=== PATIENT | male | born 1960 | race Caucasian/White ===

== ENCOUNTER 2019-10-18 15:56 | Inpatient (IN) | payer MEDICARE, MEDICAID, SELFPAY ==
[2019-10-18] VITALS (7 sets, daily range): BP systolic 120–127; BP diastolic 65–84; PULSE 84–110; RESP 21–24; TEMP 36.7; O2SAT 94–100; BMI 27.6
--- NOTE | 2019-10-18 16:12 | USCV_ITS ---
Jason Lopez Age: 59 Gender: M : 1960 Exam Date: 10/18/2019 16:21 Ordering Phys: Shawanda Mcleod Technologist: Agustina Dixon [place] [facility] [place]: COLD FOOT WITH HISTORY OF LT FEM TO RT SFA Risk Factors: SMOKER Previous Vascular Surgery: 4 YEARS AGO GRAFT FROM LT IL TO RT SFA DISTALLY RIGHT LEFT BP: 126.0 / 74.00 BP: / 0 Waveform Velocity (cm/s) Velocity (cm/s) Waveform Monophasic 25.4 Iliac Prox Monophasic 45.6 Iliac Mid Monophasic 53.7 Iliac Distal Monophasic 44.6 GENERAL EXPEDITOR Monophasic 29.0 SFA Prox FINDINGS No flow seen in any [place] vessels from mid Rt SFA. The Graft has NO FLOW from Anastomosis at Lt Iliac Art thru out. Unable to do [place]...No flow to Rt IS CONSULTANT or DPA Common femoral and proximal superficial femoral artery on the right side. No Doppler flow signals were obtained in the rest of the superficial femoral, popliteal and infrapopliteal vessels CONCLUSIONS 1. Features of total occlusion of the? Femoro femoral bypass graft #2. Occlusion of the right femoral artery at the level of the proximal SFA with no flow signals in the rest of the superficial femoral, popliteal and infrapopliteal vessels. Dr. Avila was informed about this findings. No similar previous studies are available for comparison Dr Antonio Chang MD [facility] (Electronically Signed) Final Date: 18 October 2019 19:00 S
--- NOTE | 2019-10-18 16:12 | USCV_ITS ---
[place] par[place] Age: 59 Gender: M : 1960 Exam Date: 10/18/2019 16:14 Ordering Phys: Shawanda Mcleod Technologist: Agustina Dixon Exam Location: [facility] [place] Indication: CRAMPING IN RT CALF HISTORY: Cramping in Rt Calf PROCEDURES: Venous duplex imaging was performed in only the right lower extremity. The following venous structures were evaluated: common femoral vein, profunda vein, proximal portion of the greater saphenous vein, superficial femoral vein, and the popliteal vein. In addition, the posterior tibial and peroneal trunk were evaluated. Serial compression, augmentation maneuvers, and spectral Doppler flow evaluation were performed. FINDINGS: No DVT seen in any vessel examinednormal 2-D Doppler and augmentation and compressibility throughout the lower extremity venous structures. Additional imaging through the proximal calf veins also reveals no thrombus. Limited evaluation of the greater saphenous vein is patent with no thrombus. CONCLUSIONS No DVT right lower extremity. Dr. Komal Bass DO (Electronically Signed) Final Date: 19 October 2019 08:08 S
--- NOTE | 2019-10-18 16:14 | ED_ITS ---
Documented by User: DOM Hutchison 10/22/19 07:03 HPI - Extremity Problem General: Chief complaint: Extremity Problem,Nontraumatic Stated complaint: R LEG PAIN Time Seen by Provider: 10/18/19 16:01 Source: patient Mode of arrival: ambulatory Limitations: no limitations History of Present Illness: HPI Narrative: Patient is a 59-year-old male who presents to ED today with complaints of right lower extremity pain over the past 2 days. Patient reports he is having pain in his calf. He was initially seen at [facility] and referred to the emergency department for further evaluation. Upon exam their note states that patient had a 1 cm greater calf circumference on the right compared to the left. Patient tells me he has had a previous femoropopliteal to that extremity as well as some other aortic/iliac resection due to a severe groin staph infection that had to have significant debridement. Associated symptoms: Deny chest pain or fever(s) Review of Systems Const: Denies: fever, chills or body aches Card: Reports: shortness of breath on exertion (chronic with his COPD); Denies: chest pain, palpitations, irregular heart rhythm, edema, lightheadedness, syncope or pre-syncope Resp: Reports: shortness of breath (chronic with his COPD; at baseline per pt) GI: Denies: abdominal pain, nausea or vomiting : Denies: flank pain Musc: Reports: extremity pain; Denies: joint pain, joint swelling, redness, joint warmth, joint stiffness, limited range of motion, muscle cramps or muscle weakness Neuro: Reports: other (reports neuropathy in bilateral LEs) [facility] ED PFSH: Medical History (Updated 10/20/19 @ 08:11 by Manish Smith DO) COPD (chronic obstructive pulmonary disease) Femoral-femoral bypass graft thrombosis, right This is actually a left femoral to right popliteal artery bypass utilizing [place] graft H/O necrotizing fasciitis Involving the right hip and inguinal area, status post extensive debridement; approximately 15 years ago History of CVA (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 Social History Smoking and tobacco status: current every day smoker cigarettes Packs smoked per day: 1.5 Alcohol intake: former Former alcohol use details: sober x 6 yrs Physical Exam Const: COMMON NORMALS: no apparent distress, oriented x3, no limitations, alert and well nourished Chest: COMMONS NORMALS: inspection of chest normal Resp: COMMON NORMALS: normal respiratory effort Cardio: COMMON NORMALS: regular rhythm RATE: tachycardic (mild) RHYTHM: regular rhythm Extremity: OTHER: pt has mild TTP of R calf; R lower leg is cooler/more pale when compared to L; he does not seem to be able to tell me if this is chronic or not from his previous surgeries; DP/PT pulses could not be felt. Neuro: COMMON NORMALS: oriented x3 SENSORIUM/ORIENTATION: Yes alert Course ED course: Spoke to Agustina the cath lab tech who informed me that patient's g raft going from his left iliac artery down to his right distal femoral is completely occluded causing acute limb ischemia. I spoke to Dr. Smith who spoke to Dr. Avila who recommends heparin and admit and him and/or Dr. St will consult. Vital Signs: Vital signs: Vital Signs Temperature 98.6 F 10/22/19 04:00 Pulse Rate 96 10/22/19 04:00 Respiratory Rate 21 H 10/22/19 04:00 Blood Pressure 129/79 10/22/19 04:00 Pulse Oximetry 90 10/22/19 04:00 Discharge Plan Discharge Patient Disposition: Admitted As Inpatient Admit Provider: Holly Harvey Clinical Impression: Femoral-femoral bypass graft thrombosis, right, COPD (chronic obstructive pulmonary disease), Peripheral vascular disease, Hypertension, Hyperlipidemia, Critical limb ischemia with history of revascularization of same extremity Condition: Stable Discharge Date/Time: 10/18/19 18:44 Coding Level of Care Code ED Home Worker for Chg Fwd Exam Problem Focused Documented by User: Manish Smith DO 10/20/19 08:11 HPI - Extremity Problem General: Chief complaint: Extremity Problem,Nontraumatic Stated complaint: R LEG PAIN Time Seen by Provider: 10/18/19 16:01 [facility] ED PFS: Medical History (Updated 10/20/19 @ 08:11 by Manish Smith DO) COPD (chronic obstructive pulmonary disease) Femoral-femoral bypass graft thrombosis, right This is actually a left femoral to right popliteal artery bypass utilizing [place] graft H/O necrotizing fasciitis Involving the right hip and inguinal area, status post extensive debridement; approximately 15 years ago History of CVA (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 Exam unchanged from her documentation. Discussed with the patient he has an occlusion of his graft from left iliac all the way to the proximal popliteal. We will go ahead and start on heparin. Have discussed with hospitalist as well as with Dr. Avila. Consult Dr. Ellington for angiography and then further evaluation of potential limb salvaging procedures. Vital Signs: Vital signs: Vital Signs Temperature 98.6 F 10/22/19 04:00 Pulse Rate 96 10/22/19 04:00 Respiratory Rate 21 H 10/22/19 04:00 Blood Pressure 129/79 10/22/19 04:00 Pulse Oximetry 90 10/22/19 04:00 Discharge Plan Discharge Patient Disposition: Admitted As Inpatient Admit Provider: Holly Harvey Clinical Impression: Femoral-femoral bypass graft thrombosis, right, COPD (chronic obstructive pulmonary disease), Peripheral vascular disease, Hypertension, Hyperlipidemia, Critical limb ischemia with history of revascularization of same extremity Condition: Stable Discharge Date/Time: 10/18/19 18:44 Coding Level of Care Code ED Home Worker for Shira Martins Exam Problem Focused
[2019-10-18] MEDS: morphine 4 mg/mL SDV 1 mL IM (16:29)
--- NOTE | 2019-10-18 16:33 | PC.NURSE ---
PORTABLE ULTRASOUND AT BEDSIDE
--- NOTE | 2019-10-18 17:13 | ECG_ITS ---
Measurements Intervals [place] Rate: 96 P: 66 DC: 148 QRS: 93 QRSD: 90 T: 72 QT: 334 QTc: 424 SINUS RHYTHM BORDERLINE RIGHT AXIS DEVIATION [QRS AXIS > 90] Compared to ECG 02/09/2016 13:56:55 No significant changes Electronically Signed On 10-18-2019 20:43:30 DRILL GRINDER [address] Rafael St M.D. [email or web address]
--- NOTE | 2019-10-18 17:13 | XR_ITS ---
WS: [id number] Portable AP upright chest, 10/18/2019 Clinical Data: cough/congestion Comparison: PA and lateral chest, 02/09/2016. Findings: No nodules, masses or effusions are seen. The heart is normal. The pulmonary vascularity is not increased. No pneumonia or pneumothorax is seen. XR/XR chest 1V portable [id number] Impression: Negative chest.
[2019-10-18 17:42] LABS: Basophils % 0.1 %; Eosinophils # 0.1 10^3/uL (0.0-0.8); Eosinophils % 0.6 %; Hematocrit 44.3 % (42.0-52.0); Hemoglobin 13.6 g/dL (11.7-16.6); Lymphocytes # 1.3 10^3/uL (0.8-4.8); Lymphocytes % 9.8 %; Mean Corpuscular HGB Conc 30.7 g/dL (30.0-36.0); Mean Corpuscular Hemoglobin 27.6 pg (28.0-34.0); Mean Corpuscular Volume 89.9 fL (80-94); Monocytes # 0.8 10^3/uL (0.2-0.9); Monocytes % 5.6 %; Neutrophils # 11.3 10^3/uL (1.8-7.7); Neutrophils % 83.2 %; Nucleated Red Blood Cells % 0 %; Platelet Count 133 10^3/cmm (130-400); Red Blood Count 4.93 10^6/uL (4.1-5.3); Red Cell Distribution Width 14.5 % (12.1-15.1); White Blood Count 13.6 10^3/uL (4.0-10.0)
[2019-10-18 17:48] LABS: INR 0.93 (0.8-1.2)
[2019-10-18 17:49] LABS: Partial Thromboplastin Time 27.9 SECONDS (23.9-36.7)
[2019-10-18 17:59] LABS: Alanine Aminotransferase 15 U/L (0-41); Albumin Level 3.9 g/dL (3.5-5.2); Alkaline Phosphatase 76 IU/L (40-130); Anion Gap 12.4 (5-19); Aspartate Amino Transferase 19 U/L (0-40); Blood Urea Nitrogen 16 mg/dL (6-20); Calcium 9.6 mg/dL (8.5-10.5); Carbon Dioxide 33 mmol/L (22-29); Chloride 100 mmol/L (98-107); Creatinine Clr Calc Pharmacy 93.7199; Glomerular Filtration Rate 86.7 mL/min (90-130); Glucose 95 mg/dL (65-115); Potassium 4.4 mmol/L (3.5-5.1); Sodium 141 mmol/L (136-145); Total Bilirubin 0.3 mg/dL (0.15-1.2); Total Protein 6.9 g/dL (6.6-8.7)
[2019-10-18] MEDS: heparin 5,000 unit/mL INJ 1 mL 5000 UNIT IV (18:07)
[2019-10-18] MEDS: heparin drip 25,000 UNIT/500 ML PREMIX 23.1 UNIT IV (18:08)
--- NOTE | 2019-10-18 18:19 | PM.HP ---
Providers/Chief Complaint Admitting Physician: Holly Harvey MD Primary Care Provider: Jason Olea MD Chief Complaint: PAD;Graft Occlusion History of Present Illness Jason Lopez is a 59 year old male with PMHx of Peripheral vascular disease with prior intervention involving left femoral to right popliteal artery bypass in 2016; Chronic smoker, COPD, Former EtOH abuse (abstinent x 6 yrs), hx of prior brainstem CVA, s/p colectomy secondary to toxic megacolon from severe C. difficile colitis; inguinal and right hip necrotizing fasciitis requiring significant debridement, HTN, Hyperlipidemia; presents from primary care physician's office for evaluation of noted worsening claudication of the right lower extremity and concern for acute limb ischemia. Patient has complained of increasing right lower extremity calf pain particularly with activity with some pain in the gluteal area as well for the past several days in addition to some burning pain in his toes. Because of his history of prior PVD with intervention he got concerned that perhaps his circulation was compromised again so he presented to his PCPs office. There was a noted 1 cm discrepancy between the right and left lower extremity as well as diminished pulses and cool right lower extremity. Patient is a good historian and collateral information is obtained from review of medical record. As mentioned above he had his prior intervention done by Dr. Avila in 2016. Patient readily admits that he has not been taking his medications as prescribed for quite a while which includes aspirin, Plavix and statin. He was taking pain medication, specifically hydrocodone but has not had a prescription for this in quite some time. He is a chronic smoker, smokes anywhere between 1 to 1-1/2 packs/day. He is a former alcoholic though states that he has been relatively abstinent for about 6 years now. He denies any pain on the left, chest pain, lightheadedness/dizziness. He has chronic shortness of breath particularly with exertion secondary to COPD but is not oxygen dependent at baseline. Work-up in the ER today indicates leukocytosis with a white count of 13.6, otherwise normal CBC, normal chemistry including renal function, normal LFTs. Vital signs are stable. Ultrasound has been done and prelim report indicates complete occlusion of patient's previous graft extending from the left iliac artery to the right distal femoral artery. Dr. Smith has spoken with Dr. Avila who will consult on the case and is recommended initiating a heparin drip. He will speak with Dr. St as patient will likely need a peripheral angiogram in anticipation of surgical intervention. Review of Systems Const: Denies: fever, chills, change in appetite or fatigue Eyes: Denies: change in vision ENMT: Denies: painful swallowing Card: Reports: shortness of breath on exertion (chronic), leg pain with exertion (RLE) and bluish discoloration of hands/feet (RLE); Denies: chest pain, swelling of feet/ankles or lightheadedness Resp: Denies: productive cough or non-productive cough GI: Denies: abdominal pain, nausea, vomiting, vomiting blood or blood in stool : Denies: painful urination or urinary frequency Musc: Reports: other (R calf pain, R buttock pain); Denies: back pain Skin/Breast: Denies: rash Neuro: Reports: difficulty walking (due to pain in RLE); Denies: numbness in extremities or weakness in extremities Psych: Denies: anxiety Medications/Allergies Allergies Allergy/AdvReac Type Severity Reaction Status Date / Time clindamycin Allergy ALGY-Rash Verified 10/18/19 16:05 Penicillins Allergy Unknown Verified 10/18/19 16:05 vancomycin Allergy red man Verified 10/18/19 11:54 disease PFSH Acute PFSH: Medical History COPD (chronic obstructive pulmonary disease) Femoral-femoral bypass graft thrombosis, right H/O necrotizing fasciitis Involving the right hip and inguinal area, status post extensive debridement; approximately 15 years ago History of CVA (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 Social History (Updated 10/18/19 @ 18:33 by Holly Harvey MD) Smoking and tobacco status: current every day smoker cigarettes Packs smoked per day: 1.5 Alcohol intake: former Former alcohol use details: sober x 6 yrs Vitals/I&O/Wt Last Vital Signs Temp 98.1 F 10/18/19 15:59 Pulse 101 H 10/18/19 18:11 Resp 21 H 10/18/19 18:11 BP 120/65 10/18/19 18:11 Pulse Ox 94 10/18/19 18:11 Weight last 48 hrs Weight 82.554 kg Physical Exam Const: COMMON NORMALS: no apparent distress and oriented x3 GENERAL APPEARANCE: cooperative, comfortable and disheveled ORIENTATION/CONSCIOUSNESS: Yes awake HENMT: COMMON NORMALS: normocephalic, head/scalp atraumatic, hearing grossly normal bilaterally and moist oral mucous membranes HEAD & SCALP: normocephalic and atraumatic Eye: COMMON NORMALS: PERRL, EOMs intact bilaterally and conjunctivae normal CONJUNCTIVA: Yes conjunctivae normal PUPIL: Yes PERRL Neck/C-Spine: COMMON NORMALS: full ROM GENERAL: Yes normal visual inspection and Yes trachea midline Resp: COMMON NORMALS: normal respiratory effort, no retractions, no use of accessory muscles and clear to auscultation bilaterally EFFORT & INSPECTION: Yes able to speak in complete sentences, Yes symmetric chest movement and No tachypneic AUSCULTATION: wheezes expiratory wheezes and diminished lung sounds bilateral Cardio: COMMON NORMALS: regular rate, regular rhythm, S1 normal heart sound, S2 normal heart sound and no murmurs RATE: regular rate RHYTHM: regular rhythm HEART SOUNDS: S1 normal and S2 normal GI: COMMON NORMALS: normal to inspection, nondistended, normoactive bowel sounds, soft to palpation and non-tender INSPECTION: Yes visible herniation (ventral) and Yes ostomy present PALPATION: Yes soft : OTHER: R inguinal area with healed scar Back/Pelvis: COMMON NORMALS: thoracic and lumbar spine normal to inspection Extremity: COMMON NORMALS: normal to inspection, full ROM and no clubbing, cyanosis or edema; negative for no pedal edema GENERAL: Yes calf tenderness (RLE) OTHER: RLE: cool to touch, diminished peripheral pulses, dusky toes particularly great toe Neuro: COMMON NORMALS: oriented x3, moves all extremities, no focal motor deficits and no sensory deficits noted Psych: COMMON NORMALS: mental status grossly normal, thought process normal, cooperative, affect normal and speech normal SPEECH: Yes normal speech THOUGHT PROCESS: normal thought process Skin: COMMON NORMALS: no rashes or lesions noted, no jaundice, no petechiae and no mottling GENERAL SKIN EXAM: dry skin, mottling (RLE) and scars (abdomen) surgical Data : 10/18/19 17:30 10/18/19 17:30 A&P Assessment and plan (1) Right calf pain: -with known PVD status post left common femoral artery to right popliteal artery bypass in 2016 secondary to right lower extremity exertional claudication and occlusion of right superficial femoral artery; procedure done by Dr. Avila -Follow-up ultrasound and venous studies, prelim report indicates complete occlusion of previous graft so definite concern for acute limb ischemia, symptomatic with pain, pallor, paresthesia, diminished pulses -Patient has multiple risk factors including medication noncompliance, being a chronic smoker and pre-existing peripheral vascular disease -Start on heparin drip -Fall precautions -Pain control as needed -To be seen by Dr. Avila and Dr. St -keep NPO for now, start on IVF hydration -will need antiplatelet therapy and statin -monitor vital signs Status: Acute Code(s): M79.661 - Pain in right lower leg (2) COPD (chronic obstructive pulmonary disease): -has known COPD, not oxygen dependent at baseline, no acute exacerbation currently -supplemental oxygen as needed -monitor respiratory status -Neb treatments as needed Status: Acute Qualifiers: COPD type: unspecified COPD Qualified Code(s): J44.9 - Chronic obstructive pulmonary disease, unspecified Code(s): J44.9 - Chronic obstructive pulmonary disease, unspecified Additional A&P Information -Chronic smoker: 1-1.5 PPD; nicotine patch -HTN; resume oral antihypertensive -Hyperlipidemia; check lipid panel in AM; will need statin (high intensity) -Chronic pain; pain control as needed -s/p colectomy secondary to toxic megacolon from C.difficile colitis; colectomy care -former EtoH abuse -hx of prior brainstem CVA; no residual deficits -NPO after midnight -no need for DVT ppx as on heparin drip -Dispo: home -Code status: FULL code Attestations Medical Necessity Statement*: Jason Lopez's hospital stay will require greater than 2 midnights for management of acute critical limb ischemia requiring further evaluation and intervention. Time Spent in Patient Care: Greater than 35 minutes (>than 50% of time spent in counselling and/or direct pt care on unit). Coding Level of Care Code Acute Teaching Supervisor for Chg Fwd Diagnoses Right calf pain M79.661 COPD (chronic obstructive pulmonary disease) J44.9 COPD type: unspecified COPD
[2019-10-18] MEDS: HYDROcodone-acetaminophen 5-325 mg Tablet 1 TAB PO (19:18)
[2019-10-18 19:52] LABS: Add Urine Microscopic? NO
[2019-10-18 19:53] LABS: Bilirubin Urine Neg (NEGATIVE); Blood Urine Neg (Negative); Glucose Urine UA Norm (Normal); Leukocyte Esterase Urine Negative (Negative); Nitrate Urine Negative (Negative); Protein Urine Neg (Negative); Urine Appearance Clear (CLEAR); Urine Color Yellow (Yellow); Urobilinogen Urine Norm (Negative); pH Urine 5 (5-7)
[2019-10-18 19:54] LABS: Ketones Urine 1+ (Negative)
--- NOTE | 2019-10-18 20:06 | PC.NURSE ---
Patient arrived to room from ED after report was received via phone. Patient complained of pain 7/10 in his right leg. Patient states that IV morphine only help for a minute. Patient was given PRN [place] for pain. Patient is alert and oriented and is able to ambulate, however has pain in right leg when ambulating. Pulses were easily doppled in left foot. Left foot is warmer than right foot. Pulses were harder to find by Doppler in right foot and pulses had a quieter/muffled sound.
[2019-10-18] MEDS: atorvastatin 40 mg Tablet PO (20:12)
[2019-10-18 20:48] LABS: Glucose Point of Care 113 mg/dL (70-110)
--- NOTE | 2019-10-18 21:19 | PM.CONSULT ---
Providers/Reason For Consult Consulting Physican/Specialty*: Interventional cardiology Reason for Consult*: Critical limb ischemia severe peripheral vascular disease Attending Physician: Holly Harvey MD Primary Care Provider: Jason Olea MD History of Present Illness History of Present Illness Jason Lopez is a 59 year old male presented with worsening of right leg pain. Please note that I do not have any previous record available to me therefore history is as per patient. 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 In 2016 Dr. Avila performed femorofemoral and femoral-popliteal right side bypass it worked fine for the last for 5-year. According to him he has been noncompliant continues to smoke and does not take medicine for the past few weeks he has been hurting upon walking with typical claudication-like symptoms until yesterday his pain became more constant and not unbearable therefore he decided to come to the ER. Doppler exam did not reveal any blood supply in the right leg including SFA popliteal and below the knee. His foot and leg still are warm not cold. His motor and sensation are intact. He is in moderate pain. He has been started on heparin drip. Review of Systems Const: Denies: fever, chills, body aches, change in appetite or fatigue Eyes: Denies: change in vision or photophobia ENMT: Denies: painful swallowing Card: Reports: shortness of breath on exertion (chronic), leg pain with exertion (RLE) and bluish discoloration of hands/feet (RLE); Denies: chest pain, palpitations, irregular heart rhythm, edema, swelling of feet/ankles, lightheadedness, syncope or pre-syncope Resp: Reports: shortness of breath (chronic with his COPD; at baseline per pt); Denies: productive cough or non-productive cough GI: Denies: abdominal pain, nausea, vomiting, vomiting blood or blood in stool : Denies: flank pain, painful urination or urinary frequency Musc: Reports: extremity pain and other (R calf pain, R buttock pain); Denies: back pain, joint pain, joint swelling, redness, joint warmth, joint stiffness, limited range of motion, muscle cramps or muscle weakness Skin/Breast: Denies: rash Neuro: Reports: difficulty walking (due to pain in RLE) and other (reports neuropathy in bilateral LEs); Denies: numbness in extremities or weakness in extremities Psych: Denies: anxiety Meds/Allergies Home Medications and Allergies Home Medications Medication Instructions Recorded Confirmed Type fluoxetine 20 mg capsule 20 mg PO DAILY 10/18/19 10/18/19 History fluticasone 250 mcg-salmeterol 50 1 - 2 inh INHALATION BID each 10/18/19 10/18/19 History mcg/dose blistr powdr for inhalation lisinopril 2.5 mg tablet 2.5 mg PO DAILY 10/18/19 10/18/19 History prednisone 10 mg tablet 20 mg PO DAILY 10/18/19 10/18/19 History Allergies Allergy/AdvReac Type Severity Reaction Status Date / Time clindamycin Allergy ALGY-Rash Verified 10/18/19 16:05 Penicillins Allergy Unknown Verified 10/18/19 16:05 vancomycin Allergy red man Verified 10/18/19 11:54 disease Current Medications Current Medications Generic Name Dose Route Start Last Admin Trade Name Freq PRN Reason Stop Dose Admin Hydrocodone Bitart/Acetaminophen 1 tab 10/18/19 18:45 10/18/19 19:18 [place] 5-325 Mg PO 1 tab Q4H PRN Administration MODERATE TO SEVERE PAIN Atorvastatin Calcium 40 mg 10/18/19 21:00 10/18/19 20:12 Lipitor PO 40 mg BEDTIME MANDO Administration Heparin Sodium/Sodium Chloride 25,000 unit in 500 mls @ 0 mls/hr 10/18/19 17:15 10/18/19 18:08 Heparin Drip IV 14 unit/kg/hr .Q0M MANDO 23.1 mls/hr Administration Protocol Per Protocol PFSH Acute PFSH: Medical History (Updated 10/18/19 @ 21:[address] MD) COPD (chronic obstructive pulmonary disease) (Acute) Femoral-femoral bypass graft thrombosis, right (Acute) H/O necrotizing fasciitis (Acute) Involving the right hip and inguinal area, status post extensive debridement; approximately 15 years ago History of CVA (cerebrovascular accident) (Acute) Involving 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 Avila Hx of colectomy (Acute) Secondary to toxic megacolon from severe C. difficile colitis Social History Smoking and tobacco status: current every day smoker cigarettes Packs smoked per day: 1.5 Alcohol intake: former Former alcohol use details: sober x 6 yrs Vitals/I&O/Wt Last Vital Signs Temp 98.1 F 10/18/19 19:21 Pulse 101 H 10/18/19 18:45 Resp 23 H 10/18/19 18:45 BP 126/84 10/18/19 18:45 Pulse Ox 94 10/18/19 18:45 Weight last 48 hrs Weight 182 lb Physical Exam Narrative: EXAM NARRATIVE: GENERAL: Patient is alert, awake and oriented x3. Mild discomfort NECK: No jugular vein distension. HEENT: No cyanosis. No icterus. No pallor. HEART: Regular S1 and S2. No murmur, rub or gallop. LUNGS: Clear to auscultate bilaterally. ABDOMEN: Soft, nontender and nondistended. Extensive lower abdominal scarring, right groin scarring CENTRAL NERVOUS SYSTEM: Grossly nonfocal. EXTREMITIES: Lower extremities without edema bilaterally. Pulses not palpable in both extremities, both feet legs are warm and not cold. Right foot slight dusky A&P Assessment and plan (1) Critical limb ischemia with history of revascularization of same extremity: This is a very complicated patient with prior many intervention and distorted anatomy. His history is compatible with critical limb ischemia. Femorofemoral bypass is occluded. He continues to be noncompliant. Will continue heparin pain control. Will keep the foot warm I will ask for CTA with runoff tonight. I will assess his anatomy and discuss this with Dr. Avila. We will advise accordingly Status: Acute Code(s): I99.8 - Other disorder of circulatory system; Z95.9 - Presence of cardiac and vascular implant and graft, unspecified (2) Hyperlipidemia: On statin will continue meds Status: Acute Code(s): E78.5 - Hyperlipidemia, unspecified (3) Hypertension: Well-controlled continue med Status: Acute Code(s): I10 - Essential (primary) hypertension (4) COPD (chronic obstructive pulmonary disease): History of COPD. Currently stable. Status: Acute Qualifiers: COPD type: unspecified COPD Qualified Code(s): J44.9 - Chronic obstructive pulmonary disease, unspecified Code(s): J44.9 - Chronic obstructive pulmonary disease, unspecified Consult Attestations Medical Necessity Statement: I am expecting his stay to cross more than 2 midnights Coding Level of Care Code New Pt Acute Glue Specialty Supervisor for Chg Fwd Patient Type New History Expanded Problem Focused Exam Expanded Problem Focused Medical Decision Making Moderate Complexity Diagnoses Critical limb ischemia with history of revascularization of same extremity I99.8; Z95.9 Hyperlipidemia E78.5 Hypertension I10 COPD (chronic obstructive pulmonary disease) J44.9 COPD type: unspecified COPD
--- NOTE | 2019-10-18 21:20 | CTR_ITS ---
PROCEDURE INFORMATION: Exam: CTA Angiogram of the Abdominal Aorta and Bilateral Lower Extremities (Run-off) With IV Contrast Exam date and time: 10/18/2019 10:11 PM Age: 59 years old Clinical indication: Other: RT leg pain; Prior surgery; Surgery date: 6+ months; Surgery type: Colostomy, fem-pop bypass graft, fem-fem bypass; Additional info: Critical limb ischemia of right leg TECHNIQUE: Imaging protocol: CT angiogram of the abdominal aorta, pelvis and bilateral lower extremities with IV iodinated contrast. 3D rendering: MIP and/or 3D reconstructed images were created by the technologist. Total DLP: 1499.71 mGy-cm Radiation optimization: All CT scans at this facility use at least one of these dose optimization techniques: automated exposure control; mA and/or kV adjustment per patient size (includes targeted exams where dose is matched to clinical indication); or iterative reconstruction. Contrast material: OMNI 350; Contrast volume: 95 ml; Contrast route: 20G; COMPARISON: CTA Chest-Pulmonary Emb 19522 12/15/2014 9:27 PM FINDINGS: Aorta: There is mild aortic atherosclerotic disease. There is no aortic dissection or aneurysm. Celiac trunk and mesenteric arteries: Mild atherosclerotic disease in the proximal celiac artery without significant stenosis. Superior mesenteric artery is normal. Renal arteries: Mild atherosclerotic disease at the bilateral renal artery origin without significant stenosis. Right iliac arteries: There is occlusion at the origin of the right common iliac artery. There is reconstitution of the small [place] right external iliac artery by collaterals beyond the internal iliac artery. Right femoral/popliteal arteries: The right common femoral artery demonstrates moderate atherosclerotic disease. There is short segment occlusion at the origin of the right femoral artery. The right femoral artery is very small diffusely and is occluded distally, just above of the insertion of the occluded femoral to femoral bypass graft. The right popliteal artery is occluded. There is mild atherosclerotic disease with less than 50% stenosis at the origin of the patent right profundus femoris artery. Right infrapopliteal arteries: There is reconstitution of the anterior and posterior tibial arteries via collaterals. These are patent to the level of the ankle. Left iliac arteries: Mild atherosclerotic disease without occlusion or narrowing in the left common and external iliac arteries. Left femoral/popliteal arteries: No occlusion or significant stenosis in the common femoral or femoral artery. Focal atherosclerotic disease with high-grade stenosis of the distal popliteal artery at the level of the tibioperoneal trunk. Left infrapopliteal arteries: Patent 3 vessel runoff to the left foot. Lungs: Mild reticular opacity with tree-in-bud opacities in the anterior inferior right lower and middle lobes suggesting low-grade infection of uncertain chronicity. Liver: The liver is normal. Gallbladder and bile ducts: The gallbladder is normal. There is no biliary dilation. Pancreas: The pancreas is unremarkable. Spleen: The spleen is unremarkable. Adrenals: The adrenal glands are unremarkable. Kidneys and ureters: The kidneys are unremarkable. No hydronephrosis or stones. No ureteral dilation. Stomach and bowel: The stomach is distended. The wall is thin. The small bowel is nondilated. There is no sign of inflammation. Unremarkable right upper quadrant ileostomy. Subtotal colectomy. Unremarkable sigmoid mucous fistula. Appendix: The appendix is absent. Bladder: The urinary bladder is unremarkable. Reproductive: The prostate and seminal vesicles are unremarkable. Intraperitoneal space: There is no free air or significant intraperitoneal free fluid. Lymph nodes: There is no lymphadenopathy in the retroperitoneum, mesentery, pelvis or inguinal regions. Bones/joints: Bones are unremarkable. There is mild degenerative disease in the lumbar spine. The pelvis and hips are unremarkable. Soft tissues: Musculature in the lower extremities is unremarkable. Marked laxity of the ventral abdominal wall with diastasis recti. No peristomal hernia at the right upper quadrant ileostomy. Portal Venous System: The portal, splenic and superior mesenteric veins are patent. CT/CT angio abd aorta runof 56001 IMPRESSION: 1. Occlusion of the right common and external iliac artery with occlusion of a femoral to femoral bypass graft and minimal collateral filling of right lower extremity arteries. 2. High-grade focal stenosis of the distal left popliteal artery. 3. Low-grade, possibly chronic infection in the inferior right lower and middle lobes. Radiation Dose CTDIVOL = (mGy): DLP = 1499.71 (mGy-cm)
[2019-10-18] MEDS: iohexol 350 mg/mL 100 mL Btl 95 ML IV (22:32)
[2019-10-18] MEDS: morphine 4 mg/mL SDV 1 mL 2 MG IVP (22:46)
[2019-10-18] MEDS: sodium chloride 0.9% 1,000 ML 100 ML IV (22:58)
[2019-10-19] VITALS (94 sets, daily range): BP systolic 109–170; BP diastolic 68–92; PULSE 70–104; RESP 12–31; TEMP 36.8; O2SAT 90–98
[2019-10-19] MEDS: HYDROcodone-acetaminophen 5-325 mg Tablet 1 TAB PO ×2 (01:09→05:18)
[2019-10-19 01:22] LABS: Partial Thromboplastin Time 87.4 SECONDS (23.9-36.7)
--- NOTE | 2019-10-19 03:03 | PC.NURSE ---
Another nurse notified me that patient hit his call light stating that he was having 10/10 pain. This nurse went to check on patient. Patient had eyes closed, laying in bed. Nurse asked are you still hurting? Patient did not awaken to this. Will continue to monitor.
[2019-10-19] MEDS: morphine 4 mg/mL SDV 1 mL 2 MG IVP ×5 (03:15→23:10)
--- NOTE | 2019-10-19 04:42 | PC.NURSE ---
2 L NC placed on patient due to oxygen saturation of 84%. Oxygen saturation is now 92%. Will continue to monitor.
[2019-10-19 04:49] LABS: Basophils % 0.3 %; Eosinophils # 0.3 10^3/uL (0.0-0.8); Eosinophils % 2.4 %; Hematocrit 43.3 % (42.0-52.0); Hemoglobin 13.1 g/dL (11.7-16.6); Lymphocytes % 23.5 %; Mean Corpuscular HGB Conc 30.3 g/dL (30.0-36.0); Mean Corpuscular Hemoglobin 28.7 pg (28.0-34.0); Mean Platelet Volume 11.6 fL (7.4-10.4); Monocytes # 0.9 10^3/uL (0.2-0.9); Monocytes % 6.7 %; Neutrophils # 8.4 10^3/uL (1.8-7.7); Neutrophils % 65.9 %; Nucleated Red Blood Cells % 0 %; Platelet Count 123 10^3/cmm (130-400); Red Blood Count 4.56 10^6/uL (4.1-5.3); Red Cell Distribution Width 14.6 % (12.1-15.1); White Blood Count 12.8 10^3/uL (4.0-10.0)
--- NOTE | 2019-10-19 04:55 | PC.NURSE ---
Dr. St notified of patient complaining of 10/10 pain in right foot. Patient received 2 mg Morphine was given to patient at 0315. 2 mg Morphine for now ordered.
--- NOTE | 2019-10-19 05:00 | PC.NURSE ---
Dr. St also notified that patient stated give me something to knock me out.
[2019-10-19 05:08] LABS: Chol HDL Ratio 2.51 mg/dL (1.0-5.00); Cholesterol 181 mg/dL (0-200); HDL Cholesterol 72 mg/dL (60-100); LDL Cholesterol Calculated 81 mg/dL (50-129); LDL HDL Ratio 1.13 RATIO (0.00-3.22); Triglycerides 141 mg/dL (0-150)
[2019-10-19 05:09] LABS: Alanine Aminotransferase 13 U/L (0-41); Albumin Level 3.5 g/dL (3.5-5.2); Alkaline Phosphatase 70 IU/L (40-130); Anion Gap 14.3 (5-19); Aspartate Amino Transferase 19 U/L (0-40); Blood Urea Nitrogen 19 mg/dL (6-20); Calcium 8.7 mg/dL (8.5-10.5); Carbon Dioxide 27 mmol/L (22-29); Chloride 99 mmol/L (98-107); Globulin 2.7 g/dL (1.3-4.6); Glomerular Filtration Rate 99.3 mL/min (90-130); Glucose 94 mg/dL (65-115); Potassium 4.3 mmol/L (3.5-5.1); Sodium 136 mmol/L (136-145); Total Bilirubin 0.5 mg/dL (0.15-1.2); Total Protein 6.2 g/dL (6.6-8.7)
[2019-10-19 05:11] LABS: Estmated Average Glucose 117; Hemoglobin A1C 5.7 % (4.0-6.0)
[2019-10-19 05:19] LABS: Thyroid Stimulating Hormone 1.22 uIU/mL (0.27-4.20)
--- NOTE | 2019-10-19 05:26 | PC.NURSE ---
Patient is stating that he does not think that I gave him the Morphine because I did not feel anything. Patient was educated that he was given the 2 mg Morphine that was ordered by the doctor as was as the [place] pill. Patient continues to state I did not feel anything.
[2019-10-19] MEDS: sodium chloride 0.9% 1,000 ML 100 ML IV (08:03)
[2019-10-19 08:23] LABS: Partial Thromboplastin Time 66.1 SECONDS (23.9-36.7)
[2019-10-19] MEDS: aspirin 325 mg Tablet PO (08:41)
[2019-10-19] MEDS: nicotine 21 mg Patch 1 PATCH TRANSDERMA (08:41)
[2019-10-19] MEDS: fluoxetine 20 mg Capsule PO (08:42)
[2019-10-19] MEDS: clopidogrel 75 mg Tablet PO (08:42)
--- NOTE | 2019-10-19 09:08 | PM.PN ---
Subjective Subjective: Interval history: AM labs noted, reviewed CTA with runoff results. Received a total of 6 mg of IV morphine and 3 doses of [place] for pain control overnight. Patient seen and examined, quite drowsy during my visit earlier this morning though continues to request pain medication. Pending peripheral angiogram later this afternoon by Dr. St. Case discussed briefly with Dr. Avila earlier this morning, will wait on cath for further recommendations. Medications: Reviewed: Yes Vitals/I&O/Wt Last Vital Signs Temp 98.2 F 10/19/19 07:28 Pulse 94 10/19/19 07:28 Resp 18 10/19/19 08:36 BP 142/79 10/19/19 07:28 Pulse Ox 95 10/19/19 08:36 10/18/19 10/19/19 10/19/19 22:59 06:59 14:59 Intake Total 700 / 700 1148.333 / 1148.333 Output Total 600 / 600 350 / 950 Balance -600 / -600 350 / -250 1148.333 / 1148.333 Weight last 48 hrs Weight 88.178 kg Weight 82.554 kg Physical Exam Const: COMMON NORMALS: no apparent distress and oriented x3 GENERAL APPEARANCE: cooperative, comfortable, disheveled and lethargic ORIENTATION/CONSCIOUSNESS: Yes awake and Yes lethargic HENMT: COMMON NORMALS: normocephalic, head/scalp atraumatic, hearing grossly normal bilaterally and moist oral mucous membranes HEAD & SCALP: normocephalic and atraumatic Eye: COMMON NORMALS: PERRL, EOMs intact bilaterally and conjunctivae normal CONJUNCTIVA: Yes conjunctivae normal PUPIL: Yes PERRL Neck/C-Spine: COMMON NORMALS: full ROM GENERAL: Yes normal visual inspection and Yes trachea midline Resp: COMMON NORMALS: normal respiratory effort, no retractions, no use of accessory muscles and clear to auscultation bilaterally EFFORT & INSPECTION: Yes able to speak in complete sentences, Yes symmetric chest movement and No tachypneic AUSCULTATION: clear to auscultation bilaterally, wheezes expiratory wheezes and diminished lung sounds bilateral Cardio: COMMON NORMALS: regular rate, regular rhythm, S1 normal heart sound, S2 normal heart sound and no murmurs RATE: regular rate RHYTHM: regular rhythm HEART SOUNDS: S1 normal and S2 normal GI: COMMON NORMALS: normal to inspection, nondistended, normoactive bowel sounds, soft to palpation and non-tender INSPECTION: Yes scar (has extensive scarring of lower abdomen), Yes visible herniation (ventral) and Yes ostomy present PALPATION: Yes soft : OTHER: R inguinal area with healed scar Back/Pelvis: COMMON NORMALS: thoracic and lumbar spine normal to inspection Extremity: COMMON NORMALS: normal to inspection, full ROM and no clubbing, cyanosis or edema; negative for no pedal edema GENERAL: Yes calf tenderness (RLE) OTHER: RLE: warmer to touch today, diminished peripheral pulses, dusky toes particularly great toe Neuro: COMMON NORMALS: oriented x3, moves all extremities, no focal motor deficits and no sensory deficits noted SENSORIUM/ORIENTATION: Yes lethargic Psych: COMMON NORMALS: mental status grossly normal, thought process normal, cooperative, affect normal and speech normal SPEECH: Yes normal speech THOUGHT PROCESS: normal thought process Skin: COMMON NORMALS: no jaundice, no petechiae and no mottling GENERAL SKIN EXAM: dry skin, mottling (RLE) and scars (abdomen) surgical Data : 10/19/19 04:10 10/19/19 04:10 A&P Assessment and plan (1) Right calf pain: -with known PVD status post left common femoral artery to right popliteal artery bypass in 2016 secondary to right lower extremity exertional claudication and occlusion of right superficial femoral artery; procedure done by Dr. Avila -Follow-up ultrasound and venous studies, prelim report indicates complete occlusion of previous graft so definite concern for acute limb ischemia, symptomatic with pain, pallor, paresthesia, diminished pulses -Patient has multiple risk factors including medication noncompliance, being a chronic smoker and pre-existing peripheral vascular disease -on heparin drip -Fall precautions -Pain control as needed -consult by Dr. Avila appreciated -consult by Dr. St appreciated; CTA w/runoff done showing occlusion of the previous femorofemoral bypass graft, occlusion of the right common and external iliac artery, high-grade focal stenosis of the distal left popliteal artery. Peripheral angiogram this afternoon -NPO for now, off IVF hydration due to concern for fluid overload -continue ASA, Plavix, statin -VSS; continue to monitor vital signs Status: Acute Code(s): M79.661 - Pain in right lower leg (2) COPD (chronic obstructive pulmonary disease): -has known COPD, not oxygen dependent at baseline, no acute exacerbation currently -supplemental oxygen as needed -continue to monitor respiratory status -Neb treatments as needed Status: Acute Qualifiers: COPD type: unspecified COPD Qualified Code(s): J44.9 - Chronic obstructive pulmonary disease, unspecified Code(s): J44.9 - Chronic obstructive pulmonary disease, unspecified Additional A&P Information -Chronic smoker: 1-1.5 PPD; nicotine patch -HTN; continue oral antihypertensive -Hyperlipidemia; noted lipid panel; on statin (high intensity) -Chronic pain; pain control as needed -s/p colectomy secondary to toxic megacolon from C.difficile colitis; colectomy care -former EtoH abuse -hx of prior brainstem CVA; no residual deficits -NPO after midnight -no need for DVT ppx as on heparin drip -Dispo: home -Code status: FULL code Attestations Medical Necessity Statement*: Patient requires hospitalization for continued management of acute critical limb ischemia on medical management pending decision on intervention following peripheral angiogram Time Spent in Patient Care: Greater than 35 minutes (>than 50% of time spent in counselling and/or direct pt care on unit). Coding Level of Care Code Acute [employer] Burner for Shira Martins Exam Problem Focused Diagnoses Right calf pain M79.661 COPD (chronic obstructive pulmonary disease) J44.9 COPD type: unspecified COPD
--- NOTE | 2019-10-19 10:02 | PM.CONSULT ---
Providers/Reason For Consult Consulting Physican/Specialty*: Dr. Avila, cardiothoracic surgery Reason for Consult*: Acute ischemia right lower extremity Attending Physician: Holly Harvey MD Primary Care Provider: Jason Olea MD History of Present Illness History of Present Illness Jason Lopez is a 59 year old male with a substantial past medical history including peripheral vascular disease status post left femoral to distal right popliteal artery bypass by myself utilizing [place] graft back in 2016. He presented with progressive discomforts of his right lower extremity over the past couple of days including right buttock pain. He has a known right common iliac artery occlusion. He has a complicated past medical history including peripheral vascular disease, status post colectomy secondary to toxic megacolon from C. difficile, right upper quadrant ileostomy, previous brainstem CVA, hypertension, COPD, and status post right hip and inguinal region necrotizing fasciitis 15 years ago. Unfortunately, he continues to smoke between a pack and a pack and half a day. He also states he has discontinued his aspirin, statin, and Plavix quite some time ago. He has undergone a CTA yesterday evening which reveals occlusion of his left femoral to right popliteal artery bypass. There is low flow in the external iliac artery due to collateralization from the internal iliac. He has occlusion of his right common iliac artery and SFA with reconstitution below the popliteal artery, which is occluded, where there is stenosis with two-vessel runoff to the ankle by collateralization. I have conferred with my colleague Dr. St. Mr. Lopez is scheduled for an angiogram this afternoon for further delineation of his anatomy and pathology. Review of Systems Const: Denies: fever, chills, change in appetite, change in weight, fatigue or night sweats Eyes: Denies: change in vision or blurry vision ENMT: Denies: painful swallowing or hoarseness Card: Reports: leg pain with exertion (Right calf and gluteal pain) and bluish discoloration of hands/feet; Denies: chest pain, palpitations, irregular heart rhythm or edema Resp: Denies: shortness of breath or productive cough GI: Denies: abdominal pain, nausea, vomiting, difficulty swallowing, heartburn/indigestion or change in bowel habits : Denies: difficulty urinating, painful urination, urinary frequency, urinary urgency or urinary hesitancy Musc: Denies: extremity pain or extremity swelling Skin/Breast: Denies: rash Neuro: Denies: headache, numbness in extremities, weakness in extremities or changes in sensation Psych: Denies: anxiety, depression or change in appetite Endo: Denies: excessive urination, excessive thirst or cold intolerance Malik/Lymph: Denies: easy bruising, easy bleeding, petechiae or enlarged lymph nodes Meds/Allergies Home Medications and Allergies Home Medications Medication Instructions Recorded Confirmed Type fluoxetine 20 mg capsule 20 mg PO DAILY 10/18/19 10/18/19 History fluticasone 250 mcg-salmeterol 50 1 - 2 inh INHALATION BID each 10/18/19 10/18/19 History mcg/dose blistr powdr for inhalation lisinopril 2.5 mg tablet 2.5 mg PO DAILY 10/18/19 10/18/19 History prednisone 10 mg tablet 20 mg PO DAILY 10/18/19 10/18/19 History Allergies Allergy/AdvReac Type Severity Reaction Status Date / Time clindamycin Allergy ALGY-Rash Verified 10/18/19 16:05 Penicillins Allergy Unknown Verified 10/18/19 16:05 vancomycin Allergy red man Verified 10/18/19 11:54 disease Current Medications Current Medications Generic Name Dose Route Start Last Admin Trade Name Freq PRN Reason Stop Dose Admin Hydrocodone Bitart/Acetaminophen 1 tab 10/18/19 18:45 10/19/19 05:18 [place] 5-325 Mg PO 1 tab Q4H PRN Administration MODERATE TO SEVERE PAIN Aspirin 325 mg 10/19/19 09:00 10/19/19 08:41 Aspirin PO 325 mg DAILY MANDO Administration Atorvastatin Calcium 40 mg 10/18/19 21:00 10/18/19 20:12 Lipitor PO 40 mg BEDTIME MANDO Administration Clopidogrel Bisulfate 75 mg 10/19/19 09:00 10/19/19 08:42 Plavix PO 75 mg DAILY MANDO Administration Fluoxetine HCl 20 mg 10/19/19 09:00 10/19/19 08:42 Prozac PO 20 mg DAILY MANDO Administration Heparin Sodium/Sodium Chloride 25,000 unit in 500 mls @ 0 mls/hr 10/18/19 17:15 10/18/19 18:08 Heparin Drip IV 14 unit/kg/hr .Q0M MANDO 23.1 mls/hr Administration Protocol Per Protocol Sodium Chloride 1,000 mls @ 100 mls/hr 10/18/19 22:00 10/19/19 08:03 Sodium Chloride 0.9% IV 100 mls/hr .Q10H MANDO Administration Morphine Sulfate 2 mg 10/18/19 18:02 10/19/19 08:36 Morphine IVP 2 mg Q4H PRN Administration SEVERE PAIN Nicotine 1 patch 10/19/19 09:00 10/19/19 08:41 Nicoderm 21 Mg Patch TRANSDERMA 1 patch DAILY MANDO Administration PFSH Acute PFSH: Medical History (Updated 10/19/19 @ 10:10 by Sushant Avila MD) COPD (chronic obstructive pulmonary disease) Femoral-femoral bypass graft thrombosis, right This is actually a left femoral to right popliteal artery bypass utilizing [place] graft H/O necrotizing fasciitis Involving the right hip and inguinal area, status post extensive debridement; approximately 15 years ago History of CVA (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 Social History Smoking and tobacco status: current every day smoker cigarettes Packs smoked per day: 1.5 Alcohol intake: former Former alcohol use details: sober x 6 yrs Vitals/I&O/Wt Last Vital Signs Temp 98.2 F 10/19/19 07:28 Pulse 94 10/19/19 07:28 Resp 18 10/19/19 08:36 BP 142/79 10/19/19 07:28 Pulse Ox 95 10/19/19 08:36 10/18/19 10/19/19 10/19/19 22:59 06:59 14:59 Intake Total 700 / 700 1148.333 / 1148.333 Output Total 600 / 600 350 / 950 Balance -600 / -600 350 / -250 1148.333 / 1148.333 Weight last 48 hrs Weight 194 lb 6.4 oz Weight 182 lb Physical Exam Const: COMMON NORMALS: oriented x3 HENMT: COMMON NORMALS: normocephalic HEAD & SCALP: normocephalic Eye: COMMON NORMALS: PERRL, EOMs intact bilaterally and conjunctivae normal CONJUNCTIVA: Yes conjunctivae normal PUPIL: Yes PERRL Neck/C-Spine: COMMON NORMALS: no carotid bruits CAROTIDS: Yes normal carotid upstroke and No carotid tenderness Resp: COMMON NORMALS: negative for clear to auscultation bilaterally EFFORT & INSPECTION: Yes symmetric chest movement, Yes abnormal respiratory pattern, Yes tachypneic, Yes grunting and Yes uses accessory muscles AUSCULTATION: not clear to auscultation bilaterally and wheezes expiratory wheezes and throughout Cardio: COMMON NORMALS: regular rate, regular rhythm and S1 normal heart sound RATE: regular rate RHYTHM: regular rhythm HEART SOUNDS: S1 normal GI: COMMON NORMALS: soft to palpation; negative for normal to inspection, nondistended, normoactive bowel sounds AUSCULTATION: Yes normoactive bowel sounds PALPATION: Yes soft, No tender and No guarding OTHER: Extensive scarring of the abdominal wall with a functioning right upper quadrant colostomy and abdominal wall hernia versus extensive diastases Extremity: OTHER: 2+ palpable left dorsalis pedis pulse and 1+ palpable left posterior tibial pulse Right foot has a very light monophasic Doppler dorsalis pedis signal. The right lower extremity is warm down to the forefoot where there is some mild mottling changes, which apparently have improved since heparinization. His calf is quite tender though without tension. Neuro: COMMON NORMALS: oriented x3, moves all extremities, no focal motor deficits and no sensory deficits noted Psych: COMMON NORMALS: thought process normal, cooperative and affect normal THOUGHT PROCESS: normal thought process A&P Assessment and plan (1) Femoral-femoral bypass graft thrombosis, right: 59-year-old gentleman with an occlusion of his left femoral to right distal popliteal artery bypass which has been performed to 3-1/2 years ago. I have reviewed the CTs scan findings and discussed with my colleague Dr. St. We are planning for angiography this afternoon. I believe our interventional options are quite limited related to his substantial disease as well as prior colectomy and right upper quadrant ileostomy. Essentially, he has a surgically hostile abdomen. I have been very kiran with Mr. Lopez as to the dire situation we are currently in and the limitations for our therapeutic options. We will await review of his angiography this afternoon to see what capabilities we may have. Status: Acute Code(s): T82.868A - Thrombosis due to vascular prosthetic devices, implants and grafts, initial encounter Consult Attestations Medical Necessity Statement: Severe peripheral vascular disease with ischemia of the right lower extremity status post left femoral to right popliteal artery bypass 3-1/2 years ago Time Spent in Patient Care: Greater than 35 minutes Coding Level of Care Code Acute Stock Puller for Shira Martins Diagnoses Femoral-femoral bypass graft thrombosis, right T82.868A
[2019-10-19] MEDS: FUROsemide 10 mg/mL SDV 4mL 40 MG IVP (10:08)
[2019-10-19] MEDS: ipratropium-albuterol 3 mL Neb INHALATION ×3 (12:10→19:58)
--- NOTE | 2019-10-19 13:44 | PC.NURSE ---
DR CROWLEY V/O SAID TO HOLD BENADRYL 50MG UNTIL 1400.
[2019-10-19] MEDS: acetaminophen 325 mg Tablet 650 MG PO (13:47)
[2019-10-19] MEDS: diphenhydrAMINE 50 mg Capsule PO (13:48)
--- NOTE | 2019-10-19 13:53 | PC.NURSE ---
V/O DR. PIRES HOLD MORPHINE AND NORCO UNTIL AFTER PROCEDURE DUE TO PATIENTS LEVEL OF SEDATION; OK TO GIVE TYLENOL 650MG. ( GIVEN ). PATIENT REQUESTING THAT I CONTACT DR. PIRES FOR RECONSIDERATION OF HOLDING MORPHINE. CONTACTED DR PIRES VIA VOLT SHE REPLIED NO, HE IS TOO DROWSY. INFORMED PATIENT OF DECISION.
--- NOTE | 2019-10-19 15:56 | PC.CHAP ---
Pastoral Care Encounter/Spiritual Assessment Type of Contact [] Declined cotton chopper visit [] Patient/Family/Request visit [] Outpatient visit [] Follow-up visit [] Physician referral [] Code/Alert [x] Routine visit [] Staff referral [] Actively dying [] Patient sleeping [] Family support [] [] Out of room [] Palliative care [] [x] Receiving care in room [] Pre-surgical visit [] Trauma [x] Long length of stay [] ICU visit [] Other: Relational/Emotional Strength [x] Patient feels connected with others/family/visitors/staff [] Distress [] Loneliness/isolation [] Abandonment Spirituality of Patient [] Person of Becki [] Attends Yazidism of their Becki [x] Believes in Prayer [] Reads Bible or Muslim materials [] There are Spiritual issues to be addressed Cyber Threat Analyst Interventions [x] Prayer [x] Active listening [x] Non-anxious presence [x] Spiritual/emotional support [] Crisis/trauma care [] Spiritual counseling [] Bereavement support [] Provided bereavement packet [] Provided Bible/devotional materials [] Provided toy/stuffed animal, coloring book to patient or family member [] Provided Communion [] Anointing/[place] [] Salvation [x] Completed spiritual assessment [] Other: Impact on Illness or Injury [] Angry [x] Fearful [x] Anxious [] Often cries [] Exhaustion [x] Unable to work [] Unable to attend druze [x] Unable to walk/stand [] Unable to read [x] Unable to drive [] Unable to eat/drink [] Unable to sleep [] Unable to be with family [] Patient intubated [] Other: Summary Communication good / Knows what is happening / doesn't know what needs to be done? Time spent with patient 10 mins
--- NOTE | 2019-10-19 18:29 | XACV_ITS ---
Ht: 173 cm Wt: 88 kg BSA: 2.08 m2 Any Known Allergies: Penicillins Gender: Male : 1960 Exam Type: Invasive Peripheral Vascular Procedure(s): Procedure Description: Peripheral Cath Diagnostic Procedure Procedure Description: Abdominal aortic angiography Procedure Description: Lower extremities' angiography Exam Priority: Routine Conclusions Patient underwent peripheral angiogram today. There is no abdominal aortic aneurysm. Abdominal aorta luminal irregularity. Right and left renal arteries has luminal irregularities. He has chronically 100% occluded right ostial common, external/internal iliac, common femoral, SFA and no flow below knee as well was noted. There appeared to be right profunda femoral artery filled through collaterals from pelvic vessels . Profunda femoral then gives collateral to short segment of distal SFA beyond which no popliteal or tibioperoneal, anterior posterior tibial or peroneal arterial flow was observed. Left common iliac, external and internal iliac, common femoral, profunda, SFA, popliteal, tibioperoneal trunk, anterior posterior and peroneal artery has luminal irregularities without significant stenosis. Sluggish flow was observed below the left knee arteries but overall reasonably good flow in the left leg and foot. This is a complicated patient with prior extensive history of interventions along with abdominal wall infection fasciitis complicated with MRSA. I do not see any landing zone for possible grafting or any considerable hope for percutaneous intervention. He may well end up losing his leg. I have detailed discussion with the patient last night and again with him and his brother today. I will also conveyed this to Dr. Avila who will be able to advise him after reviewing films. Once complete bedrest we will resume heparin and pain management. Further plan will be advised as per progress of the patient. Access Site Site: Left Femoral artery Sheath Size: 6 Fr Hemost... Success: Unsuccessful Procedure Details Findings Procedure Consent Obtained. Admit Source: In Patient. Pre-Procedure Time Out. Identified patient by full name and date of as verbalized by the patient/guarantor. Does the consent match the physician's order: Yes. Accurate & Complete Informed Consent: Yes. Inpatient/Outpatient History & Physical on Chart: Yes. If H&P is completed, is and addenduem needed: N/A; If yes, is the addendum complete: N/A. Visualize and Verify Site with Patient/Guarantor: N/A. Relevant Radiology Images available: N/A. Pre-op teaching completed and patient verbalized understanding. The risks, benefits, and alternatives of sedation and/or procedure were discussed by physician. The patient agrees to continue. Procedure started. Correct patient, site and procedure confirmed by cath team. PERRLA. Strong, equal hand player development manager bilaterally. Lungs clear x 5 lobes. IV Site on Arrival: 20 gauge in the right forearm. IV Site on Arrival: 20 gauge in the left anticubital. Oxygen started at 4liters/min via nasal canula. bilateral groins was prepped with chloroprep then draped in the usual sterile fashion. right radial was prepped with chloroprep then draped in the usual sterile fashion. Baseline sample Acquired. HR: 73 BPM. Physician notified. Physician arrived. Physician scrubbed in. Immediate Pre-Procedure Time Out. Correct Patient: Yes; Correct Procedure: Yes; Correct Site: Yes; Correct Patient Position: Yes; Correct Supplies: Yes; Dried Flammable Prep: Yes; Blood Products Available: N/A;. Lidocaine 1% infiltrated to the left groin. Arterial access obtained with micropuncture set. Glenda Lozada taking over for Wanda Mcguire. A 5FrFr UF catheter in over wire. Abdominal aortogram performed in AP @ 10 mL/sec for a total of 30 mL. Wanda Mcguire RT was relieved by Jeff Doshi as monitoring person. Run off right leg performed 10mL/sec for total of 30mL. Catheter out. Run off performed on left leg 10mL/sec for total of 30mL. Contrast Material : Visipaque 102 ml. Medication's Wasted: Lidocaine 1% = 5mL. Medication's Wasted: Heparin = 1000 units. Total IV fluids: 50 mL. Sheath(s) sutured into position with 2-0 silk and sterile 4x4's and Op-site applied over the site. No oozing or signs and symptoms of hematoma noted. Arterial sheath flushed and connected to tranducer and pressure bag with heparinized saline. Post Procedure: Pulses reassessed and unchanged. PERRLA. Strong, equal hand player development manager bilaterally. Complications: NA. Estimated blood loss: 5mL-10mL. Procedure completed. Patient transferred by bed to 1st floor. Post-op diagnosis: Severe PVD. Vital chart was stopped. Procedure Medications Start: 6:38 PM Stop: 6:38 PM Medication: Versed Amount: 1 mg Start: 6:38 PM Stop: 6:38 PM Medication: Fentanyl Amount: 50 mcg Route: I.V. I, the attending physician, have reviewed and verified all procedure medications. Yes, all medications given per verbal order History/Risk Factors Hypertension: Yes Dyslipidemia: Yes Peripheral Arterial Disease (PAD): Yes Myocardial Infarction (AL): No Obesity: No Renal Disease: No Tobacco Use: Current/Recent(w/in 1 year) Prior Interventions PCI: No CABG: No Valve Surgery: No Report Signatures Finalized by:Rafael St MD on 10/20/2019 11:56:20 AM
--- NOTE | 2019-10-19 19:11 | P.PN_ITS ---
Subjective Subjective: Interval history: Patient has resting pain with the dusky foot still motor and sensory intact. Patient underwent peripheral angiogram today. He had chronically 100% occluded right ostial common, external/internal iliac, common femoral, SFA and no flow below knee as well was noted. There appeared to be right profundofemoral artery filled through collaterals from pelvic vessels . Profundofemoral then gives collateral to shot segment of distal SFA beyond which no popliteal or tibioperoneal, anterior posterior tibial or peroneal arterial flow was observed. This is a complicated patient with prior extensive history of interventions along with abdominal wall infection fasciitis complicated with MRSA. I do not see any landing zone for possible grafting or any considerable hope for percutaneous intervention. He may well end up losing his leg. I have detailed discussion with the patient last night and again with him and his brother today. I will also conveyed this to Dr. Avila who will be able to advise him after reviewing films. Once complete bedrest we will resume heparin and pain management. Further plan will be advised as per progress of the patient. Medications: Reviewed: Yes Vitals/I&O/Wt Last Vital Signs Temp 98.2 F 10/19/19 07:28 Pulse 86 10/19/19 16:15 Resp 18 10/19/19 16:06 BP 109/89 10/19/19 16:00 Pulse Ox 95 10/19/19 16:06 10/19/19 10/19/19 10/19/19 06:59 14:59 22:59 Intake Total 700 / 700 1148.333 / 1148.333 Output Total 350 / 950 1000 / 1000 1600 / 2600 Balance 350 / -250 148.333 / 148.333 -1600 / -1451.667 Weight last 48 hrs Weight 194 lb 6.4 oz Weight 182 lb Physical Exam Narrative: EXAM NARRATIVE: GENERAL: Patient is alert, awake and oriented x3. Mild discomfort NECK: No jugular vein distension. HEENT: No cyanosis. No icterus. No pallor. HEART: Regular S1 and S2. No murmur, rub or gallop. LUNGS: Clear to auscultate bilaterally. ABDOMEN: Soft, nontender and nondistended. Extensive lower abdominal scarring, right groin scarring CENTRAL NERVOUS SYSTEM: Grossly nonfocal. EXTREMITIES: Lower extremities without edema bilaterally. Pulses not palpable in both extremities, both feet legs are warm and not cold. Right foot slight dusky Data : 10/19/19 04:10 10/19/19 04:10 A&P Assessment and plan (1) Femoral-femoral bypass graft thrombosis, right: 59-year-old gentleman with an occlusion of his left femoral to right distal popliteal artery bypass which has been performed to 3-1/2 years ago. I have reviewed the CTs scan findings and discussed with my colleague Dr. St. Vj clark are planning for angiography this afternoon. I believe our interventional options are quite limited related to his substantial disease as well as prior colectomy and right upper quadrant ileostomy. Essentially, he has a surgically hostile abdomen. I have been very kiran with Mr. Lopez as to the dire situation we are currently in and the limitations for our therapeutic options. We will await review of his angiography this afternoon to see what capabilities we may have. Status: Acute Code(s): T82.868A - Thrombosis due to vascular prosthetic devices, implants and grafts, initial encounter (2) Critical limb ischemia with history of revascularization of same extremity: Patient has resting pain with the dusky foot still motor and sensory intact. Patient underwent peripheral angiogram today. He had chronically 100% occluded right ostial common, external/internal iliac, common femoral, SFA and no flow below knee as well was noted. There appeared to be right profundofemoral artery filled through collaterals from pelvic vessels . Profundofemoral then gives collateral to shot segment of distal SFA beyond which no popliteal or tibioperoneal, anterior posterior tibial or peroneal arterial flow was observed. This is a complicated patient with prior extensive history of interventions along with abdominal wall infection fasciitis complicated with MRSA. I do not see any landing zone for possible grafting or any considerable hope for percutaneous intervention. He may well end up losing his leg. I have detailed discussion with the patient last night and again with him and his brother today. I will also conveyed this to Dr. Avila who will be able to advise him after reviewing films. Once complete bedrest we will resume heparin and pain management. Further plan will be advised as per progress of the patient. I will sign off for now. Status: Acute Code(s): I99.8 - Other disorder of circulatory system; Z95.9 - Presence of cardiac and vascular implant and graft, unspecified (3) Hypertension: Controlled continue med Status: Acute Code(s): I10 - Essential (primary) hypertension (4) COPD (chronic obstructive pulmonary disease): As per medicine Status: Acute Qualifiers: COPD type: unspecified COPD Qualified Code(s): J44.9 - Chronic obstructive pulmonary disease, unspecified Code(s): J44.9 - Chronic obstructive pulmonary disease, unspecified Attestations Medical Necessity Statement*: As per medicine surgery Coding Level of Care Code Established Pt Acute Fertilizer Processing Supervisor for g Fwd Patient Type Established History Expanded Problem Focused Exam Expanded Problem Focused Medical Decision Making Moderate Complexity Diagnoses Femoral-femoral bypass graft thrombosis, right T82.868A Critical limb ischemia with history of revascularization of same extremity I99.8; Z95.9 Hypertension I10 COPD (chronic obstructive pulmonary disease) J44.9 COPD type: unspecified COPD
--- NOTE | 2019-10-19 19:21 | PC.NURSE ---
Patient arrived back from [employer] Of [employer]. Patient has a Sheath to R groin connect to pressure bag. Patient is resting with with eyes closed, respirations are even and unlabored. Patient is connected to the vital signs monitor. Orders to check PTT and restart heparin drip once patients bed rest is complete.
[2019-10-19 20:02] LABS: Partial Thromboplastin Time 29.1 SECONDS (23.9-36.7)
--- NOTE | 2019-10-19 20:07 | PC.NURSE ---
Was notified by RT that patient was in pain. I went down to patient's room to asses his pain and patient was resting with his eyes closed, and respirations were even and unlabored. Patient did not wake up when I went in his room and will continue to monitor.
[2019-10-19] MEDS: fentaNYL 50 mcg/mL INJ 2mL IVP (20:38)
[2019-10-19] MEDS: sodium chloride 0.9% 1,000 ML 50 ML IV (21:40)
[2019-10-19] MEDS: atorvastatin 40 mg Tablet PO (21:42)
--- NOTE | 2019-10-19 21:56 | PC.NURSE ---
FLUIDS ALREADY RUNNING. I WENT AHEAD AND SCANNED THE BAG OF NS THAT WAS RUNNING.
--- NOTE | 2019-10-19 22:07 | PC.NURSE ---
Patient's R sheath pulled at 2044 by JOYCE Gamez. JOYCE Triplett held pressure for 20mins and completed at 2105. Patient instructed to lay flat for 6 hours, and educated about keeping HOB at 30 degrees, bracing site when coughing. Site is clean dry and intact and vitals remained stable throughout procedure. Patient verbalized understanding.
--- NOTE | 2019-10-19 23:15 | PC.NURSE ---
Morphine Given with [place]on ARMENDARIZ as a Witness. Patient complaining of pain in L leg 05/15. Patient's eyes were closed even and unlabored respirations. Morphine given as requested for patient's pain.
[2019-10-20] VITALS (14 sets, daily range): BP systolic 122–149; BP diastolic 72–89; PULSE 88–108; RESP 18–29; TEMP 36.7–36.8; O2SAT 82–96
[2019-10-20] MEDS: HYDROcodone-acetaminophen 5-325 mg Tablet 1 TAB PO ×2 (01:47→07:03)
[2019-10-20] MEDS: heparin 5,000 unit/mL INJ 1 mL INJECTION (03:54)
[2019-10-20] MEDS: heparin drip 25,000 UNIT/500 ML PREMIX 25 UNIT IV (03:55)
[2019-10-20 04:38] LABS: Basophils % 0.2 %; Eosinophils # 0.3 10^3/uL (0.0-0.8); Eosinophils % 2.1 %; Hematocrit 44.4 % (42.0-52.0); Hemoglobin 13.7 g/dL (11.7-16.6); Lymphocytes # 1.3 10^3/uL (0.8-4.8); Lymphocytes % 10.4 %; Mean Corpuscular HGB Conc 30.9 g/dL (30.0-36.0); Mean Corpuscular Hemoglobin 28.1 pg (28.0-34.0); Mean Corpuscular Volume 91.2 fL (80-94); Mean Platelet Volume 11.5 fL (7.4-10.4); Monocytes # 0.8 10^3/uL (0.2-0.9); Monocytes % 6.7 %; Neutrophils # 9.9 10^3/uL (1.8-7.7); Nucleated Red Blood Cells % 0 %; Platelet Count 123 10^3/cmm (130-400); Red Blood Count 4.87 10^6/uL (4.1-5.3); Red Cell Distribution Width 14.2 % (12.1-15.1); White Blood Count 12.3 10^3/uL (4.0-10.0)
[2019-10-20 04:54] LABS: Anion Gap 12.2 (5-19); Blood Urea Nitrogen 17 mg/dL (6-20); Calcium 9.2 mg/dL (8.5-10.5); Carbon Dioxide 34 mmol/L (22-29); Chloride 98 mmol/L (98-107); Creatinine Clr Calc Pharmacy 96.5666; Glomerular Filtration Rate 86.7 mL/min (90-130); Glucose 150 mg/dL (65-115); Osmolality Calculated 289 mOsm/kg (285-295); Potassium 4.2 mmol/L (3.5-5.1); Sodium 140 mmol/L (136-145)
--- NOTE | 2019-10-20 04:57 | PC.NURSE ---
Heparin gtt restarted at 0400 at 25mls per hour per protocol and per Dr. Patricia order. PTT put in for 10:00am.
[2019-10-20] MEDS: morphine 4 mg/mL SDV 1 mL 2 MG IVP (07:21)
--- NOTE | 2019-10-20 07:31 | PC.NURSE ---
Bedside Rounding done Site observed with JOYCE Meraz and Pulses Doppled in both feet.
[2019-10-20] MEDS: ipratropium-albuterol 3 mL Neb INHALATION ×3 (08:26→19:36)
--- NOTE | 2019-10-20 08:27 | P.PN_ITS ---
Subjective Subjective: Interval history: Case discussed with Dr. tS yesterday following peripheral angiogram; AM labs noted, overnight, required 1 dose of IV morphine 2 mg and 1 dose of hydrocodone. Patient seen and examined, brother at bedside, is quite uncomfortable and continues to complain of pain in his right lower extremity. Will switch from morphine to Dilaudid. Did discuss issue of increased somnolence as a potential side effect of narcotics which patient is aware of. Will discontinue heparin drip and start on therapeutic Lovenox. Patient seems to be responding better in terms of more effective pain control with the switch from morphine to Dilaudid. I had also added Toradol and gabapentin pain regimen earlier this morning. Medications: Reviewed: Yes Medication Review Details: Current Medications Generic Name Dose Route Start Last Admin Trade Name Freq PRN Reason Stop Dose Admin Acetaminophen 650 mg 10/18/19 18:45 10/19/19 13:47 Tylenol PO 650 mg Q6H PRN Administration Mild/Mod Pain Or Temp >/= 101 Hydrocodone Bitart /Acetaminophen 1 tab 10/18/19 18:45 10/20/19 07:03 [place] 5-325 Mg PO 1 tab Q4H PRN Administration MODERATE TO SEVER E PAIN Albuterol/Ipratrop ium 3 ml 10/19/19 12:00 10/20/19 08:26 Duoneb INHALATION 3 ml Q4H.RESPIRATORY P RN Administration SHORTNESS OF KRAIG TH Aspirin 325 mg 10/19/19 09:00 10/19/19 08:41 Aspirin PO 325 mg DAILY MANDO Administration Atorvastatin Calci um 40 mg 10/18/19 21:00 10/19/19 21:42 Lipitor PO 40 mg BEDTIME MANDO Administration Clopidogrel Bisulf ate 75 mg 10/19/19 09:00 10/19/19 08:42 Plavix PO 75 mg DAILY MANDO Administration Fentanyl 50 mcg 10/19/19 20:32 10/19/19 20:38 Sublimaze IVP 50 mcg PRN PRN Administration Prior to sheath r emoval Fluoxetine HCl 20 mg 10/19/19 09:00 10/19/19 08:42 Prozac PO 20 mg DAILY MANDO Administration Heparin Sodium (Be ef Lung) 0 unit 10/20/19 03:41 10/20/19 03:54 Heparin INJECTION 4,500 unit PRN PRN Administration Heparin gtt lucia col Protocol Heparin Sodium/Sod ium Chloride 25,000 unit in 50 0 mls @ 0 mls/hr 10/18/19 17:15 10/20/19 03:55 Heparin Drip IV 15.14 unit/kg/hr .Q0M MANDO 25 mls/hr Administration Protocol Per Protocol Sodium Chloride 1,000 mls @ 100 m ls/hr 10/18/19 22:00 10/19/19 21:42 Sodium Chloride 0.9% IV Not Given .Q10H MANDO Morphine Sulfate 2 mg 10/18/19 18:02 10/20/19 07:21 Morphine IVP 2 mg Q4H PRN Administration SEVERE PAIN Nicotine 1 patch 10/19/19 09:00 10/19/19 08:41 Nicoderm 21 Mg P atch TRANSDERMA 1 patch DAILY MANDO Administration Vitals/I&O/Wt Last Vital Signs Temp 98.2 F 10/20/19 07:21 Pulse 98 10/20/19 07:21 Resp 28 H 10/20/19 07:21 BP 149/86 10/20/19 07:21 Pulse Ox 95 10/20/19 07:21 10/19/19 10/20/19 10/20/19 22:59 06:59 14:59 Intake Total 500 / 1648.333 120 / 1768.333 Output Total 1600 / 2600 Balance -1100 / -951.667 120 / -831.667 Weight last 48 hrs Weight 83.779 kg Weight 88.178 kg Weight 82.554 kg Physical Exam Const: COMMON NORMALS: no apparent distress, oriented x3 and alert GENERAL APPEARANCE: cooperative, comfortable and disheveled ORIENTATION/CONSCIOUSNESS: Yes awake HENMT: COMMON NORMALS: normocephalic, head/scalp atraumatic, hearing grossly normal bilaterally and moist oral mucous membranes HEAD & SCALP: normocephalic and atraumatic Eye: COMMON NORMALS: PERRL, EOMs intact bilaterally and conjunctivae normal CONJUNCTIVA: Yes conjunctivae normal PUPIL: Yes PERRL Neck/C-Spine: COMMON NORMALS: full ROM GENERAL: Yes normal visual inspection and Yes trachea midline Resp: COMMON NORMALS: normal respiratory effort, no retractions and no use of accessory muscles EFFORT & INSPECTION: Yes able to speak in complete sentences, Yes symmetric chest movement and No tachypneic AUSCULTATION: diminished lung sounds bilateral Cardio: COMMON NORMALS: regular rate, regular rhythm, S1 normal heart sound, S2 normal heart sound and no murmurs RATE: regular rate RHYTHM: regular rhythm HEART SOUNDS: S1 normal and S2 normal GI: COMMON NORMALS: normal to inspection, nondistended, normoactive bowel sounds, soft to palpation and non-tender INSPECTION: Yes scar (has extensive scarring of lower abdomen), Yes visible herniation (ventral) and Yes ostomy present PALPATION: Yes soft : OTHER: R inguinal area with healed scar Back/Pelvis: COMMON NORMALS: thoracic and lumbar spine normal to inspection Extremity: COMMON NORMALS: normal to inspection, full ROM and no clubbing, cyanosis or edema; negative for no pedal edema GENERAL: Yes calf tenderness (RLE) OTHER: RLE: warmer to touch, diminished peripheral pulses, dusky toes particularly great toe Neuro: COMMON NORMALS: oriented x3, moves all extremities, no focal motor deficits and no sensory deficits noted SENSORIUM/ORIENTATION: Yes alert Psych: COMMON NORMALS: mental status grossly normal, thought process normal, cooperative, affect normal and speech normal SPEECH: Yes normal speech THOUGHT PROCESS: normal thought process Skin: COMMON NORMALS: no jaundice, no petechiae and no mottling GENERAL SKIN EXAM: dry skin, mottling (RLE) and scars (abdomen) surgical Data : 10/20/19 04:05 10/20/19 04:05 A&P Assessment and plan (1) Right calf pain: -with known PVD status post left common femoral artery to right popliteal artery bypass in 2016 secondary to right lower extremity exertional claudication and occlusion of right superficial femoral artery; procedure done by Dr. Avila -Follow-up ultrasound and venous studies, prelim report indicates complete occlusion of previous graft so definite concern for acute limb ischemia, symptomatic with pain, pallor, paresthesia, diminished pulses -Patient has multiple risk factors including medication non-compliance, being a chronic smoker and pre-existing peripheral vascular disease -has been on heparin drip; switch to therapeutic Lovenox -Fall precautions -Pain control as needed; switched from morphine to Dilaudid, added gabapentin and Toradol for more optimal pain control. Need to continue to monitor for somnolence and respiratory depression -consult by Dr. Avila appreciated -consult by Dr. St appreciated; CTA w/runoff done showing occlusion of the previous femorofemoral bypass graft, occlusion of the right common and external iliac artery, high-grade focal stenosis of the distal left popliteal artery. s/p peripheral angiogram on 10/19 showing chronic complete occlusion of right ostial common, external and internal iliac, common femoral, SFA and no flow below the knee -off IVF hydration -continue ASA, Plavix, statin -VSS; continue to monitor vital signs Status: Acute Code(s): M79.661 - Pain in right lower leg (2) COPD (chronic obstructive pulmonary disease): -has known COPD, not oxygen dependent at baseline, no acute exacerbation currently -supplemental oxygen as needed -continue to monitor respiratory status -Neb treatments as needed Status: Acute Code(s): J44.9 - Chronic obstructive pulmonary disease, unspecified Additional A&P Information -Chronic smoker: 1-1.5 PPD; nicotine patch -HTN; continue oral antihypertensive -Hyperlipidemia; noted lipid panel; on statin (high intensity) -Chronic pain; pain control as needed -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 Time Spent in Patient Care: Greater than 35 minutes (>than 50% of time spent in counselling and/or direct pt care on unit) . Coding Level of Care Code Acute Front Counter Clerk for Shira Fwd Exam Detailed Diagnoses Right calf pain M79.661 COPD (chronic obstructive pulmonary disease) J44.9
[2019-10-20] MEDS: ALPRAZolam 0.25 mg Tablet PO ×2 (09:44→17:31)
[2019-10-20] MEDS: nicotine 21 mg Patch 1 PATCH TRANSDERMA (09:44)
[2019-10-20] MEDS: fluoxetine 20 mg Capsule PO (09:44)
[2019-10-20] MEDS: aspirin 325 mg Tablet PO (09:44)
[2019-10-20] MEDS: clopidogrel 75 mg Tablet PO (09:44)
[2019-10-20] MEDS: sodium chloride 0.9% 1,000 ML 100 ML IV (10:06)
[2019-10-20 10:25] LABS: Partial Thromboplastin Time 67.3 SECONDS (23.9-36.7)
[2019-10-20] MEDS: HYDROmorphone 1 mg/mL INJ 1 mL 0.5 MG IVP ×2 (12:43→17:31)
[2019-10-20] MEDS: ketorolac 30 mg/mL INJ IVP ×2 (12:45→19:11)
[2019-10-20] MEDS: enoxaparin 80 mg/0.8 mL Syringe SUBCUT (12:46)
[2019-10-20] MEDS: gabapentin 300 mg Capsule PO ×2 (14:38→20:30)
[2019-10-20] MEDS: atorvastatin 40 mg Tablet PO (20:30)
--- NOTE | 2019-10-20 22:28 | PC.NURSE ---
Rounded on patient and patient sitting up eating a snack. I asked if patient needed anything and patient denied any needs at this time. Will continue to monitor.
[2019-10-21] VITALS (18 sets, daily range): BP systolic 103–144; BP diastolic 67–83; PULSE 92–130; RESP 14–23; TEMP 36.6–37.1; O2SAT 90–95
[2019-10-21] MEDS: HYDROcodone-acetaminophen 5-325 mg Tablet 1 TAB PO ×3 (00:32→21:55)
[2019-10-21] MEDS: enoxaparin 80 mg/0.8 mL Syringe SUBCUT ×3 (00:33→23:19)
--- NOTE | 2019-10-21 00:39 | PC.NURSE ---
Went to explain to the patient that I was giving him a Vanduser as requested. He said he thought they stopped it. I said they didn't. Patient swallowed the pill rated his leg pain a 7/10. Patient then asked why he hadn't gotten diludid all night I stated because you hadn't asked. Diludid is usually used for breakthrough pain and they had started him on gabapentin, toradol, and Vanduser to help prevent the pain from getting severe. Patient proceeded to get loud and say that i was just giving him what I wanted and wasn't controlling his pain and why was I not just going to give him diludid like he asked for. I asked if the toradol I gave you at 1900 helped? Patient stated he never asked for toradol which at 1900 the patient asked for toradol and was told what medication he was given and the side effects. I rounded on the patient at 2230 and patient denied any pain and around 2330 patient was sleeping. [facility].
[2019-10-21] MEDS: HYDROmorphone 1 mg/mL INJ 1 mL 0.5 MG IVP ×6 (00:55→23:17)
--- NOTE | 2019-10-21 01:05 | PC.NURSE ---
Continued from earlier note.. Patient also thinks that we should skip the middle shit and do the stuff that works which is the Dilaudid. Patient did not want to listen to any education about pain management and only proceeded to get louder. I tried to tell the patient the reasons behind the oral medications and benefits but he said i was making up my own rules to suit me. He stated after he had already swallowed the norco-5 that he hadn't been sleeping a whole lot or slurring his words so he needed his Dilaudid or his pain would get unbearable. I tried to tell him the risk of giving to narcotics together but patient demanded to have the Dilaudid and told me that he was getting made. I left the room to go the the Dilaudid and patient woke up when I entered the room saying his right leg pain was a 8/10. Dilaudid given as patient asked over 4 minutes. Will continue to monitor.
--- NOTE | 2019-10-21 02:08 | PC.NURSE ---
Rounded on Patient. He was Resting with eyes closed when I entered the room. Patient denied any pain and asked for a extra pillow. Pillow was provided. Patient nasal cannula was in place at 3L and saturation was 93%. Will continue to monitor.
--- NOTE | 2019-10-21 05:24 | PC.NURSE ---
Patient ambulated with walker to the bathroom. This nurse changed his sheets and gown. Patient requested his pain medication. I asked if he meant the Dilaudid and he said yes. I stated it was time. Patient also was given coffee as requested and he apologized for being cranky earlier. Will continue to monitor.
[2019-10-21 05:54] LABS: Basophils % 0.3 %; Eosinophils # 0.4 10^3/uL (0.0-0.8); Eosinophils % 3.6 %; Hematocrit 43.3 % (42.0-52.0); Hemoglobin 13.2 g/dL (11.7-16.6); Lymphocytes # 1.5 10^3/uL (0.8-4.8); Lymphocytes % 15.2 %; Mean Corpuscular HGB Conc 30.5 g/dL (30.0-36.0); Mean Corpuscular Hemoglobin 28.2 pg (28.0-34.0); Mean Corpuscular Volume 92.5 fL (80-94); Mean Platelet Volume 12.2 fL (7.4-10.4); Monocytes # 0.7 10^3/uL (0.2-0.9); Monocytes % 6.9 %; Neutrophils # 7.4 10^3/uL (1.8-7.7); Neutrophils % 73.3 %; Nucleated Red Blood Cells % 0 %; Platelet Count 120 10^3/cmm (130-400); Red Blood Count 4.68 10^6/uL (4.1-5.3); Red Cell Distribution Width 14.2 % (12.1-15.1)
[2019-10-21] MEDS: ipratropium-albuterol 3 mL Neb INHALATION ×2 (06:04→13:50)
--- NOTE | 2019-10-21 08:30 | PM.PN ---
Subjective Subjective: Interval history: Required 1 mg Dilaudid, 30 mg of Toradol and 1 dose of [place] for pain control overnight. AM labs noted. Patient seen and examined, sitting up for his lunch, no apparent distress, states that pain is tolerable, continues to do well with pain regimen as ordered particularly with Dilaudid and Toradol. Would like to wait to further discuss things with Dr. Olea tomorrow but more than likely will seek a second opinion in [place] before making any final decision on intervention. He has been able to use a walker to get to and from the bathroom. Medications: Reviewed: Yes Medication Review Details: Current Medications Generic Name Dose Route Start Last Admin Trade Name Freq PRN Reason Stop Dose Admin Acetaminophen 650 mg 10/18/19 18:45 10/19/19 13:47 Tylenol PO 650 mg Q6H PRN Administration Mild/Mod Pain Or Temp >/= 101 Hydrocodone Bitart /Acetaminophen 1 tab 10/18/19 18:45 10/21/19 00:32 [place] 5-325 Mg PO 1 tab Q4H PRN Administration MODERATE TO SEVER E PAIN Albuterol/Ipratrop ium 3 ml 10/19/19 12:00 10/21/19 06:04 Duoneb INHALATION 3 ml Q4H.RESPIRATORY P RN Administration SHORTNESS OF KRAIG TH Alprazolam 0.25 mg 10/19/19 19:10 10/20/19 17:31 Xanax PO 0.25 mg TID PRN Administration ANXIETY Aspirin 325 mg 10/19/19 09:00 10/20/19 09:44 Aspirin PO 325 mg DAILY MANDO Administration Atorvastatin Calci um 40 mg 10/18/19 21:00 10/20/19 20:30 Lipitor PO 40 mg BEDTIME MANDO Administration Clopidogrel Bisulf ate 75 mg 10/19/19 09:00 10/20/19 09:44 Plavix PO 75 mg DAILY MANDO Administration Enoxaparin Sodium 80 mg 10/20/19 12:00 10/21/19 00:33 Lovenox SUBCUT 80 mg Q12H MANDO Administration Fentanyl 50 mcg 10/19/19 20:32 10/19/19 20:38 Sublimaze IVP 50 mcg PRN PRN Administration Prior to sheath r emoval Fluoxetine HCl 20 mg 10/19/19 09:00 10/20/19 09:44 Prozac PO 20 mg DAILY MANDO Administration Gabapentin 300 mg 10/20/19 15:00 10/20/19 20:30 Neurontin PO 300 mg TID MANDO Administration Hydromorphone HCl 0.5 mg 10/20/19 11:53 10/21/19 05:41 Dilaudid Inj IVP 0.5 mg Q4H PRN Administration SEVERE PAIN Ketorolac Trometha mine 30 mg 10/20/19 11:53 10/20/19 19:11 Toradol IVP 10/25/19 11:52 30 mg Q6H PRN Administration MODERATE PAIN Nicotine 1 patch 10/19/19 09:00 10/20/19 09:44 Nicoderm 21 Mg P atch TRANSDERMA 1 patch DAILY MANDO Administration Vitals/I&O/Wt Last Vital Signs Temp 98.0 F 10/21/19 08:00 Pulse 105 H 10/21/19 08:00 Resp 20 H 10/21/19 08:00 BP 144/70 10/21/19 08:00 Pulse Ox 94 10/21/19 08:00 10/20/19 10/21/19 10/21/19 22:59 06:59 14:59 Intake Total 550 / 1270 370 / 1640 Output Total 750 / 1950 651 / 2601 Balance -200 / -680 -281 / -961 Weight last 48 hrs Weight 86.137 kg Weight 83.779 kg Physical Exam Const: COMMON NORMALS: no apparent distress, oriented x3 and alert GENERAL APPEARANCE: cooperative and comfortable ORIENTATION/CONSCIOUSNESS: Yes awake HENMT: COMMON NORMALS: normocephalic, head/scalp atraumatic, hearing grossly normal bilaterally and moist oral mucous membranes HEAD & SCALP: normocephalic and atraumatic Eye: COMMON NORMALS: PERRL, EOMs intact bilaterally and conjunctivae normal CONJUNCTIVA: Yes conjunctivae normal PUPIL: Yes PERRL Neck/C-Spine: COMMON NORMALS: full ROM GENERAL: Yes normal visual inspection and Yes trachea midline Resp: COMMON NORMALS: normal respiratory effort, no retractions and no use of accessory muscles EFFORT & INSPECTION: Yes able to speak in complete sentences, Yes symmetric chest movement and No tachypneic AUSCULTATION: diminished lung sounds bilateral Cardio: COMMON NORMALS: regular rate, regular rhythm, S1 normal heart sound, S2 normal heart sound and no murmurs RATE: regular rate RHYTHM: regular rhythm HEART SOUNDS: S1 normal and S2 normal GI: COMMON NORMALS: normal to inspection, nondistended, normoactive bowel sounds, soft to palpation and non-tender INSPECTION: Yes scar (has extensive scarring of lower abdomen), Yes visible herniation (ventral) and Yes ostomy present PALPATION: Yes soft : OTHER: R inguinal area with healed scar Back/Pelvis: COMMON NORMALS: thoracic and lumbar spine normal to inspection Extremity: COMMON NORMALS: normal to inspection, full ROM and no clubbing, cyanosis or edema; negative for no pedal edema GENERAL: Yes calf tenderness (RLE) OTHER: RLE: warmer to touch, diminished peripheral pulses, dusky toes particularly great toe Neuro: COMMON NORMALS: oriented x3, moves all extremities, no focal motor deficits and no sensory deficits noted SENSORIUM/ORIENTATION: Yes alert Psych: COMMON NORMALS: mental status grossly normal, thought process normal, cooperative, affect normal and speech normal SPEECH: Yes normal speech THOUGHT PROCESS: normal thought process Skin: COMMON NORMALS: no jaundice, no petechiae and no mottling GENERAL SKIN EXAM: dry skin, mottling (RLE) and scars (abdomen) surgical Data : 10/21/19 04:42 10/20/19 04:05 A&P Assessment and plan (1) Right calf pain: -with known PVD status post left common femoral artery to right popliteal artery bypass in 2016 secondary to right lower extremity exertional claudication and occlusion of right superficial femoral artery; procedure done by Dr. Avila -Follow-up ultrasound and venous studies, prelim report indicates complete occlusion of previous graft so definite concern for acute limb ischemia, symptomatic with pain, pallor, paresthesia, diminished pulses -Patient has multiple risk factors including medication non-compliance, being a chronic smoker and pre-existing peripheral vascular disease -has been on heparin drip; switched to therapeutic Lovenox -Fall precautions -Pain control as needed; switched from morphine to Dilaudid, added gabapentin and Toradol for more optimal pain control. Need to continue to monitor for somnolence and respiratory depression -consult by Dr. Avila appreciated -consult by Dr. St appreciated; CTA w/runoff done showing occlusion of the previous femorofemoral bypass graft, occlusion of the right common and external iliac artery, high-grade focal stenosis of the distal left popliteal artery. s/p peripheral angiogram on 10/19 showing chronic complete occlusion of right ostial common, external and internal iliac, common femoral, SFA and no flow below the knee -off IVF hydration -continue ASA, Plavix, statin -VSS; continue to monitor vital signs -is considering seeking a second opinion in [place] before making any final decisions on intervention Status: Acute Code(s): M79.661 - Pain in right lower leg (2) COPD (chronic obstructive pulmonary disease): -has known COPD, not oxygen dependent at baseline, no acute exacerbation currently -supplemental oxygen as needed -continue to monitor respiratory status -Neb treatments as needed Status: Acute Code(s): J44.9 - Chronic obstructive pulmonary disease, unspecified Additional A&P Information -Chronic smoker: 1-1.5 PPD; nicotine patch -HTN; continue oral antihypertensive -Hyperlipidemia; noted lipid panel; on statin (high intensity) -Chronic pain; pain control as needed -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 Time Spent in Patient Care: Greater than 35 minutes (>than 50% of time spent in counselling and/or direct pt care on unit). Coding Level of Care Code Acute Maintenance And Utilities Supervisor for Shira Fwd Exam Detailed Diagnoses Right calf pain M79.661 COPD (chronic obstructive pulmonary disease) J44.9
[2019-10-21] MEDS: nicotine 21 mg Patch 1 PATCH TRANSDERMA (08:32)
[2019-10-21] MEDS: gabapentin 300 mg Capsule PO ×3 (08:33→20:51)
[2019-10-21] MEDS: fluoxetine 20 mg Capsule PO (08:33)
[2019-10-21] MEDS: clopidogrel 75 mg Tablet PO (08:33)
[2019-10-21] MEDS: aspirin 325 mg Tablet PO (08:33)
[2019-10-21] MEDS: ALPRAZolam 0.25 mg Tablet PO ×2 (08:39→20:52)
[2019-10-21] MEDS: ketorolac 30 mg/mL INJ IVP ×2 (09:46→21:56)
--- NOTE | 2019-10-21 12:10 | PC.SOCIAL ---
IMM Page 2 of IMM explained to and signed by patient. He verbalizes understanding. Initialed, dated, and timed and placed in chart. Copy provided to patient.
[2019-10-21] MEDS: metoprolol tartrate 25 mg Tablet 12.5 MG PO (17:23)
[2019-10-21] MEDS: metoprolol tartrate 1 mg/1 mL SDV 5 mL 5 MG IV (17:23)
[2019-10-21] MEDS: atorvastatin 40 mg Tablet PO (20:51)
--- NOTE | 2019-10-21 22:00 | PC.NURSE ---
Patient called out to nurses station. I went down to patient's room and patient was rocking his head back and forth requesting his Dilaudid stating his leg was going to split open. I told him I gave him dilaudid as he requested at 1910 and it was not time yet. I could give him toradol and a hydrocodone-5mg currently. Patient told me to bring him whatever i could bring him. When I got to the room with the medication patient has if this would affect his dilaudid administration times and I told him no. Patient swallowed the hydrocodone-5mg and and as I started to pushed the toradol patient closed his eyes, stopped thrashing in bed and respirations were even and unlabored. Will continue to monitor.
[2019-10-22] VITALS (15 sets, daily range): BP systolic 98–146; BP diastolic 71–94; PULSE 94–121; RESP 14–38; TEMP 36.8–37.2; O2SAT 90–97
[2019-10-22 05:37] LABS: Platelet Count 123 10^3/cmm (130-400)
[2019-10-22] MEDS: ipratropium-albuterol 3 mL Neb INHALATION ×2 (07:18→15:51)
--- NOTE | 2019-10-22 09:08 | PM.PN ---
Subjective Subjective: Interval history: Mr. Lopez still has substantial discomfort with his right lower extremity. He is status post arteriogram by Dr. St on October 19. I have personally reviewed the study and compared with Dr. St. Unfortunately, the results of the study are as we both feared, and that he appears to essentially have no runoff below the femoral profunda which fills by collateralization with only a very short segment of the distal SFA filling and then no runoff past that. It appears that there are no reasonable targets to attempt to surgery revascularization that I can perform. As well, Dr. St feels interventional options are not available. Vitals/I&O/Wt Last Vital Signs Temp 98.4 F 10/22/19 07:30 Pulse 114 H 10/22/19 07:30 Resp 14 10/22/19 07:30 BP 139/94 10/22/19 07:30 Pulse Ox 97 10/22/19 07:30 10/21/19 10/22/19 10/22/19 22:59 06:59 14:59 Intake Total / 2011 220 / 2232 Balance 600 / 1612 220 / 1832 Weight last 48 hrs Weight 188 lb 6.4 oz Weight 189 lb 14.4 oz Physical Exam Extremity: GENERAL: Yes cyanosis, Yes pallor and Yes pulses abnormal OTHER: Right lower extremity remains with discoloration, particularly in the lower leg and foot. No kiran ulceration as of yet. Foot is also cool. Data : 10/22/19 04:40 10/20/19 04:05 A&P Assessment and plan (1) Critical limb ischemia with history of revascularization of same extremity: Unfortunately, the results of the arteriogram are as both Dr. St and I feared. I do not feel I have a surgical option for Mr. Lopez. It is my understanding from nursing service that he wishes to seek a second opinion. This is reasonable, and perhaps a tertiary center can provide more therapeutic options. I have been very kiran with Mr. Lopez in my discussion and my concerns. We will consider referral for tertiary review. Status: Acute Code(s): I99.8 - Other disorder of circulatory system; Z95.9 - Presence of cardiac and vascular implant and graft, unspecified Attestations Medical Necessity Statement*: Critical limb ischemia, status post recent arteriogram revealing essentially no runoff. Time Spent in Patient Care: - 35 minutes Coding Level of Care Code Acute Mill Labor Supervisor for g Fwd Diagnoses Critical limb ischemia with history of revascularization of same extremity I99.8; Z95.9
[2019-10-22] MEDS: HYDROmorphone 1 mg/mL INJ 1 mL 0.5 MG IVP ×4 (09:11→22:35)
[2019-10-22] MEDS: nicotine 21 mg Patch 1 PATCH TRANSDERMA (09:13)
[2019-10-22] MEDS: aspirin 325 mg Tablet PO (09:14)
[2019-10-22] MEDS: ALPRAZolam 0.25 mg Tablet PO ×2 (09:15→17:00)
[2019-10-22] MEDS: fluoxetine 20 mg Capsule PO (09:15)
[2019-10-22] MEDS: metoprolol tartrate 25 mg Tablet 12.5 MG PO ×2 (09:15→19:00)
[2019-10-22] MEDS: gabapentin 300 mg Capsule PO ×3 (09:16→20:25)
[2019-10-22] MEDS: clopidogrel 75 mg Tablet PO (09:16)
[2019-10-22] MEDS: enoxaparin 80 mg/0.8 mL Syringe SUBCUT (11:35)
[2019-10-22 16:15] LABS: ABG PCO2 55.7 mmHg (35-45); ABG PH Result 7.38 (7.35-7.45); Base Excess ABG 6.1 mmol/L (-2.0-2.0); Blood Gas Allen Test Pos; Blood Gas Sample Site Radial, right; Blood Gas Sample Type Arterial; Oxygen Device OXY MASK; PO2 ABG 59.5 mmHg (80.0-100.0)
--- NOTE | 2019-10-22 19:50 | P.PN_ITS ---
Subjective Subjective: Interval history: The patient has been having significant pain in the right lower extremity. He states that the pain is especially in the calf and the heel region. He says that the Dilaudid IV seems to be helping with the pain, however it wears off too soon and after approximately 3 hours, he is in excruciating pain again until he can receive his next dose. The patient also would like to do anything possible to spare his limb if possible. The patient is willing to go elsewhere if they feel that they would be able to do a bypass. His biggest concern at this time is that he was told that he may have to have a disarticulation at the hip at some point in the past when he was in [place]. He was concerned that this could affect his genitalia. Vitals/I&O/Wt Last Vital Signs Temp 98.3 F 10/22/19 19:09 Pulse 94 10/22/19 19:09 Resp 22 H 10/22/19 19:09 BP 128/81 10/22/19 19:09 Pulse Ox 95 10/22/19 19:09 10/22/19 10/22/19 10/22/19 06:59 14:59 22:59 Intake Total 220 / 2232 360 / 360 240 / 600 Output Total 300 / 300 Balance 220 / 1832 60 / 60 240 / 300 Weight last 48 hrs Weight 188 lb 6.4 oz Weight 189 lb 14.4 oz Physical Exam Narrative: EXAM NARRATIVE: General: Sleepy on pain medications. Cardiac: Tachycardic with regular rhythm. No murmurs appreciated. Lungs: Decreased air entry bilaterally without wheezes, crackles or rhonchi Abdomen: Significant scarring and ostomy present. No significant pain at this time in the abdomen. Extremities: Right lower extremities without pulses in the pedal and medial malleoli or pulses. The calf shows some erythema present. It is exquisitely tender to the touch. There is severe tenderness over the heel as well. No obvious signs of cellulitis. No necrosis noted currently. Data : 10/22/19 04:40 10/20/19 04:05 A&P Assessment and plan (1) Critical limb ischemia with history of revascularization of same extremity: Status: Acute Code(s): I99.8 - Other disorder of circulatory system; Z95.9 - Presence of cardiac and vascular implant and graft, unspecified (2) Femoral-femoral bypass graft thrombosis, right: Status: Acute Code(s): T82.868A - Thrombosis due to vascular prosthetic devices, implants and grafts, initial encounter (3) Hyperlipidemia: Status: Acute Code(s): E78.5 - Hyperlipidemia, unspecified (4) Hypertension: Status: Acute Code(s): I10 - Essential (primary) hypertension (5) Peripheral vascular disease: Status: Acute Code(s): I73.9 - Peripheral vascular disease, unspecified (6) COPD (chronic obstructive pulmonary disease): Status: Acute Code(s): J44.9 - Chronic obstructive pulmonary disease, unspecified (7) Right calf pain: Status: Acute Code(s): M79.661 - Pain in right lower leg (8) History of ischemic vertebrobasilar artery brainstem stroke: Status: Acute Code(s): Z86.73 - Personal history of transient ischemic attack (TIA), and cerebral infarction without residual deficits Additional A&P Information 1. Right lower extremity ischemia -the patient has been seen by Dr. St and is being seen by Dr. Avila. I appreciate their assistance with this patient. At this time there is nothing that they are able to offer in terms of bypass. I spoke with Dr. Avila who has sent information to [facility] to a vascular surgeon to see if he would be able to offer anything to save the patient's leg. We will wait to hear if there are further interventions possible. The patient would like to save his limb if possible. I understand that this may not be possible and if that is the case he would likely need an amputation. I will increase the dose of Dilaudid to 0.5 mg every 2 hours to assist with his pain as it is ofe aking through prior to 4 hours. We will try to transition over to oral medications when the overarching plan has been made. 2. COPD -stable at this time. 3. Tobacco abuse -the patient currently smokes 1 to 1.5 packs/day. I advised him that if there is any chance of him getting a bypass done, that it would be imperative for him to quit smoking. 4. Hypertension -his blood pressure is currently controlled. He is tachycardic, and I feel that this is likely secondary to his pain. We will follow for signs of complications. 5. Dyslipidemia -continue statin. 6. Peripheral neuropathy -continue with gabapentin. This could also be causing his tachycardia. 7. Prophylaxis -the patient is currently on Lovenox and Plavix for prophylaxis and treatment of his ischemia. Attestations Medical Necessity Statement*: The patient continues need inpatient care for the above treatments. He will be here for greater than 2 midnights. Coding Level of Care Code Acute Die Maker Apprentice for Shira Martins Diagnoses Critical limb ischemia with history of revascularization of same extremity I99.8; Z95.9 Femoral-femoral bypass graft thrombosis, right T82.868A Hyperlipidemia E78.5 Hypertension I10 Peripheral vascular disease I73.9 COPD (chronic obstructive pulmonary disease) J44.9 Right calf pain M79.661 History of ischemic vertebrobasilar artery brainstem stroke Z86.73
[2019-10-22] MEDS: atorvastatin 40 mg Tablet PO (20:25)
[2019-10-23] VITALS (15 sets, daily range): BP systolic 112–146; BP diastolic 69–93; PULSE 93–130; RESP 18–30; TEMP 36.8–36.9; O2SAT 92–96
[2019-10-23] MEDS: enoxaparin 80 mg/0.8 mL Syringe SUBCUT ×3 (00:35→22:50)
[2019-10-23] MEDS: ketorolac 30 mg/mL INJ IVP (01:21)
[2019-10-23] MEDS: HYDROmorphone 1 mg/mL INJ 1 mL 0.5 MG IVP ×8 (03:13→22:49)
--- NOTE | 2019-10-23 03:30 | PC.NURSE ---
Patient was pleasant when i assessed him at 1999, but i could tell he was groggy and slurring speech. he asked for his pain medicine so I administered his dose of Dilaudid at 2030. approximately 10 to 15 minutes later the aid went in to get his vitals and he asked her if it was time for his medicine. she told me and i related that it was not time his next dose would be at 2:30. i checked in on hims he had been sleeping a bit between then and 0100. at 0115 i checked on him and he was sleeping peacefully. I went back to the nurses station and a few minutes later he was on the call light wanting pain meds. We were getting worried about giving him too much with his grogginess and slurred speech, and one of the nurses said he had other things we could give him so i opted to break up the dilaudid a bit and i gave him toradol. wheile i was in there administering it he was grumping about wanting the dilaudid when he could have it as well at 230. I told him to let see how this worked first and if ssill in pain at 230 to let me know. i checked on him at 0245 and he was laid back in the bed snoring loudly. I was hoping the toradol was helping being a new med. by 0300 he was on his call light 2 times before i could get around my desk wanting the dialudid. he complained to the aid who answered the phone that no one came to him to bring his medicine at 230. I explained that i had checked on him at 0245 and he had been sleeping and we werent going to wake him to give him prn pain meds. if he was in pain after the allotted time had passed to let us know.. he said if you had come at 0230 he might not have been asleep but i hadnt. he was grumpy and very argumentative saying he couldnt move his body. I administered his dose of dilaudid and rechecked the times on the prn administration and remembered Dr. Olea had change the times on the med to q2 hours prn. He said that he spoke with Dr. Olea about changing the times to make it closer together. His vital signs are wnl, sometimes his respirations are about 28 sometimes 20 but he remains agitated, grumpy, yelling for dilaudid even though hes just had some. Will continue to monitor the patient.
[2019-10-23 03:50] LABS: Basophils % 0.2 %; Eosinophils # 0.3 10^3/uL (0.0-0.8); Eosinophils % 1.6 %; Hematocrit 42.8 % (42.0-52.0); Hemoglobin 13.1 g/dL (11.7-16.6); Lymphocytes # 1.4 10^3/uL (0.8-4.8); Lymphocytes % 8.3 %; Mean Corpuscular HGB Conc 30.6 g/dL (30.0-36.0); Mean Corpuscular Hemoglobin 29.2 pg (28.0-34.0); Mean Corpuscular Volume 95.3 fL (80-94); Mean Platelet Volume 11.6 fL (7.4-10.4); Monocytes # 1.7 10^3/uL (0.2-0.9); Monocytes % 10.2 %; Neutrophils # 12.8 10^3/uL (1.8-7.7); Neutrophils % 78.8 %; Nucleated Red Blood Cells % 0 %; Platelet Count 132 10^3/cmm (130-400); Red Blood Count 4.49 10^6/uL (4.1-5.3); Red Cell Distribution Width 14.4 % (12.1-15.1); White Blood Count 16.2 10^3/uL (4.0-10.0)
[2019-10-23 04:06] LABS: Alanine Aminotransferase 44 U/L (0-41); Alkaline Phosphatase 81 IU/L (40-130); Anion Gap 14.7 (5-19); Aspartate Amino Transferase 104 U/L (0-40); Blood Urea Nitrogen 20 mg/dL (6-20); Calcium 9.4 mg/dL (8.5-10.5); Carbon Dioxide 31 mmol/L (22-29); Chloride 96 mmol/L (98-107); Globulin 3.8 g/dL (1.3-4.6); Glomerular Filtration Rate 86.7 mL/min (90-130); Glucose 121 mg/dL (65-115); Phosphorus 4.4 mg/dL (2.5-4.5); Potassium 4.7 mmol/L (3.5-5.1); Sodium 137 mmol/L (136-145); Total Bilirubin 0.4 mg/dL (0.15-1.2); Total Protein 6.8 g/dL (6.6-8.7)
[2019-10-23 04:33] LABS: Estmated Average Glucose 114; Hemoglobin A1C 5.6 % (4.0-6.0)
--- NOTE | 2019-10-23 06:27 | PC.NURSE ---
It has been just over 3 hours since the patient has asked for pain medication. He has been sleeping and just checked on him and he groggily sort of woke but went back out to sleep.
--- NOTE | 2019-10-23 09:10 | PC.SOCIAL ---
IMM Updated Page 2 of IMM updated and given to patient. Initialed, dated, and timed and placed in chart. Copy provided to patient.
[2019-10-23] MEDS: fluoxetine 20 mg Capsule PO (10:27)
[2019-10-23] MEDS: nicotine 21 mg Patch 1 PATCH TRANSDERMA (10:27)
[2019-10-23] MEDS: aspirin 325 mg Tablet PO (10:27)
[2019-10-23] MEDS: gabapentin 300 mg Capsule PO ×3 (10:27→20:52)
[2019-10-23] MEDS: metoprolol tartrate 25 mg Tablet 12.5 MG PO ×2 (10:28→18:43)
[2019-10-23] MEDS: clopidogrel 75 mg Tablet PO (10:28)
--- NOTE | 2019-10-23 13:40 | PM.MISC ---
Miscellaneous Note Purpose of Documentation: I have spoken with my vascular tertiary referral colleague Dr. Asim Ogden from [facility] in [place]. He has been gracious enough to agree to evaluation for consideration in an attempt to perform revascularization. Dr. Ogden had opportunity to review my prior operative notes and recent assessment, though apparently the most recent angiographic films are just now arriving to him. I have notified Dr. Harvey and also Dr. Olea. Hopefully Dr. Ogden and his advanced vascular team will be able to provide some options for revascularization. I greatly appreciate the expertise of all our colleagues who have been involved in the care of Mr. Lopez.
--- NOTE | 2019-10-23 14:56 | P.TS_ITS ---
Transfer Summary Providers Date of Admission: 10/18/19 17:16 Date of Discharge: 10/23/19 Attending Provider at Admission: Holly Harvey MD Attending Provider at Transfer: Jason Olea MD Primary Care Provider: Jason Olea MD Anticipated Date of Transfer: Anticipated date of transfer: 10/23/19 Receiving Facility & Provider: Receiving Provider: [Dr. Asim Ogden] Receiving facility: [facility]] Diagnoses at Discharge Discharge Diagnosis (1) Critical limb ischemia with history of revascularization of same extremity: Status: Acute Problem details: -with known PVD status post left common femoral artery to right popliteal elise ry bypass in 2016 secondary to right lower extremity exertional claudication and occlusion of right superficial femoral artery; procedure done by Dr. Avila -Follow-up ultrasound and venous studies, prelim report indicates complete occlusion of previous graft so definite concern for acute limb ischemia, symptomatic with pain, pallor, paresthesia, diminished pulses -Patient has multiple risk factors including medication non-compliance, being a chronic smoker and pre-existing peripheral vascular disease -has been on heparin drip; switched to therapeutic Lovenox -Fall precautions -Pain control as needed; switched from morphine to Dilaudid, added gabapentin and Toradol for more optimal pain control. Need to continue to monitor for somnolence and respiratory depression -consult by Dr. Avila appreciated -consult by Dr. St appreciated; CTA w/runoff done showing occlusion of the previous femorofemoral bypass graft, occlusion of the right common and external iliac artery, high-grade focal stenosis of the distal left popliteal artery. s/p peripheral angiogram on 10/19 showing chronic complete occlusion of right ostial common, external and internal iliac, common femoral, SFA and no flow below the knee -off IVF hydration -continue ASA, Plavix, statin -VSS; continue to monitor vital signs (2) Femoral-femoral bypass graft thrombosis, right: Status: Acute Problem details: This is actually a left femoral to right popliteal artery bypass utilizing [place]- [place] graft Qualifiers: Encounter type: sequela Qualified Code(s): T82.868S - Thrombosis due to vascular prosthetic devices, implants and grafts, sequela (3) Hyperlipidemia: Status: Acute Problem details: -on statin Qualifiers: Hyperlipidemia type: unspecified Qualified Code(s): E78.5 - Hyperlipidemia, unspecified (4) Hypertension: Status: Acute Problem details: -on oral antihypertensives Qualifiers: Hypertension type: essential hypertension Qualified Code(s): I10 - Essential (primary) hypertension (5) Peripheral vascular disease: Status: Acute Problem details: -as noted above (6) COPD (chronic obstructive pulmonary disease): Status: Acute Problem details: -secondary to smoking, 1-1.5 PPD -nicotine patch -not oxygen dependent at baseline Qualifiers: COPD type: emphysema Emphysema type: centrilobular Qualified Code(s): J43.2 - Centrilobular emphysema (7) Right calf pain: Status: Acute Problem details: -secondary to critical limb ischemia -as noted above (8) History of ischemic vertebrobasilar artery brainstem stroke: Status: Acute Problem details: -hx of prior brainstem CVA; no residual deficits Other Information Additional DC diagnoses/information: -Chronic smoker: 1-1.5 PPD; nicotine patch -Chronic pain; pain control as needed -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 He was started on therapeutic anticoagulation with a heparin drip as well as aspirin, Plavix and statin. Patient had really admitted that he had been noncompliant with his medications. Patient was started on analgesics due to persistent pain particularly of the right lower extremity. He was found to have critical limb ischemia with noted complete occlusion of his previous graft and essentially no blood flow below the right knee. Adjustments were made to his analgesic regimen to allow for pain control which he has tolerated well. Patient was eventually switched from heparin drip to therapeutic Lovenox. Case has been discussed with Dr. Avila who given the extent of patient's peripheral vascular disease does not have much in the way of intervention options to offer. Patient started to consider seeking a second opinion potentially in [place]. In the interim Dr. Avila reached out to a colleague Dr. Asim Ogden who is a vascular surgeon at [facility] in [place] was agreed to accept the patient in transfer to consider possible revascularization. Patient has been informed and is agreeable to this plan. Discharge Summary: -Patient to follow-up with his primary care provider following discharge from [facility] in [place] Physical Exam Const: COMMON NORMALS: no apparent distress, oriented x3 and alert GENERAL APPEARANCE: cooperative and comfortable ORIENTATION/CONSCIOUSNESS: Yes awake HENMT: COMMON NORMALS: normocephalic, head/scalp atraumatic, hearing grossly normal bilaterally and moist oral mucous membranes HEAD & SCALP: normocephalic and atraumatic Eye: COMMON NORMALS: PERRL, EOMs intact bilaterally and conjunctivae normal CONJUNCTIVA: Yes conjunctivae normal PUPIL: Yes PERRL Neck/C-Spine: COMMON NORMALS: full ROM GENERAL: Yes normal visual inspection and Yes trachea midline Resp: COMMON NORMALS: normal respiratory effort, no retractions and no use of accessory muscles EFFORT & INSPECTION: Yes able to speak in complete sentences, Yes symmetric chest movement and No tachypneic AUSCULTATION: diminished lung sounds bilateral Cardio: COMMON NORMALS: regular rate, regular rhythm, S1 normal heart sound, S2 normal heart sound and no murmurs RATE: regular rate RHYTHM: regular rhythm HEART SOUNDS: S1 normal and S2 normal GI: COMMON NORMALS: normal to inspection, nondistended, normoactive bowel sounds, soft to palpation and non-tender INSPECTION: Yes scar (has extensive scarring of lower abdomen), Yes visible herniation (ventral) and Yes ostomy present PALPATION: Yes soft : OTHER: R inguinal area with healed scar Back/Pelvis: COMMON NORMALS: thoracic and lumbar spine normal to inspection Extremity: COMMON NORMALS: normal to inspection, full ROM and no clubbing, cyanosis or edema; negative for no pedal edema GENERAL: Yes calf tenderness (RLE) OTHER: RLE: warmer to touch, diminished peripheral pulses, dusky toes particularly great toe Neuro: COMMON NORMALS: oriented x3, moves all extremities, no focal motor deficits and no sensory deficits noted SENSORIUM/ORIENTATION: Yes alert Psych: COMMON NORMALS: mental status grossly normal, thought process normal, cooperative, affect normal and speech normal SPEECH: Yes normal speech THOUGHT PROCESS: normal thought process Skin: COMMON NORMALS: no jaundice, no petechiae and no mottling GENERAL SKIN EXAM: dry skin, mottling (RLE) and scars (abdomen) surgical TS Data Data Completed and Pending: Completed Studies During Hospitalization Category Date Time Status CT angio abd aort a runof [id number] Rout ine Cat Scan 10/18/19 21:20 Completed 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7 H Eos # (Auto) 0.3 Baso # (Auto) 0.0 Nucleated RBC % (a uto) 0 Nucleated RBCs # 0.0 Specimen Type Sample Site ABG pH ABG pCO2 ABG pO2 ABG HCO3 ABG Base Excess Paul Test Hematocrit O2 Delivery Device O2 Liters/Min Seismograph Helper ID Sodium 137 Potassium 4.7 Chloride 96 L Carbon Dioxide 31 H Anion Gap 14.7 BUN 20 Creatinine 0.9 GFR Calculation 86.7 L Glucose 121 H Estimat Average Gl ucose 114 Hemoglobin A1c 5.6 Calcium 9.4 Phosphorus 4.4 Total Bilirubin 0.4 AST 104 H ALT 44 H Alkaline Phosphata se 81 Total Protein 6.8 Albumin 3.0 L Globulin 3.8 10/22/19 16:01 WBC RBC Hgb Hct MCV MCH MCHC RDW Plt Count MPV Neut % (Auto) Lymph % (Auto) Crowley % (Auto) Eos % (Auto) Baso % (Auto) Neut # (Auto) Lymph # (Auto) Crowley # (Auto) Eos # (Auto) Baso # (Auto) Nucleated RBC % (a uto) Nucleated RBCs # Specimen Type Arterial Sample Site Radial, right ABG pH 7.38 ABG pCO2 55.7 H ABG pO2 59.5 L ABG HCO3 33.0 H ABG Base Excess 6.1 H Paul Test Pos Hematocrit 44.0 O2 Delivery Device Oxy mask O2 Liters/Min 4.0 Seismograph Helper ID monro Sodium Potassium Chloride Carbon Dioxide Anion Gap BUN Creatinine GFR Calculation Glucose Estimat Average Gl ucose Hemoglobin A1c Calcium Phosphorus Total Bilirubin AST ALT Alkaline Phosphata se Total Protein Albumin Globulin Vitals: Last Vital Signs Temp 98.4 F 10/23/19 07:34 Pulse 115 H 10/23/19 10:53 Resp 22 H 10/23/19 12:40 BP 146/93 10/23/19 10:53 Pulse Ox 95 10/23/19 12:40 TS Medications Medications Home Medications albuterol sulfate 90 mcg/actuation aerosol inhaler 2 puff INHALATION Q6H PRN #8.5 gm 10/18/19 [Rx Confirmed 10/18/19] fluoxetine 20 mg capsule 20 mg PO DAILY 10/18/19 [History Confirmed 10/18/19] fluticasone 250 mcg-salmeterol 50 mcg/dose blistr powdr for inhalation 1 - 2 inh INHALATION BID each 10/18/19 [History Confirmed 10/18/19] lisinopril 2.5 mg tablet 2.5 mg PO DAILY 10/18/19 [History Confirmed 10/18/19] prednisone 10 mg tablet 20 mg PO DAILY 10/18/19 [History Confirmed 10/18/19] Active Medications Acetaminophen (Tylenol) 650 mg PO Q6H PRN PRN Reason: Mild/Mod Pain Or Temp >/= 101 Last Admin: 10/19/19 13:47 Dose: 650 mg Documented by: Hydrocodone Bitart/Acetaminophen ([place] 5-325 Mg) 1 tab PO Q4H PRN PRN Reason: MODERATE TO SEVERE PAIN Last Admin: 10/21/19 21:55 Dose: 1 tab Documented by: Al Hydrox/Mg Hydrox/Simethicone (Maalox) 30 ml PO Q15M PRN PRN Reason: INDIGESTION Albuterol/Ipratropium (Duoneb) 3 ml INHALATION Q4H.RESPIRATORY PRN PRN Reason: SHORTNESS OF BREATH Last Admin: 10/22/19 15:51 Dose: 3 ml Documented by: Alprazolam (Xanax) 0.25 mg PO TID PRN PRN Reason: ANXIETY Last Admin: 10/22/19 17:00 Dose: 0.25 mg Documented by: Aspirin (Aspirin) 325 mg PO DAILY [facility] Last Admin: 10/23/19 10:27 Dose: 325 mg Documented by: Atorvastatin Calcium (Lipitor) 40 mg PO BEDTIME [facility] Last Admin: 10/22/19 20:25 Dose: 40 mg Documented by: Atropine Sulfate (Atropine) 0.5 mg IVP PRN PRN PRN Reason: Symptomatic bradycardia Clopidogrel Bisulfate (Plavix) 75 mg PO DAILY [facility] Last Admin: 10/23/19 10:28 Dose: 75 mg Documented by: Enoxaparin Sodium (Lovenox) 80 mg SUBCUT Q12H [facility] Last Admin: 10/23/19 12:39 Dose: 80 mg Documented by: Fluoxetine HCl (Prozac) 20 mg PO DAILY [facility] Last Admin: 10/23/19 10:27 Dose: 20 mg Documented by: Gabapentin (Neurontin) 300 mg PO TID [facility] Last Admin: 10/23/19 10:27 Dose: 300 mg Documented by: Hydromorphone HCl (Dilaudid Inj) 0.5 mg IVP Q2H PRN PRN Reason: SEVERE PAIN Last Admin: 10/23/19 12:40 Dose: 0.5 mg Documented by: Ketorolac Tromethamine (Toradol) 30 mg IVP Q6H PRN PRN Reason: MODERATE PAIN Stop: 10/25/19 11:52 Last Admin: 10/23/19 01:21 Dose: 30 mg Documented by: Magnesium Hydroxide (Milk Of Magnesia) 30 ml PO DAILY PRN PRN Reason: CONSTIPATION Metoprolol Tartrate (Lopressor) 12.5 mg PO BID [facility] Last Admin: 10/23/19 10:28 Dose: 12.5 mg Documented by: Metoprolol Tartrate (Metoprolol Tartrate) 5 mg IV Q4H PRN PRN Reason: HEART RATE-HIGH Last Admin: 10/21/19 17:23 Dose: 5 mg Documented by: Naloxone HCl (Narcan) 0.1 mg IVP Q2M PRN PRN Reason: RESPIRATORY RATE < 8/MIN Nicotine (Nicoderm 21 Mg Patch) 1 patch TRANSDERMA DAILY [facility] Last Admin: 10/23/19 10:27 Dose: 1 patch Documented by: Nitroglycerin (Nitrostat) 0.4 mg SUBLINGUAL Q5M PRN PRN Reason: CHEST PAIN Ondansetron HCl (Zofran) 4 mg IVP Q6H PRN PRN Reason: NAUSEA AND VOMITING Temazepam (Restoril) 15 mg PO BEDTIME PRN PRN Reason: INSOMNIA Discharge Plan Discharge Patient Disposition: Xfer Other Condition: Stable Prescriptions: Continued fluticasone propion-salmeterol [Advair Diskus] 250-50 mcg/dose blister with device 1 - 2 inh INHALATION BID RF: 0 fluoxetine 20 mg capsule 20 mg PO DAILY RF: 0 lisinopril 2.5 mg tablet 2.5 mg PO DAILY RF: 0 prednisone 10 mg tablet 20 mg PO DAILY RF: 0 albuterol sulfate 90 mcg/actuation HFA aerosol inhaler 2 puff INHALATION Q6H PRN (Reason: shortness of breath or wheezing) Qty: 8.5 RF: 2 Discharge Orders: Discharge Order (Routine); Ordered 10/23/19 Ordered By: Holly Harvey Discharge Diet: Cardiac Discharge Activity: Use walker/crutches as instructed Transfer Attestations Time Spent in Transfer Care*: greater than 30 min Specific Discharge Activities: Specific discharge activities: educating patient, educating and/or supporting family/caregiver, discussing with caseworker/social workers/dc planners, documenting/other paperwork and evaluating patient/reviewing data Time Spent in Smoking Cessation: Time spent discussing smoking cessation with patient: 3 to 10 minutes Details of Smoking Cessation Education: Patient counseled on need for smoking cessation given severe peripheral arterial disease Status at Transfer: Cognitive status at transfer: cognitively intact , Behavioral status at transfer: cooperative , Functional status at transfer: uses cane/walker Overall status at transfer: patient is back to baseline Quality Metrics Clinical Quality Measures: During this hospital stay, did patient experience: None Coding Level of Care Code 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
--- NOTE | 2019-10-23 19:15 | PC.NURSE ---
Patient in pain. Rating pain 10/10. Dilaudid given SIVP as ordered. Will monitor.
[2019-10-23] MEDS: atorvastatin 40 mg Tablet PO (20:52)
--- NOTE | 2019-10-23 21:29 | PC.NURSE ---
Up to bathroom with use of walker and stand by assist by this nurse. I'll take care of my colostomy while I'm in there. Back to bed. Continues to rate pain 10/10 to RLE and right hip. Dilaudid given SIVP as ordered. Took PO meds without difficulty. Will monitor.
--- NOTE | 2019-10-23 22:55 | PC.NURSE ---
[facility] here to transfer patient to [facility] in [place], [place]. Dilaudid 0.5mg given SIVP for continuing pain to RLE and right hip. Patient rating pain 10/10. To best after visiting restroom. Lovenox also given at this time. Report given to EMS staff.
--- NOTE | 2019-10-23 22:58 | PC.NURSE ---
JOYCE Cruz, custom studio coordinator at [facility] in [place], [place] informed of patient leaving this facility. Voices understanding.
== END 2019-10-23 22:55 | disposition home or self-care (01) | DRG 316 ==
LOC: ER 16:51 → CSU 17:37
PROVIDERS: Family Medicine; Internal Medicine Cardiovascular Disease; Admitting Provider Family Medicine; Emergency Provider Physician Assistant; Family Provider Family Medicine; PCP Family Medicine; Visit Provider Family Medicine
DX: T82.868A Thrombosis due to vascular prosthetic devices, implants and grafts, initial encounter (principal); Y83.2 Surgical operation with anastomosis, bypass or graft as the cause of abnormal reaction of the patient, or of later complication, without mention of misadventure at the time of the procedure; I70.221 Atherosclerosis of native arteries of extremities with rest pain, right leg; F17.210 Nicotine dependence, cigarettes, uncomplicated; I10 Essential (primary) hypertension; E78.5 Hyperlipidemia, unspecified; Z86.73 Personal history of transient ischemic attack (TIA), and cerebral infarction without residual deficits; J43.9 Emphysema, unspecified; Z91.14 Patient's other noncompliance with medication regimen; Z88.0 Allergy status to penicillin
CPT/HCPCS: 12345; 36415; 36416; 36600; 71045; 75625; 75635; 75716; 80048; 80053; 80061; 81003; 82803; 82962; 83036; 84100; 84443; 85025; 85049; 85610; 85730; 93005; 93926; 93971; 94640; 94664; 96372; 96375; 99283; C1769; C1887; C1894; J1170; J1644; J1650; J1885; J1940; J2001; J2250; J2270; J3010; J3490; J7030; Q0163; Q9967

== ENCOUNTER → 2022-05-05 09:27 | Outpatient (BNVA) | payer MEDICARE, MEDICAID, SELFPAY | PROVIDERS: Family Provider Family Medicine; PCP Family Medicine; Visit Provider Surgery | DX: Z93.2 Ileostomy status (principal) | CPT/HCPCS: 99203 ==

== ENCOUNTER 2022-10-13 16:40 | Inpatient (IN) | payer MEDICARE, MEDICAID, SELFPAY ==
[2022-10-13 16:48] VITALS: BP 138/80; PULSE 115; RESP 20; TEMP 36.4; O2SAT 92; BMI 25.5
[2022-10-13 18:15] LABS: Basophils # 0.1 10^3/uL (0.0-0.1); Basophils % 0.5 %; Eosinophils # 0.1 10^3/uL (0.0-0.8); Eosinophils % 1.2 %; Hematocrit 54.6 % (42.0-52.0); Hemoglobin 15.9 g/dL (11.7-16.6); Lymphocytes # 1.4 10^3/uL (0.8-4.8); Mean Corpuscular HGB Conc 29.1 g/dL (30.0-36.0); Mean Corpuscular Hemoglobin 27.7 pg (28.0-34.0); Mean Platelet Volume 11.3 fL (7.4-10.4); Monocytes % 8.9 %; Neutrophils # 8.29 10^3/uL (1.8-7.7); Nucleated Red Blood Cells % 0 %; Platelet Count 187 10^3/cmm (130-400); Red Blood Count 5.75 10^6/uL (4.1-5.3); Red Cell Distribution Width 14.6 % (12.1-15.1); White Blood Count 10.9 10^3/uL (4.0-10.0)
[2022-10-13 18:34] LABS: Alanine Aminotransferase 8 U/L (0-41); Albumin Level 3.6 g/dL (3.5-5.2); Alkaline Phosphatase 91 U/L (40-130); Anion Gap 9.8 (5-19); Aspartate Amino Transferase 13 U/L (0-40); Blood Urea Nitrogen 18 mg/dL (8-23); Calcium 9.2 mg/dL (8.5-10.5); Carbon Dioxide 31 mmol/L (22-29); Chloride 103 mmol/L (98-107); Globulin 3.5 g/dL (1.3-4.6); Glomerular Filtration Rate 47.6 mL/min (90-130); Glucose 117 mg/dL (65-115); Osmolality Calculated 291 mOsm/kg (285-295); Potassium 4.8 mmol/L (3.5-5.1); Sodium 139 mmol/L (136-145); Total Bilirubin 0.3 mg/dL (0.15-1.2); Total Protein 7.1 g/dL (6.6-8.7)
--- NOTE | 2022-10-13 19:44 | CTR_ITS ---
PROCEDURE INFORMATION: Exam: CT Abdomen And Pelvis With Contrast Exam date and time: 10/13/2022 8:17 PM Age: 62 years old Clinical indication: Abdominal pain; Localized; Prior surgery; Surgery type: Colectomy. Ielostomy. Fem-pop bypass. Patient HX: C/O groin pain after over activity. TECHNIQUE: Imaging protocol: Computed tomography of the abdomen and pelvis with contrast. Radiation optimization: All CT scans at this facility use at least one of these dose optimization techniques: automated exposure control; mA and/or kV adjustment per patient size (includes targeted exams where dose is matched to clinical indication); or iterative reconstruction. Contrast material: OMNI 350; Contrast volume: 75 ml; Contrast route: INTRAVENOUS (IV); Other protocol: This patient has received 0 known CTs and 0 known cardiac nuclear medicine studies in the 12 months prior to the current study. COMPARISON: CT angio abd aorta runof [id number] 10/18/2019 10:41 PM RADIATION DOSE METRICS: Total DLP (mGy-cm): 540.63 FINDINGS: Lungs: Tree-in-bud nodular infiltrates are seen in the inferior right middle lobe and right lower lobe anteriorly are unchanged and presumably chronic. Liver: Normal. No mass. Gallbladder and bile ducts: Normal. No calcified stones. No ductal dilation. Pancreas: Normal. No ductal dilation. Spleen: Normal. No splenomegaly. Adrenal glands: Normal. No mass. Kidneys and ureters: There are 2 stones in the mid left ureter which are obstructing. The more inferior stone measures 9 mm. The more superior stone measures 7 mm. The left kidney has severe hydroureteronephrosis proximal to the stones with a delayed nephrogram. Stomach and bowel: Right lower quadrant ostomy unchanged. Subtotal colectomy changes again present. This is in ventral abdominal wall, unchanged. Appendix: No evidence of appendicitis. Intraperitoneal space: A small fluid collection is seen in the left inguinal region with rim enhancement adjacent to the bypass graft on series 4, image 71 measuring 2.3 x 2.8 cm. Vasculature: Right common femoral artery chronic occlusion extending to the external iliac artery is unchanged. There is a fem-fem bypass graft present which appears thrombosed unchanged. Lymph nodes: Unremarkable. No enlarged lymph nodes. Urinary bladder: The bladder is underdistended. Reproductive: Unremarkable as visualized. Bones/joints: Unremarkable. No acute fracture. Soft tissues: See Stomach and bowel finding. CT/CT abdomen pelvis w con* [id number] IMPRESSION: 1. There are 2 adjacent obstructing stones in the mid left ureter with severe hydroureteronephrosis proximally. The largest measures 9 mm. 2. 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 Stable chronic occlusion of the fem-fem bypass. There is a new fluid collection in the left inguinal region adjacent to the bypass measuring 2.8 cm, possibly an abscess. Correlate for clinical findings of infection. 3. Stable tree-in-bud nodular opacities in the inferior right lower lobe and right middle lobe which may be related to chronic infection.
[2022-10-13] MEDS: morphine 4 mg/mL SDV 1 mL IVP (19:53)
[2022-10-13] MEDS: ondansetron 2 mg/ML SDV 2 mL 4 MG IVP (19:53)
--- NOTE | 2022-10-13 19:54 | ED_ITS ---
HPI - Male Genitourinary General: Chief complaint: Urogenital-Male Stated complaint: possible urogenital Time Seen by Provider: 10/13/22 19:30 Source: patient Mode of arrival: ambulatory Limitations: no limitations History of Present Illness: 62-year-old male has had a history of a femoral- femoral bypass graft roughly 6 to 7 years ago he is also had a [id number] amputation the right leg he states that doing a lot of housework and has been having increased lower abdominal pain over his groins in his lower abdomen he states he has an area of erythema and swelling to his tender to touch denies any fever he rates pain a 6 out of 10 denies any worsening improving factors. Associated symptoms: Deny dysuria Review of Systems Const: Denies: fever(s), chills, body aches or change in appetite Eyes: Denies: blurry vision or eye discomfort ENMT: Denies: throat pain or dental pain Card: Denies: chest pain Resp: Denies: dyspnea GI: Reports: abdominal pain : Denies: dysuria Musc: Denies: neck pain or back pain Skin/Breast: Denies: rash Neuro: Denies: headache(s) Psych: Denies: depression Malik/Lymph: Denies: easy bruising All/Imm: Denies: urticaria PFSH ED PFSH: Medical History (Updated 10/13/22 @ 21:41 by Quintin Ennis MD) COPD (chronic obstructive pulmonary disease) -secondary to smoking, 1-1.5 PPD -nicotine patch -not oxygen dependent at baseline Femoral-femoral bypass graft thrombosis, right This is actually a left femoral to right popliteal artery bypass utilizing [place]-Casey graft H/O necrotizing fasciitis Involving the right hip and inguinal area, status post extensive debridement; approximately 15 years ago 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 Social History Smoking and tobacco status: current every day smoker cigarettes Packs smoked per day: 1.5 Alcohol intake: former Former alcohol use details: sober x 6 yrs History of recent travel: No Current gender identity: Male Physical Exam Const: COMMON NORMALS: patient oriented x3 HENMT: COMMON NORMALS: normocephalic and atraumatic HEAD & SCALP: normocephalic and atraumatic Eye: COMMON NORMALS: Equal, round and reactive pupils present and EOMs intact bilaterally PUPIL: Yes Equal, round and reactive pupils present Neck/C-Spine: COMMON NORMALS: full ROM and supple Chest: COMMONS NORMALS: normal inspection of the chest and normal palpation of entire chest wall Resp: COMMON NORMALS: normal respiratory effort, No retractions, No use of accessory muscles and clear to auscultation bilaterally AUSCULTATION: clear to auscultation bilaterally Cardio: COMMON NORMALS: regular rate, regular rhythm and No murmurs present (Cardio) RATE: regular rate RHYTHM: regular rhythm GI: COMMON NORMALS: Normal to inspection, nondistended, normoactive bowel sounds present, Soft to palpation, non-tender and no masses PALPATION: Yes Soft to palpation Extremity: COMMON NORMALS: normal to inspection and full ROM Neuro: COMMON NORMALS: patient oriented x3, moves all extremities and no focal motor deficits Psych: COMMON NORMALS: mental status grossly normal, Normal thought process present and cooperative THOUGHT PROCESS: Normal thought process present Skin: COMMON NORMALS: no rashes or lesions noted and no wounds GENERAL SKIN EXAM: no rashes or lesions noted Course Vital Signs: Vital signs: Vital Signs Temperature 97.6 F 10/13/22 16:48 Pulse Rate 115 H 10/13/22 16:48 Respiratory Rate 14 10/13/22 20:56 Blood Pressure 129/90 10/13/22 20:56 Pulse Oximetry 97 10/13/22 20:56 Oxygen Delivery Me thod 10/13/22 20:56 MDM - Male Medical Decision Making Patient presents here with left groin pain he does have a large kidney stone on left side could be causing his pain he also has a fluid collection in his left groin I did speak to Dr. Avila of CT surgery along with Dr. Martínez and will admit to the hospitalist at this time. Lab Data 10/13/22 18:00 10/13/22 18:00 Radiology Impressions Abdomen/Pelvis CT 10/13/22 19:44 IMPRESSION: 1. There are 2 adjacent obstructing stones in the mid left ureter with severe hydroureteronephrosis proximally. The largest measures 9 mm. 2. 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 Stable chronic occlusion of the fem-fem bypass. There is a new fluid collection in the left inguinal region adjacent to the bypass measuring 2.8 cm, possibly an abscess. Correlate for clinical findings of infection. 3. Stable tree-in-bud nodular opacities in the inferior right lower lobe and right middle lobe which may be related to chronic infection. Laboratory Results WBC 10.9 10^3/uL (4.0-10.0) H 10/13/22 18:00 RBC 5.75 10^6/uL (4.1-5.3) H 10/13/22 18:00 Hgb 15.9 g/dL (11.7-16.6) 10/13/22 18:00 Hct 54.6 % (42.0-52.0) H 10/13/22 18:00 MCV 95.0 fl (80-94) H 10/13/22 18:00 MCH 27.7 pg (28.0-34.0) L 10/13/22 18:00 MCHC 29.1 g/dL (30.0-36.0) L 10/13/22 18:00 RDW 14.6 % (12.1-15.1) 10/13/22 18:00 Plt Count 187 10^3/cmm (130-400) 10/13/22 18:00 MPV 11.3 fL (7.4-10.4) H 10/13/22 18:00 Neut % (Auto) 76.0 % 10/13/22 18:00 Lymph % (Auto) 13.0 % 10/13/22 18:00 [place] % (Auto) 8.9 % 10/13/22 18:00 Eos % (Auto) 1.2 % 10/13/22 18:00 Baso % (Auto) 0.5 % 10/13/22 18:00 Neut # (Auto) 8.29 10^3/uL (1.8-7.7) H 10/13/22 18:00 Lymph # (Auto) 1.4 10^3/uL (0.8-4.8) 10/13/22 18:00 [place] # (Auto) 1.0 10^3/uL (0.2-0.9) H 10/13/22 18:00 Eos # (Auto) 0.1 10^3/uL (0.0-0.8) 10/13/22 18:00 Baso # (Auto) 0.1 10^3/uL (0.0-0.1) 10/13/22 18:00 Nucleated RBC % (auto) 0 % 10/13/22 18:00 Nucleated RBCs # 0.0 /100WBC 10/13/22 18:00 Sodium 139 mmol/L (136-145) 10/13/22 18:00 Potassium 4.8 mmol/L (3.5-5.1) 10/13/22 18:00 Chloride 103 mmol/L (98-107) 10/13/22 18:00 Carbon Dioxide 31 mmol/L (22-29) H 10/13/22 18:00 Anion Gap 9.8 (5-19) 10/13/22 18:00 BUN 18 mg/dL (8-23) 10/13/22 18:00 Creatinine 1.5 mg/dL (0.7-1.2) H 10/13/22 18:00 GFR Calculation 47.6 mL/min (90-130) L 10/13/22 18:00 Glucose 117 mg/dL (65-115) H 10/13/22 18:00 Calculated Osmolality 291 mOsm/kg (285-295) 10/13/22 18:00 Calcium 9.2 mg/dL (8.5-10.5) 10/13/22 18:00 Total Bilirubin 0.3 mg/dL (0.15-1.2) 10/13/22 18:00 AST 13 U/L (0-40) 10/13/22 18:00 ALT 8 U/L (0-41) 10/13/22 18:00 Alkaline Phosphatase 91 U/L (40-130) 10/13/22 18:00 Total Protein 7.1 g/dL (6.6-8.7) 10/13/22 18:00 Albumin 3.6 g/dL (3.5-5.2) 10/13/22 18:00 Globulin 3.5 g/dL (1.3-4.6) 10/13/22 18:00 Urine Color Yellow (Yellow) 10/13/22 21:00 Urine Appearance Clear (CLEAR) 10/13/22 21:00 Urine pH 5 (5-7) 10/13/22 21:00 Ur Specific [place] 1.015 (1.005-1.030) 10/13/22 21:00 Urine Protein 1+ (Negative) H 10/13/22 21:00 Urine Glucose (UA) Norm (Normal) 10/13/22 21:00 Urine Ketones 1+ (Negative) H 10/13/22 21:00 Urine Blood Neg (Negative) 10/13/22 21:00 Urine Nitrate Negative (Negative) 10/13/22 21:00 Urine Bilirubin Neg (Negative) 10/13/22 21:00 Urine Urobilinogen Norm mg/dL (Negative) 10/13/22 21:00 Ur Leukocyte Esterase Negative (Negative) 10/13/22 21:00 Urine RBC 0-4 /hpf (0-2) H 10/13/22 21:00 Urine WBC 0-4 /hpf (0-5) H 10/13/22 21:00 Ur Squamous Epith Cells None /hpf (0-5) 10/13/22 21:00 Amorphous Sediment Not Reportable 10/13/22 21:00 Urine Bacteria None /hpf (NONE) 10/13/22 21:00 Fine Granular Casts 0-4 /lpf H 10/13/22 21:00 Discharge Plan Discharge Patient Disposition: Admitted As Inpatient Clinical Impression: Kidney stone, Abscess Condition: Stable Prescriptions: No Action fluoxetine 20 mg capsule 20 mg PO DAILY Rx Instructions: rx last filled on 09/04/19 for 60d/s lisinopril 2.5 mg tablet 2.5 mg PO DAILY Rx Instructions: pt states he doesnt take all the time doxycycline monohydrate 100 mg capsule 100 mg PO BID 7 Days Qty: 14 0RF albuterol sulfate 2.5 mg /3 mL (0.083 %) solution for nebulization 2.5 mg INHALATION Q6H PRN (Reason: shortness of breath or wheezing) Qty: 75 0RF tramadol 50 mg tablet 50 mg PO Q8H PRN (Reason: pain) Qty: 30 0RF prednisone 20 mg tablet 40 mg PO DAILY 5 Days Qty: 10 0RF albuterol sulfate 90 mcg/actuation HFA aerosol inhaler 2 puff INHALATION Q6H PRN (Reason: shortness of breath or wheezing) Qty: 8.5 2RF fluticasone propion-salmeterol [Advair Diskus] 250-50 mcg/dose blister with device 1 - 2 inh INHALATION BID Qty: 60 0RF Rx Instructions: pt states doesnt use all the time, 340-b please Referrals: Armando Andrews Jr, MD [Primary Care Provider] - Coding Level of Care Code ED Pharmaceutical Sales Representative for Shira Martins
[2022-10-13] MEDS: iohexol 350 mg/mL 500 mL Btl (per mL) IV (20:20)
[2022-10-13] MEDS: levofloxacin-dextrose 5 % 750 MG/150 ML PREMIX 100 MG IV (20:55)
[2022-10-13 20:56] VITALS: BP 129/90; RESP 14; O2SAT 97
[2022-10-13 21:15] LABS: Add Urine Microscopic? YES; Bilirubin Urine Neg (Negative); Blood Urine Neg (Negative); Glucose Urine UA Norm (Normal); Ketones Urine 1+ (Negative); Leukocyte Esterase Urine Negative (Negative); Nitrate Urine Negative (Negative); Protein Urine 1+ (Negative); Specific Gravity, Urine 1.015 (1.005-1.030); Urine Appearance Clear (CLEAR); Urine Color Yellow (Yellow); Urobilinogen Urine Norm (Negative); pH Urine 5 (5-7)
[2022-10-13 21:16] LABS: Add Urine Culture? No; Fine Granular Casts Urine 0-4 /lpf; RBC Urine 0-4 /hpf (0-2); WBC Urine 0-4 /hpf (0-5)
[2022-10-13 22:15] VITALS: BP 132/86; PULSE 101; RESP 16; O2SAT 99
--- NOTE | 2022-10-13 22:24 | PM.CONSULT ---
Providers/Reason For Consult Consulting Physician/Specialty*: Urology/Kim Reason for Consult*: 2 LEFT proximal ureteral stones with obstruction Requesting Physician: Raymon Attending Physician: Telma Salazar MD Primary Care Provider: Armando Andrews Jr, MD History of Present Illness History of Present Illness Jason Lopez is a 62 year old male admitted through the ED tonight for concerns of possible LEFT groin abscess near previous vascular bypass graft. CT scan also demonstrated 2 chronically obstructing large LEFT Proximal to Mid ureteral stones with evidence of Obstructive Uropathy / moderate to severe LEFT renal atrophy. Urine not infected Creatinine elevated mildly at 1.[address] in 2019 and 2o16 and the findings of stones are new since then. Vascular surgery consult is pending. Reviewed with the patient. We will make plans to attempt definitive treatment of the stones either via ESWL or ureteroscopy but given the absence of any clinical significant symptoms or urinary infection I think it would be good to postpone that intervention until the groin issues are further delineated and treated Patient has had no prior history of stones. He expressed good understanding regarding our discussion Review of Systems Const: Denies: fever(s) or chills Eyes: Denies: change in vision ENMT: Reports: hoarseness; Denies: odynophagia Card: Denies: chest pain or palpitations Resp: Denies: dyspnea or productive cough GI: Denies: abdominal pain, nausea or vomiting : Denies: flank pain or difficulty urinating Musc: Denies: joint redness Psych: Denies: anxiety Endo: Denies: flushing Malik/Lymph: Denies: easy bleeding All/Imm: Denies: urticaria Medications/Allergies Home Medications Medication Instructions Recorded Confirmed Last Taken Type albuterol sulfate 2.5 mg/3 mL 2.5 mg (3 mL) inhalation Q6H PRN 01/21/20 10/24/22 Unknown Rx (0.083 %) solution for nebulization shortness of breath or wheezing #75 mL fluticasone 250 mcg-salmeterol 50 1 - 2 ea inhalation BID PRN unknown 10/14/22 10/24/22 Unknown History mcg/dose blistr powdr for inhalation (Wixela Inhub) albuterol sulfate 90 mcg/actuation 1 puff inhalation Q4H PRN 10/23/22 10/24/22 Unknown Rx aerosol inhaler Shortness Of Breath #8.5 grams doxycycline hyclate 100 mg tablet 100 mg PO BID 14 days #28 tabs 10/23/22 10/24/22 Unknown Rx folic acid 1 mg tablet 1 mg PO DAILY 30 days #30 tabs 10/23/22 10/24/22 Unknown Rx metronidazole 500 mg tablet 500 mg PO Q8H 14 days #42 tabs 10/23/22 10/24/22 Unknown Rx thiamine mononitrate (vit B1) 100 100 mg PO DAILY 30 days #30 tabs 10/23/22 10/24/22 Unknown Rx mg tablet (Vitamin B-1 (mononitrate)) Allergies Allergy/AdvReac Type Severity Reaction Status Date / Time clindamycin Allergy ALGY-Rash Verified 10/20/22 16:16 Penicillins Allergy Unknown Verified 10/20/22 16:16 vancomycin Allergy red man Verified 10/20/22 16:16 disease PFSH Acute PFSH: Medical History Colostomy care COPD (chronic obstructive pulmonary disease) -secondary to smoking, 1-1.5 PPD -nicotine patch -not oxygen dependent at baseline Femoral-femoral bypass graft thrombosis, right This is actually a left femoral to right popliteal artery bypass utilizing [place]-Casey graft H/O necrotizing fasciitis Involving the right hip and inguinal area, status post extensive debridement; approximately 15 years ago 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 Social History Smoking and tobacco status: current every day smoker cigarettes Packs smoked per day: 1.5 Alcohol intake: former Former alcohol use details: sober x 6 yrs Current gender identity: Male Vitals/I&O/Wt Last Vital Signs Temp 97.6 F 10/13/22 16:48 Pulse 101 H 10/13/22 22:15 Resp 16 10/13/22 22:15 BP 132/86 10/13/22 22:15 Pulse Ox 99 10/13/22 22:15 O2 Del Method 10/13/22 20:56 10/13/22 10/13/22 10/13/22 06:59 14:59 22:59 Intake Total 135 / 135 Balance 135 / 135 Weight last 48 hrs Weight 168 lb Physical Exam Const: COMMON NORMALS: no acute distress, alert and well nourished GENERAL APPEARANCE: well kempt and well developed ORIENTATION/CONSCIOUSNESS: not confused HENMT: COMMON NORMALS: normocephalic HEAD & SCALP: normal to inspection and normocephalic Eye: COMMON NORMALS: conjunctivae normal and no scleral icterus CONJUNCTIVA: Yes conjunctivae normal Neck/C-Spine: GENERAL: Yes normal visual inspection Lymph: LYMPHATIC: no lymphedema noted Chest: OTHER: Normal chest movement Resp: COMMON NORMALS: normal respiratory effort EFFORT & INSPECTION: Yes able to speak in complete sentences, No labored and No Actively coughing Cardio: OTHER: Regular rate and rhythm GI: OTHER: No left upper quadrant pain does have a right lower quadrant ileostomy. Large abdominal wall hernia. No rebound tenderness. There is a red tender swollen area in the left groin suspicious for infection collection : OTHER: No CVA tenderness. Extremity: NARRATIVE EXTREMITY EXAM: Status post left AKA Neuro: COMMON NORMALS: no focal motor deficits SENSORIUM/ORIENTATION: Yes alert Psych: COMMON NORMALS: mental status grossly normal APPEARANCE: Yes grossly normal and Yes well kempt ATTITUDE: Yes calm and Yes engaged Skin: COMMON NORMALS: no jaundice Data 10/13/22 18:00 10/13/22 18:00 A&P Assessment and plan (1) Left ureteral calculus: 2 large left proximal/mid ureteral stones with obstruction and some chronic obstructive atrophy of the left kidney. Has had no real symptoms related to this. No evidence of infection associated with it. The biggest risk is further atrophy of the kidney if not treated at some point He does need treatment but he can wait until there is further definition regarding the groin infection and those plans. I did review with him that this will be important to have managed in the near future. (2) Hydronephrosis, left: (3) Left renal atrophy: Secondary to chronic obstruction from ureteral stones. Still shows function on the CT scan Plan Reviewed with Dr. Salazar. We will check with Dr. Avila on his intentions. He does need at least a stent at some point for renal preservation and certainly needs attempt at definitive treatment of the stones but in the absence of an acute process I think that can be postponed given the more significant priority related to the groin infection Consult Attestations Medical Necessity Statement: See attending Coding Level of Care Code Acute Code for [facility] Fwd Diagnoses Left ureteral calculus N20.1 Hydronephrosis, left N13.30 Left renal atrophy N26.1
[2022-10-13 23:17] VITALS: BP 133/84; PULSE 98; RESP 28; TEMP 36.7; O2SAT 91
--- NOTE | 2022-10-13 23:27 | PM.HP ---
Providers/Chief Complaint Admitting Physician: Telma Salazar MD Primary Care Provider: Armando Andrews Jr, MD Chief Complaint: possible urogenital History of Present Illness Jason Lopez is a 62 year old male with a past medical history of peripheral vascular disease, status post left common femoral artery to right popliteal artery bypass in 2016 secondary to right lower extremity exertional claudication and occlusion of right superficial femoral artery, history of MRSA endovascular infection, then reocclusion of the graft in 2019 with critical limb ischemia for which patient underwent further surgical procedures with Dr. Ogden in [place]. Patient presents today with chief complaints of left groin pain. He states that approximately 2 weeks ago he noticed a swelling in the left groin area which was red and tender. He did not seek immediate medical attention for the same, continue to engage in house work, now presented to the emergency room after his pain got much worse. CT of the abdomen and pelvis showed a 2.8 cm focal collection in the left groin suspected to be an abscess in the perigraft area. He has had no recent injuries into this area. Does have a history of IV drug use, last used IV meth 1 month ago. Patient states that around 1 month ago he did experience flulike illness with low-grade fever, runny nose for which she received a course of antibiotics and steroids. Currently denies any fevers. He is also noted to have kidney stones on his CT today denies any dysuria, however his creatinine is today at 1.5. Review of Systems General: Reports: 10 or more systems reviewed and unremarkable except in HPI and below Const: Denies: fever(s), chills or body aches Eyes: Denies: change in vision, blurry vision or photophobia ENMT: Reports: hoarseness; Denies: throat pain, enlarged tonsils, odynophagia or nasal congestion Card: Denies: chest pain, palpitations, irregular heart rhythm, edema, swelling of feet/ankles, lightheadedness, pre-syncope, dyspnea on exertion or orthopnea Resp: Denies: dyspnea, productive cough, non-productive cough, wheezing, stridor, pain on inspiration, change in phlegm color, hemoptysis or chest congestion GI: Denies: abdominal pain, nausea, vomiting, hematemesis, coffee ground emesis, dysphagia, heartburn, diarrhea, constipation, GI cramping, change in stool character, hematochezia or melena : Denies: flank pain, dysuria, urinary frequency, urinary urgency, urinary hesitancy or hematuria Musc: Denies: neck pain, back pain, extremity pain, joint swelling, joint warmth or deformity Neuro: Denies: headache(s), numbness in extremities, weakness in extremities, sensory changes, difficulty walking, frequent falls, dizziness, vertigo, behavioral changes, Slurred speech present or seizure-like activity Psych: Denies: anxiety, depression, suicidal ideation or homicidal ideation Endo: Denies: polyuria, polydipsia, tired all the time, cold intolerance or hot flashes [place]ik/Lymph: Denies: easy bruising or easy bleeding Medications/Allergies Home Medications Medication Instructions Recorded Confirmed Last Taken Type fluoxetine 20 mg capsule 20 mg PO DAILY 10/18/19 09/03/22 10/16/19 History lisinopril 2.5 mg tablet 2.5 mg PO DAILY 10/18/19 09/03/22 Unknown History albuterol sulfate 2.5 mg/3 mL 2.5 mg (3 mL) inhalation Q6H PRN 01/21/20 09/03/22 Unknown Rx (0.083 %) solution for nebulization shortness of breath or wheezing #75 mL doxycycline monohydrate 100 mg 100 mg PO BID 7 days #14 caps 01/21/20 09/03/22 Unknown Rx capsule prednisone 20 mg tablet 40 mg PO DAILY 5 days #10 tabs 05/20/20 09/03/22 Unknown Rx tramadol 50 mg tablet 50 mg PO Q8H PRN pain #30 tabs 05/20/20 09/03/22 Unknown Rx albuterol sulfate 90 mcg/actuation 2 puff inhalation Q6H PRN 06/11/20 09/03/22 Unknown Rx aerosol inhaler shortness of breath or wheezing #8.5 grams fluticasone 250 mcg-salmeterol 50 1 - 2 inh inhalation BID #60 ea 06/11/20 09/03/22 Unknown Rx mcg/dose blistr powdr for inhalation (Advair Diskus) Allergies Allergy/AdvReac Type Severity Reaction Status Date / Time clindamycin Allergy ALGY-Rash Verified 05/05/22 09:55 Penicillins Allergy Unknown Verified 05/05/22 09:55 vancomycin Allergy red man Verified 05/05/22 09:55 disease PFSH Acute PFSH: Medical History COPD (chronic obstructive pulmonary disease) -secondary to smoking, 1-1.5 PPD -nicotine patch -not oxygen dependent at baseline Femoral-femoral bypass graft thrombosis, right This is actually a left femoral to right popliteal artery bypass utilizing Irving-Casey graft H/O necrotizing fasciitis Involving the right hip and inguinal area, status post extensive debridement; approximately 15 years ago 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 Social History Smoking and tobacco status: current every day smoker cigarettes Packs smoked per day: 1.5 Alcohol intake: former Former alcohol use details: sober x 6 yrs History of recent travel: No Current gender identity: Male Vitals/I&O/Wt Last Vital Signs Temp 98.1 F 10/13/22 23:17 Pulse 98 10/13/22 23:17 Resp 28 H 10/13/22 23:17 BP 133/84 10/13/22 23:17 Pulse Ox 91 10/13/22 23:17 O2 Del Method 10/13/22 23:17 10/13/22 10/13/22 10/14/22 14:59 22:59 06:59 Intake Total 135 / 135 15 / 150 Balance 135 / 135 15 / 150 Weight last 48 hrs Weight 76.204 kg Physical Exam Narrative: General: No acute distress, AO x3 HEENT: PERRLA, pupils bilaterally equal and reactive, pallors not present Chest: Normal vesicular breath sounds, no added sounds, equal good air entry bilaterally CVS: S1-S2 regular, no murmurs, no tachycardia, no gallops, no rubs Abdomen: Soft, nontender, no organomegaly, bowel sounds present Neuro: No focal deficits, no facial deformity, AO x3, power 5/5 in all limbs Extremities: Approximately 3 x 2 cm swelling in the left inguinal area, tense and tender to palpation. Data 10/13/22 18:00 10/13/22 18:00 Other Labs: Radiology Impressions Abdomen/Pelvis CT 10/13/22 19:44 IMPRESSION: 1. There are 2 adjacent obstructing stones in the mid left ureter with severe hydroureteronephrosis proximally. The largest measures 9 mm. 2. 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 Stable chronic occlusion of the fem-fem bypass. There is a new fluid collection in the left inguinal region adjacent to the bypass measuring 2.8 cm, possibly an abscess. Correlate for clinical findings of infection. 3. Stable tree-in-bud nodular opacities in the inferior right lower lobe and right middle lobe which may be related to chronic infection. Laboratory Results WBC 9.2 10^3/uL (4.0-10.0) 10/14/22 05:12 RBC 5.68 10^6/uL (4.1-5.3) H 10/14/22 05:12 Hgb 15.9 g/dL (11.7-16.6) 10/14/22 05:12 Hct 55.1 % (42.0-52.0) H 10/14/22 05:12 MCV 97.0 fl (80-94) H 10/14/22 05:12 MCH 28.0 pg (28.0-34.0) 10/14/22 05:12 MCHC 28.9 g/dL (30.0-36.0) L 10/14/22 05:12 RDW 14.6 % (12.1-15.1) 10/14/22 05:12 Plt Count 166 10^3/cmm (130-400) 10/14/22 05:12 MPV 12.8 fL (7.4-10.4) H 10/14/22 05:12 Neut % (Auto) 75.9 % 10/14/22 05:12 Lymph % (Auto) 13.6 % 10/14/22 05:12 [place] % (Auto) 7.9 % 10/14/22 05:12 Eos % (Auto) 2.0 % 10/14/22 05:12 Baso % (Auto) 0.3 % 10/14/22 05:12 Neut # (Auto) 6.95 10^3/uL (1.8-7.7) 10/14/22 05:12 Lymph # (Auto) 1.2 10^3/uL (0.8-4.8) 10/14/22 05:12 [place] # (Auto) 0.7 10^3/uL (0.2-0.9) 10/14/22 05:12 Eos # (Auto) 0.2 10^3/uL (0.0-0.8) 10/14/22 05:12 Baso # (Auto) 0.0 10^3/uL (0.0-0.1) 10/14/22 05:12 Nucleated RBC % (auto) 0 % 10/14/22 05:12 Nucleated RBCs # 0.0 /100WBC 10/14/22 05:12 Sodium 139 mmol/L (136-145) 10/13/22 18:00 Potassium 4.8 mmol/L (3.5-5.1) 10/13/22 18:00 Chloride 103 mmol/L (98-107) 10/13/22 18:00 Carbon Dioxide 31 mmol/L (22-29) H 10/13/22 18:00 Anion Gap 9.8 (5-19) 10/13/22 18:00 BUN 18 mg/dL (8-23) 10/13/22 18:00 Creatinine 1.5 mg/dL (0.7-1.2) H 10/13/22 18:00 GFR Calculation 47.6 mL/min (90-130) L 10/13/22 18:00 Glucose 117 mg/dL (65-115) H 10/13/22 18:00 Calculated Osmolality 291 mOsm/kg (285-295) 10/13/22 18:00 Calcium 9.2 mg/dL (8.5-10.5) 10/13/22 18:00 Total Bilirubin 0.3 mg/dL (0.15-1.2) 10/13/22 18:00 AST 13 U/L (0-40) 10/13/22 18:00 ALT 8 U/L (0-41) 10/13/22 18:00 Alkaline Phosphatase 91 U/L (40-130) 10/13/22 18:00 Total Protein 7.1 g/dL (6.6-8.7) 10/13/22 18:00 Albumin 3.6 g/dL (3.5-5.2) 10/13/22 18:00 Globulin 3.5 g/dL (1.3-4.6) 10/13/22 18:00 Urine Color Yellow (Yellow) 10/13/22 21:00 Urine Appearance Clear (CLEAR) 10/13/22 21:00 Urine pH 5 (5-7) 10/13/22 21:00 Ur Specific [place] 1.015 (1.005-1.030) 10/13/22 21:00 Urine Protein 1+ (Negative) H 10/13/22 21:00 Urine Glucose (UA) Norm (Normal) 10/13/22 21:00 Urine Ketones 1+ (Negative) H 10/13/22 21:00 Urine Blood Neg (Negative) 10/13/22 21:00 Urine Nitrate Negative (Negative) 10/13/22 21:00 Urine Bilirubin Neg (Negative) 10/13/22 21:00 Urine Urobilinogen Norm mg/dL (Negative) 10/13/22 21:00 Ur Leukocyte Esterase Negative (Negative) 10/13/22 21:00 Urine RBC 0-4 /hpf (0-2) H 10/13/22 21:00 Urine WBC 0-4 /hpf (0-5) H 10/13/22 21:00 Ur Squamous Epith Cells None /hpf (0-5) 10/13/22 21:00 Amorphous Sediment Not Reportable 10/13/22 21:00 Urine Bacteria None /hpf (NONE) 10/13/22 21:00 Fine Granular Casts 0-4 /lpf H 10/13/22 21:00 A&P Assessment and plan (1) Vascular graft infection: Patient presenting today with complaints of left groin pain and swelling in the area. 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 Patient has a significant past history of MRSA bacteremia and resulting septic embolization per his history. This is prior to the graft placement several years ago. We will check blood cultures stat. Patient has received 1 dose of levofloxacin in the emergency room today. CT-guided aspiration with IR today. Vascular surgery consult. Holding off on antibiotics for now to maximize cx yield from aspiration given that patient is otherwise clinically stable for now. Should he start deteriorating clinically, we will start him on Zosyn and vancomycin without waiting for cultures. No history of cardiac hardware (2) Left ureteral calculus: Incidentally noted obstructing stones in the mid left ureter with severe hydro ureteral Nephrox cyst proximally. Largest stone measures 9 mm. Urology has been consulted. Possible that his groin pain may be contributed by the obstructing kidney stones. Dr. Martínez consulted from the ER. (3) Hydronephrosis, left: Related to ureteric stones (4) [place] (acute kidney injury): Acute kidney injury with creatinine at 1.5. Start normal saline 75 cc an hour Closely monitor urine output (5) Ileostomy in place: no current issues with ileostomy. 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 Patient currently has a terminal ileostomy and a rectal pouch. Attestations Medical Necessity Statement*: Anticipate greater than 2 midnight admission for vascular graft infection, need to start IV antibiotic, IR versus surgical aspiration of abscess. Coding Level of Care Code Acute Code for Chg Fwd High MDM includes risk/complexity, reviewing previous or external records, reviewing test results, ordering lab/other test(s), independently interpretating test(s) (not separately recorded) and discussion of management or test(s) w/ other healthcare professional Diagnoses Vascular graft infection T82.7XXA Left ureteral calculus N20.1 Hydronephrosis, left N13.30 [place] (acute kidney injury) N17.[address] Z93.2
[2022-10-14] VITALS (7 sets, daily range): BP systolic 102–104; BP diastolic 61–70; PULSE 93–117; RESP 18–24; TEMP 36.4; O2SAT 90–95
[2022-10-14] MEDS: TRAMadol 50 mg Tablet PO (00:07)
[2022-10-14] MEDS: enoxaparin 40 mg/0.4 mL Syringe SUBCUT (00:08)
[2022-10-14] MEDS: sodium chloride 0.9% 1,000 ML 75 ML IV (00:08)
[2022-10-14] MEDS: morphine 4 mg/mL SDV 1 mL 2 MG IVP (03:30)
[2022-10-14 05:57] LABS: Basophils % 0.3 %; Eosinophils # 0.2 10^3/uL (0.0-0.8); Hematocrit 55.1 % (42.0-52.0); Hemoglobin 15.9 g/dL (11.7-16.6); Lymphocytes # 1.2 10^3/uL (0.8-4.8); Lymphocytes % 13.6 %; Mean Corpuscular HGB Conc 28.9 g/dL (30.0-36.0); Mean Platelet Volume 12.8 fL (7.4-10.4); Monocytes # 0.7 10^3/uL (0.2-0.9); Monocytes % 7.9 %; Neutrophils # 6.95 10^3/uL (1.8-7.7); Neutrophils % 75.9 %; Nucleated Red Blood Cells % 0 %; Platelet Count 166 10^3/cmm (130-400); Red Blood Count 5.68 10^6/uL (4.1-5.3); Red Cell Distribution Width 14.6 % (12.1-15.1); White Blood Count 9.2 10^3/uL (4.0-10.0)
[2022-10-14 06:16] LABS: Alkaline Phosphatase 85 U/L (40-130); Blood Urea Nitrogen 20 mg/dL (8-23); Carbon Dioxide 27 mmol/L (22-29); Chloride 101 mmol/L (98-107); Globulin 3.4 g/dL (1.3-4.6); Glucose 111 mg/dL (65-115); Magnesium 1.9 mg/dL (1.7-2.3); Osmolality Calculated 287 mOsm/kg (285-295); Sodium 137 mmol/L (136-145); Total Bilirubin 0.2 mg/dL (0.15-1.2); Total Protein 6.8 g/dL (6.6-8.7)
--- NOTE | 2022-10-14 06:26 | P.CONIM_ITS ---
Providers/Reason For Consult Consulting Physician/Specialty*: Dr. Avila/cardiothoracic surgery Reason for Consult*: Fluid collection around femorofemoral graft Requesting Physician: Dr. Salazar Attending Physician: Telma Salazar MD Primary Care Provider: Armando Andrews Jr, MD History of Present Illness History of Present Illness Jason Lopez is a 62 year old male whom I previously performed a left femoral artery to distal right popliteal artery bypass utilizing [place]-Casey graft back in 2016 for severe peripheral vascular disease. He has a known right common iliac artery occlusion.? He has a complicated past medical history including peripheral vascular disease, status post colectomy secondary to toxic megacolon from C. difficile, right upper quadrant ileostomy, previous brainstem CVA, hypertension, COPD, and status post right hip and inguinal region necrotizing fasciitis 18 years ago. I last saw him in October 2019 when he represented with right leg discomfort and occlusion of his graft. He was evaluated by Dr. St and underwent angiography which revealed complete occlusion of the graft along with 100% occlu ded right ostial common, external/internal iliac, common femoral, SFA and no flow below knee as well was noted.? He was subcu referred to Dr. 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 Unfortunately he continues to smoke. He also, during interview with myself and Dr. Castellano, has admitted to recent IV methamphetamine use. He presented to the emergency department with complaints of lower abdominal pain as well as swelling over his left groin region. He denies fever however. CT of the abdomen and pelvis was performed yesterday afternoon. This study revealed: 1. There are 2 adjacent obstructing stones in the mid left ureter with severe hydroureteronephrosis proximally. The largest measures 9 mm. 2. 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 Stable chronic occlusion of the fem-fem bypass. There is a new fluid collection in the left inguinal region adjacent to the bypass measuring ?2.3 x 2.8 cm. possibly an abscess. Correlate for clinical findings of infection. 3. Stable tree-in-bud nodular opacities in the inferior right lower lobe and right middle lobe which may be related to chronic infection. I evaluated Mr. Lopez at bedside with Dr. Salazar. He has been seen by Dr. Martínez from urology. He has received a dose of Levaquin. Etiology for this fluid collection at this location is unclear. He did report crawling under his house a couple weeks ago for repairs though he denies any abdominal wall trauma. ? Review of Systems Const: Denies: fever(s) or chills Eyes: Denies: change in vision Card: Denies: chest pain, palpitations, irregular heart rhythm or syncope Resp: Denies: dyspnea GI: Denies: abdominal pain, nausea or vomiting : Denies: flank pain or difficulty urinating Musc: Denies: neck pain, back pain or extremity swelling Neuro: Denies: headache(s) or weakness in extremities Medications/Allergies Home Medications Medication Instructions Recorded Confirmed Last Taken Type fluoxetine 20 mg capsule 20 mg PO DAILY 10/18/19 09/03/22 10/16/19 History lisinopril 2.5 mg tablet 2.5 mg PO DAILY 10/18/19 09/03/22 Unknown History albuterol sulfate 2.5 mg/3 mL 2.5 mg (3 mL) inhalation Q6H PRN 01/21/20 09/03/22 Unknown Rx (0.083 %) solution for nebulization shortness of breath or wheezing #75 mL doxycycline monohydrate 100 mg 100 mg PO BID 7 days #14 caps 01/21/20 09/03/22 Unknown Rx capsule prednisone 20 mg tablet 40 mg PO DAILY 5 days #10 tabs 05/20/20 09/03/22 Unknown Rx tramadol 50 mg tablet 50 mg PO Q8H PRN pain #30 tabs 05/20/20 09/03/22 Unknown Rx albuterol sulfate 90 mcg/actuation 2 puff inhalation Q6H PRN 06/11/20 09/03/22 Unknown Rx aerosol inhaler shortness of breath or wheezing #8.5 grams fluticasone 250 mcg-salmeterol 50 1 - 2 inh inhalation BID #60 ea 06/11/20 09/03/22 Unknown Rx mcg/dose blistr powdr for inhalation (Advair Diskus) Allergies Allergy/AdvReac Type Severity Reaction Status Date / Time clindamycin Allergy ALGY-Rash Verified 05/05/22 09:55 Penicillins Allergy Unknown Verified 05/05/22 09:55 vancomycin Allergy red man Verified 05/05/22 09:55 disease Current Medications Generic Name Dose Route Start Last Admin Trade Name Freq PRN Reason Stop Dose Admin Enoxaparin Sodium 40 mg 10/13/22 23:30 10/14/22 00:08 Enoxaparin 40 Mg/0.4 Ml Syringe SUBCUT 40 mg Q24H MANDO Administration Sodium Chloride 1,000 mls @ 75 mls/hr 10/13/22 23:30 10/14/22 00:08 Sodium Chloride 0.9% IV 75 mls/hr .[id number] MANDO Administration Morphine Sulfate 2 mg 10/13/22 23:24 10/14/22 03:30 Morphine 4 Mg/Ml Sdv 1 Ml IVP 2 mg Q4H PRN Administration SEVERE PAIN Tramadol HCl 50 mg 10/13/22 23:26 10/14/22 00:07 Tramadol 50 Mg Tablet PO 50 mg Q8H PRN Administration pain PFSH Acute PFSH: Medical History COPD (chronic obstructive pulmonary disease) -secondary to smoking, 1-1.5 PPD -nicotine patch -not oxygen dependent at baseline Femoral-femoral bypass graft thrombosis, right This is actually a left femoral to right popliteal artery bypass utilizing [place]-Casey graft H/O necrotizing fasciitis Involving the right hip and inguinal area, status post extensive debridement; approximately 15 years ago 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 Social History Smoking and tobacco status: current every day smoker cigarettes Packs smoked per day: 1.5 Alcohol intake: former Former alcohol use details: sober x 6 yrs History of recent travel: No Current gender identity: Male Vitals/I&O/Wt Last Vital Signs Temp 97.6 F 10/14/22 04:00 Pulse 117 H 10/14/22 04:00 Resp 21 H 10/14/22 04:00 BP 102/70 10/14/22 04:00 Pulse Ox 90 10/14/22 04:00 O2 Del Method 10/14/22 00:45 10/13/22 10/13/22 10/14/22 14:59 22:59 06:59 Intake Total 135 / 135 15 / 150 Output Total 500 / 500 Balance 135 / 135 -485 / -350 Weight last 48 hrs Weight 168 lb Physical Exam Const: COMMON NORMALS: no acute distress, average body habitus and patient oriented x3 HENMT: COMMON NORMALS: normocephalic, atraumatic and hearing grossly normal bilaterally HEAD & SCALP: normocephalic and atraumatic Eye: COMMON NORMALS: Equal, round and reactive pupils present and EOMs intact bilaterally PUPIL: Yes Equal, round and reactive pupils present Neck/C-Spine: COMMON NORMALS: full ROM Extremity: NARRATIVE EXTREMITY EXAM: Well-healed left AKA incision. All prior surgical vascular incisions are also well-healed. There is a localized area of swelling with minimal heat just medial to the left groin region which would coincide with the noted fluid co llection on CT scan from yesterday. There is no obvious overlying skin trauma. Neuro: COMMON NORMALS: patient oriented x3 Data 10/14/22 05:12 10/14/22 05:12 Micro: Microbiology 10/14/22 00:02 Blood Culture - Preliminary Blood SPECIMEN COLLECTED 10/14/22 00:00 Blood Culture - Preliminary Blood SPECIMEN COLLECTED A&P Assessment and plan (1) Femoral-femoral bypass graft thrombosis, right: Fluid collection around a segment of old left femoral to right popliteal artery [place]-Casey graft. Isolated fluid collection which is not over an anastomosis. Etiology is unclear. After conversation with Dr. Rogesr, we will initially CEAP our interventional radiology department can perform ultrasound-guided aspiration of this fluid so it may be sent for appropriate analysis. If it is separately felt that formal drainage is required, my initial recommendation would be to perform this and possibly resect that segment of involved graft without attempting to extirpate the entire graft. I am concerned that attempting to disconnect this graft from the left femoral artery could simply result in ischemia to the left lower extremity. If this is simply required, we will have to have options to obtain appropriate amount of vein to allow for a vein patch angioplasty as a prosthetic patch material would be contraindicated in the setting. We have discussed this carefully with Mr. Lopez and he he states underst anding. Qualifiers: Encounter type: sequela Qualified Code(s): T82.868S - Thrombosis due to vascular prosthetic devices, implants and grafts, sequela Consult Attestations Medical Necessity Statement: Perigraft fluid collection/nephrolithiasis Coding Level of Care Code Acute Code for Chg Fwd Diagnoses Femoral-femoral bypass graft thrombosis, right T82.868S Encounter type: sequela
[2022-10-14 06:27] LABS: Albumin Level 3.4 g/dL (3.5-5.2); Calcium 8.2 mg/dL (8.5-10.5); Glomerular Filtration Rate 51.5 mL/min (90-130)
[2022-10-14 06:28] LABS: Alanine Aminotransferase 7 U/L (0-41); Aspartate Amino Transferase 17 U/L (0-40)
--- NOTE | 2022-10-14 08:45 | PC.PHAR ---
pt states he takes care of his own medications-pt states he hasnt taken his blood thinner for 6 months to a year and is unsure of the name of what he was taking-pt states he hasnt taken paxil 10mg daily since aug 2022 ext med history shows last filled 07/19/22 30d/s-pt states only using the medications entered
[2022-10-14] MEDS: budesonide 0.5 mg/2 mL Neb INHALATION (09:14)
[2022-10-14] MEDS: nicotine 21 mg Patch 1 PATCH TRANSDERMA (09:58)
[2022-10-14] MEDS: pantoprazole DR 40 mg Tablet PO (09:59)
[2022-10-14] MEDS: fluoxetine 20 mg Capsule PO (09:59)
[2022-10-14 12:08] LABS: Arterial Blood Gas Hematocrit 48.9 % (42-52); Base Excess ABG -5.1 mmol/L (-2.0-2.0); Blood Gas Allen Test Pos; Blood Gas Sample Site Radial, left; Blood Gas Sample Type Arterial; Carboxyhemoglobin 2.4 %THgb (0.4-20.1); HCO3 ABG 26.9 mmol/L (22-26); HGB O2 Sat 94.3 % (95-100); Ionized Calcium Level - ABG 1.2 mmol/L (1.1-1.4); Methemoglobin 0.4 % (0.4-1.5); Oxygen Device NC; Oxygen Saturation ABG 96.9; Potassium Level - ABG 5.2 mmol/L (3.5-5.0)
--- NOTE | 2022-10-14 12:17 | PC.CHAP ---
Pastoral Care Encounter/Spiritual Assessment Type of Contact [] Declined carpet winder visit [] Patient/Family/Request visit [] Outpatient visit [] Follow-up visit [] Physician referral [] Code/Alert [x] Routine visit [] Staff referral [] Actively dying [] Patient sleeping [] Family support [] [] Out of room [] Palliative care [] [x] Receiving care in room [] Pre-surgical visit [] Trauma [] Long length of stay [] ICU visit [] Other: Relational/Emotional Strength [x] Patient feels connected with others/family/visitors/staff [] Distress [] Loneliness/isolation [] Abandonment Spirituality of Patient [x] Person of Becki [] Attends Hindu of their Becki [x] Believes in Prayer [] Reads Bible or Orthodox materials [] There are Spiritual issues to be addressed Flight Operations 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 Interventions [x] Prayer [x] Active listening [x] Non-anxious presence [x] Spiritual/emotional support [] Crisis/trauma care [x] Spiritual counseling [] Bereavement support [] Provided bereavement packet [] Provided Bible/devotional materials [] Provided toy/stuffed animal, coloring book to patient or family member [] Provided Communion [] Anointing/[place] [] Salvation [x] Completed spiritual assessment [] Other: Impact on Illness or Injury [] Angry [] Fearful [] Anxious [] Often cries [] Exhaustion [] Unable to work [] Unable to attend gnosticist [] Unable to walk/stand [] Unable to read [] Unable to drive [] Unable to eat/drink [] Unable to sleep [] Unable to be with family [] Patient intubated [] Other: Summary congestion bearthing is doing better has a good attitude well go home Time spent with patient 10 mins
[2022-10-14 12:22] LABS: INR 1.06 (0.8-1.2)
--- NOTE | 2022-10-14 13:10 | PC.NURSE ---
pt frustrated and wants to leave AMA, this nurse educated pt on risks of leaving AMA, pt understood. Dr. Mccabe notified, came to speak with patient. Patient verbalized understanding after conversation with Dr. Mccabe. pt stated take this out pointing to his IV. this nurse discontinued iv, patient signed AMA form and left facility.
--- NOTE | 2022-10-14 13:29 | P.PN_ITS ---
Subjective Subjective: This morning he is lethargic, states that he could not sleep well earlier. Bothered by pain in his left groin. Requesting additional pain medication. Discussed with risk of further sedation given he is already somnolent with pain medication, discussed we will not give additional opioids due to somnolence and risk of respiratory depression, respiratory arrest. Discussed we can try additional pain control with IV Tylenol or additional measures. Vitals/I&O/Wt Last Vital Signs Temp 97.6 F 10/14/22 08:00 Pulse 100 10/14/22 13:15 Resp 18 10/14/22 08:00 BP 102/67 10/14/22 13:15 Pulse Ox 93 10/14/22 13:15 O2 Del Method 10/14/22 08:00 10/13/22 10/14/22 10/14/22 22:59 06:59 14:59 Intake Total 135 / 135 15 / 150 Output Total 500 / 500 Balance 135 / 135 -485 / -350 Weight last 48 hrs Weight 76.204 kg Physical Exam Narrative: Life partner at bedside. Const: COMMON NORMALS: patient oriented x3 and alert GENERAL APPEARANCE: cooperative ORIENTATION/CONSCIOUSNESS: Yes awake HENMT: COMMON NORMALS: oropharynx normal Neck/C-Spine: COMMON NORMALS: no JVD Resp: COMMON NORMALS: normal respiratory effort AUSCULTATION: wheezes (Few scattered wheezes) Cardio: COMMON NORMALS: no JVD, regular rhythm, S1 normal heart sound present, S2 normal heart sound present and No murmurs present (Cardio) RHYTHM: regular rhythm HEART SOUNDS: S1 normal heart sound present and S2 normal heart sound present GI: COMMON NORMALS: Normal to inspection, nondistended, normoactive bowel sounds present, Soft to palpation and non-tender PALPATION: Yes Soft to palpation Extremity: COMMON NORMALS: no joint enlargement and no pedal edema NARRATIVE EXTREMITY EXAM: Left groin tender bulge OTHER: Right AKA Neuro: COMMON NORMALS: patient oriented x3 and moves all extremities S ENSORIUM/ORIENTATION: Yes alert Data 10/14/22 05:12 10/14/22 05:12 Micro: Microbiology 10/14/22 00:02 Blood Culture - Preliminary Blood SPECIMEN COLLECTED 10/14/22 00:00 Blood Culture - Preliminary Blood SPECIMEN COLLECTED A&P Assessment and plan (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 Discussed with radiology and plans will be for ultrasound-guided aspiration of fluid around graft. Placed order. Requested fluid analysis and Gram stain and culture. He is n.p.o. in case of need of urgent surgery. Discussed with him and his partner. (2) Left ureteral calculus: Discussed with overnight physician. As per discussion with urology plan for conservative management, no surgical intervention at current time, with possible definitive management after groin issues are treated. (3) Hydronephrosis, left: Related to ureteric stones (4) [place] (acute kidney injury): Reviewed repeat creatinine with mild improvement to 1.4. Receiving IV fluids. Continue. Reassess kidney function. (5) Ileostomy in place: no current issues with ileostomy. 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 Patient currently has a terminal ileostomy and a rectal pouch. Plan COPD: With some exacerbation, with wheezing, cough. He is already on antibiotics empirically. Discussed with him addition of breathing treatments, inhaled steroid. Possibly systemic steroid. Attestations Medical Necessity Statement*: Continue admission for assessment management of vascular graft infection, at risk of disabling or life-threatening complication. Coding Level of Care Code 44935 High MDM includes risk/complexity, reviewing previous or external records, reviewing test results, ordering lab/other test(s), speaking with independent historian (other than patient) and discussion of management or test(s) w/ other healthcare professional Diagnoses Vascular graft infection T82.7XXA Left ureteral calculus N20.1 Hydronephrosis, left N13.30 [place] (acute kidney injury) N17.[address] Z93.2
[2022-10-15 14:32] LABS: ABG PH Result 7.12 (7.35-7.45)
== END 2022-10-14 13:16 | disposition left against medical advice (07) | DRG 315 ==
LOC: ER 21:41 → MEDSURG 22:12
PROVIDERS: Admitting Provider Student in an Organized Health Care Education/Training Program; Emergency Provider Emergency Medicine; PCP Family Medicine; Visit Provider Internal Medicine
DX: T82.7XXA Infection and inflammatory reaction due to other cardiac and vascular devices, implants and grafts, initial encounter (principal); I82.521 Chronic embolism and thrombosis of right iliac vein; N13.2 Hydronephrosis with renal and ureteral calculous obstruction; N17.9 Acute kidney failure, unspecified; J44.1 Chronic obstructive pulmonary disease with (acute) exacerbation; Y82.9 Unspecified medical devices associated with adverse incidents; T82.868S Thrombosis due to vascular prosthetic devices, implants and grafts, sequela; Z53.29 Procedure and treatment not carried out because of patient's decision for other reasons; Z90.49 Acquired absence of other specified parts of digestive tract; Z93.2 Ileostomy status; Z89.611 Acquired absence of right leg above knee; Z86.73 Personal history of transient ischemic attack (TIA), and cerebral infarction without residual deficits; E78.5 Hyperlipidemia, unspecified; I10 Essential (primary) hypertension; I73.9 Peripheral vascular disease, unspecified; Z98.890 Other specified postprocedural states; F17.210 Nicotine dependence, cigarettes, uncomplicated; N26.1 Atrophy of kidney (terminal); Z88.0 Allergy status to penicillin; F15.90 Other stimulant use, unspecified, uncomplicated; Z86.14 Personal history of Methicillin resistant Staphylococcus aureus infection
CPT/HCPCS: 36415; 36600; 74177; 80051; 80053; 81001; 82330; 82805; 83735; 85025; 85610; 87040; 94640; 94660; 96372; 96374; 96375; 99285; J1650; J1956; J2270; J2405; J7030; J7626; Q9967

== ENCOUNTER 2022-10-20 15:48 | Inpatient (IN) | payer MEDICARE, MEDICAID, SELFPAY ==
[2022-10-20] VITALS (9 sets, daily range): BP systolic 135–166; BP diastolic 89–102; PULSE 81–109; RESP 16–22; TEMP 36.4–36.8; O2SAT 85–98; BMI 24.3
--- NOTE | 2022-10-20 16:10 | CTR_ITS ---
PROCEDURE INFORMATION: Exam: CT Abdomen And Pelvis With Contrast Exam date and time: 10/20/2022 5:03 PM Age: 62 years old Clinical indication: Other: Suprapubic pain and swelling; Prior surgery; Additional info: Abd pain. Prior colectomy. Ileostomy TECHNIQUE: Imaging protocol: Computed tomography of the abdomen and pelvis with contrast. Radiation optimization: All CT scans at this facility use at least one of these dose optimization techniques: automated exposure control; mA and/or kV adjustment per patient size (includes targeted exams where dose is matched to clinical indication); or iterative reconstruction. Contrast material: OMNIPAQUE 350; Contrast volume: 75 ml; Contrast route: INTRAVENOUS (IV); Other protocol: This patient has received [address] and 0 known cardiac nuclear medicine studies in the 12 months prior to the current study. COMPARISON: CT abdomen pelvis w con* [id number] 10/13/2022 8:17 PM RADIATION DOSE METRICS: Total DLP (mGy-cm): 609.85 FINDINGS: Lungs: Minor bronchiolitis and linear atelectasis right lung base, unchanged. Liver: Normal. No mass. Gallbladder and bile ducts: Gallbladder is contracted limiting assessment. Pancreas: Unremarkable. Main pancreatic duct is not significantly dilated. Spleen: Normal. No splenomegaly. Adrenal glands: Normal. No mass. Kidneys and ureters: Severe left-sided hydronephrosis secondary to 2 adjacent obstructing mid ureteral stones the largest which measures 9 mm unchanged. Some diminished enhancement left kidney secondary to the obstruction unchanged. Right kidney is unremarkable. Stomach and bowel: Large bowel is been resected. There is a right-sided ileostomy on pronounced diastasis of the deep to the umbilicus Appendix: No evidence of appendicitis. Intraperitoneal space: Unremarkable. No free air. No significant fluid collection. Vasculature: Diffuse atherosclerotic changes of the abdominal aorta with chronic occlusion of right iliac arteries, unchanged. Occluded fem-fem bypass graft. Persistent 3 cm complex fluid collection insinuating around the bypass graft possibly representing an abscess, unchanged. Lymph nodes: Unremarkable. No enlarged lymph nodes. Urinary bladder: Unremarkable as visualized. Reproductive: Prostate gland is mildly enlarged. Bones/joints: Moderate degenerative changes L5-S1. No acute bony abnormalities. Soft tissues: Unremarkable. CT/CT abdomen pelvis w con* [id number] IMPRESSION: 1. Severe left hydronephrosis secondary to 2 abutting obstructing left mid ureteral stones, unchanged. 2. 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 Persistent 3 cm fluid collection insinuating around the bypass graft possibly representing an abscess collection. 3. Prior colectomy with stable appearance of right ileostomy and diastasis of the mid abdominal wall. 4. Additional chronic findings as above.
--- NOTE | 2022-10-20 16:34 | ED_ITS ---
Documented by User: Manish Smith DO 10/21/22 06:58 HPI - General Adult General: Chief complaint: General Medical Stated complaint: abd pain, states infection in groin area Time Seen by Provider: 10/20/22 16:09 Source: patient Mode of arrival: other (Crutches) History of Present Illness: 62-year-old male presents emergency room with complaints of swollen inflamed area in the suprapubic region. He previously had a graft done several years ago in an attempt to salvage the right leg unfortunately ultimately was unsuccessful and he required a proximal femur amputation. He was recently hospitalized. He was admitted on October 13 left AMA on October 14 at the time that he did left he was retaining carbon dioxide was acutely ill and there was a concern of an abscess in the pelvis. Dr. Avila had been consulted on the day the patient left AMA and they had planned to do a ultrasound-guided aspiration of the fluid there were seen on the imaging was felt to not be part of the graft. Previous hospitalization notes were reviewed. Patient also had an acute kidney injury at that time. Despite Dr. Mccabe's encouragement she left AMA. Today went to see the nurse practitioner he had had a change of heart he was tachycardic felt that the swelling in the pelvic area had worsened and return for reevaluation. Patient is COPD unfortunately despite his COPD and extensive peripheral vascular disease he continues to smoke. Blood cultures done during previous hospitalization had no growth. Onset (ago): week(s) Location: pelvis Severity: mild Quality: sharp Pain Consistency: constant Relieving factors: none Exacerbating factors: none Associated symptoms: Reports cough, dyspnea, fevers/chills, malaise and short of breath; Deny chest pain, confusion, diaphoresis, decreased appetite, headache(s), nausea, rash, palpitations, seizures, syncope, vomiting or weakness Treatments prior to arrival: none Review of Systems Const: Reports: fever(s), chills and malaise; Denies: diaphoresis ENMT: Denies: throat pain, ear or mastoid pain, nasal discharge or nasal congestion Card: Denies: chest pain, palpitations or syncope Resp: Reports: dyspnea, non-productive cough and wheezing; Denies: productive cough GI: Reports: abdominal pain; Denies: nausea or vomiting : Reports: difficulty urinating; Denies: flank pain, dysuria, urinary frequency or urinary urgency Skin/Breast: Denies: rash Neuro: Denies: headache(s) or confusion PFSH ED PFSH: Medical History COPD (chronic obstructive pulmonary disease) -secondary to smoking, 1-1.5 PPD -nicotine patch -not oxygen dependent at baseline Femoral-femoral bypass graft thrombosis, right This is actually a left femoral to right popliteal artery bypass utilizing [place] graft H/O necrotizing fasciitis Involving the right hip and inguinal area, status post extensive debridement; approximately 15 years ago 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 Social History Smoking and tobacco status: current every day smoker cigarettes Packs smoked per day: 1.5 Alcohol intake: former Former alcohol use details: sober x 6 yrs History of recent travel: No Current gender identity: Male Physical Exam Const: GENERAL APPEARANCE: cooperative and comfortable ORIENTATION/CONSCIOUSNESS: Yes awake, Yes oriented to person, Yes oriented to place and Yes oriented to time HENMT: COMMON NORMALS: normocephalic, atraumatic and hearing grossly normal bilaterally HEAD & SCALP: normocephalic and atraumatic Resp: COMMON NORMALS: normal respiratory effort, No retractions, No use of accessory muscles and clear to auscultation bilaterally AUSCULTATION: clear to auscultation bilaterally Cardio: COMMON NORMALS: regular rate, regular rhythm and No murmurs present (Cardio) RATE: regular rate RHYTHM: regular rhythm GI: COMMON NORMALS: Soft to palpation and No hepatosplenomegaly present AUSCULTATION: Yes normoactive bowel sounds PALPATION: Yes Soft to palpation, No Tenderness to palpation present (GI), No Guarding due to palpation present (GI) and Yes No hepatosplenomegaly present OTHER: Examination suprapubic region there is a swollen firm indurated area it almost looks like it is fluctuant to the to the level of pointing. There is no drainage or fistulous track at this time. : COMMON NORMALS: Yes no CVA tenderness BLADDER/KIDNEY EXAM: Yes no CVA tenderness Back/Pelvis: COMMON NORMALS: no CVA tenderness Neuro: SENSORIUM/ORIENTATION: Yes oriented to person, Yes oriented to place and Yes oriented to time Skin: COMMON NORMALS: no rashes or lesions noted GENERAL SKIN EXAM: no rashes or lesions noted Course Vital Signs: Vital signs: Vital Signs Temperature 98.4 F 10/21/22 04:00 Pulse Rate 102 H 10/21/22 04:00 Respiratory Rate 18 10/21/22 04:00 Blood Pressure 146/84 10/21/22 04:00 Pulse Oximetry 88 L 10/21/22 04:00 Oxygen Delivery Me thod 10/21/22 04:00 Oxygen Flow Rate 2 10/20/22 20:30 MDM - General Adult Medical Decision Making Suprapubic abscess on CT is consistent with the abscess that was previously seen around his graft. It has worsened and is easily palpable now is almost pointing eroding through the skin. Dr. Avila had seen the patient before but he is not on-call at this time. I contacted general surgery because of the involvement in the graft they were uncomfortable with managing this patient. Also discussed with Dr. Salazar infectious disease seen the patient before she recommended linezolid and meropenem and did not recommend holding off until the incision and drainage could be done since it may be sometime. search marketing coordinator to begin looking for appropriate receiving hospitals. Care signed out to Dr. Ennis at change of shift. See final notes for diagnosis and disposition. Patient presents here with an abdominal wall abscess it is around his femorofemoral bypass but it is occluded nonfunctioning I did speak to Dr. Avila who recommended incision and drainage he felt like it could be done at bedside I did incise and drain him at bedside with good results with a moderate amount of purulent drainage I did culture the abscess we will place him on IV antibiotics spoke to the hospitalist will admit at this time. Lab Data 10/20/22 16:37 10/20/22 16:37 Radiology Impressions Abdomen/Pelvis CT 10/20/22 16:10 IMPRESSION: 1. Severe left hydronephrosis secondary to 2 abutting obstructing left mid ureteral stones, unchanged. 2. 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 Persistent 3 cm fluid collection insinuating around the bypass graft possibly representing an abscess collection. 3. Prior colectomy with stable appearance of right ileostomy and diastasis of the mid abdominal wall. 4. Additional chronic findings as above. Laboratory Results WBC 11.8 10^3/uL (4.0-10.0) H 10/20/22 16:37 RBC 5.96 10^6/uL (4.1-5.3) H 10/20/22 16:37 Hgb 16.6 g/dL (11.7-16.6) 10/20/22 16:37 Hct 55.7 % (42.0-52.0) H 10/20/22 16:37 MCV 93.5 fl (80-94) 10/20/22 16:37 MCH 27.9 pg (28.0-34.0) L 10/20/22 16:37 MCHC 29.8 g/dL (30.0-36.0) L 10/20/22 16:37 RDW 14.7 % (12.1-15.1) 10/20/22 16:37 Plt Count 195 10^3/cmm (130-400) 10/20/22 16:37 MPV 12.1 fL (7.4-10.4) H 10/20/22 16:37 Neut % (Auto) 84.2 % 10/20/22 16:37 Lymph % (Auto) 8.4 % 10/20/22 16:37 [place] % (Auto) 5.5 % 10/20/22 16:37 Eos % (Auto) 0.9 % 10/20/22 16:37 Baso % (Auto) 0.5 % 10/20/22 16:37 Neut # (Auto) 9.94 10^3/uL (1.8-7.7) H 10/20/22 16:37 Lymph # (Auto) 1.0 10^3/uL (0.8-4.8) 10/20/22 16:37 [place] # (Auto) 0.7 10^3/uL (0.2-0.9) 10/20/22 16:37 Eos # (Auto) 0.1 10^3/uL (0.0-0.8) 10/20/22 16:37 Baso # (Auto) 0.1 10^3/uL (0.0-0.1) 10/20/22 16:37 Nucleated RBC % (auto) 0 % 10/20/22 16:37 Nucleated RBCs # 0.0 /100WBC 10/20/22 16:37 Specimen Type Arterial 10/20/22 16:35 Sample Site Radial, right 10/20/22 16:35 ABG pH 7.32 (7.35-7.45) L 10/20/22 16:35 ABG pCO2 53.2 mmHg (35-45) H 10/20/22 16:35 ABG pO2 60.0 mmHg (80.0-100.0) L 10/20/22 16:35 ABG HCO3 27.4 mmol/L (22-26) H 10/20/22 16:35 ABG O2 Saturation 91.7 10/20/22 16:35 ABG Base Excess 0.1 mmol/L (-2.0-2.0) 10/20/22 16:35 Paul Test Pos 10/20/22 16:35 A-a O2 Gradient 3.2 mmHg (5-10) L 10/20/22 16:35 Hematocrit 50.6 % (42-52) 10/20/22 16:35 Hgb O2 Saturation 85.8 % (95-100) L 10/20/22 16:35 Carboxyhemoglobin 6.3 %THgb (0.4-20.1) 10/20/22 16:35 Methemoglobin 0.2 % (0.4-1.5) L 10/20/22 16:35 Total Hemoglobin 16.5 g/dL (14-18) 10/20/22 16:35 Sodium 136.0 mmol/L (131-143) 10/20/22 16:35 Potassium 3.9 mmol/L (3.5-5.0) 10/20/22 16:35 Glucose 124.0 mg/dL (70-115) H 10/20/22 16:35 Ionized Calcium 1.2 mmol/L (1.1-1.4) 10/20/22 16:35 O2 Delivery Device None 10/20/22 16:35 FiO2 21.0 % 10/20/22 16:35 Test Baker ID Christine 10/20/22 16:35 Sodium 137 mmol/L (136-145) 10/20/22 16:37 Potassium 4.3 mmol/L (3.5-5.1) 10/20/22 16:37 Chloride 100 mmol/L (98-107) 10/20/22 16:37 Carbon Dioxide 30 mmol/L (22-29) H 10/20/22 16:37 Anion Gap 11.3 (5-19) 10/20/22 16:37 BUN 18 mg/dL (8-23) 10/20/22 16:37 Creatinine 1.4 mg/dL (0.7-1.2) H 10/20/22 16:37 GFR Calculation 51.5 mL/min (90-130) L 10/20/22 16:37 Glucose 116 mg/dL (65-115) H 10/20/22 16:37 Calculated Osmolality 287 mOsm/kg (285-295) 10/20/22 16:37 Lactic Acid 1.2 mmol/L (0.5-2.2) 10/20/22 17:47 Calcium 8.9 mg/dL (8.5-10.5) 10/20/22 16:37 Total Bilirubin 0.2 mg/dL (0.15-1.2) 10/20/22 16:37 AST 18 U/L (0-40) 10/20/22 16:37 ALT 10 U/L (0-41) 10/20/22 16:37 Alkaline Phosphatase 101 U/L (40-130) 10/20/22 16:37 Total Protein 6.8 g/dL (6.6-8.7) 10/20/22 16:37 Albumin 3.6 g/dL (3.5-5.2) 10/20/22 16:37 Globulin 3.2 g/dL (1.3-4.6) 10/20/22 16:37 Urine Color Yellow (Yellow) 10/20/22 14:53 Urine Appearance Clear (CLEAR) 10/20/22 14:53 Urine pH 6 (5-7) 10/20/22 14:53 Ur Specific [place] 1.020 (1.005-1.030) 10/20/22 14:53 Urine Protein 1+ (Negative) H 10/20/22 14:53 Urine Glucose (UA) Norm (Normal) 10/20/22 14:53 Urine Ketones Negative (Negative) 10/20/22 14:53 Urine Blood 2+ (Negative) H 10/20/22 14:53 Urine Nitrate Negative (Negative) 10/20/22 14:53 Urine Bilirubin Neg (Negative) 10/20/22 14:53 Urine Urobilinogen Neg mg/dL (Negative) 10/20/22 14:53 Ur Leukocyte Esterase Negative (Negative) 10/20/22 14:53 Urine RBC 5-10 /hpf (0-2) H 10/20/22 14:53 Urine WBC Rare /hpf (0-5) 10/20/22 14:53 Ur Squamous Epith Cells None /hpf (0-5) 10/20/22 14:53 Amorphous Sediment Not Reportable 10/20/22 14:53 Urine Bacteria None /hpf (NONE) 10/20/22 14:53 Discharge Plan Discharge Patient Disposition: Admitted As Inpatient Admit Provider: Shawn Lopez Clinical Impression: Abscess, Kidney stone Condition: Stable Coding Level of Care Code ED Instructional Technology Instructor for Chg Fwd Documented by User: Quintin Ennis MD 10/20/22 20:44 HPI - General Adult General: Chief complaint: General Medical Stated complaint: abd pain, states infection in groin area Time Seen by Provider: 10/20/22 16:09 [facility] ED PFSH: Medical History COPD (chronic obstructive pulmonary disease) -secondary to smoking, 1-1.5 PPD -nicotine patch -not oxygen dependent at baseline Femoral-femoral bypass graft thrombosis, right This is actually a left femoral to right popliteal artery bypass utilizing [place] graft H/O necrotizing fasciitis Involving the right hip and inguinal area, status post extensive debridement; approximately 15 years ago 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 Social History Smoking and tobacco status: current every day smoker cigarettes Packs smoked per day: 1.5 Alcohol intake: former Former alcohol use details: sober x 6 yrs History of recent travel: No Current gender identity: Male Procedures Abscess I/D Site: abdomen Local Anesthetic: lidocaine 1% Amount of anesthesia used (mL): 6 Technique: incised with #11 blade Packing used?: iodoform Course Vital Signs: Vital signs: Vital Signs Temperature 98.4 F 10/21/22 04:00 Pulse Rate 102 H 10/21/22 04:00 Respiratory Rate 18 10/21/22 04:00 Blood Pressure 146/84 10/21/22 04:00 Pulse Oximetry 88 L 10/21/22 04:00 Oxygen Delivery Me thod 10/21/22 04:00 Oxygen Flow Rate 2 10/20/22 20:30 MDM - General Adult Medical Decision Making Patient presents here with an abdominal wall abscess it is around his femorofemoral bypass but it is occluded nonfunctioning I did speak to Dr. Avila who recommended incision and drainage he felt like it could be done at bedside I did incise and drain him at bedside with good results with a moderate amount of purulent drainage I did culture the abscess we will place him on IV antibiotics spoke to the hospitalist will admit at this time. Lab Data 10/20/22 16:37 10/20/22 16:37 Radiology Impressions Abdomen/Pelvis CT 10/20/22 16:10 IMPRESSION: 1. Severe left hydronephrosis secondary to 2 abutting obstructing left mid ureteral stones, unchanged. 2. 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 Persistent 3 cm fluid collection insinuating around the bypass graft possibly representing an abscess collection. 3. Prior colectomy with stable appearance of right ileostomy and diastasis of the mid abdominal wall. 4. Additional chronic findings as above. Laboratory Results WBC 11.8 10^3/uL (4.0-10.0) H 10/20/22 16:37 RBC 5.96 10^6/uL (4.1-5.3) H 10/20/22 16:37 Hgb 16.6 g/dL (11.7-16.6) 10/20/22 16:37 Hct 55.7 % (42.0-52.0) H 10/20/22 16:37 MCV 93.5 fl (80-94) 10/20/22 16:37 MCH 27.9 pg (28.0-34.0) L 10/20/22 16:37 MCHC 29.8 g/dL (30.0-36.0) L 10/20/22 16:37 RDW 14.7 % (12.1-15.1) 10/20/22 16:37 Plt Count 195 10^3/cmm (130-400) 10/20/22 16:37 MPV 12.1 fL (7.4-10.4) H 10/20/22 16:37 Neut % (Auto) 84.2 % 10/20/22 16:37 Lymph % (Auto) 8.4 % 10/20/22 16:37 [place] % (Auto) 5.5 % 10/20/22 16:37 Eos % (Auto) 0.9 % 10/20/22 16:37 Baso % (Auto) 0.5 % 10/20/22 16:37 Neut # (Auto) 9.94 10^3/uL (1.8-7.7) H 10/20/22 16:37 Lymph # (Auto) 1.0 10^3/uL (0.8-4.8) 10/20/22 16:37 [place] # (Auto) 0.7 10^3/uL (0.2-0.9) 10/20/22 16:37 Eos # (Auto) 0.1 10^3/uL (0.0-0.8) 10/20/22 16:37 Baso # (Auto) 0.1 10^3/uL (0.0-0.1) 10/20/22 16:37 Nucleated RBC % (auto) 0 % 10/20/22 16:37 Nucleated RBCs # 0.0 /100WBC 10/20/22 16:37 Specimen Type Arterial 10/20/22 16:35 Sample Site Radial, right 10/20/22 16:35 ABG pH 7.32 (7.35-7.45) L 10/20/22 16:35 ABG pCO2 53.2 mmHg (35-45) H 10/20/22 16:35 ABG pO2 60.0 mmHg (80.0-100.0) L 10/20/22 16:35 ABG HCO3 27.4 mmol/L (22-26) H 10/20/22 16:35 ABG O2 Saturation 91.7 10/20/22 16:35 ABG Base Excess 0.1 mmol/L (-2.0-2.0) 10/20/22 16:35 Paul Test Pos 10/20/22 16:35 A-a O2 Gradient 3.2 mmHg (5-10) L 10/20/22 16:35 Hematocrit 50.6 % (42-52) 10/20/22 16:35 Hgb O2 Saturation 85.8 % (95-100) L 10/20/22 16:35 Carboxyhemoglobin 6.3 %THgb (0.4-20.1) 10/20/22 16:35 Methemoglobin 0.2 % (0.4-1.5) L 10/20/22 16:35 Total Hemoglobin 16.5 g/dL (14-18) 10/20/22 16:35 Sodium 136.0 mmol/L (131-143) 10/20/22 16:35 Potassium 3.9 mmol/L (3.5-5.0) 10/20/22 16:35 Glucose 124.0 mg/dL (70-115) H 10/20/22 16:35 Ionized Calcium 1.2 mmol/L (1.1-1.4) 10/20/22 16:35 O2 Delivery Device None 10/20/22 16:35 FiO2 21.0 % 10/20/22 16:35 Test Baker ID [place] 10/20/22 16:35 Sodium 137 mmol/L (136-145) 10/20/22 16:37 Potassium 4.3 mmol/L (3.5-5.1) 10/20/22 16:37 Chloride 100 mmol/L (98-107) 10/20/22 16:37 Carbon Dioxide 30 mmol/L (22-29) H 10/20/22 16:37 Anion Gap 11.3 (5-19) 10/20/22 16:37 BUN 18 mg/dL (8-23) 10/20/22 16:37 Creatinine 1.4 mg/dL (0.7-1.2) H 10/20/22 16:37 GFR Calculation 51.5 mL/min (90-130) L 10/20/22 16:37 Glucose 116 mg/dL (65-115) H 10/20/22 16:37 Calculated Osmolality 287 mOsm/kg (285-295) 10/20/22 16:37 Lactic Acid 1.2 mmol/L (0.5-2.2) 10/20/22 17:47 Calcium 8.9 mg/dL (8.5-10.5) 10/20/22 16:37 Total Bilirubin 0.2 mg/dL (0.15-1.2) 10/20/22 16:37 AST 18 U/L (0-40) 10/20/22 16:37 ALT 10 U/L (0-41) 10/20/22 16:37 Alkaline Phosphatase 101 U/L (40-130) 10/20/22 16:37 Total Protein 6.8 g/dL (6.6-8.7) 10/20/22 16:37 Albumin 3.6 g/dL (3.5-5.2) 10/20/22 16:37 Globulin 3.2 g/dL (1.3-4.6) 10/20/22 16:37 Urine Color Yellow (Yellow) 10/20/22 14:53 Urine Appearance Clear (CLEAR) 10/20/22 14:53 Urine pH 6 (5-7) 10/20/22 14:53 Ur Specific [place] 1.020 (1.005-1.030) 10/20/22 14:53 Urine Protein 1+ (Negative) H 10/20/22 14:53 Urine Glucose (UA) Norm (Normal) 10/20/22 14:53 Urine Ketones Negative (Negative) 10/20/22 14:53 Urine Blood 2+ (Negative) H 10/20/22 14:53 Urine Nitrate Negative (Negative) 10/20/22 14:53 Urine Bilirubin Neg (Negative) 10/20/22 14:53 Urine Urobilinogen Neg mg/dL (Negative) 10/20/22 14:53 Ur Leukocyte Esterase Negative (Negative) 10/20/22 14:53 Urine RBC 5-10 /hpf (0-2) H 10/20/22 14:53 Urine WBC Rare /hpf (0-5) 10/20/22 14:53 Ur Squamous Epith Cells None /hpf (0-5) 10/20/22 14:53 Amorphous Sediment Not Reportable 10/20/22 14:53 Urine Bacteria None /hpf (NONE) 10/20/22 14:53 Discharge Plan Discharge Patient Disposition: Admitted As Inpatient Admit Provider: Shawn Lopez Clinical Impression: Abscess, Kidney stone Condition: Stable Coding Level of Care Code ED Instructional Technology Instructor for Shira Martins
[2022-10-20 16:46] LABS: ABG PCO2 53.2 mmHg (35-45); ABG PH Result 7.32 (7.35-7.45); Alveolar-Arterial Oxygen Gradi 3.2 mmHg (5-10); Arterial Blood Gas Hematocrit 50.6 % (42-52); Base Excess ABG 0.1 mmol/L (-2.0-2.0); Blood Gas Allen Test Pos; Blood Gas Operator Identificat WALCI; Blood Gas Sample Site Radial, right; Blood Gas Sample Type Arterial; Carboxyhemoglobin 6.3 %THgb (0.4-20.1); HCO3 ABG 27.4 mmol/L (22-26); HGB O2 Sat 85.8 % (95-100); Ionized Calcium Level - ABG 1.2 mmol/L (1.1-1.4); Methemoglobin 0.2 % (0.4-1.5); Oxygen Saturation ABG 91.7; Potassium Level - ABG 3.9 mmol/L (3.5-5.0); Total Hemoglobin 16.5 g/dL (14-18)
--- NOTE | 2022-10-20 16:54 | PC.NURSE ---
PT PLACED ON CONTINUOUS SPO2, NIBP, AND CM.
[2022-10-20 16:57] LABS: Basophils # 0.1 10^3/uL (0.0-0.1); Basophils % 0.5 %; Eosinophils # 0.1 10^3/uL (0.0-0.8); Eosinophils % 0.9 %; Hematocrit 55.7 % (42.0-52.0); Hemoglobin 16.6 g/dL (11.7-16.6); Lymphocytes % 8.4 %; Mean Corpuscular HGB Conc 29.8 g/dL (30.0-36.0); Mean Corpuscular Hemoglobin 27.9 pg (28.0-34.0); Mean Corpuscular Volume 93.5 fl (80-94); Mean Platelet Volume 12.1 fL (7.4-10.4); Monocytes # 0.7 10^3/uL (0.2-0.9); Monocytes % 5.5 %; Neutrophils # 9.94 10^3/uL (1.8-7.7); Neutrophils % 84.2 %; Nucleated Red Blood Cells % 0 %; Platelet Count 195 10^3/cmm (130-400); Red Blood Count 5.96 10^6/uL (4.1-5.3); Red Cell Distribution Width 14.7 % (12.1-15.1); White Blood Count 11.8 10^3/uL (4.0-10.0)
[2022-10-20 17:16] LABS: Add Urine Microscopic? YES; Bilirubin Urine Neg (Negative); Blood Urine 2+ (Negative); Glucose Urine UA Norm (Normal); Ketones Urine Negative (Negative); Leukocyte Esterase Urine Negative (Negative); Nitrate Urine Negative (Negative); Protein Urine 1+ (Negative); Urine Appearance Clear (CLEAR); Urine Color Yellow (Yellow); Urobilinogen Urine Neg (Negative); pH Urine 6 (5-7)
[2022-10-20 17:17] LABS: Add Urine Culture? No; WBC Urine RARE /hpf (0-5)
[2022-10-20] MEDS: iohexol 350 mg/mL 500 mL Btl (per mL) IV (17:17)
[2022-10-20 17:21] LABS: Alanine Aminotransferase 10 U/L (0-41); Albumin Level 3.6 g/dL (3.5-5.2); Alkaline Phosphatase 101 U/L (40-130); Aspartate Amino Transferase 18 U/L (0-40); Blood Urea Nitrogen 18 mg/dL (8-23); Calcium 8.9 mg/dL (8.5-10.5); Carbon Dioxide 30 mmol/L (22-29); Chloride 100 mmol/L (98-107); Globulin 3.2 g/dL (1.3-4.6); Glomerular Filtration Rate 51.5 mL/min (90-130); Glucose 116 mg/dL (65-115); Osmolality Calculated 287 mOsm/kg (285-295); Sodium 137 mmol/L (136-145); Total Bilirubin 0.2 mg/dL (0.15-1.2); Total Protein 6.8 g/dL (6.6-8.7)
[2022-10-20 17:25] LABS: Anion Gap 11.3 (5-19); Potassium 4.3 mmol/L (3.5-5.1)
--- NOTE | 2022-10-20 17:35 | ECG_ITS ---
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 Measurements Intervals [place] Rate: 101 P: 76 AL: 186 QRS: 101 QRSD: 100 T: 68 QT: 344 QTc: 446 Interpretive Statements SINUS TACHYCARDIA POSSIBLE RIGHT VENTRICULAR HYPERTROPHY [SOME/ALL OF: PROMINENT R IN V1, LATE TRANSITION, RAD, VERNELL, SSS] Compared to ECG 10/18/2019 17:23:07 Sinus rhythm no longer present Electronically Signed On 10-20-2022 20:56:34 COMMERCIAL LOAN ADMINISTRATOR by Kaley Ordonez M.D. [id number]
[2022-10-20] MEDS: linezolid premix 600 MG/300 ML PREMIX 300 MG IV (17:40)
[2022-10-20 18:18] LABS: Lactic Sepsis W/Reflex 1.2 mmol/L (0.5-2.2)
[2022-10-20] MEDS: meropenem 1,000 MG in sodium chloride 0.9% (plus) 50 ML 100 MG IV (18:23)
[2022-10-20] MEDS: HYDROmorphone 1 mg/mL INJ 1 mL IVP (18:39)
--- NOTE | 2022-10-20 19:00 | PC.NURSE ---
REPORT GIVEN TO [facility]
--- NOTE | 2022-10-20 19:27 | PC.NURSE ---
Pt sating 84-85% on RA. Pt stated that he wears 2-3 L NC PRN @ Home. 2LNC applied, pt O2 @ 91%.
[2022-10-20] MEDS: morphine 4 mg/mL SDV 1 mL IVP (20:21)
[2022-10-20] MEDS: LORazepam 2 mg/mL INJ 1 mL 1 MG IVP (20:28)
--- NOTE | 2022-10-20 21:15 | P.HP_ITS ---
Providers/Chief Complaint Admitting Physician: Shawn Lopez MD Primary Care Provider: Armando Andrews Jr, MD Chief Complaint: abd pain, states infection in groin area History of Present Illness 62-year-old male presents emergency room with complaints of swollen inflamed area in the suprapubic region.?He previously had a graft done several years ago in an attempt to salvage the right leg unfortunately ultimately was unsuccessful and he required a proximal femur amputation. CT abdomen and pelvis with contrast done today showed: Chronic occluded right iliac arteries an occluded fem-fem bypass graft.Persistent 3 cm fluid collection insinuating around the bypass graft possibly representing an abscess collection Severe left hydronephrosis secondary to 2 abutting obstructing left mid ureteral stones, unchanged. S/p bedside I&D in the ER: With moderate amount of purulent drainage: Abscess culture has been sent. His other vitals and labs have been reviewed. Review of Systems General: Reports: 10 or more systems reviewed and unremarkable except in HPI and below Const: Denies: fever(s), chills, body aches, change in appetite or diaphoresis Card: Denies: palpitations, edema, swelling of feet/ankles, dyspnea on exertion, orthopnea or leg pain with exertion Resp: Denies: dyspnea, productive cough, wheezing or pain on inspiration GI: Denies: abdominal pain, nausea, vomiting, diarrhea or constipation : Denies: flank pain or difficulty urinating Musc: Denies: back pain, extremity pain or extremity swelling Neuro: Denies: headache(s) or confusion Medications/Allergies Home Medications Medication Instructions Recorded Confirmed Last Taken Type albuterol sulfate 2.5 mg/3 mL 2.5 mg (3 mL) inhalation Q6H PRN 01/21/20 10/20/22 Unknown Rx (0.083 %) solution for nebulization shortness of breath or wheezing #75 mL albuterol sulfate 90 mcg/actuation 2 puff inhalation Q4H PRN 10/14/22 10/20/22 Unknown History aerosol inhaler Shortness Of Breath fluticasone 250 mcg-salmeterol 50 1 - 2 ea inhalation BID PRN unknown 10/14/22 10/20/22 Unknown History mcg/dose blistr powdr for inhalation (Wixela Inhub) Allergies Allergy/AdvReac Type Severity Reaction Status Date / Time clindamycin Allergy ALGY-Rash Verified 10/20/22 16:16 Penicillins Allergy Unknown Verified 10/20/22 16:16 vancomycin Allergy red man Verified 10/20/22 16:16 disease PFSH Acute PFSH: Medical History COPD (chronic obstructive pulmonary disease) -secondary to smoking, 1-1.5 PPD -nicotine patch -not oxygen dependent at baseline Femoral-femoral bypass graft thrombosis, right This is actually a left femoral to right popliteal artery bypass utilizing [place]-Casey graft H/O necrotizing fasciitis Involving the right hip and inguinal area, status post extensive debridement; approximately 15 years ago 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 Social History Smoking and tobacco status: current every day smoker cigarettes Packs smoked per day: 1.5 Alcohol intake: former Former alcohol use details: sober x 6 yrs History of recent travel: No Current gender identity: Male Vitals/I&O/Wt Last Vital Signs Temp 97.8 F 10/20/22 16:17 Pulse 100 10/20/22 20:30 Resp 16 10/20/22 20:30 BP 158/96 10/20/22 20:30 Pulse Ox 93 10/20/22 20:30 O2 Del Method 10/20/22 20:30 O2 Flow Rate 2 10/20/22 20:30 10/20/22 10/20/22 10/20/22 06:59 14:59 22:59 Intake Total 350 / 350 Balance 350 / 350 Weight last 48 hrs Weight 72.575 kg Physical Exam Const: COMMON NORMALS: patient oriented x3 HENMT: COMMON NORMALS: normocephalic and atraumatic HEAD & SCALP: normocephalic and atraumatic Resp: COMMON NORMALS: clear to auscultation bilaterally AUSCULTATION: clear to auscultation bilaterally Cardio: COMMON NORMALS: regular rate, regular rhythm, S1 normal heart sound present, S2 normal heart sound present, No gallops present (Cardio), No murmurs present (Cardio), No rub (Cardio) and Peripheral pulses 2+ throughout RATE: regular rate RHYTHM: regular rhythm HEART SOUNDS: S1 normal heart sound present and S2 normal heart sound present PERIPHERAL PULSES: Peripheral pulses 2+ throughout GI: COMMON NORMALS: Normal to inspection, nondistended, normoactive bowel sounds present, Soft to palpation, non-tender, No hepatosplenomegaly present and no masses AUSCULTATION: Yes normoactive bowel sounds PALPATION: Yes Soft to palpation and Yes No hepatosplenomegaly present RECTAL EXAM: Yes deferred Extremity: COMMON NORMALS: no clubbing, cyanosis or edema and no pedal edema Neuro: COMMON NORMALS: patient oriented x3 Data 10/20/22 16:37 10/20/22 16:37 Micro: Microbiology 10/20/22 16:42 Blood Culture - Preliminary Blood SPECIMEN COLLECTED 10/20/22 16:37 Blood Culture - Preliminary Blood SPECIMEN COLLECTED A&P Assessment and plan (1) Abscess: (2) Femoral-femoral bypass graft thrombosis, right: Qualifiers: Encounter type: sequela Qualified Code(s): T82.868S - Thrombosis due to vascular prosthetic devices, implants and grafts, sequela (3) Critical limb ischemia with history of revascularization of same extremity: (4) Hydronephrosis, left: (5) Left ureteral calculus: Plan 62-year-old male presents emergency room with complaints of swollen inflamed area in the suprapubic region. Assessment: Graft site abscess: Status post I&D Empirically started on meropenem and Zyvox Follow abscess culture Dr. Avila has been consulted by ER Left ureteral calculus with left-sided hydronephrosis: Urology has been consulted and will see the patient in the morning. CODE STATUS: Full code DVT prophylaxis: On Lovenox Attestations Medical Necessity Statement*: Patient needs to be in hospital for IV antibiotics. Coding Level of Care Code 53488 Diagnoses Abscess L02.91 Femoral-femoral bypass graft thrombosis, right T82.868S Encounter type: sequela Critical limb ischemia with history of revascularization of same extremity I99.8; Z95.9 Hydronephrosis, left N13.30 Left ureteral calculus N20.1
[2022-10-20] MEDS: enoxaparin 40 mg/0.4 mL Syringe SUBCUT (21:26)
[2022-10-20] MEDS: morphine 4 mg/mL SDV 1 mL 2 MG IVP (21:42)
[2022-10-21] VITALS (15 sets, daily range): BP systolic 120–146; BP diastolic 75–86; PULSE 88–109; RESP 16–20; TEMP 36.4–36.9; O2SAT 88–97
[2022-10-21] MEDS: meropenem 500 MG in sodium chloride 0.9% (plus) 50 ML 100 MG IV ×3 (01:33→18:24)
[2022-10-21] MEDS: morphine 4 mg/mL SDV 1 mL 2 MG IVP ×2 (02:05→18:07)
[2022-10-21 05:17] LABS: Basophils % 0.4 %; Eosinophils # 0.2 10^3/uL (0.0-0.8); Eosinophils % 1.6 %; Hematocrit 51.2 % (42.0-52.0); Hemoglobin 15.3 g/dL (11.7-16.6); Lymphocytes # 1.5 10^3/uL (0.8-4.8); Mean Corpuscular HGB Conc 29.9 g/dL (30.0-36.0); Mean Corpuscular Hemoglobin 28.1 pg (28.0-34.0); Mean Corpuscular Volume 93.9 fl (80-94); Mean Platelet Volume 12.4 fL (7.4-10.4); Monocytes # 0.8 10^3/uL (0.2-0.9); Monocytes % 8.4 %; Neutrophils # 6.94 10^3/uL (1.8-7.7); Neutrophils % 73.2 %; Nucleated Red Blood Cells % 0 %; Platelet Count 178 10^3/cmm (130-400); Red Blood Count 5.45 10^6/uL (4.1-5.3); Red Cell Distribution Width 14.7 % (12.1-15.1); White Blood Count 9.5 10^3/uL (4.0-10.0)
[2022-10-21 05:42] LABS: Alanine Aminotransferase 8 U/L (0-41); Albumin Level 3.3 g/dL (3.5-5.2); Alkaline Phosphatase 86 U/L (40-130); Anion Gap 12.4 (5-19); Aspartate Amino Transferase 15 U/L (0-40); Blood Urea Nitrogen 18 mg/dL (8-23); Calcium 8.5 mg/dL (8.5-10.5); Carbon Dioxide 30 mmol/L (22-29); Chloride 100 mmol/L (98-107); Globulin 3.1 g/dL (1.3-4.6); Glomerular Filtration Rate 56.1 mL/min (90-130); Glucose 116 mg/dL (65-115); Osmolality Calculated 289 mOsm/kg (285-295); Potassium 4.4 mmol/L (3.5-5.1); Sodium 138 mmol/L (136-145); Total Bilirubin 0.2 mg/dL (0.15-1.2); Total Protein 6.4 g/dL (6.6-8.7)
[2022-10-21] MEDS: linezolid premix 600 MG/300 ML PREMIX 300 MG IV ×2 (06:01→19:18)
[2022-10-21] MEDS: budesonide 0.5 mg/2 mL Neb INHALATION ×2 (09:07→20:51)
[2022-10-21] MEDS: albuterol 2.5 mg/3 mL Neb INHALATION ×4 (09:07→20:51)
--- NOTE | 2022-10-21 10:56 | PM.CONSULT ---
Providers/Reason For Consult Consulting Physician/Specialty*: Dr. Avila/cardiothoracic surgery. Reason for Consult*: Suprapubic infection with prior left femoral to right popliteal artery bypass Requesting Physician: Dr. Springer Attending Physician: Rafael Springer MD Primary Care Provider: Armando Andrews Jr, MD History of Present Illness History of Present Illness Jason Lopez is a 62 year old male whom I previously performed a left femoral to right popliteal artery bypass in 2016 for severe peripheral vascular disease and occluded right common iliac artery. He has had prior toxic megacolon from C. difficile infection requiring a right upper quadrant ileostomy after previous laparotomy and bowel resection. He is also had a previous brainstem CVA, hypertension, COPD, as well as right hip and inguinal region necrotizing fasciitis 18 years ago. His left femoral right popliteal artery bypass graft Mery remains functional for approximately 4 years though now has known occlusion. I saw him a week ago when he presented with complaints of discomfort in the region and was found to have a localized perigraft collection of about 3 cm. At that time he was also being evaluated by Dr. Salazar and recommendation were to consider aspiration in the region to determine whether this fluid may represent localized infection. Mr. Lopez left AMA. He represented yesterday with continued complaints. He has a long history of IV methamphetamine usage and admits to recent usage as well. His significant other also states that he has shaved over the suprapubic region several times though he denies actually attempting IV drug administration in this region, though he does admit to injections in all extremities including the femoral regions. He also does admit to recent drug use. I have reviewed both the CT scan of October 13 as well as one performed yesterday. There are 2 localized areas of fluid collection 1 in the midline and one just to the left of midline which is the largest at about 3 cm. These appear to be essentially unchanged except for the midline area appears to be more superficial to the skin and underwent I&D yesterday evening by Dr. Ennis from the emergency department. I was informed that cultures were taken at that time. CT scan this admission also again demonstrates severe left-sided hydronephrosis secondary to adjacent obstructing mid ureteral stones, the largest measuring 9 mm and unchanged. Overall, Mr. Lopez appears to be essentially unchanged though he appears to be very acutely concerned about if procedures are required and required general anesthesia, could he be successfully extubated in short order. White count this morning is 9.5, and was 11.8 yesterday. I do note from his ABG obtained during this admission that his pCO2 remains elevated at 53. Review of Systems Const: Reports: body aches; Denies: fever(s) or chills Card: Denies: chest pain or palpitations Resp: Reports: dyspnea and wheezing; Denies: productive cough, pain on inspiration or hemoptysis GI: Denies: abdominal pain, nausea or vomiting : Reports: flank pain; Denies: difficulty urinating Neuro: Reports: headache(s); Denies: numbness in extremities Medications/Allergies Home Medications Medication Instructions Recorded Confirmed Last Taken Type albuterol sulfate 2.5 mg/3 mL 2.5 mg (3 mL) inhalation Q6H PRN 01/21/20 10/20/22 Unknown Rx (0.083 %) solution for nebulization shortness of breath or wheezing #75 mL albuterol sulfate 90 mcg/actuation 2 puff inhalation Q4H PRN 10/14/22 10/20/22 Unknown History aerosol inhaler Shortness Of Breath fluticasone 250 mcg-salmeterol 50 1 - 2 ea inhalation BID PRN unknown 10/14/22 10/20/22 Unknown History mcg/dose blistr powdr for inhalation (Abdoulayexela Inhub) Allergies Allergy/AdvReac Type Severity Reaction Status Date / Time clindamycin Allergy ALGY-Rash Verified 10/20/22 16:16 Penicillins Allergy Unknown Verified 10/20/22 16:16 vancomycin Allergy red man Verified 10/20/22 16:16 disease Current Medications Generic Name Dose Route Start Last Admin Trade Name Freq PRN Reason Stop Dose Admin Albuterol Sulfate 2.5 mg 10/21/22 08:00 10/21/22 09:07 Albuterol 2.5 Mg/3 Ml Neb INHALATION 2.5 mg QID.RESPIRATORY MANDO Administration Budesonide 0.5 mg 10/21/22 08:00 10/21/22 09:07 Budesonide 0.5 Mg/2 Ml Neb INHALATION 0.5 mg BID.RESPIRATORY MANDO Administration Enoxaparin Sodium 40 mg 10/20/22 21:15 10/20/22 21:26 Enoxaparin 40 Mg/0.4 Ml Syringe SUBCUT 40 mg Q24H MANDO Administration Linezolid 600 mg in 300 mls @ 300 mls/hr 10/21/22 07:00 10/21/22 07:40 Zyvox Premix IV Infused Q12H MANDO Infusion Protocol Meropenem 500 mg/ Sodium 50 mls @ 100 mls/hr 10/21/22 02:00 10/21/22 02:07 Chloride IV Infused Q8H MANDO Infusion Protocol Morphine Sulfate 2 mg 10/20/22 21:09 10/21/22 02:05 Morphine 4 Mg/Ml Sdv 1 Ml IVP 2 mg Q4H PRN Administration SEVERE PAIN PFSH Acute PFSH: Medical History Colostomy care COPD (chronic obstructive pulmonary disease) -secondary to smoking, 1-1.5 PPD -nicotine patch -not oxygen dependent at baseline Femoral-femoral bypass graft thrombosis, right This is actually a left femoral to right popliteal artery bypass utilizing [place]-Casey graft H/O necrotizing fasciitis Involving the right hip and inguinal area, status post extensive debridement; approximately 15 years ago 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 Social History Smoking and tobacco status: current every day smoker cigarettes Packs smoked per day: 1.5 Alcohol intake: former Former alcohol use details: sober x 6 yrs History of recent travel: No Current gender identity: Male Vitals/I&O/Wt Last Vital Signs Temp 98.0 F 10/21/22 08:00 Pulse 94 10/21/22 09:17 Resp 20 H 10/21/22 09:07 BP 139/76 10/21/22 08:00 Pulse Ox 92 10/21/22 09:07 O2 Del Method 10/21/22 09:07 O2 Flow Rate 2 10/21/22 09:07 10/20/22 10/21/22 10/21/22 22:59 06:59 14:59 Intake Total 830 / 830 1050 / 1880 660 / 660 Output Total 375 / 375 Balance 830 / 830 675 / 1505 660 / 660 Weight last 48 hrs Weight 160 lb Physical Exam Chest: COMMONS NORMALS: normal inspection of the chest and normal palpation of entire chest wall Resp: AUSCULTATION: wheezes and lung sounds not diminished Cardio: COMMON NORMALS: regular rate, regular rhythm and S1 normal heart sound present RATE: regular rate RHYTHM: regular rhythm HEART SOUNDS: S1 normal heart sound present GI: OTHER: Right mid quadrant ileostomy with associated bag is in position. Wide midline scar is again noted. : OTHER: Area of swelling in the midline suprapubic region with a previous I&D performed yesterday in the emergency department. Packing was removed and minimal purulent material could be further expressed. By CT scan review, it appears that the fluid collections are associated with the previous graft. Extremity: OTHER: Right above-knee amputation Data 10/21/22 04:41 10/21/22 04:41 Micro: Microbiology 10/20/22 16:42 Blood Culture - Preliminary Blood SPECIMEN COLLECTED 10/20/22 16:37 Blood Culture - Preliminary Blood SPECIMEN COLLECTED A&P Assessment and plan (1) Abscess: Status post I&D suprapubic abscess with appears to have graft involvement by CT scan as noted on most recent study as well as a study from week ago prior to him leaving [place]. I discussed very frankly with Mr. Lopez that most probably at least a partial excision of this graft would be required as an attempt to prevent abscess recurrence. As the graft is occluded, I feel there is no potential ischemic rest to the right lower extremity which is already had an AKA. This excision can be done more electively and particularly status post John is quite concerned about general anesthesia and the potential for postop ventilatory requirement. It appears he has not yet decided whether he would be willing to consider such an undertaking. I think it would be prudent for a pulmonary evaluation with formal PFTs as well as once this is completed, subsequent conversations with our anesthesia department delayed may provide a informed conversation with Mr. Lopez concerning general anesthesia. This potential graft extirpation could be scheduled electively after appropriate preoperative investigation of his pulmonary status. Initially, recommendation would be to try to extirpate distal portion of the graft in the mid one third which appears to be about the fluid collection as an attempt to avoid cutting down onto the graft at the proximal anastomosis to the left common femoral artery. This would alleviate the potential for subsequent stenosis or obstruction through the left femoral artery which could then result in acute ischemia to the left lower extremity. Therefore, I recommend attempting to avoid this region with an initial graft removal. However, if unsuccessful, he may require attempting to disconnect the graft from the femoral artery and perform a vein patch angioplasty to the region. This would of course, place his lower extremity in jeopardy. As he has had acute drainage from the midline fluid collection I would recommend twice daily wet-to-dry dressing changes. I would recommend proceeding with formal PFTs so that we may provide further objective information to our anesthesia colleagues for risk assessment as to the capacity to perform general anesthesia. This could be completed on outpatient basis, though admittedly, Mr. Lopez may not be compliant with appropriate follow-up and also there is a potential he could continue illicit drug administration during this time frame. Consult Attestations Medical Necessity Statement: Suprapubic abscess with probable occluded vascular graft involvement. Coding Level of Care Code Acute Code for [facility] Diagnoses Abscess L02.91
--- NOTE | 2022-10-21 11:04 | PM.PN ---
Subjective Subjective: Patient drinks on daily basis, active smoker 1 pack/day Left AMA on last visit Patient is stating that there was a boil below his umbilicus that he pinched and then it got worse He has not noticed any fever, chills, nausea, vomiting Patient has history of left femoral to right popliteal artery bypass in 2016 for severe peripheral vascular disease and occluded right common iliac artery.? He has had prior toxic megacolon from C. difficile infection requiring a right upper quadrant ileostomy after previous laparotomy and bowel resection.? He is also had a previous brainstem CVA, hypertension, COPD, uses oxygen intermittently at home Patient has a long history of IV methamphetamine abuse not sure whether this time he tried to inject any IV drugs suprapubic region On last visit Dr. Avila recommended IR drainage of suprapubic abscess when there was about 3 cm localized Collection of fluid Please see Dr. Soria's discharge/progress note from last visit on 10/14 when he left AMA Vitals/I&O/Wt Last Vital Signs Temp 98.0 F 10/21/22 08:00 Pulse 94 10/21/22 09:17 Resp 20 H 10/21/22 09:07 BP 139/76 10/21/22 08:00 Pulse Ox 92 10/21/22 09:07 O2 Del Method 10/21/22 09:07 O2 Flow Rate 2 10/21/22 09:07 10/20/22 10/21/22 10/21/22 22:59 06:59 14:59 Intake Total 830 / 830 1050 / 1880 660 / 660 Output Total 375 / 375 Balance 830 / 830 675 / 1505 660 / 660 Weight last 48 hrs Weight 72.575 kg Physical Exam Narrative: Hyperemia of upper extremities No active signs of prominent veins on chest to indicate SVC thrombosis Abdomen soft ileostomy bag in place Suprapubic area with purulence, drainage, dressing soaked with blood Patient is awake and alert Currently on 2 L Afebrile Hemodynamic stable No audible stridor or wheezing Left leg without any swelling is at the bedside Data 10/21/22 04:41 10/21/22 04:41 Micro: Microbiology 10/20/22 16:42 Blood Culture - Preliminary Blood SPECIMEN COLLECTED 10/20/22 16:37 Blood Culture - Preliminary Blood SPECIMEN COLLECTED A&P Assessment and plan (1) Abscess: (2) Femoral-femoral bypass graft thrombosis, right: Qualifiers: Encounter type: sequela Qualified Code(s): T82.868S - Thrombosis due to vascular prosthetic devices, implants and grafts, sequela (3) Ileostomy in place: (4) Abscess: (5) Hydronephrosis, left: (6) [place] (acute kidney injury): (7) Kidney stone: Plan Perigraft abscess S/p I&D suprapubic region We will follow-up with Dr. Avila's recommendations Currently patient is requiring 2 L of oxygen We will need pulmonary clearance before his major surgery Patient will need general anesthesia for his elective procedure For now we are continuing IV antibiotics, twice a day daily dressing change Wet-to-dry dressing change [place] related to hydronephrosis We will avoid alcohol with recommendation [place] related to hydronephrosis He is afebrile this morning Hemodynamically stable Creatinine trending down, 1.3 today Urine output 375 and multiple 4 We will follow-up with Dr. Martínez's recommendation Continue antibiotics, renally dose COPD currently requiring 2 L of oxygen Uses oxygen intermittently History of IV drug abuse, Active smoker Drinks daily, add thiamine and folic acid Full code Regular diet DVT prophylaxis Lovenox Pain management with opioids Will need bowel regimen as well Attestations Medical Necessity Statement*: Continue medical management Coding Level of Care Code 76937 Diagnoses Abscess L02.91 Femoral-femoral bypass graft thrombosis, right T82.868S Encounter type: sequela Ileostomy in place Z93.2 Abscess L02.91 Hydronephrosis, left N13.30 [place] (acute kidney injury) N17.9 Kidney stone N20.0
--- NOTE | 2022-10-21 12:26 | PC.CHAP ---
Pastoral Care Encounter/Spiritual Assessment Type of Contact [] Declined workers compensation adjuster visit [] Patient/Family/Request visit [] Outpatient visit [] Follow-up visit [] Physician referral [] Code/Alert [x] Routine visit [] Staff referral [] Actively dying [] Patient sleeping [] Family support [] [] Out of room [] Palliative care [] [x] Receiving care in room [] Pre-surgical visit [] Trauma [] Long length of stay [] ICU visit [] Other: Relational/Emotional Strength [x] Patient feels connected with others/family/visitors/staff [] Distress [] Loneliness/isolation [] Abandonment Spirituality of Patient [x] Person of Becki [] Attends Druze of their Becki [x] Believes in Prayer [] Reads Bible or Adventist materials [] There are Spiritual issues to be addressed Repairer Screen [employer]her Interventions [x] Prayer [x] Active listening [x] Non-anxious presence [x] Spiritual/emotional support [] Crisis/trauma care [x] Spiritual counseling [] Bereavement support [] Provided bereavement packet [] Provided Bible/devotional materials [] Provided toy/stuffed animal, coloring book to patient or family member [] Provided Communion [] Anointing/[facility] [] Salvation [x] Completed spiritual assessment [] Other: Impact on Illness or Injury [] Angry [] Fearful [] Anxious [] Often cries [] Exhaustion [] Unable to work [] Unable to attend yarsani [] Unable to walk/stand [] Unable to read [] Unable to drive [] Unable to eat/drink [] Unable to sleep [] Unable to be with family [] Patient intubated [] Other: Summary feeling betternhas a good attitude is going home Time spent with patient
[2022-10-21] MEDS: enoxaparin 40 mg/0.4 mL Syringe SUBCUT (20:15)
[2022-10-22] VITALS (14 sets, daily range): BP systolic 121–160; BP diastolic 74–94; PULSE 90–104; RESP 15–20; TEMP 36.7–36.9; O2SAT 91–95
[2022-10-22] MEDS: morphine 4 mg/mL SDV 1 mL 2 MG IVP ×2 (00:02→08:48)
[2022-10-22] MEDS: meropenem 500 MG in sodium chloride 0.9% (plus) 50 ML 100 MG IV ×3 (01:31→18:31)
[2022-10-22 05:24] LABS: Basophils % 0.5 %; Eosinophils # 0.4 10^3/uL (0.0-0.8); Eosinophils % 4.5 %; Hematocrit 50.7 % (42.0-52.0); Hemoglobin 14.9 g/dL (11.7-16.6); Lymphocytes # 1.3 10^3/uL (0.8-4.8); Lymphocytes % 16.3 %; Mean Corpuscular HGB Conc 29.4 g/dL (30.0-36.0); Mean Corpuscular Hemoglobin 27.8 pg (28.0-34.0); Mean Corpuscular Volume 94.6 fl (80-94); Mean Platelet Volume 12.4 fL (7.4-10.4); Monocytes # 0.6 10^3/uL (0.2-0.9); Monocytes % 7.5 %; Neutrophils % 70.8 %; Nucleated Red Blood Cells % 0 %; Platelet Count 164 10^3/cmm (130-400); Red Blood Count 5.36 10^6/uL (4.1-5.3); Red Cell Distribution Width 14.5 % (12.1-15.1); White Blood Count 7.8 10^3/uL (4.0-10.0)
[2022-10-22 05:43] LABS: Alanine Aminotransferase 8 U/L (0-41); Albumin Level 3.2 g/dL (3.5-5.2); Alkaline Phosphatase 86 U/L (40-130); Anion Gap 10.7 (5-19); Aspartate Amino Transferase 13 U/L (0-40); Blood Urea Nitrogen 19 mg/dL (8-23); Calcium 8.3 mg/dL (8.5-10.5); Carbon Dioxide 31 mmol/L (22-29); Chloride 103 mmol/L (98-107); Globulin 2.9 g/dL (1.3-4.6); Glomerular Filtration Rate 51.5 mL/min (90-130); Glucose 92 mg/dL (65-115); Osmolality Calculated 292 mOsm/kg (285-295); Potassium 4.7 mmol/L (3.5-5.1); Sodium 140 mmol/L (136-145); Total Bilirubin 0.2 mg/dL (0.15-1.2); Total Protein 6.1 g/dL (6.6-8.7)
[2022-10-22] MEDS: linezolid premix 600 MG/300 ML PREMIX 300 MG IV ×2 (06:24→20:41)
[2022-10-22] MEDS: albuterol 2.5 mg/3 mL Neb INHALATION ×2 (07:40→11:20)
[2022-10-22] MEDS: budesonide 0.5 mg/2 mL Neb INHALATION ×2 (07:40→20:12)
[2022-10-22] MEDS: folic acid 1 mg Tablet PO (09:57)
[2022-10-22] MEDS: thiamine 100 mg Tablet PO (09:57)
--- NOTE | 2022-10-22 11:37 | XR_ITS ---
WS: [id number] Portable AP upright chest, 10/22/2022 Clinical Data: sob Comparison: Portable chest, 10/18/2019 Findings: No nodules or effusions are seen. The right hilum shows an increase in size and opacity com pared to the prior chest x-ray. The heart is normal. The pulmonary vascularity is not increased. No p neumonia or pneumothorax is seen. XR/XR chest 1V portable [id number] Impression: Increase in right hilar size and opacity and recommend lateral chest and consid er CT scan of the chest.
[2022-10-22 12:06] LABS: Alcohol Level < 10 mg/dL (0-10)
--- NOTE | 2022-10-22 13:58 | P.PN_ITS ---
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, his fianc?e at bedside helps to manage at home, Vitals/I&O/Wt Last Vital Signs Temp 98.2 F 10/22/22 10:51 Pulse 103 H 10/22/22 11:26 Resp 18 10/22/22 11:26 BP 121/74 10/22/22 10:51 Pulse Ox 95 10/22/22 11:26 O2 Del Method 10/22/22 11:26 O2 Flow Rate 2 10/22/22 11:26 10/21/22 10/22/22 10/22/22 22:59 06:59 14:59 Intake Total 1070 / 2260 170 / 2430 1070 / 1070 Output Total 800 / 800 500 / 1300 300 / 300 Balance 270 / 1460 -330 / 1130 770 / 770 Weight last 48 hrs Weight 72.575 kg Physical Exam Const: COMMON NORMALS: no acute distress and patient oriented x3 Resp: COMMON NORMALS: normal respiratory effort, No retractions and No use of accessory muscles AUSCULTATION: wheezes Cardio: COMMON NORMALS: regular rate, regular rhythm, S1 normal heart sound present and S2 normal heart sound present RATE: regular rate RHYTHM: regular rhythm HEART SOUNDS: S1 normal heart sound present and S2 normal heart sound present GI: COMMON NORMALS: Normal to inspection, nondistended, normoactive bowel sounds present and non-tender OTHER: Ileostomy present Extremity: COMMON NORMALS: no pedal edema NARRATIVE EXTREMITY EXAM: Right lower extremity above-knee amputation Neuro: COMMON NORMALS: patient oriented x3 Psych: COMMON NORMALS: mental status grossly normal Data 10/22/22 04:50 10/22/22 04:50 Micro: Microbiology 10/20/22 16:42 Blood Culture - Preliminary Blood NEGATIVE TO DATE 10/20/22 16:37 Blood Culture - Preliminary Blood NEGATIVE TO DATE 10/20/22 20:24 Wound Culture - Preliminary Abdomen A&P Assessment and plan (1) Abscess: (2) Femoral-femoral bypass graft thrombosis, right: Qualifiers: Encounter type: sequela Qualified Code(s): T82.868S - Thrombosis due to vascular prosthetic devices, implants and grafts, sequela (3) Ileostomy in place: (4) Abscess: (5) Hydronephrosis, left: (6) DAYTON (acute kidney injury): (7) Kidney stone: (8) History of ischemic vertebrobasilar artery brainstem stroke: (9) Vascular graft infection: (10) Methamphetamine abuse: Plan vascular graft infection with perigraft abscess S/p I&D suprapubic region We will follow-up with Dr. Avila's recommendations Currently patient is requiring 2 L of oxygen -Has a history of IV drug abuse, currently methamphetamine positive -Has a history of MRSA bacteremia, resulting in peptic and ligation this is before his graft placement several years ago We will need pulmonary clearance before his major surgery Patient will need general anesthesia for his elective procedure For now we are continuing IV antibiotics, twice a day daily dressing change Wet-to-dry dressing change Plan is to medically optimize him, with wound care, antibiotic therapy, chronic medical management as below, so potentially he could have outpatient surgery for graft removal DAYTON related to hydronephrosis He is afebrile this morning Hemodynamically stable Creatinine trending down, 1.3 today Urine output 375 and multiple 4 We will follow-up with Dr. Martínez's recommendation Continue antibiotics, renally dose COPD currently requiring 2 L of oxygen Uses oxygen intermittently Continues to complain of wheezing today, continue DuoNeb, budesonide hold off on steroids due to concerns for Abscess, and vascular graft infection -CT of the chest -BMP, troponin series, follow blood cultures, sputum cultures, Pro-Ned, CRP History of IV drug abuse, methamphetamine positive Active smoker Drinks daily, add thiamine and folic acid Right above-knee amputation Ileostomy present, for subtotal colectomy for C. difficile colitis resulting toxic megacolon, has a terminal ileostomy and a rectal pouch Left hydronephrosis, with nephrolithiasis -Urology consulted Full code Regular diet DVT prophylaxis Lovenox Pain management with opioids Will need bowel regimen as well Attestations Medical Necessity Statement*: Patient requires hospitalization for concerns for vascular graft infection, perigraft abscess,, DAYTON, COPD, history of IV drug abuse, methamphetamine positive Diagnoses Abscess L02.91 Femoral-femoral bypass graft thrombosis, right T82.868S Encounter type: sequela Ileostomy in place Z93.2 Abscess L02.91 Hydronephrosis, left N13.30 DAYTON (acute kidney injury) N17.9 Kidney stone N20.0 History of ischemic vertebrobasilar artery brainstem stroke Z86.73 Vascular graft infection T82.7XXA Methamphetamine abuse F15.10
--- NOTE | 2022-10-22 14:18 | P.CONIM_ITS ---
Providers/Reason For Consult Consulting Physician/Specialty*: Urology/Martínez Reason for Consult*: Obstructing left ureteral calculi Requesting Physician: Dr. Ennis Attending Physician: Jimmy Yeboah MD Primary Care Provider: Armando Andrews Jr, MD History of Present Illness History of Present Illness Jason Lopez is a 62 year old male well-known to me for recent evaluation while hospitalized for an infected vascular graft. He was found on CT scan for evaluation of the abscess to have 2 chronically obstructing large left proximal/mid ureteral stones with evidence of partial left renal atrophy secondary to obstructive uropathy. No symptoms related to the stones or the chronic infection. Unfortunately he left that hospitalization AMA but he was readmitted for worsening of his vascular graft infection. He has since undergone drainage and is undergoing wound care for that. I was consulted to comment on his stone issues. Still without any significant pain on the left side. Denies hematuria. Does occasionally have some lower urinary tract symptoms of difficulty voiding and decreased force of stream. The final plan has not been set yet for dealing with his vascular graft infection. I reviewed options with him which would include ESWL versus endoscopy versus combination of both in order to deal with a large stone burden. I recommended consideration for if nothing else at least temporary stent placement at that time he does undergo anesthesia for the graft excision with delayed definitive treatment. We also discussed the possibility of severe ureteral edema making it impossible to bypass the stones with a stent. If that was the case it would necessitate antegrade approach. They were comfortable with those options and will make plans accordingly with Dr. Avila has his therapeutic roadmap becomes clear. Review of Systems Const: Denies: fever(s) or chills Eyes: Denies: eye discharge ENMT: Denies: hoarseness Card: Denies: chest pain Resp: Denies: stridor GI: Denies: nausea or vomiting : Reports: urinary frequency and urinary hesitancy; Denies: flank pain Musc: Denies: joint redness Skin/Breast: Reports: erythema and skin swelling Neuro: Denies: confusion Psych: Denies: anxiety or memory loss Endo: Denies: flushing Malik/Lymph: Denies: easy bruising or easy bleeding All/Imm: Denies: acute wheezing Medications/Allergies Home Medications Medication Instructions Recorded Confirmed Last Taken Type albuterol sulfate 2.5 mg/3 mL 2.5 mg (3 mL) inhalation Q6H PRN 01/21/20 10/20/22 Unknown Rx (0.083 %) solution for nebulization shortness of breath or wheezing #75 mL albuterol sulfate 90 mcg/actuation 2 puff inhalation Q4H PRN 10/14/22 10/20/22 Unknown History aerosol inhaler Shortness Of Breath fluticasone 250 mcg-salmeterol 50 1 - 2 ea inhalation BID PRN unknown 10/14/22 10/20/22 Unknown History mcg/dose blistr powdr for inhalation (Wixela Inhub) Allergies Allergy/AdvReac Type Severity Reaction Status Date / Time clindamycin Allergy ALGY-Rash Verified 10/20/22 16:16 Penicillins Allergy Unknown Verified 10/20/22 16:16 vancomycin Allergy red man Verified 10/20/22 16:16 disease Current Medications Generic Name Dose Route Start Last Admin Trade Name Freq PRN Reason Stop Dose Admin Budesonide 0.5 mg 10/21/22 08:00 10/22/22 07:40 Budesonide 0.5 Mg/2 Ml Neb INHALATION 0.5 mg BID.RESPIRATORY MANDO Administration Enoxaparin Sodium 40 mg 10/20/22 21:15 10/21/22 20:15 Enoxaparin 40 Mg/0.4 Ml Syringe SUBCUT 40 mg Q24H MANDO Administration Folic Acid 1 mg 10/22/22 09:00 10/22/22 09:57 Folic Acid 1 Mg Tablet PO 1 mg DAILY MANDO Administration Linezolid 600 mg in 300 mls @ 300 mls/hr 10/21/22 07:00 10/22/22 07:41 Zyvox Premix IV Infused Q12H MANDO Infusion Protocol Meropenem 500 mg/ Sodium 50 mls @ 100 mls/hr 10/21/22 02:00 10/22/22 10:47 Chloride IV Infused Q8H MANDO Infusion Protocol Morphine Sulfate 2 mg 10/20/22 21:09 10/22/22 08:48 Morphine 4 Mg/Ml Sdv 1 Ml IVP 2 mg Q4H PRN Administration SEVERE PAIN Thiamine Mononitrate 100 mg 10/22/22 09:00 10/22/22 09:57 Thiamine 100 Mg Tablet PO 100 mg DAILY MANDO Administration PFSH Acute PFSH: Medical History Colostomy care COPD (chronic obstructive pulmonary disease) -secondary to smoking, 1-1.5 PPD -nicotine patch -not oxygen dependent at baseline Femoral-femoral bypass graft thrombosis, right This is actually a left femoral to right popliteal artery bypass utilizing Coleraine-Casey graft H/O necrotizing fasciitis Involving the right hip and inguinal area, status post extensive debridement; approximately 15 years ago 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 Social History Smoking and tobacco status: current every day smoker cigarettes Packs smoked per day: 1.5 Alcohol intake: former Former alcohol use details: sober x 6 yrs History of recent travel: No Current gender identity: Male Vitals/I&O/Wt Last Vital Signs Temp 98.2 F 10/22/22 10:51 Pulse 103 H 10/22/22 11:26 Resp 18 10/22/22 11:26 BP 121/74 10/22/22 10:51 Pulse Ox 95 10/22/22 11:26 O2 Del Method 10/22/22 11:26 O2 Flow Rate 2 10/22/22 11:26 10/21/22 10/22/22 10/22/22 22:59 06:59 14:59 Intake Total 1070 / 2260 170 / 2430 1070 / 1070 Output Total 800 / 800 500 / 1300 300 / 300 Balance 270 / 1460 -330 / 1130 770 / 770 Weight last 48 hrs Weight 160 lb Physical Exam Const: COMMON NORMALS: no acute distress, alert and well nourished GENERAL APPEARANCE: well kempt and well developed ORIENTATION/CONSCIOUSNESS: not confused HENMT: COMMON NORMALS: normocephalic HEAD & SCALP: normal to inspection and normocephalic Eye: COMMON NORMALS: conjunctivae normal and no scleral icterus CONJUNCTIVA: Yes conjunctivae normal Neck/C-Spine: GENERAL: Yes normal visual inspection Lymph: LYMPHATIC: no lymphedema noted Chest: OTHER: Normal chest movement Resp: COMMON NORMALS: normal respiratory effort EFFORT & INSPECTION: Yes able to speak in complete sentences, No labored and No Actively coughing : OTHER: No CVA tenderness. Extremity: NARRATIVE EXTREMITY EXAM: Status post right AKA Neuro: COMMON NORMALS: no focal motor deficits SENSORIUM/ORIENTATION: Yes alert Psych: COMMON NORMALS: mental status grossly normal APPEARANCE: Yes grossly normal and Yes well kempt ATTITUDE: Yes calm and Yes engaged Skin: COMMON NORMALS: no jaundice Data 10/22/22 04:50 10/22/22 04:50 Micro: Microbiology 10/20/22 16:42 Blood Culture - Preliminary Blood NEGATIVE TO DATE 10/20/22 16:37 Blood Culture - Preliminary Blood NEGATIVE TO DATE 10/20/22 20:24 Wound Culture - Preliminary Abdomen A&P Assessment and plan (1) Left ureteral calculus: (2) Left renal atrophy: (3) Hydronephrosis, left: (4) Vascular graft infection: Plan See HPI Consult Attestations Medical Necessity Statement: See attending Coding Level of Care Code Acute Code for Chg Fwd Diagnoses Left ureteral calculus N20.1 Left renal atrophy N26.1 Hydronephrosis, left N13.30 Vascular graft infection T82.7XXA
[2022-10-22 14:22] LABS: Amphetamines Screen Urine Positive (Negative); Barbiturates Screen Urine Negative (Negative); Benzodiazepines Screen Urine Positive (Negative); Cocaine Screen Urine Negative (Negative); Opiate Screen Urine Positive (Negative); PCP Screen Urine Negative (Negative); THC Screen Urine Negative (Negative)
--- NOTE | 2022-10-22 14:38 | CTR_ITS ---
PROCEDURE INFORMATION: Exam: CT Chest Without Contrast; Diagnostic Exam date and time: 10/22/2022 6:08 PM Age: 62 years old Clinical indication: Shortness of breath and wheezing; Additional info: Wheezing, SOB TECHNIQUE: Imaging protocol: Diagnostic computed tomography of the chest without contrast. Sagittal and coronal reformatted images were created and reviewed. Radiation optimization: All CT scans at this facility use at least one of these dose optimization techniques: automated exposure control; mA and/or kV adjustment per patient size (includes targeted exams where dose is matched to clinical indication); or iterative reconstruction. Other protocol: This patient has received 2 known CTs and 0 known cardiac nuclear medicine studies in the 12 months prior to the current study. COMPARISON: CR XR chest 1V portable [id number] 10/22/2022 11:40 AM RADIATION DOSE METRICS: Total DLP (mGy-cm): 427.01 FINDINGS: Limitations: Evaluation of the mediastinum and vasculature is limited without intravenous contrast. Trachea: Tracheobronchial structures are patent. Lungs: Bronchial wall thickening and mucous plugging in the right and left lower lobes, suspicious for bronchitis. No focal consolidation. No pulmonary edema. There is linear scarring in the right lower lobe. No focal consolidation. No pulmonary edema. Calcified granulomas in the right upper lobe and left lower lobe. Pleural spaces: No pneumothorax. No pleural effusion. Heart: Stable mild enlargement of the heart. Coronary arteries: Mild atherosclerotic calcification in the coronary arteries. Esophagus: The esophagus is unremarkable. Mediastinal space: No mediastinal hematoma. No pneumomediastinum. Lymph nodes: No lymphadenopathy. Vasculature: Mild atherosclerotic changes in the visualized arteries. No evidence for aortic aneurysm. Pulmonary arteries are unremarkable. Pulmonary veins are unremarkable. Liver: The visualized liver is unremarkable. Gallbladder and bile ducts: No dilatation of the visualized bile ducts. Spleen: The visualized spleen is unremarkable. Adrenal glands: The visualized right and left adrenal glands are unremarkable. Bones/joints: Mild degenerative changes in the visualized spine. Soft tissues: No acute abnormality in the extrathoracic soft tissues. CT/CT chest wo con [id number] IMPRESSION: 1. Bronchial wall thickening and mucous plugging in the right and left lower lobes, suspicious for bronchitis. 2. Incidental/nonacute findings are listed in the report.
--- NOTE | 2022-10-22 14:48 | ECG_ITS ---
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 Measurements Intervals [place] Rate: 95 P: 53 WV: 196 QRS: 95 QRSD: 102 T: 55 QT: 351 QTc: 441 Interpretive Statements SINUS RHYTHM BORDERLINE RIGHT AXIS DEVIATION [QRS AXIS > 90] Compared to ECG 10/20/2022 17:35:00 Sinus tachycardia no longer present Atrial abnormality no longer present Electronically Signed On 10-22-2022 16:42:55 BRISKET PULLER by Kaley Ordonez M.D. [id number]
[2022-10-22] MEDS: ipratropium-albuterol 3 mL Neb INHALATION ×2 (15:15→20:12)
[2022-10-22 15:30] LABS: Troponin(5th) Baseline 23 ng/L (0-15)
[2022-10-22 15:38] LABS: NT Pro B Type Natriuretic Pept 569 pg/mL (0-125); Procalcitonin 0.12 ng/mL (0-0.5)
--- NOTE | 2022-10-22 16:48 | ECG_ITS ---
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 Measurements Intervals [place] Rate: 94 P: 53 PA: 207 QRS: 99 QRSD: 102 T: 63 QT: 370 QTc: 464 Interpretive Statements SINUS RHYTHM BORDERLINE RIGHT AXIS DEVIATION [QRS AXIS > 90] Compared to ECG 10/22/2022 15:13:17 No significant changes Electronically Signed On 10-22-2022 16:50:20 SCHOOL OFFICE ASSISTANT by Kaley Ordonez M.D. [id number]
[2022-10-22 19:07] LABS: Troponin 5 2HR 21.69 ng/L (0-15)
[2022-10-22 19:20] LABS: Troponin 5 2HR Delta -1.31 ABS# (0-10)
--- NOTE | 2022-10-22 20:00 | ECG_ITS ---
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 Measurements Intervals [place] Rate: 91 P: 6 [place]: 208 QRS: -34 QRSD: 101 T: -4 QT: 371 QTc: 458 Interpretive Statements SINUS RHYTHM WITH SINUS ARRHYTHMIA LEFT AXIS DEVIATION [QRS AXIS < -30] MINIMAL VOLTAGE CRITERIA FOR LVH, CONSIDER NORMAL VARIANT [MEETS CRITERIA IN ONE OF: R(aVL), S(V1), R(V5), R(V5/V6)+S(V1)] Compared to ECG 10/22/2022 16:42:02 Left-axis deviation now present Electronically Signed On 10-22-2022 23:19:07 PROCESS CONTROLS TECHNICIAN by Kaley Ordonez M.D. [id number]
[2022-10-22] MEDS: enoxaparin 40 mg/0.4 mL Syringe SUBCUT (20:41)
[2022-10-23] VITALS (10 sets, daily range): BP systolic 128–155; BP diastolic 70–79; PULSE 90–108; RESP 14–20; TEMP 36.6–36.8; O2SAT 90–96
[2022-10-23] MEDS: ipratropium-albuterol 3 mL Neb INHALATION ×3 (00:01→11:09)
[2022-10-23] MEDS: meropenem 500 MG in sodium chloride 0.9% (plus) 50 ML 100 MG IV ×2 (02:06→10:11)
[2022-10-23] MEDS: morphine 4 mg/mL SDV 1 mL 2 MG IVP (02:08)
[2022-10-23 04:40] LABS: Basophils # 0.1 10^3/uL (0.0-0.1); Basophils % 0.6 %; Eosinophils # 0.5 10^3/uL (0.0-0.8); Eosinophils % 5.7 %; Hematocrit 49.7 % (42.0-52.0); Hemoglobin 14.2 g/dL (11.7-16.6); Lymphocytes # 1.2 10^3/uL (0.8-4.8); Mean Corpuscular HGB Conc 28.6 g/dL (30.0-36.0); Mean Corpuscular Hemoglobin 27.4 pg (28.0-34.0); Mean Corpuscular Volume 95.9 fl (80-94); Mean Platelet Volume 11.9 fL (7.4-10.4); Monocytes # 0.7 10^3/uL (0.2-0.9); Monocytes % 8.3 %; Neutrophils # 6.16 10^3/uL (1.8-7.7); Neutrophils % 70.9 %; Nucleated Red Blood Cells % 0 %; Platelet Count 146 10^3/cmm (130-400); Red Blood Count 5.18 10^6/uL (4.1-5.3); Red Cell Distribution Width 14.4 % (12.1-15.1); White Blood Count 8.7 10^3/uL (4.0-10.0)
[2022-10-23 04:59] LABS: Alanine Aminotransferase 6 U/L (0-41); Albumin Level 3.2 g/dL (3.5-5.2); Alkaline Phosphatase 81 U/L (40-130); Anion Gap 8.3 (5-19); Aspartate Amino Transferase 13 U/L (0-40); Blood Urea Nitrogen 18 mg/dL (8-23); Calcium 8.4 mg/dL (8.5-10.5); Carbon Dioxide 33 mmol/L (22-29); Chloride 99 mmol/L (98-107); Globulin 2.8 g/dL (1.3-4.6); Glomerular Filtration Rate 56.1 mL/min (90-130); Glucose 115 mg/dL (65-115); Osmolality Calculated 285 mOsm/kg (285-295); Potassium 4.3 mmol/L (3.5-5.1); Sodium 136 mmol/L (136-145); Total Bilirubin 0.2 mg/dL (0.15-1.2)
[2022-10-23] MEDS: budesonide 0.5 mg/2 mL Neb INHALATION (07:10)
[2022-10-23] MEDS: linezolid premix 600 MG/300 ML PREMIX 300 MG IV (07:16)
--- NOTE | 2022-10-23 07:24 | PC.NURSE ---
Patient screaming this morning that he needed a breathing treatment and he was going to . This nurse pulled a Duoneb from [facility] and administered the breathing treatment to the patient.
[2022-10-23] MEDS: thiamine 100 mg Tablet PO (08:23)
[2022-10-23] MEDS: folic acid 1 mg Tablet PO (08:23)
--- NOTE | 2022-10-23 09:40 | PC.SOCIAL ---
IMM Update pg 2 of IMM updated and reviewed w/ patient. Copy provided and Copy dated, initialed and placed in chart.
--- NOTE | 2022-10-23 12:35 | P.DS_ITS ---
Discharge Providers Date of Admission: 10/20/22 20:33 Date of Discharge: October 23, 2022 Attending Provider at Admission: Shawn Lopez MD Attending Provider at Discharge: Jimmy Yeboah MD Primary Care Provider: Armando Andrews Jr, MD Diagnoses at Discharge Discharge Diagnosis (1) Abscess: Status: Acute (2) Femoral-femoral bypass graft thrombosis, right: Status: Acute Qualifiers: Encounter type: sequela Qualified Code(s): T82.868S - Thrombosis due to vascular prosthetic devices, implants and grafts, sequela Permanent problem details: This is actually a left femoral to right popliteal artery bypass utilizing Arnold- Casey graft (3) Ileostomy in place: Status: Acute (4) Abscess: Status: Acute (5) Hydronephrosis, left: Status: Acute (6) [place] (acute kidney injury): Status: Acute (7) Kidney stone: Status: Acute (8) History of ischemic vertebrobasilar artery brainstem stroke: Status: Acute Permanent problem details: -hx of prior brainstem CVA; no residual deficits (9) Vascular graft infection: Status: Acute (10) Methamphetamine abuse: Status: Acute Reason for Visit Reason for Visit: abd pain, states infection in groin area Hospital Course Hospital Course ?62-year-old male presents emergency room with complaints of swollen inflamed area in the suprapubic region.?He previously had a graft done several years ago in an attempt to salvage the right leg unfortunately ultimately was unsuccessful and he required a proximal femur amputation. CT abdomen and pelvis with contrast done today showed:?Chronic occluded right iliac arteries an occluded fem-fem bypass graft.Persistent 3 cm fluid collection insinuating around the bypass graft possibly representing an abscess collection Severe left hydronephrosis secondary to 2 abutting obstructing left mid ureteral stones, unchanged. S/p bedside I&D in the ER: With moderate amount of purulent drainage: Abscess culture has been sent. His other vitals and labs have been reviewed. Patient was admitted to [facility] for vascular graft infection with concern for perigraft infection status post incision and drainage of suprapubic region, received daily wound care broad-spectrum antibiotic therapy, so far blood cultures, and wound cultures remain unremarkable patient remained afeb rile, clinically improving. Discharged with oral antibiotic for for 14 remaining days, follow-up with Dr. Avila as outpatient, continue monitoring the wound, daily wound care. For concerns for vascular graft infection he will need to follow-up with pulmonary as outpatient for pulmonary evaluation and PFTs He had DAYTON on top of hydronephrosis, of left kidney, urology was consulted, urology recommended outpatient evaluation hopefully with intervention when he undergoes intervention for his vascular graft infection Patient had complaints of wheezing, chest x-ray showed mucous plugging, conserv atively managed, overall clinically improved History of methamphetamine abuse, advised against methamphetamine use as outpatient Physical Exam Const: COMMON NORMALS: no acute distress and patient oriented x3 Resp: COMMON NORMALS: normal respiratory effort, No retractions, No use of accessory muscles and clear to auscultation bilaterally AUSCULTATION: clear to auscultation bilaterally Cardio: COMMON NORMALS: regular rate, regular rhythm, S1 normal heart sound present and S2 normal heart sound present RATE: regular rate RHYTHM: regular rhythm HEART SOUNDS: S1 normal heart sound present and S2 normal heart sound present GI: COMMON NORMALS: Normal to inspection, nondistended, normoactive bowel sounds present, Soft to palpation and non-tender PALPATION: Yes Soft to palpation Extremity: COMMON NORMALS: no pedal edema Neuro: COMMON NORMALS: patient oriented x3 Psych: COMMON NORMALS: mental status grossly normal Skin: NARRATIVE SKIN EXAM: Incision site, groin, looks clean and dry, open incision site, surrounding cellulitis measuring 1 x 1 cm Discharge Data Studies Completed and Pending Completed Studies During Hospitalization Category Date Time Status CT abdomen pelvis w con* [id number] Stat Cat Scan 10/20/22 16:[address] chest wo con [id number] Routine Cat Scan 10/22/22 14:38 Completed XR chest 1V portable [id number] Routine Exams 10/22/22 11:37 Completed Pending at discharge Category Date Time Status Blood Culture Stat Lab 10/20/22 16:42 Results Sputum Culture and Gram Stain Stat Lab 10/22/22 14:48 Uncollected Wound Culture Stat Lab 10/20/22 20:24 Results Radiology Impressions Abdomen/Pelvis CT 10/20/22 16:10 IMPRESSION: 1. Severe left hydronephrosis secondary to 2 abutting obstructing left mid ureteral stones, unchanged. 2. 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 Persistent 3 cm fluid collection insinuating around the bypass graft possibly representing an abscess collection. 3. Prior colectomy with stable appearance of right ileostomy and diastasis of the mid abdominal wall. 4. Additional chronic findings as above. Chest X-Ray 10/22/22 11:37 Impression: Increase in right hilar size and opacity and recommend lateral chest and consider CT scan of the chest. Chest CT 10/22/22 14:38 IMPRESSION: 1. Bronchial wall thickening and mucous plugging in the right and left lower lobes, suspicious for bronchitis. 2. Incidental/nonacute findings are listed in the report. Laboratory Results WBC 8.7 10^3/uL (4.0-10.0) 10/23/22 03:50 RBC 5.18 10^6/uL (4.1-5.3) 10/23/22 03:50 Hgb 14.2 g/dL (11.7-16.6) 10/23/22 03:50 Hct 49.7 % (42.0-52.0) 10/23/22 03:50 MCV 95.9 fl (80-94) H 10/23/22 03:50 MCH 27.4 pg (28.0-34.0) L 10/23/22 03:50 MCHC 28.6 g/dL (30.0-36.0) L 10/23/22 03:50 RDW 14.4 % (12.1-15.1) 10/23/22 03:50 Plt Count 146 10^3/cmm (130-400) 10/23/22 03:50 MPV 11.9 fL (7.4-10.4) H 10/23/22 03:50 Neut % (Auto) 70.9 % 10/23/22 03:50 Lymph % (Auto) 14.0 % 10/23/22 03:50 [place] % (Auto) 8.3 % 10/23/22 03:50 Eos % (Auto) 5.7 % 10/23/22 03:50 Baso % (Auto) 0.6 % 10/23/22 03:50 Neut # (Auto) 6.16 10^3/uL (1.8-7.7) 10/23/22 03:50 Lymph # (Auto) 1.2 10^3/uL (0.8-4.8) 10/23/22 03:50 [place] # (Auto) 0.7 10^3/uL (0.2-0.9) 10/23/22 03:50 Eos # (Auto) 0.5 10^3/uL (0.0-0.8) 10/23/22 03:50 Baso # (Auto) 0.1 10^3/uL (0.0-0.1) 10/23/22 03:50 Nucleated RBC % (auto) 0 % 10/23/22 03:50 Nucleated RBCs # 0.0 /100WBC 10/23/22 03:50 Specimen Type Arterial 10/20/22 16:35 Sample Site Radial, right 10/20/22 16:35 ABG pH 7.32 (7.35-7.45) L 10/20/22 16:35 ABG pCO2 53.2 mmHg (35-45) H 10/20/22 16:35 ABG pO2 60.0 mmHg (80.0-100.0) L 10/20/22 16:35 ABG HCO3 27.4 mmol/L (22-26) H 10/20/22 16:35 ABG O2 Saturation 91.7 10/20/22 16:35 ABG Base Excess 0.1 mmol/L (-2.0-2.0) 10/20/22 16:35 Paul Test Pos 10/20/22 16:35 A-a O2 Gradient 3.2 mmHg (5-10) L 10/20/22 16:35 Hematocrit 50.6 % (42-52) 10/20/22 16:35 Hgb O2 Saturation 85.8 % (95-100) L 10/20/22 16:35 Carboxyhemoglobin 6.3 %THgb (0.4-20.1) 10/20/22 16:35 Methemoglobin 0.2 % (0.4-1.5) L 10/20/22 16:35 Total Hemoglobin 16.5 g/dL (14-18) 10/20/22 16:35 Sodium 136.0 mmol/L (131-143) 10/20/22 16:35 Potassium 3.9 mmol/L (3.5-5.0) 10/20/22 16:35 Glucose 124.0 mg/dL (70-115) H 10/20/22 16:35 Ionized Calcium 1.2 mmol/L (1.1-1.4) 10/20/22 16:35 O2 Delivery Device None 10/20/22 16:35 FiO2 21.0 % 10/20/22 16:35 Record Center Specialist ID Christine 10/20/22 16:35 Sodium 136 mmol/L (136-145) 10/23/22 03:50 Potassium 4.3 mmol/L (3.5-5.1) 10/23/22 03:50 Chloride 99 mmol/L (98-107) 10/23/22 03:50 Carbon Dioxide 33 mmol/L (22-29) H 10/23/22 03:50 Anion Gap 8.3 (5-19) 10/23/22 03:50 BUN 18 mg/dL (8-23) 10/23/22 03:50 Creatinine 1.3 mg/dL (0.7-1.2) H 10/23/22 03:50 GFR Calculation 56.1 mL/min (90-130) L 10/23/22 03:50 Glucose 115 mg/dL (65-115) 10/23/22 03:50 Calculated Osmolality 285 mOsm/kg (285-295) 10/23/22 03:50 Lactic Acid 1.2 mmol/L (0.5-2.2) 10/20/22 17:47 Calcium 8.4 mg/dL (8.5-10.5) L 10/23/22 03:50 Total Bilirubin 0.2 mg/dL (0.15-1.2) 10/23/22 03:50 AST 13 U/L (0-40) 10/23/22 03:50 ALT 6 U/L (0-41) 10/23/22 03:50 Alkaline Phosphatase 81 U/L (40-130) 10/23/22 03:50 Troponin T Baseline 23 ng/L (0-15) H 10/22/22 15:00 Troponin T 120 Minute 21.69 ng/L (0-15) H 10/22/22 18:23 Delta Troponin T -1.31 ABS# (0-10) L 10/22/22 18:23 Troponin T Hi Sens 6Hr 21.30 ng/L (0-15) H 10/22/22 21:00 Troponin T Hi Sens 6Hr Delta -1.70 ng/L (0-12) L 10/22/22 21:00 C-Reactive Protein 6.0 mg/L (0.0-4.9) H 10/22/22 15:00 NT-Pro-B Natriuret Pep 569 pg/mL (0-125) H 10/22/22 15:00 Total Protein 6.0 g/dL (6.6-8.7) L 10/23/22 03:50 Albumin 3.2 g/dL (3.5-5.2) L 10/23/22 03:50 Globulin 2.8 g/dL (1.3-4.6) 10/23/22 03:50 Procalcitonin 0.12 ng/mL (0-0.5) 10/22/22 15:00 Urine Color Yellow (Yellow) 10/20/22 14:53 Urine Appearance Clear (CLEAR) 10/20/22 14:53 Urine pH 6 (5-7) 10/20/22 14:53 Ur Specific [place] 1.020 (1.005-1.030) 10/20/22 14:53 Urine Protein 1+ (Negative) H 10/20/22 14:53 Urine Glucose (UA) Norm (Normal) 10/20/22 14:53 Urine Ketones Negative (Negative) 10/20/22 14:53 Urine Blood 2+ (Negative) H 10/20/22 14:53 Urine Nitrate Negative (Negative) 10/20/22 14:53 Urine Bilirubin Neg (Negative) 10/20/22 14:53 Urine Urobilinogen Neg mg/dL (Negative) 10/20/22 14:53 Ur Leukocyte Esterase Negative (Negative) 10/20/22 14:53 Urine RBC 5-10 /hpf (0-2) H 10/20/22 14:53 Urine WBC Rare /hpf (0-5) 10/20/22 14:53 Ur Squamous Epith Cells None /hpf (0-5) 10/20/22 14:53 Amorphous Sediment Not Reportable 10/20/22 14:53 Urine Bacteria None /hpf (NONE) 10/20/22 14:53 Urine Opiates Screen Positive ng/mL (Negative) H 10/22/22 13:54 Ur Barbiturates Screen Negative ng/mL (Negative) 10/22/22 13:54 Ur Phencyclidine Scrn Negative ng/mL (Negative) 10/22/22 13:54 Ur Amphetamines Screen Positive ng/mL (Negative) H 10/22/22 13:54 U Benzodiazepines Scrn Positive ng/mL (Negative) H 10/22/22 13:54 Urine Cocaine Screen Negative ng/mL (Negative) 10/22/22 13:54 U Marijuana (THC) Screen Negative ng/mL (Negative) 10/22/22 13:54 Ethyl Alcohol < 10 mg/dL (0-10) 10/22/22 04:50 Vitals Last Vital Signs Temp 98.2 F 10/23/22 07:11 Pulse 105 H 10/23/22 11:17 Resp 20 H 10/23/22 11:10 BP 134/79 10/23/22 07:11 Pulse Ox 92 10/23/22 11:10 O2 Del Method 10/23/22 11:10 O2 Flow Rate 3 10/23/22 11:10 Discharge Plan Discharge Patient Disposition: Home Condition: Stable Prescriptions: New hydrocodone-acetaminophen 5-325 mg tablet 0.5 tab PO BID PRN (Reason: pain) 3 Days Qty: 3 0RF folic acid 1 mg Tablet 1 mg PO DAILY 30 Days Qty: 30 0RF thiamine mononitrate (vit B1) [Vitamin B-1 (mononitrate)] 100 mg Tablet 100 mg PO DAILY 30 Days Qty: 30 0RF doxycycline hyclate 100 mg tablet 100 mg PO BID 14 Days Qty: 28 0RF metronidazole 500 mg tablet 500 mg PO Q8H 14 Days Qty: 42 0RF Continued albuterol sulfate 2.5 mg /3 mL (0.083 %) solution for nebulization 2.5 mg INHALATION Q6H PRN (Reason: shortness of breath or wheezing) Qty: 75 0RF fluticasone propion-salmeterol [Wixela Inhub] 250-50 mcg/dose blister with device 1 - 2 ea INHALATION BID PRN (Reason: unknown) Changed albuterol sulfate 90 mcg/actuation HFA aerosol inhaler 1 puff INHALATION Q4H PRN (Reason: Shortness Of Breath) Qty: 8.5 0RF Discharge Orders: Discharge Order (Routine); Ordered 10/23/22 Ordered By: Jimmy Yeboah Other Ambulatory Orders: DME: Cane/ Crutches (Order) Location: None Selected Ordered By: Jimmy Yeboah Referrals: Medical Records [Other] (You can call this number and ask for Medical Records to request document from last visit saying you left AMA to provide to Court. ) [facility] [Other] (You can call this number and see if they can help you with getting your prosthetic fitted. ) Sushant Avila MD [Physician] - 7-10 days Armando Andrews Jr, MD [Primary Care Provider] - 1 week Discharge Diet: Cardiac Discharge Activity: Resume usual activity Patient Instructions: Opioid Safety Activity Restrictions/Additional Instructions: - Please take hydrocodone sparingly for pain -Please do not drive or operate heavy machinery or drink while taking hydrocodone -Continue daily dressing changes for wound -Please follow-up with Dr. Avila in 1 week -Please abstain from drug use, please abstain from alcohol consumption -If you have any fevers go to emergency room Discharge Attestations Time Spent in Discharge Care*: greater than 30 min Status at Discharge: Cognitive status at discharge: cognitively intact , Behavioral status at discharge: cooperative , Quality Metrics Clinical Quality Measures [ No reported AMI, CVA or VTE this stay] Coding Level of Care Code 12640 Total time (in minutes) for Discharge: 40 Diagnoses Abscess L02.91 Femoral-femoral bypass graft thrombosis, right T82.868S Encounter type: sequela Ileostomy in place Z93.2 Abscess L02.91 Hydronephrosis, left N13.30 [place] (acute kidney injury) N17.9 Kidney stone N20.0 History of ischemic vertebrobasilar artery brainstem stroke Z86.73 Vascular graft infection T82.7XXA Methamphetamine abuse F15.10
--- NOTE | 2022-10-23 14:06 | PC.NURSE ---
Packing removed by Physician. This nurse cleansed with normal saline and packed one 4x4 soaked with Saline into wound and covered with dry 4x4 and taped. Patient did not tolerate well.
--- NOTE | 2022-10-23 15:57 | PC.NURSE ---
Discharge Note Patient discharged to home via private vehicle accompanied by . Discharge instructions reviewed with patient and/or sales representative [employer]. Mobile pharmacy medications and/or prescriptions provided. Belongings/home medications returned.
== END 2022-10-23 15:30 | disposition home or self-care (01) | DRG 315 ==
LOC: ER 20:31 → MEDSURG 20:47
PROVIDERS: Family Medicine; Admitting Provider Internal Medicine; Emergency Provider Emergency Medicine; PCP Family Medicine; Visit Provider Family Medicine
DX: T82.7XXA Infection and inflammatory reaction due to other cardiac and vascular devices, implants and grafts, initial encounter (principal); L02.211 Cutaneous abscess of abdominal wall; N13.2 Hydronephrosis with renal and ureteral calculous obstruction; N17.9 Acute kidney failure, unspecified; T82.868S Thrombosis due to vascular prosthetic devices, implants and grafts, sequela; Y71.1 Therapeutic (nonsurgical) and rehabilitative cardiovascular devices associated with adverse incidents; J44.9 Chronic obstructive pulmonary disease, unspecified; I70.221 Atherosclerosis of native arteries of extremities with rest pain, right leg; F17.210 Nicotine dependence, cigarettes, uncomplicated; F15.10 Other stimulant abuse, uncomplicated; Z89.611 Acquired absence of right leg above knee; Z86.73 Personal history of transient ischemic attack (TIA), and cerebral infarction without residual deficits; Z95.820 Peripheral vascular angioplasty status with implants and grafts; Z90.49 Acquired absence of other specified parts of digestive tract
CPT/HCPCS: 36415; 36600; 71045; 71250; 74177; 80051; 80053; 80306; 80307; 81001; 82330; 82805; 83605; 83880; 84145; 84484; 85025; 86140; 87040; 87070; 93005; 94060; 94640; 96365; 96372; 96375; 96376; 97116; 97161; 97165; 99285; J1170; J1650; J2020; J2060; J2185; J2270; J7613; J7626; Q9967

== ENCOUNTER → 2022-10-27 09:19 | Outpatient (BNVA) | payer MEDICARE, MEDICAID, SELFPAY | PROVIDERS: PCP Family Medicine; Visit Provider Thoracic Surgery (Cardiothoracic Vascular Surgery) | DX: L03.311 Cellulitis of abdominal wall (principal); I96 Gangrene, not elsewhere classified | CPT/HCPCS: 10060; 87070; 87176; 87205; 99213 ==

== ENCOUNTER 2022-11-02 08:06 | Day surgery (SDC) | payer MEDICARE, MEDICAID, SELFPAY ==
[2022-11-01 10:29] VITALS: BMI 24.3
[2022-11-02] VITALS (11 sets, daily range): BP systolic 118–156; BP diastolic 75–99; PULSE 95–109; RESP 10–20; TEMP 36.1–36.4; O2SAT 90–99
[2022-11-02 08:44] LABS: Glucose Urine UA Norm (Normal); Ketones Urine Negative (Negative); Protein Urine Neg (Negative); Urine Appearance Hazy (CLEAR); Urine Color Yellow (Yellow); pH Urine 5 (5-7)
[2022-11-02 08:45] LABS: Add Urine Culture? Yes; Add Urine Microscopic? YES; Bacteria Urine 1+ /hpf; Bilirubin Urine Neg (Negative); Blood Urine 3+ (Negative); Coarse Granular Casts Urine 0-4 /lpf; Fine Granular Casts Urine 15-25 /lpf; Leukocyte Esterase Urine Negative (Negative); Mucus Urine 1+ /hpf; Nitrate Urine Negative (Negative); RBC Urine 50-80 /hpf (0-2); Squamous Epithelial Cell Urine 0-4 /hpf (0-5); Urobilinogen Urine Norm (Negative); WBC Urine 0-4 /hpf (0-5)
[2022-11-02] MEDS: sodium chloride 0.9% 1,000 ML 30 ML IV (08:57)
--- NOTE | 2022-11-02 08:59 | W.PM.OPSUD ---
Surgery/Procedure H&P Update DATE OF PROCEDURE: November 02, 2022 DATE H&P PERFORMED: 10/27/22 H&P UPDATE INFORMATION: I have reviewed H&P completed within last 30 days, I have examined patient prior to procedure and No changes to prior documentation PREOP DIAGNOSIS: infected vascular graft PLANNED PROCEDURE: Operation Date: 11/02/22 09:10 Proposed Procedures p excision of infected left femoral to right poplite T82.8685,[id number](Right) - Sushant Avila MD
[2022-11-02] MEDS: HYDROmorphone 1 mg/mL INJ 1 mL 0.5 MG IVP (09:01)
[2022-11-02 09:06] LABS: Basophils # 0.1 10^3/uL (0.0-0.1); Basophils % 0.6 %; Eosinophils # 0.2 10^3/uL (0.0-0.8); Eosinophils % 2.1 %; Hematocrit 52.3 % (42.0-52.0); Hemoglobin 15.5 g/dL (11.7-16.6); Lymphocytes # 1.6 10^3/uL (0.8-4.8); Mean Corpuscular HGB Conc 29.6 g/dL (30.0-36.0); Mean Corpuscular Volume 94.4 fl (80-94); Mean Platelet Volume 12.4 fL (7.4-10.4); Monocytes # 0.7 10^3/uL (0.2-0.9); Monocytes % 7.2 %; Neutrophils # 7.51 10^3/uL (1.8-7.7); Neutrophils % 73.7 %; Nucleated Red Blood Cells % 0 %; Platelet Count 171 10^3/cmm (130-400); Red Blood Count 5.54 10^6/uL (4.1-5.3); Red Cell Distribution Width 14.9 % (12.1-15.1); White Blood Count 10.2 10^3/uL (4.0-10.0)
[2022-11-02] MEDS: ceFAZolin 1,000 mg SDV 1000 MG (09:14)
[2022-11-02] MEDS: ceFAZolin 2,000 MG in sodium chloride 0.9% (plus) 50 ML 100 MG IV (09:15)
--- NOTE | 2022-11-02 09:16 | ANES.PREANE2 ---
Pre-Anesthetic Assessment Height/Weight: Height 1.73 m Weight 72.575 kg Temp Pulse Resp BP Pulse Ox O2 Del Method 97.3 F L 101 H 20 H 156/84 98 11/02/22 08:41 11/02/22 08:41 11/02/22 08:41 11/02/22 08:41 11/02/22 09:01 11/02/22 08:44 Preop Diagnosis: infected vascular graft Operation Date: 11/02/22 09:10 Proposed Procedures p excision of infected left femoral to right poplite T82.8685,[id number](Right) - Sushant Avila MD Familial anesthetic complications: none Was Beta Edis taken within 24 hours: N/A Was Clonidine taken within 24 hours: N/A Last intake: Intake Last Liquid Date 11/01/22 Last Liquid Time 23:50 Last Solid Date 11/01/22 Last Solid Time 23:50 Social Tobacco and No alcohol (h/o abuse) Drug use Exam alert, oriented x 3 and regular rate & rhythm rhonchi Airway Submandibular: within normal limits Cervical ROM: within normal limits Mallampati: Class II Dentition: false (uppers) Pulmonary Chronic Obstructive Pulmonary Disease CV/HEM Hypertension and Peripheral Vascular Disease Chronic Renal Insufficiency GI C.diff, ileostomy Neuropsych Cerebrovascular Accident Anesthetic Plan ASA status: 3 Anesthesia: General Medications/Allergies Home Medications Medication Instructions Recorded Confirmed Last Taken Type albuterol sulfate 2.5 mg/3 mL 2.5 mg (3 mL) inhalation Q6H PRN 01/21/20 11/02/22 09/21/22 Rx (0.083 %) solution for nebulization shortness of breath or wheezing #75 mL albuterol sulfate 90 mcg/actuation 1 puff inhalation Q4H PRN 10/23/22 11/02/22 11/02/22 07:45 Rx aerosol inhaler Shortness Of Breath #8.5 grams doxycycline hyclate 100 mg tablet 100 mg PO BID 14 days #28 tabs 10/23/22 11/01/22 11/02/22 07:15 Rx folic acid 1 mg tablet 1 mg PO DAILY 30 days #30 tabs 10/23/22 11/01/22 11/02/22 07:15 Rx metronidazole 500 mg tablet 500 mg PO Q8H 14 days #42 tabs 10/23/22 11/01/22 11/02/22 07:15 Rx thiamine mononitrate (vit B1) 100 100 mg PO DAILY 30 days #30 tabs 10/23/22 11/01/22 11/02/22 07:15 Rx mg tablet (Vitamin B-1 (mononitrate)) hydrocodone 5 mg-acetaminophen 325 1 tab PO BID PRN pain 5 days #10 10/27/22 11/01/22 11/02/22 07:15 Rx mg tablet tabs Allergies Allergy/AdvReac Type Severity Reaction Status Date / Time clindamycin Allergy ALGY-Rash Verified 11/02/22 08:30 Penicillins Allergy Unknown Verified 11/02/22 08:30 vancomycin Allergy red man Verified 11/02/22 08:30 disease Current Medications Generic Name Dose Route Start Last Admin Trade Name Freq PRN Reason Stop Dose Admin Sodium Chloride 1,000 mls @ 30 mls/hr 11/02/22 08:15 11/02/22 08:57 Sodium Chloride 0.9% IV 11/03/22 08:14 30 mls/hr .Q24H MANDO Administration PFS Anesthesia Medical History Colostomy care COPD (chronic obstructive pulmonary disease) -secondary to smoking, 1-1.5 PPD -nicotine patch -not oxygen dependent at baseline Femoral-femoral bypass graft thrombosis, right This is actually a left femoral to right popliteal artery bypass utilizing Douds-Casey graft H/O necrotizing fasciitis Involving the right hip and inguinal area, status post extensive debridement; approximately 15 years ago 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 Social History Smoking and tobacco status: current every day smoker cigarettes Packs smoked per day: 1.5 Alcohol intake: former Former alcohol use details: sober x 6 yrs Current gender identity: Male Data Anesthesia 11/02/22 08:50 11/02/22 08:50 Short CBC 11/02/22 Range/Units 08:50 WBC 10.2 H (4.0-10.0) 10^3/uL Hgb 15.5 (11.7-16.6) g/dL Hct 52.3 H (42.0-52.0) % MCV 94.4 H (80-94) fl Plt Count 171 (130-400) 10^3/cmm Neut % (Auto) 73.7 % Neut # (Auto) 7.51 (1.8-7.7) 10^3/uL Urine 11/02/22 Range/Units 08:23 Urine Color Yellow (Yellow) Urine Appearance Hazy A (CLEAR) Urine pH 5 (5-7) Ur Specific [place] 1.020 (1.005-1.030) Urine Protein Neg (Negative) Urine Glucose (UA) Norm (Normal) Urine Ketones Negative (Negative) Urine Nitrate Negative (Negative) Urine Bilirubin Neg (Negative) Ur Leukocyte Esterase Negative (Negative) Urine RBC 50-80 H (0-2) /hpf Urine WBC 0-4 H (0-5) /hpf Cardiac Studies: No Data to Display
[2022-11-02] MEDS: albuterol 2.5 mg/3 mL Neb INHALATION (09:22)
[2022-11-02 09:30] LABS: Alanine Aminotransferase 12 U/L (0-41); Albumin Level 3.5 g/dL (3.5-5.2); Alkaline Phosphatase 86 U/L (40-130); Anion Gap 12.1 (5-19); Aspartate Amino Transferase 15 U/L (0-40); Blood Urea Nitrogen 19 mg/dL (8-23); Calcium 8.6 mg/dL (8.5-10.5); Carbon Dioxide 28 mmol/L (22-29); Chloride 103 mmol/L (98-107); Globulin 3.4 g/dL (1.3-4.6); Glomerular Filtration Rate 56.1 mL/min (90-130); Glucose 101 mg/dL (65-115); Osmolality Calculated 288 mOsm/kg (285-295); Potassium 5.1 mmol/L (3.5-5.1); Sodium 138 mmol/L (136-145); Total Bilirubin 0.2 mg/dL (0.15-1.2); Total Protein 6.9 g/dL (6.6-8.7)
[2022-11-02] MEDS: ceFAZolin 1,000 mg SDV 1000 MG IRRIGATION (10:08)
--- NOTE | 2022-11-02 10:48 | PM.OP ---
Operative Report Date of procedure: November 02, 2022 Pre-op diagnosis: Preop Diagnosis infected vascular graft Post-op diagnosis: same Procedure done: Incision and drainage of suprapubic abscess with removal of involved vascular graft; 10 cm Pathology: none sent Surgeon: Sushant Avila Anesthesia: General and Local Complications: None Condition: stable Disposition: PACU Brief History: Mr. Lopez is a 62-year-old gentleman who is status post left femoral to right popliteal artery bypass approximately 7 years ago. The graft remained functioning up until about a year ago when he developed ischemic discomfort in his right lower extremity. He was referred to a tertiary center where attempts at revascularization were undertaken without success resulting in subsequent right above-knee amputation. He recent presented with swelling in the suprapubic region and was felt to have abscess involving the midportion of the graft. He does have a history of illicit injectable drug use, though denied attempts at injection. Origination of the abscess was felt to be result of shaving in the region. He is subsequently presented for planned I&D of this region and removal of involved graft. Details of risk of the surgery were carefully discussed. Appropriate consents have been reviewed and signed. Procedure: Mr. Lopez was taken to the operative room theater carefully position on the OR table where he underwent general trach anesthesia. He was then sterilely prepped and draped. Appropriate timeout was performed, completed, and confirmed by all members present. 1% lidocaine was infiltrated over the mid suprapubic region at the area of localized swelling. #10 scalpel blade was utilized to incise the skin down to the subcutaneous tissue with further dissection with use of cautery and Metzenbaum scissors. Small area of turbid fluid Collection with identified and cultures were taken. Graft was also exposed and the dissected right and left of the midline. The graft was cut off sharply to the right of the midline deep to the wound as possible without evidence of further fluid collection. With approximately and to the left femoral region the graft was dissected substantially into the tunnel, transected, and then oversewn with 5-0 Prolene suture. There was no active bleeding. Limb was then irrigated with large amounts of antibiotic solution. Curette debridement was then performed to the wound bed to remove further devitalized tissue. Wet-to-dry dressing was then applied. Mr. Lopez tolerated procedure well was awakened from anesthesia and extubated and taken to the postoperative care unit in stable condition. He will present tomorrow to [facility] wound care clinic with his wound VAC materials which are scheduled to arrive today. We will then plan for initiation of negative pressure therapy at that time.
--- NOTE | 2022-11-02 14:23 | ANE.PACU2 ---
Inpatient post-anesthesia follow up: Airway intact: Yes Vital signs: Temperature 97.0 F Pulse Rate 100 Respiratory Rate 18 Blood Pressure 129/84 Pulse Oximetry 92 Oxygen Delivery Me thod Room Air Oxygen Flow Rate 2 Fraction of Inspir ed Oxygen Hydration adequate: Yes Nausea and vomiting: No Pain level: 2 Mental status: Baseline
== END 2022-11-02 11:57 | disposition home or self-care (01) ==
PROVIDERS: PCP Family Medicine; Visit Provider Thoracic Surgery (Cardiothoracic Vascular Surgery)
PROC: (CPT 35903; principal; 2022-11-02 09:00)
DX: T82.7XXA Infection and inflammatory reaction due to other cardiac and vascular devices, implants and grafts, initial encounter (principal); Y83.2 Surgical operation with anastomosis, bypass or graft as the cause of abnormal reaction of the patient, or of later complication, without mention of misadventure at the time of the procedure
CPT/HCPCS: 35903; 36415; 80053; 81001; 85025; 86850; 86900; 86920; 87070; 87075; 87086; 87205; 94640; J0690; J1170; J1885; J2405; J2704; J2710; J3010; J3490; J7030; J7613

== ENCOUNTER → 2022-11-03 14:01 | Outpatient (BNVA) | payer MEDICARE, MEDICAID, SELFPAY | PROVIDERS: PCP Family Medicine; Visit Provider Thoracic Surgery (Cardiothoracic Vascular Surgery) | DX: I96 Gangrene, not elsewhere classified (principal); I87.2 Venous insufficiency (chronic) (peripheral); L97.822 Non-pressure chronic ulcer of other part of left lower leg with fat layer exposed | CPT/HCPCS: 97605; A6237; A6250 ==

== ENCOUNTER → 2022-11-05 12:19 | Outpatient (BNVA) | payer MEDICARE, MEDICAID, SELFPAY | PROVIDERS: PCP Family Medicine; Visit Provider Thoracic Surgery (Cardiothoracic Vascular Surgery) | DX: L03.311 Cellulitis of abdominal wall (principal); L98.9 Disorder of the skin and subcutaneous tissue, unspecified | CPT/HCPCS: 97605; A6237; A6250 ==

== ENCOUNTER → 2022-11-08 16:18 | Outpatient (BNVA) | payer MEDICARE, MEDICAID, SELFPAY | PROVIDERS: PCP Family Medicine; Visit Provider Thoracic Surgery (Cardiothoracic Vascular Surgery) | DX: L03.311 Cellulitis of abdominal wall (principal) | CPT/HCPCS: 11042; 97605; A6237; A6250 ==

== ENCOUNTER → 2022-11-12 16:57 | Outpatient (BNVA) | payer MEDICARE, MEDICAID, SELFPAY | PROVIDERS: PCP Family Medicine; Visit Provider Thoracic Surgery (Cardiothoracic Vascular Surgery) | DX: L03.311 Cellulitis of abdominal wall (principal) | CPT/HCPCS: 97605; A6237; A6250 ==

== ENCOUNTER → 2022-11-15 16:36 | Outpatient (BNVA) | payer MEDICARE, MEDICAID, SELFPAY | PROVIDERS: PCP Family Medicine; Visit Provider Thoracic Surgery (Cardiothoracic Vascular Surgery) | DX: I96 Gangrene, not elsewhere classified (principal); L03.311 Cellulitis of abdominal wall; L98.492 Non-pressure chronic ulcer of skin of other sites with fat layer exposed | CPT/HCPCS: 11042; 97605; A6237; A6250 ==

== ENCOUNTER → 2022-11-19 16:57 | Outpatient (BNVA) | payer MEDICARE, MEDICAID, SELFPAY | PROVIDERS: PCP Family Medicine; Visit Provider Thoracic Surgery (Cardiothoracic Vascular Surgery) | DX: L03.311 Cellulitis of abdominal wall (principal); I96 Gangrene, not elsewhere classified | CPT/HCPCS: 97605 ==

== ENCOUNTER → 2022-11-22 13:56 | Outpatient (BNVA) | payer MEDICARE, MEDICAID, SELFPAY | PROVIDERS: PCP Family Medicine; Visit Provider Nurse Practitioner Family | DX: I96 Gangrene, not elsewhere classified (principal); L98.492 Non-pressure chronic ulcer of skin of other sites with fat layer exposed; L03.311 Cellulitis of abdominal wall | CPT/HCPCS: 97597; 97605; A6237; A6250 ==

== ENCOUNTER → 2022-11-26 09:42 | Outpatient (BNVA) | payer MEDICARE, MEDICAID, SELFPAY | PROVIDERS: PCP Family Medicine; Visit Provider Thoracic Surgery (Cardiothoracic Vascular Surgery) | DX: L98.492 Non-pressure chronic ulcer of skin of other sites with fat layer exposed (principal); L03.311 Cellulitis of abdominal wall; I96 Gangrene, not elsewhere classified | CPT/HCPCS: 99212 ==

== ENCOUNTER → 2022-11-29 13:11 | Outpatient (BNVA) | payer MEDICARE, MEDICAID, SELFPAY | PROVIDERS: PCP Family Medicine; Visit Provider Thoracic Surgery (Cardiothoracic Vascular Surgery) | DX: L98.492 Non-pressure chronic ulcer of skin of other sites with fat layer exposed (principal); L03.311 Cellulitis of abdominal wall; I96 Gangrene, not elsewhere classified | CPT/HCPCS: 11042 ==

== ENCOUNTER 2022-12-06 12:00 | Outpatient (CLI) | payer MEDICARE, MEDICAID, SELFPAY ==
--- NOTE | 2022-12-06 12:14 | US_ITS ---
WS: [id number] ULTRASOUND SOFT TISSUES RIGHT groin. HISTORY: rule out abscess; RIGHT GROIN; redness, swelling COMPARISON: None available. TECHNIQUE: 2-D and color Doppler imaging is submitted. Patient is status post RIGHT femoral graft. In the region of the RIGHT groin the graft is identified. On the color Doppler imaging there is no flow within this graft. Circumferential around this graft i s a complex fluid collection with no enhancing wall. This is an irregularly-shaped collection measuri ng at least 1.0 x 1.4 x 2.1 cm. There is no increased vascularity. US/US soft tissue/extremity [id number] IMPRESSION: 1. RIGHT femoral arterial graft is identified. On the imaging submitted there is no flow within this graft. 2. Minimally complex but not well organized fluid collection surrounding the g raft. Consider developing abscess/phlegmon or leaking around the graft.
== END 2022-12-06 12:01 | disposition home or self-care (01) ==
LOC: RAD 12:04
PROVIDERS: PCP Family Medicine; Visit Provider Thoracic Surgery (Cardiothoracic Vascular Surgery)
DX: T82.7XXA Infection and inflammatory reaction due to other cardiac and vascular devices, implants and grafts, initial encounter (principal); Y83.8 Other surgical procedures as the cause of abnormal reaction of the patient, or of later complication, without mention of misadventure at the time of the procedure; L03.311 Cellulitis of abdominal wall; I96 Gangrene, not elsewhere classified
CPT/HCPCS: 76882; 97597

== ENCOUNTER → 2022-12-15 08:20 | Outpatient (BNVA) | payer MEDICARE, MEDICAID, SELFPAY | PROVIDERS: PCP Family Medicine; Visit Provider Thoracic Surgery (Cardiothoracic Vascular Surgery) | DX: Z09 Encounter for follow-up examination after completed treatment for conditions other than malignant neoplasm (principal) | CPT/HCPCS: 99212 ==

== ENCOUNTER 2023-04-27 23:03 | Inpatient (IN) | payer MEDICARE, MEDICAID, SELFPAY ==
--- NOTE | 2023-04-27 23:05 | XRR_ITS ---
PROCEDURE INFORMATION: Exam: XR Chest Exam date and time: 04/27/2023 11:27 PM Age: 63 years old Clinical indication: Pain; Chest pressure; Additional info: Cp TECHNIQUE: Imaging protocol: Radiologic exam of the chest. Views: 1 view. COMPARISON: CT chest [facility] [id number] 10/22/2022 6:08 PM FINDINGS: Lungs: Mild atelectasis in the lung bases. No consolidation. Pleural spaces: Small right pleural effusion. No pneumothorax. Heart/Mediastinum: Mild cardiomegaly. Bones/joints: Unremarkable. XR/XR chest 1V portable [id number] IMPRESSION: 1. Right pleural effusion.
[2023-04-27 23:08] VITALS: BP 114/87; PULSE 142; RESP 35; TEMP 37.6; O2SAT 97; BMI 30.4
--- NOTE | 2023-04-27 23:11 | ECG_ITS ---
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 Measurements Intervals [place] Rate: 129 P: 0 OR: 0 QRS: 109 QRSD: 92 T: 44 QT: 269 QTc: 394 Interpretive Statements ATRIAL FIBRILLATION WITH RAPID VENTRICULAR RESPONSE POSSIBLE RIGHT VENTRICULAR HYPERTROPHY [SOME/ALL OF: PROMINENT R IN V1, LATE TRANSITION, RAD, VERNELL, SSS] SEPTAL MYOCARDIAL INFARCTION , OF INDETERMINATE AGE [40+ ms Q WAVE IN V1/V2] Compared to ECG 10/22/2022 20:00:00 Atrial abnormality now present Myocardial infarct finding now present Sinus rhythm no longer present Sinus arrhythmia no longer present Left-axis deviation no longer present Electronically Signed On 04-28-2023 7:50:50 CDT by Jarvis Oneill M.D. [id number]
[2023-04-27] MEDS: methylPREDNISolone sod succ 125 MG in water for injection-sterile 2 ML 24 MG IVP (23:26)
[2023-04-27] MEDS: sodium chloride 0.9% 1,000 ML 999 ML IV (23:26)
--- NOTE | 2023-04-27 23:26 | W.ED.SOB ---
HPI - SOB/Dyspnea General: Chief Complaint: Shortness of Breath/Dyspnea Stated Complaint: sob, left shoulder pain Time Seen by Provider: 04/27/23 23:09 Source: patient Mode of arrival: ambulatory Limitations: no limitations History of Present Illness: HPI Narrative: 63-year-old male has a history of COPD states over the last 4 to 5 days has been having increasing shortness of breath he had a slight cough as well he has been having some left-sided chest pain. He has a low-grade fever here he is in distress here is 84% here on his oxygen had to place him on a nonrebreather and going to put him on BiPAP he has diffuse coarse rales and wheezing. He is able only speak in 2-4 word sentences denies any worsening proving factors. Associated symptoms: Reports chest pain; Deny abdominal pain, fever(s), nausea or vomiting Review of Systems Const: Denies: fever(s), chills, body aches or change in appetite ENMT: Denies: throat pain or dental pain Card: Reports: chest pain Resp: Reports: dyspnea GI: Denies: abdominal pain, nausea, vomiting or diarrhea : Denies: dysuria Musc: Denies: neck pain or back pain Skin/Breast: Denies: rash Neuro: Denies: headache(s) PFSH ED PFSH: Medical History Colostomy care COPD (chronic obstructive pulmonary disease) -secondary to smoking, 1-1.5 PPD -nicotine patch -not oxygen dependent at baseline Femoral-femoral bypass graft thrombosis, right This is actually a left femoral to right popliteal artery bypass utilizing [place]-Casey graft H/O necrotizing fasciitis Involving the right hip and inguinal area, status post extensive debridement; approximately 15 years ago 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 Social History Smoking and tobacco status: current every day smoker cigarettes Packs smoked per day: 1.5 Alcohol intake: former Former alcohol use details: sober x 6 yrs Current gender identity: Male Physical Exam Const: COMMON NORMALS: patient oriented x3 GENERAL APPEARANCE: in distress and ill appearing HENMT: COMMON NORMALS: normocephalic and atraumatic HEAD & SCALP: normocephalic and atraumatic Neck/C-Spine: COMMON NORMALS: full ROM and supple Chest: COMMONS NORMALS: normal inspection of the chest and normal palpation of entire chest wall Resp: EFFORT & INSPECTION: Yes tachypneic and Yes respiratory distress AUSCULTATION: wheezes Cardio: COMMON NORMALS: No murmurs present (Cardio) RATE: tachycardic RHYTHM: abnormal rhythm irregularly irregular GI: COMMON NORMALS: Normal to inspection, nondistended, normoactive bowel sounds present, Soft to palpation, non-tender and no masses PALPATION: Yes Soft to palpation Extremity: COMMON NORMALS: normal to inspection and full ROM Neuro: COMMON NORMALS: patient oriented x3, moves all extremities and no focal motor deficits Psych: COMMON NORMALS: mental status grossly normal, Normal thought process present and cooperative THOUGHT PROCESS: Normal thought process present Skin: COMMON NORMALS: no rashes or lesions noted and no wounds GENERAL SKIN EXAM: no rashes or lesions noted Course Vital Signs: Vital signs: Vital Signs Temperature 99.7 F H 04/27/23 23:08 Pulse Rate 135 H 04/28/23 01:17 Respiratory Rate 22 H 04/28/23 01:17 Blood Pressure 105/71 04/28/23 01:17 Pulse Oximetry 88 L 04/28/23 01:17 Oxygen Delivery Me thod BiPAP 04/28/23 01:17 Oxygen Flow Rate 15 04/27/23 23:08 Fraction of Inspir ed Oxygen 35 04/28/23 00:51 MDM - SOB/Dyspnea Medical Decision Making Patient presents here with COPD exacerbation with hypercapnia patient was placed on BiPAP has some slight improvement of hypercapnia. Patient started on amiodarone drip due to his A-fib his blood pressure is currently 107/52. He also has hyperkalemia he is given insulin and D50 of spoke to the hospitalist will admit to the ICU. Medical Records I reviewed the patient's medical records. Lab Data I reviewed the patient's lab results. 04/27/23 23:13 04/28/23 01:12 Labs/Radiology: Radiology Impressions Chest X-Ray 04/27/23 23:05 IMPRESSION: 1. Right pleural effusion. Laboratory Results WBC 10.50 10^3/uL (3.29-11.43) 04/27/23 23:13 RBC 4.98 10^6/uL (3.85-5.65) 04/27/23 23:13 Hgb 13.90 g/dL (11.27-16.99) 04/27/23 23:13 Hct 50.8 % (37-53) 04/27/23 23:13 MCV 102.0 fl (82-101) H 04/27/23 23:13 MCH 27.9 pg (27-33) 04/27/23 23:13 MCHC 27.4 g/dL (30-55) L 04/27/23 23:13 RDW 14.6 % (12.1-15.1) 04/27/23 23:13 Plt Count 147 10^3/cmm (157-399) L 04/27/23 23:13 MPV 11.6 fL (7.4-10.4) H 04/27/23 23:13 Neut % (Auto) 72.5 % 04/27/23 23:13 Lymph % (Auto) 14.7 % 04/27/23 23:13 [place] % (Auto) 10.0 % 04/27/23 23:13 Eos % (Auto) 1.6 % 04/27/23 23:13 Baso % (Auto) 0.5 % 04/27/23 23:13 Neut # (Auto) 7.62 10^3/uL (1.8-7.7) 04/27/23 23:13 Lymph # (Auto) 1.5 10^3/uL (0.8-4.8) 04/27/23 23:13 [place] # (Auto) 1.1 10^3/uL (0.2-0.9) H 04/27/23 23:13 Eos # (Auto) 0.2 10^3/uL (0.0-0.8) 04/27/23 23:13 Baso # (Auto) 0.1 10^3/uL (0.0-0.1) 04/27/23 23:13 Nucleated RBC % (auto) 0 % 04/27/23 23:13 Nucleated RBCs # 0.0 /100WBC 04/27/23 23:13 Specimen Type Arterial 04/28/23 00:31 Sample Site Radial, left 04/28/23 00:31 ABG pH 7.15 (7.35-7.45) L* 04/28/23 00:31 ABG pCO2 74.9 mmHg (35-45) H* 04/28/23 00:31 ABG pO2 68.1 mmHg (80.0-100.0) L 04/28/23 00:31 ABG HCO3 25.9 mmol/L (22-26) 04/28/23 00:31 ABG Base Excess -4.7 mmol/L (-2.0-2.0) L 04/28/23 00:31 Paul Test Pos 04/28/23 00:31 Hematocrit 42.2 % (42-52) 04/28/23 00:31 O2 Delivery Device Bipap 04/28/23 00:31 O2 Liters/Min 15.0 % 04/27/23 23:19 FiO2 35.0 % 04/28/23 00:31 Nurse Paralegal ID [place] 04/28/23 00:31 Sodium 134 mmol/L (136-145) L 04/27/23 23:13 Potassium 7.0 mmol/L (3.5-5.1) H* 04/28/23 01:12 Chloride 100 mmol/L (98-107) 04/27/23 23:13 Carbon Dioxide 28 mmol/L (22-29) 04/27/23 23:13 Anion Gap 12.6 (5-19) 04/27/23 23:13 BUN 33 mg/dL (8-23) H 04/27/23 23:13 Creatinine 2.0 mg/dL (0.7-1.2) H 04/27/23 23:13 GFR Calculation 34.0 mL/min (90-130) L 04/27/23 23:13 Glucose 105 mg/dL (65-115) 04/27/23 23:13 Calculated Osmolality 286 mOsm/kg (285-295) 04/27/23 23:13 Lactic Acid 1.2 mmol/L (0.5-2.2) 04/27/23 23:50 Calcium 8.2 mg/dL (8.5-10.5) L 04/27/23 23:13 Total Bilirubin 0.5 mg/dL (0.15-1.2) 04/27/23 23:13 AST 13 U/L (0-40) 04/27/23 23:13 ALT 8 U/L (0-41) 04/27/23 23:13 Alkaline Phosphatase 101 U/L (40-130) 04/27/23 23:13 Troponin T Baseline 84 ng/L (0-15) H 04/27/23 23:13 Troponin T 120 Minute 78.71 ng/L (0-15) H 04/28/23 01:12 Delta Troponin T -5.29 ABS# (0-10) L 04/28/23 01:12 NT-Pro-B Natriuret Pep 8942 pg/mL (0-125) H 04/27/23 23:13 Total Protein 6.9 g/dL (6.6-8.7) 04/27/23 23:13 Albumin 4.1 g/dL (3.5-5.2) 04/27/23 23:13 Globulin 2.8 g/dL (1.3-4.6) 04/27/23 23:13 SARS-CoV-2 Ag (Rapid) negative (Negative) 04/27/23 23:50 Critical Care Time Critical Care Time: Critical Care Time: Yes Total Critical Care Time: 55 Attestation: The high probability of a clinically significant, sudden or life threatening deterioration of the patient's rep system(s) required my full and direct attention, intervention and personal management. The critical care time is as shown. This time is in addition to time spent performing any reported procedures but includes the following: [x] Data and vital sign review and interpretation [x] Patient assessment, examination and intervention [x] Documentation [x] Medication orders and management Discharge Plan Discharge Admit Provider: Armando Mccabe Clinical Impression: Acute hyperkalemia, Acute exacerbation of chronic obstructive airways disease, Acute on chronic respiratory failure with hypercapnia, Atrial fibrillation with RVR Condition: Stable Coding Level of Care Code ED Restrooms Or Lounges Maid for Shira Martins
[2023-04-27 23:31] LABS: ABG PCO2 86.7 mmHg (35-45); ABG PH Result 7.09 (7.35-7.45); Base Excess ABG -5.5 mmol/L (-2.0-2.0); Blood Gas Allen Test Pos; Blood Gas Operator Identificat WALCI; Blood Gas Sample Site Radial, right; Blood Gas Sample Type Arterial; HCO3 ABG 26.5 mmol/L (22-26); Oxygen Device NRB
[2023-04-27 23:35] LABS: Basophils # 0.1 10^3/uL (0.0-0.1); Basophils % 0.5 %; Eosinophils # 0.2 10^3/uL (0.0-0.8); Eosinophils % 1.6 %; Hematocrit 50.8 % (37-53); Lymphocytes # 1.5 10^3/uL (0.8-4.8); Lymphocytes % 14.7 %; Mean Corpuscular HGB Conc 27.4 g/dL (30-55); Mean Corpuscular Hemoglobin 27.9 pg (27-33); Mean Platelet Volume 11.6 fL (7.4-10.4); Monocytes # 1.1 10^3/uL (0.2-0.9); Neutrophils # 7.62 10^3/uL (1.8-7.7); Neutrophils % 72.5 %; Nucleated Red Blood Cells % 0 %; Platelet Count 147 10^3/cmm (157-399); Red Blood Count 4.98 10^6/uL (3.85-5.65); Red Cell Distribution Width 14.6 % (12.1-15.1)
[2023-04-27 23:42] VITALS: PULSE 135; RESP 27; O2SAT 96
[2023-04-27 23:44] VITALS: PULSE 141; RESP 29; O2SAT 96
[2023-04-27] MEDS: ipratropium-albuterol 3 mL Neb INHALATION (23:45)
[2023-04-27] MEDS: azithromycin 500 MG in sodium chloride 0.9% 250 ML 250 MG IV (23:46)
[2023-04-27] MEDS: cefTRIAXone 1,000 MG in sodium chloride 0.9% (plus) 50 ML 100 MG IV (23:46)
[2023-04-27] MEDS: acetaminophen 500 mg Tablet 1000 MG PO (23:46)
[2023-04-27 23:47] VITALS: PULSE 141
[2023-04-27 23:49] LABS: Alanine Aminotransferase 8 U/L (0-41); Albumin Level 4.1 g/dL (3.5-5.2); Alkaline Phosphatase 101 U/L (40-130); Anion Gap 12.6 (5-19); Aspartate Amino Transferase 13 U/L (0-40); Blood Urea Nitrogen 33 mg/dL (8-23); Calcium 8.2 mg/dL (8.5-10.5); Carbon Dioxide 28 mmol/L (22-29); Chloride 100 mmol/L (98-107); Globulin 2.8 g/dL (1.3-4.6); Glucose 105 mg/dL (65-115); NT Pro B Type Natriuretic Pept 8942 pg/mL (0-125); Osmolality Calculated 286 mOsm/kg (285-295); Sodium 134 mmol/L (136-145); Total Bilirubin 0.5 mg/dL (0.15-1.2); Total Protein 6.9 g/dL (6.6-8.7)
[2023-04-27 23:51] LABS: Troponin(5th) Baseline 84 ng/L (0-15)
[2023-04-27 23:54] LABS: Potassium 6.6 mmol/L (3.5-5.1)
[2023-04-28] VITALS (60 sets, daily range): BP systolic 104–151; BP diastolic 51–117; PULSE 81–135; RESP 14–47; TEMP 36.3–37.1; O2SAT 86–98; BMI 18.1
[2023-04-28 00:21] LABS: SARS Covid-2 Antigen negative (Negative)
[2023-04-28 00:22] LABS: Lactic Sepsis W/Reflex 1.2 mmol/L (0.5-2.2)
[2023-04-28 00:42] LABS: Arterial Blood Gas Hematocrit 42.2 % (42-52); Base Excess ABG -4.7 mmol/L (-2.0-2.0); Blood Gas Allen Test Pos; Blood Gas Operator Identificat WALCI; Blood Gas Sample Site Radial, left; Blood Gas Sample Type Arterial; HCO3 ABG 25.9 mmol/L (22-26); Oxygen Device BIPAP; PO2 ABG 68.1 mmHg (80.0-100.0)
[2023-04-28 00:43] LABS: ABG PCO2 74.9 mmHg (35-45); ABG PH Result 7.15 (7.35-7.45)
[2023-04-28 01:34] LABS: Troponin 5 2HR 78.71 ng/L (0-15)
[2023-04-28 01:39] LABS: Troponin 5 2HR Delta -5.29 ABS# (0-10)
[2023-04-28] MEDS: dextrose 50% syringe 50 mL IVP ×3 (02:02→15:47)
[2023-04-28] MEDS: calcium gluconate 0.1 gm/mL 10% SDV 10mL 1 GM IVP (02:02)
[2023-04-28] MEDS: insulin regular-human 100 units/1 mL 10 UNIT IVP (02:03)
[2023-04-28 02:31] LABS: Creatine Phosphokinase 69 U/L (39-308)
--- NOTE | 2023-04-28 02:44 | PC.NURSE ---
Report called to JOYCE Shirley in ICU. All questions and concerns addressed at time of report.
--- NOTE | 2023-04-28 03:43 | P.HP_ITS ---
Providers/Chief Complaint Admitting Physician: Armando Mccabe Chief Complaint: sob, left shoulder pain History of Present Illness 63-year-old gentleman with history of COPD, PVD, multiple bypass surgeries, right AKA, graft infection around right femoral graft requiring explantation back in October, kidney stone, chronic left-sided hydronephrosis, has not followed up with urology and has had gotten caught up with other health issues, chronic smoker but has smoked maybe about 4 cigarettes in the last month, other comorbidities came in due to about 4-5 days of progressive dyspnea, cough, delayed coming to the hospital, having some left-sided chest pain, low-grade fever in ER, in ER in respiratory distress, oxygen saturation down to 84%, tachypnea, coarse Rales, wheezing, initially on nonrebreather started on BiPAP support. Noted to be in severe hypercapnic/respiratory acidosis, initial pH 7.09. CO2 86.7. Responded to BiPAP treatment. Chest x-ray with small pleural effusion. Additionally noted DAYTON, creatinine up to 2 with severe hyperkalemia of 7. Received insulin, dextrose, calcium gluconate, albuterol nebulization. In ER additionally with new onset A-fib with RVR, heart rates up into 140s, soft blood pressure, was started on amiodarone. Review of Systems Const: Denies: fever(s), chills, body aches or malaise ENMT: Denies: throat pain Card: Reports: edema (Reports edema of various areas, bilateral flanks, thighs, penis); Denies: chest pain, pre-syncope or dyspnea on exertion Resp: Reports: dyspnea and productive cough GI: Denies: abdominal pain, nausea, vomiting, diarrhea, constipation, hematochezia or melena : Denies: flank pain, difficulty urinating, urinary frequency or hematuria Musc: Denies: back pain, joint swelling or joint redness Skin/Breast: Denies: rash or new lesions Neuro: Denies: confusion Medications/Allergies Home Medications Medication Instructions Recorded Confirmed Last Taken Type albuterol sulfate 2.5 mg/3 mL 2.5 mg (3 mL) inhalation Q6H PRN 01/21/20 11/02/22 09/21/22 Rx (0.083 %) solution for nebulization shortness of breath or wheezing #75 mL albuterol sulfate 90 mcg/actuation 1 puff inhalation Q4H PRN 10/23/22 11/02/22 11/02/22 07:45 Rx aerosol inhaler Shortness Of Breath #8.5 grams hydrocodone 5 mg-acetaminophen 325 1 tab PO BID PRN pain 5 days #10 10/27/22 11/01/22 11/02/22 07:15 Rx mg tablet tabs albuterol sulfate 90 mcg/actuation 1 inh inhalation QID PRN shortness 11/15/22 11/15/22 Unknown Rx aerosol inhaler of breath or wheezing 2 weeks #6.7 grams hydrocodone 5 mg-acetaminophen 325 1 tab PO BID PRN pain 1 week #14 11/15/22 11/15/22 Unknown Rx mg tablet tabs hydrocodone 5 mg-acetaminophen 325 1 tab PO Q8H PRN pain 5 days #15 12/06/22 12/06/22 Unknown Rx mg tablet tabs sulfamethoxazole 800 1 tab PO BID #20 tabs 12/06/22 12/06/22 Unknown Rx mg-trimethoprim 160 mg tablet (Bactrim DS) sulfamethoxazole 800 1 tab PO BID #14 tabs 12/15/22 12/15/22 Unknown Rx mg-trimethoprim 160 mg tablet (Bactrim DS) Allergies Allergy/AdvReac Type Severity Reaction Status Date / Time clindamycin Allergy ALGY-Rash Verified 11/02/22 08:30 Penicillins Allergy Unknown Verified 11/02/22 08:30 vancomycin Allergy red man Verified 11/02/22 08:30 disease PFSH Acute PFSH: Medical History Colostomy care COPD (chronic obstructive pulmonary disease) -secondary to smoking, 1-1.5 PPD -nicotine patch -not oxygen dependent at baseline Femoral-femoral bypass graft thrombosis, right This is actually a left femoral to right popliteal artery bypass utilizing [place]-Casey graft H/O necrotizing fasciitis Involving the right hip and inguinal area, status post extensive debridement; approximately 15 years ago 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 Social History Smoking and tobacco status: current every day smoker cigarettes Packs smoked per day: 1.5 Alcohol intake: former Former alcohol use details: sober x 6 yrs Current gender identity: Male Vitals/I&O/Wt Last Vital Signs Temp 99.7 F H 04/27/23 23:08 Pulse 97 04/28/23 02:34 Resp 24 H 04/28/23 02:34 BP 104/75 04/28/23 02:39 Pulse Ox 94 04/28/23 02:34 O2 Del Method BiPAP 04/28/23 02:34 O2 Flow Rate 15 04/27/23 23:08 FiO2 35 04/28/23 00:51 04/27/23 04/27/23 04/28/23 14:59 22:59 06:59 Intake Total 1302 / 1302 Balance 1302 / 1302 Weight last 48 hrs Weight 87.997 kg Physical Exam Narrative: Accompanied by family Const: COMMON NORMALS: patient oriented x3 and alert GENERAL APPEARANCE: cooperative ORIENTATION/CONSCIOUSNESS: Yes awake OTHER: Fidgety. Slightly slowed movements, speech. HENMT: COMMON NORMALS: oropharynx normal Neck/C-Spine: COMMON NORMALS: no JVD Resp: AUSCULTATION: diminished lung sounds OTHER: Gets dyspneic with shifting around in bed. Cardio: COMMON NORMALS: no JVD, regular rhythm, S1 normal heart sound present, S2 normal heart sound present and No murmurs present (Cardio) RATE: tachycardic RHYTHM: abnormal rhythm irregularly irregular HEART SOUNDS: S1 normal heart sound present and S2 normal heart sound present GI: COMMON NORMALS: Normal to inspection, nondistended, normoactive bowel sounds present, Soft to palpation and non-tender PALPATION: Yes Soft to palpation Extremity: COMMON NORMALS: no joint enlargement and no pedal edema NARRATIVE EXTREMITY EXAM: Right AKA OTHER: Some minimal edema of both flanks. During interview he takes off his trousers to show some minimal penile edema. Neuro: COMMON NORMALS: patient oriented x3 and moves all extremities SENSORIUM/ORIENTATION: Yes alert Skin: COMMON NORMALS: no rashes or lesions noted GENERAL SKIN EXAM: no rashes or lesions noted OTHER: Scar over right groin Data 04/27/23 23:13 04/28/23 01:12 Micro: Microbiology 04/27/23 11:50 Blood Culture - Preliminary Blood SPECIMEN COLLECTED 04/27/23 11:40 Blood Culture - Preliminary Blood SPECIMEN COLLECTED A&P Assessment and plan (1) Acute hyperkalemia: Discussed with him and family severe life-threatening hyperkalemia, risk of life-threatening arrhythmia, other complications. Not entirely clear cause, but appears possibly related to DAYTON on possibly CKD. Does not appear to take potassium supplements. Had prior prescriptions for Bactrim, but this does not appear to be sent. CK requested, appears normal, no rhabdo. Monitor on telemetry. Received insulin, dextrose, calcium gluconate, albuterol nebulization. Solu-Medrol. Considered bicarbonate, however, with hypercapnic respiratory failure concern for worsening respiratory status and decompensation. Avoided due to this reason. On discussion with nephrology additionally considered Kayexalate, however, with multiple prior GI surgeries, prior megacolon, colectomy colostomy, other, at risk of bowel perforation as discussed with him and family as well. Giving Lasix IV, discussed with nephrology, give 80 mg x 1. Monitor for urine output. Recheck potassium. In case of no urine output or not improving potassi um will need access for hemodialysis. (2) Acute exacerbation of chronic obstructive airways disease: Severe exacerbation of COPD. Acute on chronic respiratory failure, with hypercapnic respiratory acidosis, pH 7.09 on presentation, CO2 86, after an hour on BiPAP with improvement pH 7.15, CO2 74.9. He is somewhat fidgety, requested to take off BiPAP at least during interview, discussed with him to maintain BiPAP otherwise he is at risk of reaccumulation of CO2, worsening respiratory failure. Risk of intubation and need for mechanical ventilation which he states would rather avoid unless absolutely needed. Received Solu-Medrol, continue. Continue ceftriaxone, breathing treatments. Collect sputum culture. MRSA PCR. BiPAP support. Rapid COVID-negative. PPI. Lovenox VT prophylaxis for now. We will need to visit with him regarding anticoagulation with atrial fibrillation. He is somewhat anxious/restless, but limited options with regards to treatment anxiety currently with hypercapnic respiratory acidosis and DAYTON. (3) Acute on chronic respiratory failure with hypercapnia: As above (4) Atrial fibrillation with RVR: New A-fib with RVR, heart rates up to 140s, blood pressure. Started on amiodarone. With treatment of respiratory failure improvement in heart rates. Continue amiodarone for now. As he may be needing dialysis catheter for now not started on anticoagulation, prophylactic dose Lovenox only for now. Please visit with him consideration of anticoagulation once able to start. Assess TTE. Continue to treat respiratory failure. Treat hyperkalemia. Monitor on telemetry. Aspirin. Complete troponin EKG series. Moderate troponin elevation but in the setting of DAYTON. No chest pain currently although some left-sided chest pain reported on presentation. Suspect demand ischemia secondary to severe tachycardia. Does have history of vasculopathy, risk factors of coronary disease, I do not see prior cardiac ischemic work-up. Would benefit from assessment by stress test. (5) DAYTON (acute kidney injury): CK is requested, noted normal. Some concern for possible decompensated CHF, TTE is being obtained. Follow-up. Going through his history it appears he has chronic ureterolithiasis with chronic left-sided hydronephrosis, since at least back in October, has not followed up with urology. Currently unknown situation with the right kidney. We will assess with kidney protocol CT. (6) Smoking: Encourage cessation. He has cut down to about 4 cigarettes in a month. Encourage cessation. Please reinforce to avoid smoking anywhere near oxygen due to fire hazard. Plan Edema of various locations: Flanks, right thigh, penile edema: Assess TTE. Monitor areas. Concern for possible acute CHF. May be secondary to tachycardia. 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 difficile Attestations Medical Necessity Statement*: Admission of over 2 midnights anticipated for assessment management of respiratory failure, severe respiratory acidosis, severe hyperkalemia, DAY[place], A- fib with RVR. Coding Level of Care Code Critical Care >/= 30 minutes Critical care time (in minutes): 50 The high probability of a clinically significant, sudden or life threatening deterioration, as referenced in this documentation, required my full and direct attention, intervention and personal management. The critical care time shown is in addition to time spent performing any reported separately billable procedures and includes the following: [x] Data and vital sign review and interpretation [x ] Patient assessment, examination and intervention [x] Medication orders and management [x] Patient/Family updates as able [x] Care Coordination and Documentation. Diagnoses Acute hyperkalemia E87.5 Acute exacerbation of chronic obstructive airways disease J44.1 Acute on chronic respiratory failure with hypercapnia J96.22 Atrial fibrillation with RVR I48.91 DAYTON (acute kidney injury) N17.9 Smoking F17.200
--- NOTE | 2023-04-28 03:45 | USCV_ITS ---
Jason Lopez Age: 63 Gender: M : 1960 Exam Date: 04/28/2023 07:54 Ordering Phys: Armando Mccabe MD Technologist: Manuel Garcia [place] [facility] [place]: new afib BP: 121 / 94 HR: 78 Rhythm: Sinus Technical Quality: Adequate MEASUREMENTS (Male / Female) Normal Values 2D ECHO LV Diastolic Diameter PLAX 5.4 cm 4.2 - 5.9 / 3.9 - 5.3 cm LV Systolic Diameter PLAX 3.4 cm IVS Diastolic Thickness 1.1 cm 0.6 - 1.0 / 0.6 - 0.9 cm IVS Systolic Thickness 1.6 cm LVPW Diastolic Thickness 1.3 cm 0.6 - 1.0 / 0.6 - 0.9 cm LVPW Systolic Thickness 1.4 cm LVOT Diameter 2.0 cm LV Ejection Fraction 2D Teich 44.6 % LA Diameter 3.9 cm IVC Diameter 2.9 cm M-MODE Aortic Annulus Diameter 3.1 cm LA Ao Ratio MM 1.3 MV E Point Septal Separation 1.2 cm DOPPLER AV Peak Velocity 116.0 cm/s LVOT Peak Velocity 97.0 cm/s AV Area Cont Eq vti 3.8 cm squared AV Area Cont Eq pk 2.7 cm squared MV Area PHT 4.1 cm squared Mitral E to A Ratio 1.4 MV E' Velocity 57.0 cm/s Mitral E to MV E' Ratio 13.9 Mitral E to LV E' Lateral Ratio 13.4 Mitral E to LV E' Septal Ratio 14.5 TR Peak Velocity 130.0 cm/s TR Peak Gradient 6.8 mmHg TV Peak E Velocity 106.0 cm/s Right Atrial Pressure 3.0 mmHg Pulmonary Artery Systolic Pressu 9.8 mmHg RV Acceleration Time 0.1 s FINDINGS Left Ventricle Diffuse hypokinesia of the left ventricular ejection fraction of 45%. Mildly dilated LV cavity. Right Ventricle The right ventricle is normal in size and function. Right Atrium Mildly increased right atrial size. Left Atrium Mildly increased left atrial size. Mitral Valve No gross abnormalities noted . Aortic Valve Minimally thickened Tricuspid Valve Not visualized well. No gross abnormalities noted Pulmonic Valve Pulmonic valve not well visualized. Pericardium No pericardial effusion. Aorta Normal ascending aorta dimension. IVC Inferior vena cava not visualized. CONCLUSIONS Technically difficult study because of the poor ultrasonic window. Diffuse hypokinesia of the left ventricular ejection fraction of 45%. Mildly dilated LV cavity. Mild biatrial enlargement. Minimally thickened aortic valve There is no pericardial effusion. There are no intracardiac masses. Compared to the study from 07-20, the LV ejection fraction has dropped from 65% to 45%. Comparison is difficult because of the technical difficulties Dr Antonio Chang MD [facility] (Electronically Signed) Final Date: 28 April 2023 09:29 S
[2023-04-28] MEDS: FUROsemide 10 mg/mL SDV 10mL 80 MG IVP ×3 (03:49→15:47)
--- NOTE | 2023-04-28 03:53 | CTR_ITS ---
PROCEDURE INFORMATION: Exam: CT Abdomen And Pelvis Without Contrast Exam date and time: 04/28/2023 5:08 AM Age: 63 years old Clinical indication: Prior surgery; Surgery date: 6+ months; Surgery type: Colectomy. Colostomy. Fem-fem bypass. Patient HX: Cameron. Creat of 7.0. ; Additional info: Cameron, chronic L hydronephrosis TECHNIQUE: Imaging protocol: Computed tomography of the abdomen and pelvis without contrast. Radiation optimization: All CT scans at this facility use at least one of these dose optimization techniques: automated exposure control; mA and/or kV adjustment per patient size (includes targeted exams where dose is matched to clinical indication); or iterative reconstruction. REPORTING DATA: Count of CT and Cardiac NM exams in prior 12 months: This patient has received 3 known CTs and 0 known cardiac nuclear medicine studies in the 12 months prior to the current study. COMPARISON: CT abdomen pelvis w con* [id number] 10/20/2022 5:03 PM RADIATION DOSE METRICS: Total DLP (mGy-cm): 798.35 FINDINGS: Lungs: Diffuse anasarca Infiltrates both lung bases Pleural spaces: Bilateral pleural effusions Heart: Cardiomegaly head Liver: In the liver has a shrunken appearance which can be seen in cirrhosis Meadows catheter in the urinary bladder. Gallbladder and bile ducts: Distended gallbladder Pancreas: Normal. No ductal dilation. Spleen: Normal. No splenomegaly. Adrenal glands: Normal. No mass. Kidneys and ureters: There are 2 large 10 mm calcification in the distal left ureter Stomach and bowel: There is a ostomy right upper quadrant. Appendix: No evidence of appendicitis. Intraperitoneal space: Small amount of abdominal and pelvic ascites Vasculature: There is atherosclerotic change of the abdominal vasculature. Femoral artery stents are noted. Lymph nodes: Unremarkable. No enlarged lymph nodes. Urinary bladder: Unremarkable as visualized. Reproductive: Unremarkable as visualized. Bones/joints: Unremarkable. No acute fracture. Soft tissues: There is laxity of the midline abdominal wall with diastasis recti. CT/CT kidney stone [id number] IMPRESSION: 1. Small bilateral pleural effusions with infiltrates in both lung bases. 2. Small amount of abdominal and pelvic ascites 3. 2 large 10 mm calcification in the distal left ureters no proximal hydronephrosis. There is left perinephric and periureteral fat stranding. 4. Distended gallbladder. No identifiable stones by CT examination. Acute cholecystitis however not excluded 5. Postsurgical change consistent with previous bowel resection. Ostomy in the right upper quadrant.
[2023-04-28] MEDS: pantoprazole 40 mg SDV IVP (03:56)
[2023-04-28] MEDS: heparin 5,000 unit/mL INJ 1 mL 5000 UNIT SUBCUT ×2 (04:18→15:47)
[2023-04-28] MEDS: LORazepam 0.5 mg Tablet 0.25 MG PO (04:45)
[2023-04-28] MEDS: aspirin 325 mg Tablet PO (04:45)
[2023-04-28] MEDS: methylPREDNISolone sod succ 60 MG in water for injection-sterile 0.96 ML 11.52 MG IVP ×4 (04:49→22:04)
--- NOTE | 2023-04-28 05:48 | PC.NURSE ---
Arrival to ICU: Pt arrived to ICU 2 @0309 from ER via stretcher. Pt is anxious, evidence by excessive fidgeting/restlessness and swinging his head in a figure 8 motion. Despite the anxiety, pt SpO2 is 92% on 3.5L NC. Pt reports that he wears 2-4L NC @home. Pt will not keep BIPAP on consistently due to anxiety, pt states he is claustrophobic. Dr. Mccabe notified of anxiety @0356 and @1539, see MAR for medication administration. Stage 1 Pressure Injury noted to sacrum, will initiate Q2HR turning.
[2023-04-28 05:56] LABS: Troponin 5 6HR 76.52 ng/L (0-15)
[2023-04-28] MEDS: dexmedetomidine 400 MCG in sodium chloride 0.9% (100 ml) 100 ML IV (05:57)
[2023-04-28 06:03] LABS: Troponin 5 6HR Delta -7.48 ng/L (0-12)
[2023-04-28 06:16] LABS: Amphetamines Screen Urine Negative (Negative); Barbiturates Screen Urine Negative (Negative); Benzodiazepines Screen Urine Negative (Negative); Cocaine Screen Urine Negative (Negative); Opiate Screen Urine Positive (Negative); PCP Screen Urine Negative (Negative); THC Screen Urine Negative (Negative)
[2023-04-28 06:16] LABS: Anion Gap 14.5 (5-19); Blood Urea Nitrogen 34 mg/dL (8-23); Calcium 8.4 mg/dL (8.5-10.5); Carbon Dioxide 25 mmol/L (22-29); Chloride 100 mmol/L (98-107); Glomerular Filtration Rate 32.2 mL/min (90-130); Glucose 92 mg/dL (65-115); Osmolality Calculated 283 mOsm/kg (285-295); Sodium 133 mmol/L (136-145)
[2023-04-28 06:21] LABS: Potassium 6.5 mmol/L (3.5-5.1)
--- NOTE | 2023-04-28 06:46 | PC.NURSE ---
Dr. Madison called unit @0630. New orders: 80mg IVP Lasix NOW, 10 units IVP insulin, 1amp IVP D50, 2grams Calcium Gluconate, 1 amp Sodium Bicarb, 30gram PO Kayexalate NOW. BMP @0830, RN to call Dr. Madison W/ results.
[2023-04-28] MEDS: calcium gluconate 0.9% NaCL 1 GM/50 ML PREMIX IV ×2 (06:58→08:21)
[2023-04-28] MEDS: sodium bicarbonate 1 mEq/mL SDV 50mL 50 MEQ IVP (07:00)
[2023-04-28] MEDS: ipratropium-albuterol 3 mL Neb INHALATION ×5 (08:06→23:40)
[2023-04-28] MEDS: sodium polystyrene sulfonate 15 gm/60 mL Btl 30 GM PR (08:21)
[2023-04-28] MEDS: insulin regular-human 10 UNIT in SYRINGE 1 EACH IVP ×2 (08:22→15:44)
[2023-04-28 09:31] LABS: Blood Urea Nitrogen 37 mg/dL (8-23); Calcium 8.7 mg/dL (8.5-10.5); Carbon Dioxide 24 mmol/L (22-29); Chloride 98 mmol/L (98-107); Glucose 189 mg/dL (65-115); Osmolality Calculated 284 mOsm/kg (285-295); Sodium 130 mmol/L (136-145)
[2023-04-28 09:34] LABS: Anion Gap 13.9 (5-19); Potassium 5.9 mmol/L (3.5-5.1)
--- NOTE | 2023-04-28 10:18 | P.CONIM_ITS ---
Providers/Reason For Consult Consulting Physician/Specialty*: Nephrology/[place] Reason for Consult*: Acute on CKD Attending Physician: Jaxon Diamond MD History of Present Illness History of Present Illness Jason Lopez is a 63 year old male COPD, PVD, CAD /CABG , right AKA, graft infection , chronic left-sided hydronephrosis,CKD with baseline Cr in mid 1 range , presented with chest pain , cough and SOB. Lab data showed DAYTON with Cr 2.1 and potassium of 7.0 . CXR showed pleural effusion. ABG showed PH 7.0 and PCo2 in 80's . Pt received med management with calcium , Insulin + Dextrose , Bicarb , Lasix Review of Systems Narrative: on BIPAP cannot obtain full ROS Medications/Allergies Home Medications Medication Instructions Recorded Confirmed Last Taken Type fluticasone 250 mcg-salmeterol 50 1 - 2 inh inhalation BID 04/28/23 04/28/23 Unknown History mcg/dose blistr powdr for inhalation Allergies Allergy/AdvReac Type Severity Reaction Status Date / Time clindamycin Allergy ALGY-Rash Verified 04/28/23 08:01 Penicillins Allergy Unknown Verified 04/28/23 08:01 vancomycin Allergy red man Verified 04/28/23 08:01 disease Current Medications Generic Name Dose Route Start Last Admin Trade Name Freq PRN Reason Stop Dose Admin Albuterol/Ipratropium 3 ml 04/28/23 03:24 04/28/23 08:06 Ipratropium-Albuterol 3 Ml Neb INHALATION 3 ml Q4H PRN Administration SHORTNESS OF BREATH Aspirin 325 mg 04/28/23 04:20 04/28/23 04:45 Aspirin 325 Mg Tablet PO 325 mg DAILY MANDO Administration Furosemide 80 mg 04/28/23 06:45 04/28/23 07:04 Furosemide 10 Mg/Ml Sdv 10ml IVP 80 mg Q24H MANDO Administration Heparin Sodium (Porcine) 5,000 unit 04/28/23 03:30 04/28/23 04:18 Heparin 5,000 Unit/Ml Inj 1 Ml SUBCUT 5,000 unit Q12H MANDO Administration Amiodarone HCl 900 mg/ 518 mls @ 17.267 mls/hr 04/28/23 01:30 04/28/23 05:00 Dextrose/ IV Miscellaneous IV 0.5 mg/min Supplies CONT MANDO 17.27 mls/hr Infusion 0.5 MG/MIN Methylprednisolone Sodium 0.96 mls @ 11.52 mls/hr 04/28/23 05:00 04/28/23 04:54 Succinate 60 mg/ Sterile Water IVP Infused Q6H MANDO Infusion Dexmedetomidine HCl 400 mcg/ 104 mls @ 0 mls/hr 04/28/23 05:45 04/28/23 06:27 Sodium Chloride IV 0.2 mcg/kg/hr .Q0M MANDO 2.82 mls/hr Titration Protocol Per Protocol Pantoprazole Sodium 40 mg 04/28/23 03:30 04/28/23 03:56 Pantoprazole 40 Mg Sdv IVP 40 mg Q24H MANDO Administration PFSH Acute PFSH: Medical History Colostomy care COPD (chronic obstructive pulmonary disease) -secondary to smoking, 1-1.5 PPD -nicotine patch -not oxygen dependent at baseline Femoral-femoral bypass graft thrombosis, right This is actually a left femoral to right popliteal artery bypass utilizing [place]-Case[place] graft H/O necrotizing fasciitis Involving the right hip and inguinal area, status post extensive debridement; approximately 15 years ago 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 Social History Smoking and tobacco status: current every day smoker cigarettes Packs smoked per day: 1.5 Alcohol intake: former Former alcohol use details: sober x 6 yrs Current gender identity: Male Vitals/I&O/Wt Last Vital Signs Temp 97.3 F L 04/28/23 04:00 Pulse 92 04/28/23 10:00 Resp 22 H 04/28/23 08:00 BP 134/103 04/28/23 10:00 Pulse Ox 94 04/28/23 10:00 O2 Del Method BiPAP 04/28/23 07:30 O2 Flow Rate 3.5 04/28/23 06:00 FiO2 40 04/28/23 09:46 04/27/23 04/28/23 04/28/23 22:59 06:59 14:59 Intake Total 1449.840 / 1449.840 50.1 / 50.1 Output Total 150 / 150 Balance 1299.840 / 1299.840 50.1 / 50.1 Weight last 48 hrs Weight 54.295 kg Weight 87.997 kg Physical Exam Narrative: on BIPAP peerla s1 s rrr PER REPORT Lungs clear per report no edema Urinary Catheter Management: Meadows: Cath Placed During This Visit: yes Reason for Continuing Indwelling Catheter: Accurate Measurement of Urinary Output in Critically Ill Patients Urinary Catheter Date of Insertion: 04/28/23 Urinary Catheter Time of Insertion: 04:10 Data 04/27/23 23:13 04/28/23 08:55 Micro: Microbiology 04/27/23 11:50 Blood Culture - Preliminary Blood SPECIMEN COLLECTED 04/27/23 11:40 Blood Culture - Preliminary Blood SPECIMEN COLLECTED A&P Assessment and plan (1) Acute on chronic renal failure: Plan 1. Acute on CKD 3 : Cr baseline of 1.3- 1.5 . Now presented with DAYTON creatinine at 2.1. Has hyperkalemia and volume overload, We will place on Lasix 80 mg IV twice daily, avoid IV contrast studies 2. Hyperkalemia: Placed on low K diet, status post med management and most recent potassium is 5.9, will continue to monitor 3. Acute on chronic respiratory failure: Hypercapnic and hypoxic, on BiPAP 4. A-fib with rapid ventricular response: New onset, echo ordered, on IV amiodarone 5. History of peripheral vascular disease Patient evaluated using audiovisual cart. Time spent 40 minutes. Consult Attestations Medical Necessity Statement: per medicine Coding Level of Care Code Acute Code for Chg Fwd Diagnoses Acute on chronic renal failure N17.9; N18.9
--- NOTE | 2023-04-28 10:27 | PM.PN ---
Subjective Subjective: Jason was on BiPAP when I visited him this morning. He reported he wanted something to eat. He could not really focus on anything else. No chest pain. Denies shortness of breath. A little bit later he ripped his BiPAP off, yelled at the nurse, and reported he wanted something to eat. Medications: Reviewed: Yes Vitals/I&O/Wt Last Vital Signs Temp 97.3 F L 04/28/23 04:00 Pulse 92 04/28/23 10:00 Resp 22 H 04/28/23 08:00 BP 134/103 04/28/23 10:00 Pulse Ox 94 04/28/23 10:00 O2 Del Method BiPAP 04/28/23 07:30 O2 Flow Rate 3.5 04/28/23 06:00 FiO2 40 04/28/23 09:46 04/27/23 04/28/23 04/28/23 22:59 06:59 14:59 Intake Total 1449.840 / 1449.840 50.1 / 50.1 Output Total 150 / 150 Balance 1299.840 / 1299.840 50.1 / 50.1 Weight last 48 hrs Weight 54.295 kg Weight 87.997 kg Physical Exam Narrative: General exam no distress Neck is supple Cardiovascular irregular, irregular without murmur Lungs bilateral expiratory wheezes Abdomen is soft, positive bowel sounds. Ostomy noted Extremities no cyanosis clubbing or edema, amputation noted Urinary Catheter Management: Meadows: Cath Placed During This Visit: yes Reason for Continuing Indwelling Catheter: Accurate Measurement of Urinary Output in Critically Ill Patients Urinary Catheter Date of Insertion: 04/28/23 Urinary Catheter Time of Insertion: 04:10 Data 04/27/23 23:13 04/28/23 08:55 Micro: Microbiology 04/27/23 11:50 Blood Culture - Preliminary Blood SPECIMEN COLLECTED 04/27/23 11:40 Blood Culture - Preliminary Blood SPECIMEN COLLECTED A&P Assessment and plan (1) Acute hyperkalemia: Etiology not clear other than acidosis, acute renal failure. No apparent medicines at home. This is improving with treatment provided by Dr. Jones as well as nephrology. Potassium level now 5.9. Repeat BMP this afternoon. (2) Acute exacerbation of chronic obstructive airways disease: Patient removed BiPAP despite being on Precedex Precedex discontinued Continue IV steroids Continue budesonide twice daily DuoNeb every 4 hours Was placed on ceftriaxone empirically Add Zithromax orally Associated with acute hypoxic and hypercarbic respiratory failure. I think he has some element of chronic respiratory failure. May need trilogy at discharge, but will assess compliance. COVID-negative Await MRSA PCR (3) Acute on chronic respiratory failure with hypercapnia: As above (4) Atrial fibrillation with RVR: New A-fib with RVR Controlled on IV amiodarone currently Awaiting echocardiogram Convert to oral amiodarone after 24 hours Consider anticoagulation, after it is clear he will not need any acute procedures. For now continue subcutaneous heparin. Consider outpatient cardiac work-up. Troponin elevated but not consistent with acute AL (5) DAYTON (acute kidney injury): Check urinalysis No evidence of obstruction on CT renal protocol. Chronic stones are noted on the left. CK is normal Nephrology consult appreciated (6) Smoking: Encourage cessation Plan Acute systolic heart failure. Continue to diurese per nephrology. Follow creatinine closely. Await transthoracic echocardiogram. History of CVA. Continue aspirin. HTN. 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 difficile Multiple other medical problems as outlined in past medical history Full code Heparin for DVT prophylaxis Attestations Medical Necessity Statement*: Requires continued hospitalization for treatment of acute respiratory failure requiring BiPAP, acute COPD exacerbation, acute congestive heart failure Diagnoses Acute hyperkalemia E87.5 Acute exacerbation of chronic obstructive airways disease J44.1 Acute on chronic respiratory failure with hypercapnia J96.22 Atrial fibrillation with RVR I48.91 DAYTON (acute kidney injury) N17.9 Smoking F17.200 Time Spent (min) 42
[2023-04-28 14:38] LABS: Anion Gap 14.1 (5-19); Blood Urea Nitrogen 40 mg/dL (8-23); Calcium 8.3 mg/dL (8.5-10.5); Carbon Dioxide 26 mmol/L (22-29); Chloride 97 mmol/L (98-107); Glomerular Filtration Rate 32.2 mL/min (90-130); Glucose 270 mg/dL (65-115); Osmolality Calculated 291 mOsm/kg (285-295); Potassium 6.1 mmol/L (3.5-5.1); Sodium 131 mmol/L (136-145)
[2023-04-28 14:38] LABS: Add Urine Culture? No; Bilirubin Urine Neg (Negative); Blood Urine 3+ (Negative); Glucose Urine UA Norm (Normal); Ketones Urine Negative (Negative); Leukocyte Esterase Urine Negative (Negative); Nitrate Urine Negative (Negative); Protein Urine Neg (Negative); RBC Urine 0-4 /hpf (0-2); Specific Gravity, Urine 1.005 (1.005-1.030); Squamous Epithelial Cell Urine 0-4 /hpf (0-5); Urine Appearance Clear (CLEAR); Urine Color Yellow (Yellow); Urobilinogen Urine Norm (Negative); WBC Urine 0-4 /hpf (0-5); pH Urine 5 (5-7)
--- NOTE | 2023-04-28 15:19 | ECG_ITS ---
[facility] Test Date: 2023-04-28 Pat Name: Jason Lopez Department: Room: ICU02 Gender: Male Vba Developer: : 1960 Requested By: Quintin Ennis Order Number: [id number] Devante MD: Jarvis Oneill M.D. Measurements Intervals [place] Rate: 82 P: 0 MI: 0 QRS: 107 QRSD: 99 T: 62 QT: 363 QTc: 426 Interpretive Statements ATRIAL FIBRILLATION RIGHT AXIS DEVIATION [QRS AXIS > 100] ST DEVIATION AND MODERATE T-WAVE ABNORMALITY, CONSIDER ANTERIOR ISCHEMIA [-0.1+ mV T-WAVE IN V3/V4] Compared to ECG 04/27/2023 23:11:02 Right-axis deviation now present T-wave abnormality now present Possible ischemia now present Atrial abnormality no longer present Myocardial infarct finding no longer present Electronically Signed On 04-28-2023 17:05:33 CDT by Jarvis Oneill M.D. [id number]
[2023-04-28] MEDS: sodium polystyrene sulfonate 15 gm/60 mL Btl 30 GM PO (15:47)
[2023-04-28] MEDS: azithromycin 250 mg Tablet 500 MG PO (17:29)
[2023-04-28 20:45] LABS: Blood Urea Nitrogen 39 mg/dL (8-23); Calcium 8.1 mg/dL (8.5-10.5); Carbon Dioxide 27 mmol/L (22-29); Chloride 100 mmol/L (98-107); Glomerular Filtration Rate 30.5 mL/min (90-130); Glucose 150 mg/dL (65-115); Osmolality Calculated 292 mOsm/kg (285-295); Sodium 135 mmol/L (136-145)
[2023-04-28] MEDS: budesonide 0.5 mg/2 mL Neb INHALATION (20:45)
[2023-04-28 20:47] LABS: Anion Gap 13.1 (5-19); Potassium 5.1 mmol/L (3.5-5.1)
[2023-04-28] MEDS: cefTRIAXone 1,000 MG in sodium chloride 0.9% (plus) 50 ML 100 MG IV (23:50)
[2023-04-29] VITALS (41 sets, daily range): BP systolic 87–155; BP diastolic 61–126; PULSE 69–111; RESP 17–27; TEMP 36.6–36.7; O2SAT 85–95
[2023-04-29] MEDS: pantoprazole 40 mg SDV IVP (03:07)
[2023-04-29] MEDS: heparin 5,000 unit/mL INJ 1 mL 5000 UNIT SUBCUT ×2 (03:07→15:34)
[2023-04-29] MEDS: ipratropium-albuterol 3 mL Neb INHALATION ×5 (04:28→20:17)
[2023-04-29 05:07] LABS: Basophils % 0.1 %; Lymphocytes # 0.4 10^3/uL (0.8-4.8); Lymphocytes % 3.3 %; Mean Corpuscular HGB Conc 29.3 g/dL (30-55); Mean Corpuscular Hemoglobin 28.2 pg (27-33); Mean Corpuscular Volume 96.2 fl (82-101); Mean Platelet Volume 12.6 fL (7.4-10.4); Monocytes # 0.2 10^3/uL (0.2-0.9); Neutrophils # 10.19 10^3/uL (1.8-7.7); Neutrophils % 94.2 %; Nucleated Red Blood Cells % 0 %; Platelet Count 126 10^3/cmm (157-399); Red Blood Count 4.68 10^6/uL (3.85-5.65); Red Cell Distribution Width 14.3 % (12.1-15.1); White Blood Count 10.82 10^3/uL (3.29-11.43)
[2023-04-29] MEDS: methylPREDNISolone sod succ 60 MG in water for injection-sterile 0.96 ML 11.52 MG IVP ×2 (05:15→17:12)
[2023-04-29 05:25] LABS: Anion Gap 14.1 (5-19); Blood Urea Nitrogen 46 mg/dL (8-23); Calcium 8.3 mg/dL (8.5-10.5); Carbon Dioxide 29 mmol/L (22-29); Chloride 99 mmol/L (98-107); Creatinine Clr Calc Pharmacy 24.5082; Glomerular Filtration Rate 27.6 mL/min (90-130); Glucose 160 mg/dL (65-115); Osmolality Calculated 299 mOsm/kg (285-295); Potassium 5.1 mmol/L (3.5-5.1); Sodium 137 mmol/L (136-145)
[2023-04-29] MEDS: budesonide 0.5 mg/2 mL Neb INHALATION ×2 (07:56→20:17)
[2023-04-29] MEDS: amiodarone 200 mg Tablet 400 MG PO ×2 (08:13→17:12)
[2023-04-29] MEDS: FUROsemide 10 mg/mL SDV 10mL 80 MG IVP (08:13)
[2023-04-29] MEDS: aspirin 325 mg Tablet PO (08:13)
[2023-04-29] MEDS: tamsulosin 0.4 mg Capsule PO (08:13)
--- NOTE | 2023-04-29 09:11 | PM.PN ---
Subjective Subjective: Jason reports he is feeling better. Denies any shortness of breath. No chest pain. States he needs something for low back pain. Medications: Reviewed: Yes Vitals/I&O/Wt Last Vital Signs Temp 98 F 04/29/23 03:19 Pulse 83 04/29/23 07:56 Resp 18 04/29/23 07:56 BP 108/84 04/29/23 03:00 Pulse Ox 92 04/29/23 07:56 O2 Del Method Nasal Cannula 04/29/23 07:56 O2 Flow Rate 4 04/29/23 07:56 FiO2 40 04/29/23 03:00 04/28/23 04/29/23 04/29/23 22:59 06:59 14:59 Intake Total 611.92 / 902.98 408.061 / 1311.041 Output Total 2250 / 3600 1200 / 4800 Balance -1638.08 / -2697.02 -791.939 / -3488.959 Weight last 48 hrs Weight 54.295 kg Weight 87.997 kg Physical Exam Narrative: General exam no distress Neck is supple Cardiovascular irregular, irregular without murmur Lungs still with a few expiratory wheezes Abdomen is soft, positive bowel sounds. Ostomy noted Extremities no cyanosis clubbing or edema, amputation noted Urinary Catheter Management: Meadows: Cath Placed During This Visit: yes Reason for Continuing Indwelling Catheter: Accurate Measurement of Urinary Output in Critically Ill Patients Urinary Catheter Date of Insertion: 04/28/23 Urinary Catheter Time of Insertion: 04:10 Data 04/29/23 04:09 04/29/23 04:09 Micro: Microbiology 04/27/23 11:50 Blood Culture - Preliminary Blood NEGATIVE TO DATE 04/27/23 11:40 Blood Culture - Preliminary Blood NEGATIVE TO DATE 04/28/23 04:58 MRSA Culture - Final Nose A&P Assessment and plan (1) Acute hyperkalemia: Etiology not clear other than acidosis, acute renal failure. No apparent medicines at home. This is improving with treatment Repeat BMP in the morning (2) Acute exacerbation of chronic obstructive airways disease: Discontinue Precedex Continue BiPAP only as needed Reduce IV steroids to every 12 hours Continue budesonide twice daily DuoNeb every 4 hours Was placed on ceftriaxone and Zithromax empirically Associated with acute hypoxic and hypercarbic respiratory failure. I think he has some element of chronic respiratory failure. May need trilogy at discharge, but will assess compliance. COVID-negative MRSA PCR negative (3) Acute on chronic respiratory failure with hypercapnia: As above (4) Atrial fibrillation with RVR: New A-fib with RVR Discontinue IV amiodarone. Initiate amiodarone 400 mg twice daily Echocardiogram demonstrates diffuse hypokinesia, EF around 45%. This could be secondary to arrhythmia. Consider cardiology follow-up, outpatient nuclear stress testing Anticoagulation considered. He refuses. Risks and benefits discussed including and/or permanent disability (5) DAYTON (acute kidney injury): Urinalysis unremarkable No evidence of obstruction on CT renal protocol. Chronic stones are noted on the left. CK is normal Nephrology consult appreciated Outpatient urology Renal function slightly worse. Change Lasix to once daily. Nephrology to review as well. CBC, BMP tomorrow (6) Smoking: Encourage cessation Plan Acute systolic heart failure. Clinically improved. EF around 45%. See notations above. History of CVA. Continue aspirin. HTN. 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 difficile Multiple other medical problems as outlined in past medical history Full code Heparin for DVT prophylaxis Transfer to [facility] Attestations Medical Necessity Statement*: Needs continued hospitalization for treatment of COPD exacerbation, close follow-up of renal failure. Coding Level of Care Code Acute Code for Chg Fwd Diagnoses Acute hyperkalemia E87.5 Acute exacerbation of chronic obstructive airways disease J44.1 Acute on chronic respiratory failure with hypercapnia J96.22 Atrial fibrillation with RVR I48.91 DAY[place] (acute kidney injury) N17.9 Smoking F17.200
--- NOTE | 2023-04-29 11:48 | P.PN_ITS ---
Subjective Subjective: on 3L NC Medications: Reviewed: Yes Vitals/I&O/Wt Last Vital Signs Temp 98 F 04/29/23 03:19 Pulse 98 04/29/23 11:13 Resp 18 04/29/23 11:13 BP 127/87 04/29/23 09:00 Pulse Ox 93 04/29/23 11:13 O2 Del Method Nasal Cannula 04/29/23 11:13 O2 Flow Rate 4 04/29/23 11:13 FiO2 40 04/29/23 03:00 04/28/23 04/29/23 04/29/23 22:59 06:59 14:59 Intake Total 611.92 / 902.98 408.061 / 1311.041 240 / 240 Output Total 2250 / 3600 1200 / 4800 650 / 650 Balance -1638.08 / -2697.02 -791.939 / -3488.959 -410 / -410 Weight last 48 hrs Weight 54.295 kg Weight 87.997 kg Physical Exam Narrative: Awake , alert peerla s1 s rrr PER REPORT Lungs clear per report no edema Urinary Catheter Management: Meadows: Cath Placed During This Visit: yes Reason for Continuing Indwelling Catheter: Accurate Measurement of Urinary Output in Critically Ill Patients Urinary Catheter Date of Insertion: 04/28/23 Urinary Catheter Time of Insertion: 04:10 Data 04/29/23 04:09 04/29/23 04:09 Micro: Microbiology 04/28/23 16:32 Gram Stain - Final Sputum - Expectorated Sputum 04/27/23 11:50 Blood Culture - Preliminary Blood NEGATIVE TO DATE 04/27/23 11:40 Blood Culture - Preliminary Blood NEGATIVE TO DATE 04/28/23 04:58 MRSA Culture - Final Nose A&P Assessment and plan (1) Acute on chronic renal failure: Plan 1. Acute on CKD 3 : Cr baseline of 1.3- 1.5 . presented with DAYTON creatinine at 2.1, worse to 2.4 today Has hyperkalemia and volume overload, - was ON Lasix 80 mg IV bid , SWITCHED TO LASIX 40 MG DAILY 2. Hyperkalemia: Placed on low K diet, status post med management and k 5.1 T alvino 3. Acute on chronic respiratory failure: Hypercapnic and hypoxic, was on BiPAP 4. A-fib with rapid ventricular response: New onset, echo ordered, on IV amiodarone 5. History of peripheral vascular disease Patient evaluated using audiovisual cart. Time spent 20 minutes. Attestations Medical Necessity Statement*: per medicine Coding Level of Care Code Acute Code for Chg Fwd Diagnoses Acute on chronic renal failure N17.9; N18.9
[2023-04-29] MEDS: azithromycin 250 mg Tablet 500 MG PO (17:11)
--- NOTE | 2023-04-29 17:49 | PC.NURSE ---
Patients ayush has been educated regarding visiting hours and policy. Ayush has been told that after 8pm she is not allowed to leave the patients room. She reports that she understands and will comply.
[2023-04-29] MEDS: TRAMadol 50 mg Tablet PO (19:35)
[2023-04-29] MEDS: cefTRIAXone 1,000 MG in sodium chloride 0.9% (plus) 50 ML 100 MG IV (23:15)
[2023-04-30] VITALS (17 sets, daily range): BP systolic 112–162; BP diastolic 49–87; PULSE 11–108; RESP 16–26; TEMP 36.5–37.1; O2SAT 91–95
[2023-04-30] MEDS: ipratropium-albuterol 3 mL Neb INHALATION ×5 (00:10→15:41)
[2023-04-30] MEDS: pantoprazole 40 mg SDV IVP (03:41)
[2023-04-30] MEDS: heparin 5,000 unit/mL INJ 1 mL 5000 UNIT SUBCUT ×2 (03:42→15:30)
[2023-04-30 04:03] LABS: Basophils % 0.1 %; Hematocrit 44.6 % (37-53); Lymphocytes # 0.2 10^3/uL (0.8-4.8); Lymphocytes % 1.9 %; Mean Corpuscular HGB Conc 29.4 g/dL (30-55); Mean Corpuscular Hemoglobin 28.1 pg (27-33); Mean Corpuscular Volume 95.7 fl (82-101); Monocytes # 0.2 10^3/uL (0.2-0.9); Monocytes % 1.6 %; Neutrophils # 10.35 10^3/uL (1.8-7.7); Neutrophils % 95.8 %; Nucleated Red Blood Cells % 0 %; Platelet Count 136 10^3/cmm (157-399); Red Blood Count 4.66 10^6/uL (3.85-5.65); Red Cell Distribution Width 14.3 % (12.1-15.1)
[2023-04-30 04:27] LABS: Anion Gap 11.8 (5-19); Blood Urea Nitrogen 54 mg/dL (8-23); Calcium 8.2 mg/dL (8.5-10.5); Carbon Dioxide 33 mmol/L (22-29); Chloride 98 mmol/L (98-107); Glomerular Filtration Rate 30.5 mL/min (90-130); Glucose 163 mg/dL (65-115); Magnesium 1.7 mg/dL (1.7-2.3); Osmolality Calculated 304 mOsm/kg (285-295); Potassium 4.8 mmol/L (3.5-5.1); Sodium 138 mmol/L (136-145)
[2023-04-30] MEDS: methylPREDNISolone sod succ 60 MG in water for injection-sterile 0.96 ML 12 MG IVP (05:29)
[2023-04-30] MEDS: budesonide 0.5 mg/2 mL Neb INHALATION (07:29)
[2023-04-30] MEDS: FUROsemide 40 mg Tablet PO ×2 (08:36→17:28)
[2023-04-30] MEDS: aspirin 325 mg Tablet PO (08:36)
[2023-04-30] MEDS: tamsulosin 0.4 mg Capsule PO ×2 (08:36→17:28)
[2023-04-30] MEDS: amiodarone 200 mg Tablet 400 MG PO ×2 (08:36→17:28)
[2023-04-30] MEDS: TRAMadol 50 mg Tablet PO (10:37)
--- NOTE | 2023-04-30 11:00 | P.PN_ITS ---
Subjective Subjective: No new complaints Medications: Reviewed: Yes Vitals/I&O/Wt Last Vital Signs Temp 97.7 F 04/30/23 07:42 Pulse 97 04/30/23 07:42 Resp 26 H 04/30/23 07:42 BP 162/87 04/30/23 07:42 Pulse Ox 91 04/30/23 07:42 O2 Del Method Nasal Cannula 04/30/23 07:42 O2 Flow Rate 3 04/30/23 07:42 FiO2 4 04/29/23 20:17 04/29/23 04/30/23 04/30/23 22:59 06:59 14:59 Intake Total 521.979 / 2235.474 1286.96 / 2252.939 240 / 240 Output Total 1600 / 4900 650 / 5550 250 / 250 Balance -1078.021 / -3778.021 480.96 / -3297.061 -10 / -10 Weight last 48 hrs Weight 90.628 kg Physical Exam Narrative: Awake , alert peerla s1 s rrr PER REPORT Lungs clear per report no edema Urinary Catheter Management: Meadows: Cath Placed During This Visit: yes Reason for Continuing Indwelling Catheter: Accurate Measurement of Urinary Output in Critically Ill Patients Urinary Catheter Date of Insertion: 04/28/23 Urinary Catheter Time of Insertion: 04:10 Data 04/30/23 03:54 04/30/23 03:54 Micro: Microbiology 04/28/23 16:32 Gram Stain - Final Sputum - Expectorated Sputum Sputum Culture - Preliminary A&P Assessment and plan (1) Acute on chronic renal failure: Plan 1. Acute on CKD 3 : Cr baseline of 1.3- 1.5 . presented with DAYTON creatinine at 2.1 Cr stable in 2 range - likely his baseline Has hyperkalemia and volume overload,- improved now - was ON Lasix 80 mg IV bid , switched to lasix 40 mg BID 2. Hyperkalemia: Placed on low K diet, status post med management and k 4.8 Today 3. Acute on chronic respiratory failure: Hypercapnic and hypoxic, was on BiPAP 4. A-fib with rapid ventricular response: New onset, echo ordered, on IV amioda rodney 5. History of peripheral vascular disease Patient evaluated using audiovisual cart. Time spent 20 minutes. Attestations Medical Necessity Statement*: per medicine Coding Level of Care Code Acute Code for Chg Fwd Diagnoses Acute on chronic renal failure N17.9; N18.9
[2023-04-30] MEDS: metoprolol succinate ER (24 HR) 25 mg Tablet PO (11:08)
[2023-04-30 11:12] LABS: Estmated Average Glucose 123; Hemoglobin A1C 5.9 % (4.0-6.0); Iron 14 ug/dL (59-158); Total Iron Binding Capacity 343 mcg/dl; Unsaturated Iron Binding 329 ug/dL (112-347)
[2023-04-30 11:21] LABS: Thyroid Stimulating Hormone 0.41 uIU/mL (0.27-4.20)
[2023-04-30 11:27] LABS: Vitamin B12 335 pg/mL (232-1245)
--- NOTE | 2023-04-30 11:41 | USR_ITS ---
PROCEDURE INFORMATION: Exam: US Abdomen Complete Exam date and time: 04/30/2023 4:50 PM Age: 63 years old Clinical indication: Abdominal pain; Generalized; Prior surgery; Surgery date: 6+ months; Surgery type: HX of clectomy; Additional info: Cholecystitis, patient eating lunch when i went to do exam. Patient to be kept npo and i TECHNIQUE: Imaging protocol: Real-time ultrasound of the abdomen with image documentation. Complete exam. COMPARISON: CT kidney stone [id number] 04/28/2023 5:08 AM FINDINGS: Liver: Normal. No mass. Gallbladder: The gallbladder is contracted with a wall thickness measuring up to 8 mm. 3 mm echogenic probable sludge ball in the gallbladder lumen. Biliary ducts: Normal. No stones. No dilation. Pancreas: Visualized pancreas is unremarkable. Right kidney: 1.7 cm anechoic cyst in the right kidney. Left kidney: Normal. No mass. No hydronephrosis. Spleen: Normal. No splenomegaly. Aorta: Normal. No aneurysm. Inferior vena cava: Normal. US/US abdomen complete* [id number] IMPRESSION: 1. Contracted gallbladder with a 3 mm probable sludge ball. Gallbladder wall thickening is most likely related to postprandial contraction. 2. Benign right renal cyst.
--- NOTE | 2023-04-30 11:45 | CTR_ITS ---
PROCEDURE INFORMATION: Exam: CT Chest Without Contrast; Diagnostic Exam date and time: 04/30/2023 3:15 PM Age: 63 years old Clinical indication: Other: Pna vs chf TECHNIQUE: Imaging protocol: Diagnostic computed tomography of the chest without contrast. Radiation optimization: All CT scans at this facility use at least one of these dose optimization techniques: automated exposure control; mA and/or kV adjustment per patient size (includes targeted exams where dose is matched to clinical indication); or iterative reconstruction. REPORTING DATA: Count of CT and Cardiac NM exams in prior 12 months: This patient has received 4 known CTs and 0 known cardiac nuclear medicine studies in the 12 months prior to the current study. COMPARISON: 1. CT chest wo con [id number] 10/22/2022 6:08 PM 2. CR (CHEST, ) 04/27/2023 11:[address] kidney stone [id number] 04/28/2023 5:08 AM RADIATION DOSE METRICS: Total DLP (mGy-cm): 576.51 FINDINGS: Lungs: Upper lung predominant emphysematous changes. Mild bilateral compressive atelectasis at the lung bases. Mild increased right lower lobe septal thickening and minimal on the left. No consolidation to suggest pneumonia. Calcified right upper lobe granuloma. Pleural spaces: Small iciud-ehckcwk-lruj-left pleural effusions. No pneumothorax. Heart: Cardiomegaly. No pericardial effusion. Coronary arteries: Mild coronary artery calcification. Lymph nodes: No enlarged lymph nodes. Vasculature: Mild systemic atherosclerotic calcification without aortic aneurysm. Gallbladder and bile ducts: Decompressed gallbladder with pericholecystic fluid. Stomach and bowel: Partially visualized anterior abdominal wall laxity and right-sided ostomy. Bones/joints: Unremarkable. No acute fracture. Soft tissues: Unremarkable. CT/CT chest wo con [id number] IMPRESSION: 1. Small dbmje-npqidzu-lgnv-left pleural effusions with ldpzz-zxmzejw-rdcq-left interlobular septal thickening indicating pulmonary edema, which may be cardiogenic in etiology. No consolidative lobar pneumonia. 2. Interval decompression of gallbladder with redemonstration of mild adjacent fluid. COMMENTS: In the absence of a history or active diagnosis of lung cancer, it is recommended that this patient with emphysema be evaluated for enrollment in a low dose CT lung cancer screening program.
[2023-04-30] MEDS: morphine 4 mg/mL SDV 1 mL 1 MG IVP ×2 (11:48→18:03)
[2023-04-30 13:04] LABS: NT Pro B Type Natriuretic Pept 5529 pg/mL (0-125)
--- NOTE | 2023-04-30 15:17 | P.PN_ITS ---
Subjective Subjective: Hospital course, labs appreciated. Examination patient sitting comfortably in bed. Complaining of bilateral flank and penile pain. States he has pain because of Meadows catheter. Denies any nausea, vomiting, headache. States he is feeling better. Currently on 3 L of oxygen supplementation saturating around 92%. Heart rate running in low 100s. Blood pressure at around 160 systolics. Caregiver at bedside. Blood work shows stable CBC with no leukocytosis, stable hemoglobin of 13, CMP showing creatinine improving to 2.2, BUN of 54 from 46 yesterday, mild contraction alkalosis with bicarb of 33. Document urine output of around 5000 cc yesterday. Overall patient does 5.3 L negative. Medications: Reviewed: Yes Vitals/I&O/Wt Last Vital Signs Temp 97.7 F 04/30/23 07:42 Pulse 98 04/30/23 14:00 Resp 16 04/30/23 12:00 BP 117/72 04/30/23 12:00 Pulse Ox 92 04/30/23 12:00 O2 Del Method Nasal Cannula 04/30/23 12:00 O2 Flow Rate 3 04/30/23 11:01 FiO2 4 04/29/23 20:17 04/30/23 04/30/23 04/30/23 06:59 14:59 22:59 Intake Total 1130.96 / 2252.939 360 / 360 Output Total 650 / 5550 250 / 250 Balance 480.96 / -3297.061 110 / 110 Weight last 48 hrs Weight 90.628 kg Physical Exam Narrative: General exam no distress, AOx3 but slow to respond Neck is supple Cardiovascular irregular, irregular without murmur Lungs still with a few expiratory wheezes Abdomen is soft, positive bowel sounds. Ostomy noted, slight bruise present in left lower quadrant which patient attributes to heparin shots Extremities no cyanosis clubbing or edema, amputation noted Urinary Catheter Management: Meadows: Cath Placed During This Visit: yes Reason for Continuing Indwelling Catheter: Accurate Measurement of Urinary Output in Critically Ill Patients Urinary Catheter Date of Insertion: 04/28/23 Urinary Catheter Time of Insertion: 04:10 Data 04/30/23 03:54 04/30/23 03:54 Micro: Microbiology 04/28/23 16:32 Gram Stain - Final Sputum - Expectorated Sputum Sputum Culture - Preliminary A&P Assessment and plan (1) Atrial fibrillation with RVR: New onset. Continue with amiodarone 400 mg twice daily. Plan to continue for 7 days followed by 200 mg daily. Start on metoprolol 25 mg daily. Patient not currently on anticoagulation. Will discuss in detail regarding anticoagulation going forward for stroke prevention. Patient did discuss with previous physician and had declined after discussing all the medicine demerits. Jaylon vas score: 5 given history of CHF, hypertension, stroke and CAD Echocardiogram demonstrates diffuse hypokinesia, EF around 45%. This could be secondary to arrhythmia. Consider cardiology follow-up, outpatient nuclear stress testing Anticoagulation considered. He refuses. Risks and benefits discussed including and/or permanent disability (2) Acute hyperkalemia: Resolved. Etiology not clear but most likely in setting of acidosis, acute renal failure. Medical reconciliation done. Resolving. Monitor BMP daily for now. (3) DAYTON (acute kidney injury): Appreciate nephrology recommendations. Improving. Baseline creatinine of around 1.5-1.6. Urinalysis unremarkable No evidence of obstruction on CT renal protocol. Chronic stones are noted on the left. Patient does complain of bilateral flank pain so we will repeat bilateral renal ultrasounds. CK is normal Medical reconciliation done for nephrotoxic drugs. Monitor BMP daily. Strict input output charting, daily weights. Renal nondialysis diet. (4) Systolic congestive heart failure: Echocardiogram done shows an EF of 45% with diffuse hypokinesia of LV, mildly dilated LV cavity, biatrial enlargement. Drop in EF from before. Could be nonischemic but cannot rule out ACS given history of stroke and PAD in the past. Patient would benefit from Lexiscan stress test once stable. Aspirin 81 mg daily, statin. Check A1c, lipid panel. Started on beta-grazyna as above. Repeat proBNP. Monitor urine output. Fluid restriction up to 1500 cc. Daily weights. Lasix 40 mg twice daily. Qualifiers: Heart failure chronicity: acute Qualified Code(s): I50.21 - Acute s ystolic (congestive) heart failure (5) Acute on chronic respiratory failure with hypercapnia: Had acute on chronic hypoxic and hypercapnic respiratory failure on admission. Resolved now. Most likely in setting of COPD exacerbation along with congestive heart failure. Concerns for component of community-acquired pneumonia. Continue with ceftriaxone and azithromycin to finish a 5-day course. Concerns for obstructive sleep apnea. Patient diagnosed in the past but does not have BiPAP machine. BiPAP nightly. Will need sleep study as an outpatient. Patient and spouse agreeable. COVID-19 negative, MRSA PCR negative. (6) Acute exacerbation of chronic obstructive airways disease: Supplementation keeping saturation over 90%. Pulmicort twice daily, DuoNebs every 6 hours. (7) Smoking: Encourage cessation (8) Left ventricular systolic dysfunction (LVSD): Plan Acute systolic heart failure. Clinically improved. EF around 45%. See notations above. History of CVA. Continue aspirin. HTN. 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 PT evaluation. Case management alerted. Multiple other medical problems as outlined in past medical history Full code Heparin for DVT prophylaxis Renal nondialysis diet Discharge planning: Plan to discharge home with possible home health possibly early next week once ACS is ruled out and guideline guided medications for heart failure are adjusted Attestations Medical Necessity Statement*: Requires further hospitalization for management of DAYTON on CKD, congestive heart failure with new low EF, acute on chronic hypoxic respiratory failure Diagnoses Atrial fibrillation with RVR I48.91 Acute hyperkalemia E87.5 DAYTON (acute kidney injury) N17.9 Systolic congestive heart failure I50.21 Heart failure chronicity: acute Acute on chronic respiratory failure with hypercapnia J96.22 Acute exacerbation of chronic obstructive airways disease J44.1 Smoking F17.200 Left ventricular systolic dysfunction (LVSD) I51.9
[2023-04-30] MEDS: azithromycin 250 mg Tablet 500 MG PO (17:28)
[2023-04-30] MEDS: atorvastatin 40 mg Tablet 20 MG PO (20:21)
[2023-04-30] MEDS: cefTRIAXone 1,000 MG in sodium chloride 0.9% (plus) 50 ML 100 MG IV (23:44)
[2023-05-01] VITALS (22 sets, daily range): BP systolic 111–141; BP diastolic 73–93; PULSE 81–106; RESP 16–33; TEMP 36.1–36.9; O2SAT 89–95
[2023-05-01] MEDS: morphine 4 mg/mL SDV 1 mL 1 MG IVP ×3 (00:32→20:36)
[2023-05-01] MEDS: ipratropium-albuterol 3 mL Neb INHALATION ×6 (00:39→20:34)
[2023-05-01] MEDS: heparin 5,000 unit/mL INJ 1 mL 5000 UNIT SUBCUT ×2 (02:57→15:55)
[2023-05-01] MEDS: pantoprazole 40 mg SDV IVP (02:57)
[2023-05-01 04:10] LABS: Hematocrit 44.5 % (37-53); Lymphocytes # 0.3 10^3/uL (0.8-4.8); Mean Corpuscular HGB Conc 29.7 g/dL (30-55); Mean Corpuscular Hemoglobin 28.9 pg (27-33); Mean Corpuscular Volume 97.4 fl (82-101); Monocytes # 0.7 10^3/uL (0.2-0.9); Monocytes % 6.7 %; Neutrophils # 9.77 10^3/uL (1.8-7.7); Neutrophils % 89.8 %; Nucleated Red Blood Cells % 0 %; Platelet Count 138 10^3/cmm (157-399); Red Blood Count 4.57 10^6/uL (3.85-5.65); Red Cell Distribution Width 14.5 % (12.1-15.1); White Blood Count 10.88 10^3/uL (3.29-11.43)
[2023-05-01 04:26] LABS: Alanine Aminotransferase 29 U/L (0-41); Albumin Level 3.6 g/dL (3.5-5.2); Alkaline Phosphatase 67 U/L (40-130); Anion Gap 10.3 (5-19); Aspartate Amino Transferase 36 U/L (0-40); Blood Urea Nitrogen 48 mg/dL (8-23); Calcium 8.2 mg/dL (8.5-10.5); Carbon Dioxide 36 mmol/L (22-29); Chloride 104 mmol/L (98-107); Chol HDL Ratio 1.67 mg/dL (1.0-5.00); Cholesterol 147 mg/dL (0-200); Globulin 2.6 g/dL (1.3-4.6); Glucose 100 mg/dL (65-115); HDL Cholesterol 88 mg/dL (60-100); LDL Cholesterol Calculated 39 mg/dL (50-129); Magnesium 1.7 mg/dL (1.7-2.3); Osmolality Calculated 313 mOsm/kg (285-295); Potassium 5.3 mmol/L (3.5-5.1); Sodium 145 mmol/L (136-145); Total Bilirubin 0.2 mg/dL (0.15-1.2); Total Protein 6.2 g/dL (6.6-8.7); Triglycerides 102 mg/dL (0-150); VLDL Cholestrol Calculation 20 mg/dL (0-30)
[2023-05-01] MEDS: metoprolol succinate ER (24 HR) 25 mg Tablet PO (08:20)
[2023-05-01] MEDS: methylPREDNISolone sod succ 60 MG in water for injection-sterile 0.96 ML 11.52 MG IVP (08:20)
[2023-05-01] MEDS: amiodarone 200 mg Tablet 400 MG PO ×2 (08:20→18:23)
[2023-05-01] MEDS: tamsulosin 0.4 mg Capsule PO ×2 (08:21→18:23)
[2023-05-01] MEDS: aspirin 81 mg EC Tablet PO (08:21)
[2023-05-01] MEDS: FUROsemide 40 mg Tablet PO ×2 (08:21→18:24)
[2023-05-01] MEDS: budesonide 0.5 mg/2 mL Neb INHALATION ×2 (08:28→20:34)
--- NOTE | 2023-05-01 10:53 | PC.SOCIAL ---
IMM Update pg 2 of IMM updated and reviewed w/ patient. Copy provided and copy dated, initialed and placed in chart.
[2023-05-01] MEDS: insulin regular-human 10 UNIT in SYRINGE 1 EACH IVP (12:25)
[2023-05-01] MEDS: dextrose 50% syringe 50 mL IVP (12:25)
--- NOTE | 2023-05-01 13:29 | PM.PN ---
Subjective Subjective: No acute events overnight. Today morning seen laying comfortably in bed with head of the bed elevated at 10 degrees with caregiver at bedside. Saturating well overnight 2% on 3 days of oxygen supplementation. Blood pressure is better controlled. Heart rate better controlled. Documented urine output of around 3.9 L in last 24 hours. Blood work appreciated for stable CBC, sodium 145, potassium of 5.3, BUN and creatinine improving from yesterday. Medications: Reviewed: Yes Vitals/I&O/Wt Last Vital Signs Temp 98.0 F 05/01/23 11:02 Pulse 95 05/01/23 11:24 Resp 16 05/01/23 11:24 BP 136/93 05/01/23 11:02 Pulse Ox 94 05/01/23 11:24 O2 Del Method Nasal Cannula 05/01/23 11:24 O2 Flow Rate 3 05/01/23 11:24 FiO2 4 04/29/23 20:17 04/30/23 05/01/23 05/01/23 22:59 06:59 14:59 Intake Total 1320 / 1680 530 / 2210 Output Total 1825 / 2075 1500 / 3575 600 / 600 Balance -505 / -395 -970 / -1365 -600 / -600 Weight last 48 hrs Weight 90.9 kg Weight 90.628 kg Physical Exam Narrative: General exam no distress, AOx3 but slow to respond Neck is supple Cardiovascular irregular, irregular without murmur Lungs still with a few expiratory wheezes Abdomen is soft, positive bowel sounds. Ostomy noted, slight bruise present in left lower quadrant which patient attributes to heparin shots Extremities no cyanosis clubbing or edema, amputation noted Urinary Catheter Management: Meadows: Cath Placed During This Visit: yes Reason for Continuing Indwelling Catheter: Accurate Measurement of Urinary Output in Critically Ill Patients Urinary Catheter Date of Insertion: 04/28/23 Urinary Catheter Time of Insertion: 04:10 Data 05/01/23 03:49 05/01/23 03:49 Micro: Microbiology 04/28/23 16:32 Gram Stain - Final Sputum - Expectorated Sputum Sputum Culture - Final A&P Assessment and plan (1) Atrial fibrillation with RVR: New onset. Continue with amiodarone 400 mg twice daily. Plan to continue for 7 days followed by 200 mg daily. Continue with metoprolol succinate 25 mg daily. Patient not currently on anticoagulation. Will discuss in detail regarding anticoagulation going forward for stroke prevention. Patient did discuss with previous physician and had declined after discussing all the medicine demerits. Jaylon vas score: 5 given history of CHF, hypertension, stroke and CAD Echocardiogram demonstrates diffuse hypokinesia, EF around 45%. This could be secondary to arrhythmia. Consider cardiology follow-up, outpatient nuclear stress testing Anticoagulation considered. He refuses. Risks and benefits discussed including and/or permanent disability (2) Acute hyperkalemia: Back up to 5.3 today. Etiology not clear but most likely in setting of acidosis, acute renal failure. D50 with 10 units of insulin. Repeat potassium level check at 4 PM. Medical reconciliation done. Monitor BMP daily for now. (3) DAYTON (acute kidney injury): Appreciate nephrology recommendations. Improving. Baseline creatinine of around 1.5-1.6. Urinalysis unremarkable No evidence of obstruction on CT renal protocol. Chronic stones are noted on the left. Patient does complain of bilateral flank pain so we will repeat bilateral renal ultrasounds. CK is normal Medical reconciliation done for nephrotoxic drugs. Monitor BMP daily. Strict input output charting, daily weights. Renal nondialysis diet. (4) Systolic congestive heart failure: Echocardiogram done shows an EF of 45% with diffuse hypokinesia of LV, mildly dilated LV cavity, biatrial enlargement. Drop in EF from before. Could be nonischemic but cannot rule out ACS given history of stroke and PAD in the past. N.p.o. after midnight for Lexiscan stress test in a.m. Patient is agreeable. Aspirin 81 mg daily, statin. Appreciate A1c, lipid panel. Started on beta-grazyna as above. Monitor urine output. Fluid restriction up to 1500 cc. Daily weights. Oral Lasix 40 mg twice daily. Qualifiers: Heart failure chronicity: acute Qualified Code(s): I50.21 - Acute systolic (congestive) heart failure (5) Acute on chronic respiratory failure with hypercapnia: Had acute on chronic hypoxic and hypercapnic respiratory failure on admission. Resolved now. Most likely in setting of COPD exacerbation along with congestive heart failure. Concerns for component of community-acquired pneumonia. Continue with ceftriaxone and azithromycin to finish a 5-day course. Concerns for obstructive sleep apnea. Patient diagnosed in the past but does not have BiPAP machine. BiPAP nightly. Will need sleep study as an outpatient. Patient and spouse agreeable. COVID-19 negative, MRSA PCR negative. (6) Acute exacerbation of chronic obstructive airways disease: Supplementation keeping saturation over 90%. Pulmicort twice daily, DuoNebs every 6 hours. (7) Smoking: Encourage cessation (8) Left ventricular systolic dysfunction (LVSD): Plan Acute systolic heart failure. Clinically improved. EF around 45%. See notations above. History of CVA. Continue aspirin. HTN. 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 PT evaluation. Case management alerted. Multiple other medical problems as outlined in past medical history Full code Heparin for DVT prophylaxis Renal nondialysis diet Discharge planning: Plan to discharge home with possible home health possibly early next week once ACS is ruled out and guideline guided medications for heart failure are adjusted Attestations Medical Necessity Statement*: Requires further hospitalization for management of atrial fibrillation with rapid ventricular response, hypoxic respiratory failure in setting of congestive heart failure while Lexiscan stress test is awaited to rule out ACS given new low EF Diagnoses Atrial fibrillation with RVR I48.91 Acute hyperkalemia E87.5 [place] (acute kidney injury) N17.9 Systolic congestive heart failure I50.21 Heart failure chronicity: acute Acute on chronic respiratory failure with hypercapnia J96.22 Acute exacerbation of chronic obstructive airways disease J44.1 Smoking F17.200 Left ventricular systolic dysfunction (LVSD) I51.9
--- NOTE | 2023-05-01 15:54 | PM.PN ---
Subjective Subjective: no new complaints Medications: Reviewed: Yes Vitals/I&O/Wt Last Vital Signs Temp 98.0 F 05/01/23 11:02 Pulse 81 05/01/23 15:18 Resp 16 05/01/23 15:18 BP 136/93 05/01/23 11:02 Pulse Ox 95 05/01/23 15:18 O2 Del Method Nasal Cannula 05/01/23 15:18 O2 Flow Rate 3 05/01/23 15:18 FiO2 4 05/01/23 12:00 05/01/23 05/01/23 05/01/23 06:59 14:59 22:59 Intake Total 530 / 2210 Output Total 1500 / 3575 600 / 600 Balance -970 / -1365 -600 / -600 Weight last 48 hrs Weight 90.9 kg Weight 90.628 kg Physical Exam Narrative: Awake , alert peerla s1 s rrr PER REPORT Lungs clear per report no edema Urinary Catheter Management: [facility]: Cath Placed During This Visit: yes Reason for Continuing Indwelling Catheter: Accurate Measurement of Urinary Output in Critically Ill Patients Urinary Catheter Date of Insertion: 04/28/23 Urinary Catheter Time of Insertion: 04:10 Data 05/01/23 03:49 05/01/23 14:39 Micro: Microbiology 04/28/23 16:32 Gram Stain - Final Sputum - Expectorated Sputum Sputum Culture - Final A&P Assessment and plan (1) Acute on chronic renal failure: Plan 1. Acute on CKD 3 : Cr baseline of 1.3- 1.5 . presented with DAYTON creatinine at 2.1 Cr stable in 2 range - likely his baseline Has hyperkalemia and volume overload,- improved now - was ON Lasix 80 mg IV bid , switched to lasix 40 mg BID 2. Hyperkalemia: Placed on low K diet, status post med management and k 4.8 Today 3. Acute on chronic respiratory failure: Hypercapnic and hypoxic, was on BiPAP 4. A-fib with rapid ventricular response: New onset, echo ordered, on IV amiodarone 5. History of peripheral vascular disease Patient evaluated using audiovisual cart. Time spent 20 minutes. Attestations Medical Necessity Statement*: per medicine Coding Level of Care Code Acute Code for Chg Fwd Diagnoses Acute on chronic renal failure N17.9; N18.9
[2023-05-01] MEDS: atorvastatin 40 mg Tablet 20 MG PO (20:31)
[2023-05-01] MEDS: cefTRIAXone 1,000 MG in sodium chloride 0.9% (plus) 50 ML 100 MG IV (23:14)
[2023-05-02] VITALS (16 sets, daily range): BP systolic 101–125; BP diastolic 62–81; PULSE 70–109; RESP 16–24; TEMP 36.6–37; O2SAT 87–96
--- NOTE | 2023-05-02 | ECG_ITS ---
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 Interpretive Statements NAME OF STUDY: LEXISCAN SESTAMIBI STRESS TEST INDICATION: [new low ef] Procedure: At the baseline, the blood pressure was 148/87 mmHg with a heart rate of 86 bpm. The electrocardiogram showed atrial fibrillation with no significant ST T wave changes. The Lexiscan was infused over a period of 20 seconds. A total of 0.4 mg of Lexiscan was infused. The stress phase was continued for a total of 5 minutes. Heart rate was at the end of stress phase was 92 bpm and a blood pressure of 116/68 mmHg. The EKG at the peak infusion revealed atrial fibrillation with no significant ST-T wave changes. Sestamibi was injected 20 seconds after the Lexiscan infusion. Blood pressure at the end of recovery phase was 112/69 mmHg with a heart rate of 92 bpm. Conclusion: 1. Normal EKG response to Lexiscan infusion 2. No Lexiscan induced chest pain or cardiac arrhythmia. 3. Normal blood pressure and heart rate response. 4. Sestamibi/sestamibi perfusion scan pending; see separate report. Electronically Signed On 05-16-2023 12:24:04 CDT by Jarvis Oneill M.D. [email or web address]
[2023-05-02] MEDS: ipratropium-albuterol 3 mL Neb INHALATION ×3 (02:21→20:02)
[2023-05-02] MEDS: heparin 5,000 unit/mL INJ 1 mL 5000 UNIT SUBCUT ×2 (02:50→16:37)
[2023-05-02 03:31] LABS: Basophils % 0.1 %; Hematocrit 46.9 % (37-53); Lymphocytes # 0.3 10^3/uL (0.8-4.8); Lymphocytes % 3.9 %; Mean Corpuscular HGB Conc 28.8 g/dL (30-55); Mean Corpuscular Hemoglobin 28.1 pg (27-33); Mean Corpuscular Volume 97.5 fl (82-101); Mean Platelet Volume 11.9 fL (7.4-10.4); Monocytes # 0.7 10^3/uL (0.2-0.9); Monocytes % 7.6 %; Neutrophils # 7.66 10^3/uL (1.8-7.7); Neutrophils % 87.9 %; Nucleated Red Blood Cells % 0 %; Platelet Count 129 10^3/cmm (157-399); Red Blood Count 4.81 10^6/uL (3.85-5.65); Red Cell Distribution Width 14.4 % (12.1-15.1); White Blood Count 8.71 10^3/uL (3.29-11.43)
[2023-05-02 03:50] LABS: Magnesium 1.5 mg/dL (1.7-2.3)
[2023-05-02 03:51] LABS: Alanine Aminotransferase 51 U/L (0-41); Albumin Level 3.2 g/dL (3.5-5.2); Alkaline Phosphatase 71 U/L (40-130); Anion Gap 9.4 (5-19); Aspartate Amino Transferase 34 U/L (0-40); Blood Urea Nitrogen 43 mg/dL (8-23); Calcium 7.9 mg/dL (8.5-10.5); Carbon Dioxide 36 mmol/L (22-29); Chloride 100 mmol/L (98-107); Globulin 2.7 g/dL (1.3-4.6); Glomerular Filtration Rate 38.4 mL/min (90-130); Glucose 131 mg/dL (65-115); Osmolality Calculated 305 mOsm/kg (285-295); Potassium 4.4 mmol/L (3.5-5.1); Sodium 141 mmol/L (136-145); Total Bilirubin 0.2 mg/dL (0.15-1.2); Total Protein 5.9 g/dL (6.6-8.7)
--- NOTE | 2023-05-02 06:30 | NMCV_ITS ---
NM allie perf SPECT r/s* [id number] Jason Lopez Age: 63 Gender: M : 1960 Exam Date: 05/02/2023 06:50 Ordering Phys: Rajiv Murrieta MD Technologist: YADY Alba Exam Location: [facility] Indications: CHEST PAIN STRESS TEST Please [facility] for [facility] IMAGE PROTOCOL Rest/Stress 1 Lexiscan Day Radiopharmaceutical Dose (mCi) Administration Site Administered by Rest: Tc-99m 10.8 IV YADY Torres Sestamibi Stress:Tc-99m 32.8 IV YADY Torres Sestamibi Rest: 02-May-2023 60 Discovery 630 Stress: 02-May-2023 30 Discovery 630 0.4mg Lexiscan. Supine position only as patient was unable to lay prone. SPECT RESULTS Technical Quality: Excellent Raw Data Analysis: Normal Image Corrections: No attenuation or motion correction applied Summed Stress Score: 5 Summed Rest Score: 13 Summed Difference Score: 0 PERFUSION FINDINGS There is a medium sized mostly fixed perfusion defect noted in the inferolateral and inferior sprague. This is consistent with medium sized areas of prior defect with minimal mirna-infarct ischemia in the RCA and left circumflex artery distribution FUNCTIONAL RESULTS (calculated via Gated SPECT) Stress Image LV EF (%): 41 Stress EDV (mL):197 TID: 0.92 Stress ESV (mL):116 FUNCTIONAL FINDINGS: LV systolic function is mild to moderately reduced with EF of 41% IMPRESSIONS 1. Abnormal myocardial perfusion imaging with medium sized areas of prior infacts with minimal mirna-infarct ischemia in RCA and left circumflex artery territories. 2. LV systolic function is mild to moderately reduced with EF of 41% Jarvis Oneill MD (Electronically Signed) Final Date: 02 May 2023 12:37 S
[2023-05-02] MEDS: regadenoson 0.4 Mg/5 ml Syringe IVP (07:41)
--- NOTE | 2023-05-02 08:57 | PM.PN ---
Subjective Subjective: feels ok s/p stress test Medications: Reviewed: Yes Vitals/I&O/Wt Last Vital Signs Temp 97.8 F 05/02/23 04:00 Pulse 98 05/02/23 05:35 Resp 20 H 05/02/23 04:00 BP 101/65 05/02/23 04:00 Pulse Ox 91 05/02/23 04:00 O2 Del Method Nasal Cannula 05/02/23 04:00 O2 Flow Rate 3 05/02/23 02:23 FiO2 4 05/01/23 16:00 05/01/23 05/02/23 05/02/23 22:59 06:59 14:59 Intake Total 470.96 / 471.06 50 / 521.06 Output Total 1850 / 2450 1400 / 3850 Balance -1379.04 / -1977.94 -1350 / -3328.94 Weight last 48 hrs Weight 90.9 kg Physical Exam Narrative: Awake , alert peerla s1 s rrr PER REPORT Lungs clear per report no edema Urinary Catheter Management: Meadows: Cath Placed During This Visit: yes Reason for Continuing Indwelling Catheter: Accurate Measurement of Urinary Output in Critically Ill Patients Urinary Catheter Date of Insertion: 04/28/23 Urinary Catheter Time of Insertion: 04:10 Data 05/02/23 03:15 05/02/23 03:15 A&P Assessment and plan (1) Acute on chronic renal failure: Plan 1. Acute on CKD 3 : Cr baseline of 1.3- 1.5 . presented with DAY[place] creatinine at 2.1 Cr stable in 2 range - likely his baseline Has hyperkalemia and volume overload,- improved now - was ON Lasix 80 mg IV bid , switched to lasix 40 mg BID -Arrange nEPHROLOGY FOLLOW UP @ dc 2. Hyperkalemia: Placed on low K diet, status post med management and k 4.8 Today 3. Acute on chronic respiratory failure: Hypercapnic and hypoxic, was on BiPAP 4. A-fib with rapid ventricular response: New onset, management per cards 5. chf 5. History of peripheral vascular disease Patient evaluated using audiovisual cart. Time spent 20 minutes. Attestations Medical Necessity Statement*: per medicine Coding Level of Care Code Acute Code for Chg Fwd Diagnoses Acute on chronic renal failure N17.9; N18.9
[2023-05-02] MEDS: aspirin 81 mg EC Tablet PO (09:27)
[2023-05-02] MEDS: metoprolol succinate ER (24 HR) 25 mg Tablet PO (09:27)
[2023-05-02] MEDS: FUROsemide 40 mg Tablet PO ×2 (09:27→17:33)
[2023-05-02] MEDS: amiodarone 200 mg Tablet 400 MG PO ×2 (09:27→17:33)
[2023-05-02] MEDS: tamsulosin 0.4 mg Capsule PO ×2 (09:27→17:33)
[2023-05-02] MEDS: pantoprazole DR 40 mg Tablet PO (09:27)
[2023-05-02] MEDS: predniSONE 20 mg Tablet 40 MG PO (09:27)
--- NOTE | 2023-05-02 15:10 | PM.PN ---
Subjective Subjective: Patient is seen after his cardiac stress test. He denies fevers, chills, nausea or emesis. He does report his belly seems more swollen but denies kiran abdominal pains. Medications: Reviewed: Yes Vitals/I&O/Wt Last Vital Signs Temp 97.8 F 05/02/23 12:00 Pulse 107 H 05/02/23 13:54 Resp 16 05/02/23 13:51 BP 121/71 05/02/23 12:00 Pulse Ox 95 05/02/23 13:51 O2 Del Method Nasal Cannula 05/02/23 13:51 O2 Flow Rate 3 05/02/23 13:51 FiO2 4 05/01/23 16:00 05/02/23 05/02/23 05/02/23 06:59 14:59 22:59 Intake Total 50 / 521.06 120 / 120 Output Total 1400 / 3850 Balance -1350 / -3328.94 120 / 120 Weight last 48 hrs Weight 90.9 kg Physical Exam Narrative: General: Patient is awake and alert. In bed. Head: Normocephalic. Neck: No JVD. Cardiovascular: Slightly tachycardic. No gallops. No murmurs. Lungs: Breath sounds diminished at bilateral bases, no use of accessory muscles, no crackles or wheezes. On nasal cannula support. Skin: No jaundice. No rashes. Abdomen: Dysmorphic. Ostomy with stool output present. Appears distended. Bowel sounds are present. No guarding. Extremities: Status post amputation. Musculoskeletal: No erythematous joints. Neurological: No myoclonus. Urinary Catheter Management: [place]: Cath Placed During This Visit: yes Reason for Continuing Indwelling Catheter: Accurate Measurement of Urinary Output in Critically Ill Patients Urinary Catheter Date of Insertion: 04/28/23 Urinary Catheter Time of Insertion: 04:10 Data 05/02/23 03:15 05/02/23 03:15 A&P Assessment and plan (1) Atrial fibrillation with RVR: [id number] of 5, however patient declined anticoagulation Continue amiodarone loading dose Continue metoprolol succinate Telemetry monitoring (2) Systolic congestive heart failure: LVEF down into the 40s, previously normal Myocardial stress testing reviewed Strict I's and O's Daily weights Fluid restriction Continue oral Lasix Qualifiers: Heart failure chronicity: acute Qualified Code(s): I50.21 - Acute systolic (congestive) heart failure (3) Acute on chronic respiratory failure with hypercapnia: Continue supplemental oxygen support for SPO2 goal of 88 to 92% Continue diuresis (4) Left ventricular systolic dysfunction (LVSD): Treatment as above (5) Smoking: Would benefit from cessation (6) Acute exacerbation of chronic obstructive airways disease: Continue prednisone burst Continue ceftriaxone Breathing treatments (7) Acute on chronic renal failure: Nephrology consulted, appreciate recommendations (8) Acute hyperkalemia: Resolved Plan DVT ppx: Heparin Code: Full Code Attestations Medical Necessity Statement*: Patient requires ongoing hospitalization for telemetry monitoring diuresis, serial labs, IV antibiotics and supportive care. Coding Level of Care Code Acute Code for [facility] Fwd Diagnoses Atrial fibrillation with RVR I48.91 Systolic congestive heart failure I50.21 Heart failure chronicity: acute Acute on chronic respiratory failure with hypercapnia J96.22 Left ventricular systolic dysfunction (LVSD) I51.9 Smoking F17.200 Acute exacerbation of chronic obstructive airways disease J44.1 Acute on chronic renal failure N17.9; N18.9 Acute hyperkalemia E87.5
[2023-05-02] MEDS: budesonide 0.5 mg/2 mL Neb INHALATION (20:02)
[2023-05-02] MEDS: atorvastatin 40 mg Tablet 20 MG PO (20:22)
[2023-05-02] MEDS: cefTRIAXone 1,000 MG in sodium chloride 0.9% (plus) 50 ML 100 MG IV (23:33)
[2023-05-03] VITALS (16 sets, daily range): BP systolic 107–142; BP diastolic 68–93; PULSE 84–114; RESP 14–28; TEMP 36.6–36.8; O2SAT 91–98
[2023-05-03] MEDS: ipratropium-albuterol 3 mL Neb INHALATION ×4 (01:19→20:54)
[2023-05-03] MEDS: heparin 5,000 unit/mL INJ 1 mL 5000 UNIT SUBCUT ×2 (03:04→16:59)
[2023-05-03 05:27] LABS: Magnesium 1.5 mg/dL (1.7-2.3)
[2023-05-03 05:28] LABS: Albumin Level 3.3 g/dL (3.5-5.2); Blood Urea Nitrogen 41 mg/dL (8-23); Calcium 7.7 mg/dL (8.5-10.5); Carbon Dioxide 39 mmol/L (22-29); Chloride 100 mmol/L (98-107); Glucose 100 mg/dL (65-115); Phosphorus 2.5 mg/dL (2.5-4.5); Sodium 142 mmol/L (136-145)
[2023-05-03] MEDS: budesonide 0.5 mg/2 mL Neb INHALATION ×2 (07:30→20:54)
[2023-05-03] MEDS: aspirin 81 mg EC Tablet PO (09:17)
[2023-05-03] MEDS: predniSONE 20 mg Tablet 40 MG PO (09:17)
[2023-05-03] MEDS: FUROsemide 40 mg Tablet PO ×2 (09:17→17:10)
[2023-05-03] MEDS: amiodarone 200 mg Tablet 400 MG PO ×2 (09:18→17:10)
[2023-05-03] MEDS: tamsulosin 0.4 mg Capsule PO ×2 (09:18→17:10)
[2023-05-03] MEDS: pantoprazole DR 40 mg Tablet PO (09:18)
[2023-05-03] MEDS: metoprolol succinate ER (24 HR) 25 mg Tablet PO (09:18)
--- NOTE | 2023-05-03 09:28 | XR_ITS ---
WS: [id number] Exam: XR abdomen 1V* [id number] Date/Time of Exam: 05/03/2023 9:32 AM Reason For Exam: Abdomen pain/bloating sensation No bowel obstruction or free air. No sign of organ enlargement. Opacities superimpose the region of t he stomach. Right-sided ostomy noted. Bony structures are intact. IMPRESSION: 1. No acute abdominal finding.
--- NOTE | 2023-05-03 10:36 | PC.SOCIAL ---
Imm update Imm updated with patient at bedside. Copy of page 2 provided. Patient verbalized understanding. copy in chart initialed, dated and timed.
--- NOTE | 2023-05-03 12:32 | PC.OT ---
PER DISCUSSION WITH P.T. AFTER P.T EVALUATION; PATIENT IS INDEPENDENT WITH ADLS AND NO FURTHER SKILLED OT REQUIRED
--- NOTE | 2023-05-03 13:49 | P.PN_ITS ---
Subjective Subjective: Patient is initially sleeping but awakens to stimulation. Reports he slept ok. He endorses some abdominal bloating. Reports similar to yesterday. Denies fevers, chills, nausea or emesis. Reports continue ostomy output. Medications: Reviewed: Yes Vitals/I&O/Wt Last Vital Signs Temp 98.0 F 05/03/23 04:00 Pulse 84 05/03/23 13:22 Resp 17 05/03/23 13:15 BP 139/76 05/03/23 12:49 Pulse Ox 98 05/03/23 13:15 O2 Del Method Nasal Cannula 05/03/23 13:15 O2 Flow Rate 3 05/03/23 13:15 FiO2 4 05/03/23 08:00 05/02/23 05/03/23 05/03/23 22:59 06:59 14:59 Intake Total 456 / 576 486 / 1062 1080 / 1080 Output Total 1725 / 1725 2500 / 4225 1250 / 1250 Balance -1269 / -1149 -2014 / -3163 -170 / -170 Physical Exam Narrative: General: Patient is awake, but appear tired. Conversational. Head: Normocephalic. Neck: No JVD. Cardiovascular: Normal rate. No gallops. No murmurs. Lungs: Breath sounds diminished at bilateral bases, no use of accessory muscles, no crackles or wheezes. Skin: No jaundice. No rashes. Abdomen: Dysmorphic with multiple scars. Softer than prior exam. Bowel sounds are present. Ostomy w/ liquid stool in bag. Extremities: Status post amputation. Musculoskeletal: No erythematous joints. Neurological: No myoclonus. Urinary Catheter Management: Mead[place]: Cath Placed During This Visit: yes, but has since been removed by the nurse Reason for Continuing Indwelling Catheter: Decision to DC Catheter Urinary Catheter Date of Insertion: 04/28/23 Urinary Catheter Time of Insertion: 04:10 Date Urinary Catheter Removed: 05/03/23 Time Urinary Catheter Discontinued: 01:28 Data 05/02/23 03:15 05/03/23 04:25 Micro: Microbiology 04/27/23 11:50 Blood Culture - Final Blood NO GROWTH AFTER 5 DAYS 04/27/23 11:40 Blood Culture - Final Blood NO GROWTH AFTER 5 DAYS A&P Assessment and plan (1) Debility: Physical deconditioning and debility Therapy evaluation Remains weak, not responding to treatment as intended (2) Abdominal pain: Etiology unclear Not on surgical abdomen on exam, actually improved exam today KUB ordered Prior imaging reviewed again, no acute findings (3) Atrial fibrillation with RVR: [id number] of 5, however patient declined anticoagulation Continue amiodarone loading dose Continue metoprolol succinate Telemetry monitoring (4) Systolic congestive heart failure: Strict I's and O's Daily weights Fluid restriction Continue oral Lasix Qualifiers: Heart failure chronicity: acute Qualified Code(s): I50.21 - Acute syst olic (congestive) heart failure (5) Acute on chronic respiratory failure with hypercapnia: Continue supplemental oxygen support for SPO2 goal of 88 to 92% Continue diuresis (6) Left ventricular systolic dysfunction (LVSD): Treatment as above (7) Smoking: Would benefit from cessation (8) Acute exacerbation of chronic obstructive airways disease: Continue prednisone burst Continue ceftriaxone Breathing treatments (9) Acute on chronic renal failure: Nephrology consulted, appreciate recommendations Plan DVT ppx: Heparin Code: Full Code Attestations Medical Necessity Statement*: Patient requires ongoing hospitalization for serial abdominal exam, imaging, analgesics, and supportive care. Coding Level of Care Code Acute Code for [facility] Fwd Diagnoses Debility R53.81 Abdominal pain R10.9 Atrial fibrillation with RVR I48.91 Systolic congestive heart failure I50.21 Heart failure chronicity: acute Acute on chronic respiratory failure with hypercapnia J96.22 Left ventricular systolic dysfunction (LVSD) I51.9 Smoking F17.200 Acute exacerbation of chronic obstructive airways disease J44.1 Acute on chronic renal failure N17.9; N18.9
--- NOTE | 2023-05-03 14:08 | PM.PN ---
Subjective Subjective: no new complaints Medications: Reviewed: Yes Vitals/I&O/Wt Last Vital Signs Temp 98.0 F 05/03/23 04:00 Pulse 84 05/03/23 13:22 Resp 17 05/03/23 13:15 BP 139/76 05/03/23 12:49 Pulse Ox 98 05/03/23 13:15 O2 Del Method Nasal Cannula 05/03/23 13:15 O2 Flow Rate 3 05/03/23 13:15 FiO2 4 05/03/23 08:00 05/02/23 05/03/23 05/03/23 22:59 06:59 14:59 Intake Total 456 / 576 486 / 1062 1080 / 1080 Output Total 1725 / 1725 2500 / 4225 1250 / 1250 Balance -1269 / -1149 -2014 / -3163 -170 / -170 Physical Exam Urinary Catheter Management: Meadows: Cath Placed During This Visit: yes, but has since been removed by the nurse Reason for Continuing Indwelling Catheter: Decision to DC Catheter Urinary Catheter Date of Insertion: 04/28/23 Urinary Catheter Time of Insertion: 04:10 Date Urinary Catheter Removed: 05/03/23 Time Urinary Catheter Discontinued: 01:28 Data 05/02/23 03:15 05/03/23 04:25 Micro: Microbiology 04/27/23 11:50 Blood Culture - Final Blood NO GROWTH AFTER 5 DAYS 04/27/23 11:40 Blood Culture - Final Blood NO GROWTH AFTER 5 DAYS A&P Assessment and plan (1) Acute on chronic renal failure: Plan 1. Acute on CKD 3 : Cr baseline of 1.3- 1.5 . presented with [place] creatinine at 2.1 Cr stable in 2 range - likely his baseline Has hyperkalemia and volume overload,- improved now - was ON Lasix 80 mg IV bid , switched to lasix 40 mg BID -Arrange nEPHROLOGY FOLLOW UP @ [place] 2. Hyperkalemia: Placed on low K diet, status post med management and k 4.0 Today 3. Acute on chronic respiratory failure: Hypercapnic and hypoxic, was on BiPAP 4. A-fib with rapid ventricular response: New onset, management per cards 5. chf 5. History of peripheral vascular disease Patient evaluated using audiovisual cart. Time spent 20 minutes. Attestations Medical Necessity Statement*: per medicine Coding Level of Care Code Acute Code for [facility] Fwd Diagnoses Acute on chronic renal failure N17.9; N18.9
[2023-05-03] MEDS: atorvastatin 40 mg Tablet 20 MG PO (20:51)
[2023-05-04] VITALS (12 sets, daily range): BP systolic 107–134; BP diastolic 71–76; PULSE 81–110; RESP 16–20; TEMP 36.5–37.1; O2SAT 89–94
[2023-05-04] MEDS: heparin 5,000 unit/mL INJ 1 mL 5000 UNIT SUBCUT ×2 (04:11→17:18)
[2023-05-04 05:21] LABS: Albumin Level 3.4 g/dL (3.5-5.2); Anion Gap 7.2 (5-19); Blood Urea Nitrogen 42 mg/dL (8-23); Calcium 7.7 mg/dL (8.5-10.5); Chloride 99 mmol/L (98-107); Glomerular Filtration Rate 47.4 mL/min (90-130); Glucose 85 mg/dL (65-115); Phosphorus 2.9 mg/dL (2.5-4.5); Potassium 4.2 mmol/L (3.5-5.1); Sodium 143 mmol/L (136-145)
[2023-05-04 05:23] LABS: Carbon Dioxide 41 mmol/L (22-29)
--- NOTE | 2023-05-04 08:13 | PM.PN ---
Subjective Subjective: c/o sbdominal discomfort Medications: Reviewed: Yes Vitals/I&O/Wt Last Vital Signs Temp 98.7 F 05/04/23 04:00 Pulse 94 05/04/23 06:00 Resp 19 H 05/04/23 04:00 BP 116/75 05/04/23 04:00 Pulse Ox 94 05/04/23 04:00 O2 Del Method Nasal Cannula 05/04/23 04:00 O2 Flow Rate 3 05/03/23 20:56 FiO2 4 05/03/23 20:00 05/03/23 05/04/23 05/04/23 22:59 06:59 14:59 Intake Total 720 / 1800 0 / 1800 Output Total 2800 / 4050 0 / 4050 Balance -2080 / -2250 0 / -2250 Physical Exam Narrative: Awake , alert peerla s1 s rrr PER REPORT Lungs clear per report no edema Urinary Catheter Management: Meadows: Cath Placed During This Visit: yes, but has since been removed by the nurse Reason for Continuing Indwelling Catheter: Decision to DC Catheter Urinary Catheter Date of Insertion: 04/28/23 Urinary Catheter Time of Insertion: 04:10 Date Urinary Catheter Removed: 05/03/23 Time Urinary Catheter Discontinued: 01:28 Data 05/02/23 03:15 05/04/23 03:56 A&P Assessment and plan (1) Acute on chronic renal failure: Plan 1. Acute on CKD 3 : Cr baseline of 1.3- 1.5 . presented with [place] creatinine at 2.1 Cr stable in 2 range - likely his baseline Has hyperkalemia and volume overload,- improved now - was ON Lasix 80 mg IV bid , switched to lasix 40 mg QD -Arrange nEPHROLOGY FOLLOW UP @ [place] 2. Hyperkalemia: Placed on low K diet, status post med management and k 4.0 Today 3. Acute on chronic respiratory failure: Hypercapnic and hypoxic, was on BiPAP 4. A-fib with rapid ventricular response: New onset, management per cards 5. chf 5. History of peripheral vascular disease 6. metabolic alkalosis : decreased lasix to 40 mg daily Patient evaluated using audiovisual cart. Time spent 20 minutes. Attestations Medical Necessity Statement*: per medicine Coding Level of Care Code Acute Code for [facility] Fwd Diagnoses Acute on chronic renal failure N17.9; N18.9
[2023-05-04] MEDS: budesonide 0.5 mg/2 mL Neb INHALATION ×2 (08:33→19:57)
[2023-05-04] MEDS: ipratropium-albuterol 3 mL Neb INHALATION ×3 (08:33→19:57)
[2023-05-04] MEDS: aspirin 81 mg EC Tablet PO (09:22)
[2023-05-04] MEDS: metoprolol succinate ER (24 HR) 25 mg Tablet PO (09:22)
[2023-05-04] MEDS: amiodarone 200 mg Tablet 400 MG PO ×2 (09:22→17:18)
[2023-05-04] MEDS: pantoprazole DR 40 mg Tablet PO (09:22)
[2023-05-04] MEDS: FUROsemide 40 mg Tablet PO (09:22)
[2023-05-04] MEDS: tamsulosin 0.4 mg Capsule PO ×2 (09:22→17:18)
[2023-05-04] MEDS: predniSONE 20 mg Tablet 40 MG PO (09:23)
--- NOTE | 2023-05-04 17:00 | PM.PN ---
Subjective Subjective: Patient reports continued abdominal discomfort in bilateral lower quadrants. Denies fevers, chills, nausea or emesis. No changes in bowel movements. He is unsure about discharge planning this morning. Denies other new complaints. Medications: Reviewed: Yes Vitals/I&O/Wt Last Vital Signs Temp 98.7 F 05/04/23 04:00 Pulse 92 05/04/23 14:24 Resp 18 05/04/23 14:00 BP 121/71 05/04/23 10:56 Pulse Ox 94 05/04/23 14:00 O2 Del Method Nasal Cannula 05/04/23 14:00 O2 Flow Rate 1.5 05/04/23 14:00 FiO2 4 05/04/23 08:00 05/04/23 05/04/23 05/04/23 06:59 14:59 22:59 Intake Total 0 / 1800 360 / 360 Output Total 0 / 4050 1050 / 1050 Balance 0 / -2250 -690 / -690 Physical Exam Narrative: General: Patient is awake. Alert. Lying in bed. Head: Normocephalic. Atraumatic. Neck: No JVD. Cardiovascular: Normal rate. No gallops. No murmurs. Lungs: Breath sounds diminished at bilateral bases, no use of accessory muscles, no crackles or wheezes. Skin: No jaundice. No rashes. Abdomen: Dysmorphic with multiple scars. Soft. Bowel sounds are present. Ostomy w/ liquid stool in bag. Extremities: Status post amputation with healed stump. Musculoskeletal: No erythematous joints. Neurological: No myoclonus. Urinary Catheter Management: Meadows: Cath Placed During This Visit: yes, but has since been removed by the nurse Reason for Continuing Indwelling Catheter: Decision to DC Catheter Urinary Catheter Date of Insertion: 04/28/23 Urinary Catheter Time of Insertion: 04:10 Date Urinary Catheter Removed: 05/03/23 Time Urinary Catheter Discontinued: 01:28 Data 05/02/23 03:15 05/04/23 03:56 A&P Assessment and plan (1) Debility: Physical deconditioning and debility Working with patient and medical team on dispo options for when medically ready (2) Abdominal pain: Unclear etiology Continue to monitor No acute findings on imaging No acute findings on exam (3) Atrial fibrillation with RVR: [id number] of 5, however patient declines anticoagulation Continue amiodarone Continue metoprolol succinate Telemetry monitoring (4) Systolic congestive heart failure: Strict I's and O's Daily weights Fluid restriction Continue oral Lasix Qualifiers: Heart failure chronicity: acute Qualified Code(s): I50.21 - Acute systolic (congestive) heart failure (5) Acute on chronic respiratory failure with hypercapnia: Continue supplemental oxygen support for SPO2 goal of 88 to 92% Continue diuresis (6) Left ventricular systolic dysfunction (LVSD): Treatment as above (7) Smoking: Would benefit from cessation (8) Acute exacerbation of chronic obstructive airways disease: Continue prednisone burst Sp ceftriaxone Breathing treatments (9) Acute on chronic renal failure: Nephrology consulted, appreciate recommendations Plan DVT ppx: Heparin Code: Full Code Attestations Medical Necessity Statement*: Patient requires ongoing hospitalization for serial abdominal exams, analgesics, and supportive care. Coding Level of Care Code Acute Code for [facility] Fwd Diagnoses Debility R53.81 Abdominal pain R10.9 Atrial fibrillation with RVR I48.91 Systolic congestive heart failure I50.21 Heart failure chronicity: acute Acute on chronic respiratory failure with hypercapnia J96.22 Left ventricular systolic dysfunction (LVSD) I51.9 Smoking F17.200 Acute exacerbation of chronic obstructive airways disease J44.1 Acute on chronic renal failure N17.9; N18.9
[2023-05-04] MEDS: atorvastatin 40 mg Tablet 20 MG PO (21:04)
[2023-05-05] VITALS (8 sets, daily range): BP systolic 132–151; BP diastolic 74–99; PULSE 86–105; RESP 13–17; TEMP 36.8–37.4; O2SAT 93–96
[2023-05-05] MEDS: TRAMadol 50 mg Tablet PO (02:38)
--- NOTE | 2023-05-05 02:41 | PC.NURSE ---
Patient complaining of pain, requesting Morphine. Morphine order has been discontinued, educated patient. Educated on available pain medications. Patient was given Tramadol. Patient became agitated, raised voice at staff, threw medication cup. Upon leaving room heard banging noises and raised voices coming from room. Went back in room to check on patient. Patient began cussing and yelling for staff to leave room. Doctor notified of patients pain and behavior.
[2023-05-05] MEDS: budesonide 0.5 mg/2 mL Neb INHALATION (08:28)
[2023-05-05] MEDS: ipratropium-albuterol 3 mL Neb INHALATION (08:28)
--- NOTE | 2023-05-05 08:51 | PC.SOCIAL ---
IMM Update pg 2 of IMM updated and reviewed w/ patient. Copy provided and copy in chart dated, and initialed.
[2023-05-05] MEDS: amiodarone 200 mg Tablet 400 MG PO (09:02)
[2023-05-05] MEDS: tamsulosin 0.4 mg Capsule PO (09:02)
[2023-05-05] MEDS: pantoprazole DR 40 mg Tablet PO (09:02)
[2023-05-05] MEDS: predniSONE 20 mg Tablet 40 MG PO (09:02)
[2023-05-05] MEDS: FUROsemide 40 mg Tablet PO (09:03)
[2023-05-05] MEDS: aspirin 81 mg EC Tablet PO (09:03)
[2023-05-05] MEDS: metoprolol succinate ER (24 HR) 25 mg Tablet PO (09:03)
--- NOTE | 2023-05-05 09:31 | PM.PN ---
Subjective Subjective: no new complaints Medications: Reviewed: Yes Vitals/I&O/Wt Last Vital Signs Temp 99.4 F 05/05/23 05:53 Pulse 105 H 05/05/23 08:28 Resp 16 05/05/23 08:28 BP 149/99 05/05/23 05:53 Pulse Ox 93 05/05/23 08:28 O2 Del Method Nasal Cannula 05/05/23 08:28 O2 Flow Rate 1.5 05/05/23 08:28 FiO2 4 05/04/23 20:00 05/04/23 05/05/23 05/05/23 22:59 06:59 14:59 Intake Total 240 / 600 480 / 1080 Output Total 400 / 1450 700 / 2150 Balance -160 / -850 -220 / -1070 Physical Exam Narrative: Awake , alert peerla s1 s rrr PER REPORT Lungs clear per report no edema Urinary Catheter Management: Meadows: Cath Placed During This Visit: yes, but has since been removed by the nurse Reason for Continuing Indwelling Catheter: Decision to DC Catheter Urinary Catheter Date of Insertion: 04/28/23 Urinary Catheter Time of Insertion: 04:10 Date Urinary Catheter Removed: 05/03/23 Time Urinary Catheter Discontinued: 01:28 Data 05/02/23 03:15 05/04/23 03:56 A&P Assessment and plan (1) Acute on chronic renal failure: Plan 1. Acute on CKD 3 : Cr baseline of 1.3- 1.5 . presented with [place] creatinine at 2.1 Cr stable in 2 range - likely his baseline Has hyperkalemia and volume overload,- improved now - was ON Lasix 80 mg IV bid , switched to lasix 40 mg QD -Arr[place] FO[place] @ [place] 2. Hyperkalemia: Placed on low K diet, status post med management and k 4.0 Today 3. Acute on chronic respiratory failure: Hypercapnic and hypoxic, was on BiPAP 4. A-fib with rapid ventricular response: New onset, management per cards 5. chf 5. History of peripheral vascular disease 6. metabolic alkalosis : decreased lasix to 40 mg daily Patient evaluated using audiovisual cart. Time spent 20 minutes. Attestations Medical Necessity Statement*: per medicine Coding Level of Care Code Acute Code for [facility] Fwd Diagnoses Acute on chronic renal failure N17.9; N18.9
--- NOTE | 2023-05-05 09:39 | PM.DCS ---
Discharge Providers Date of Admission: 04/28/23 01:57 Date of Discharge: May 05, 2023 Attending Provider at Admission: Armando Mccabe Attending Provider at Discharge: Jason Nieves MD Consults: Nephrology Diagnoses at Discharge Discharge Diagnosis (1) Acute on chronic renal failure: Status: Acute (2) Atrial fibrillation with RVR: Status: Acute (3) Acute on chronic respiratory failure with hypercapnia: Status: Acute (4) Acute exacerbation of chronic obstructive airways disease: Status: Acute (5) Acute hyperkalemia: Status: Acute (6) Smoking: Status: Acute (7) Left ventricular systolic dysfunction (LVSD): Status: Acute (8) Systolic congestive heart failure: Status: Acute Qualifiers: Heart failure chronicity: acute Qualified Code(s): I50.21 - Acute systolic (congestive) heart failure (9) Debility: Status: Acute (10) Abdominal pain: Status: Acute Reason for Visit Reason for Visit: sob, left shoulder pain Hospital Course Hospital Course Jason Lopez is a 63-year-old male with a past medical history significant for COPD, PVD, right AKA, nephrolithiasis, chronic left hydronephrosis, and tobacco use who presented with shortness of breath, found to have acute hyperkalemia, acute COPD exacerbation, acute on chronic respiratory failure with hypercapnea, atrial fibrillation with rapid ventricular rate, and acute kidney injury. Nephrology consulted and followed. Hyperkalemia resolved. COPD and respiratory failure treated with steroids, antibiotics, breathing treatments, non-invasive mechanical ventilation, and supportive care. Patient also found to have atrial fibrillation with rapid ventricular rate. He refused therapeutic anticoagulation. He was treated with amiodarone and beta grazyna with resolution of RVR. He was found to have acute systolic heart failure with reduced ejection fraqction. Myocardial stress testing performed and was negative for significant reversible ischemia after discussing with reading yacht master. He was treated with diuresis and sodium/fluid restriction which patient is to continue at home. Hospital course complicated by abdominal pains. Multiple imaging modalities did not reveal any acute pathology. Pain resolved. Patient discharged to home with family in stable condition. He is to follow up with primary care provider to establish home health services. Physical Exam Narrative: General: Patient is awake and alert. In bed. Head:? Normocephalic.? Atraumatic. Neck: No JVD. Cardiovascular: Normal rate. No gallops. No murmurs. Lungs: Adequate air movement, no use of accessory muscles, no crackles or wheezes. Skin: No jaundice. No rashes. Abdomen: Dysmorphic with multiple scars.? Soft.? Bowel sounds are present.? Ostomy w/ liquid stool in bag. Extremities: Status post right aka amputation with healed stump. Musculoskeletal: No erythematous joints. Neurological: No myoclonus. Urinary Catheter Management: [place]: Cath Placed During This Visit: yes, but has since been removed by the nurse Reason for Continuing Indwelling Catheter: Decision to DC Catheter Urinary Catheter Date of Insertion: 04/28/23 Urinary Catheter Time of Insertion: 04:10 Date Urinary Catheter Removed: 05/03/23 Time Urinary Catheter Discontinued: 01:28 Discharge Data Studies Completed and Pending Completed Studies During Hospitalization Category Date Time Status CT chest wo con [id number] Routine Cat Scan 04/30/23 11:[address] kidney stone [id number] Routine Cat Scan 04/28/23 03:53 Completed Sestamibi Stress Test Request Routine Exams 05/02/23 06:55 Draft XR abdomen 1V* [id number] Routine Exams 05/03/23 09:28 Completed XR chest 1V portable [id number] Stat Exams 04/27/23 23:05 Completed NM allie perf SPECT r/s* [id number] Routine Nuc Med 05/02/23 06:30 Completed CV. echo complete* [id number] Routine Ultrasound 04/28/23 03:45 Completed US abdomen complete* [id number] Routine Ultrasound 04/30/23 11:41 Completed Pending at discharge Category Date Time Status Sestamibi Stress Test Request Routine Exams 05/01/23 10:13 Stop Req Radiology Impressions Chest X-Ray 04/27/23 23:05 IMPRESSION: 1. Right pleural effusion. Abdomen/Pelvis CT 04/28/23 03:53 IMPRESSION: 1. Small bilateral pleural effusions with infiltrates in both lung bases. 2. Small amount of abdominal and pelvic ascites 3. 2 large 10 mm calcification in the distal left ureters no proximal hydronephrosis. There is left perinephric and periureteral fat stranding. 4. Distended gallbladder. No identifiable stones by CT examination. Acute cholecystitis however not excluded 5. Postsurgical change consistent with previous bowel resection. Ostomy in the right upper quadrant. Abdomen Ultrasound 04/30/23 11:41 IMPRESSION: 1. Contracted gallbladder with a 3 mm probable sludge ball. Gallbladder wall thickening is most likely related to postprandial contraction. 2. Benign right renal cyst. Chest CT 04/30/23 11:45 IMPRESSION: 1. Small onsrd-wsumxuj-qmtt-left pleural effusions with xqaws-syuitkx-feix-left interlobular septal thickening indicating pulmonary edema, which may be cardiogenic in etiology. No consolidative lobar pneumonia. 2. Interval decompression of gallbladder with redemonstration of mild adjacent fluid. COMMENTS: In the absence of a history or active diagnosis of lung cancer, it is recommended that this patient with emphysema be evaluated for enrollment in a low dose CT lung cancer screening program. Laboratory Results WBC 8.71 10^3/uL (3.29-11.43) 05/02/23 03:15 RBC 4.81 10^6/uL (3.85-5.65) 05/02/23 03:15 Hgb 13.50 g/dL (11.27-16.99) 05/02/23 03:15 Hct 46.9 % (37-53) 05/02/23 03:15 MCV 97.5 fl (82-101) 05/02/23 03:15 MCH 28.1 pg (27-33) 05/02/23 03:15 MCHC 28.8 g/dL (30-55) L 05/02/23 03:15 RDW 14.4 % (12.1-15.1) 05/02/23 03:15 Plt Count 129 10^3/cmm (157-399) L 05/02/23 03:15 MPV 11.9 fL (7.4-10.4) H 05/02/23 03:15 Neut % (Auto) 87.9 % 05/02/23 03:15 Lymph % (Auto) 3.9 % 05/02/23 03:15 Fallon % (Auto) 7.6 % 05/02/23 03:15 Eos % (Auto) 0.0 % 05/02/23 03:15 Baso % (Auto) 0.1 % 05/02/23 03:15 Neut # (Auto) 7.66 10^3/uL (1.8-7.7) 05/02/23 03:15 Lymph # (Auto) 0.3 10^3/uL (0.8-4.8) L 05/02/23 03:15 Fallon # (Auto) 0.7 10^3/uL (0.2-0.9) 05/02/23 03:15 Eos # (Auto) 0.0 10^3/uL (0.0-0.8) 05/02/23 03:15 Baso # (Auto) 0.0 10^3/uL (0.0-0.1) 05/02/23 03:15 Nucleated RBC % (auto) 0 % 05/02/23 03:15 Nucleated RBCs # 0.0 /100WBC 05/02/23 03:15 Specimen Type Arterial 04/28/23 00:31 Sample Site Radial, left 04/28/23 00:31 ABG pH 7.15 (7.35-7.45) L* 04/28/23 00:31 ABG pCO2 74.9 mmHg (35-45) H* 04/28/23 00:31 ABG pO2 68.1 mmHg (80.0-100.0) L 04/28/23 00:31 ABG HCO3 25.9 mmol/L (22-26) 04/28/23 00:31 ABG Base Excess -4.7 mmol/L (-2.0-2.0) L 04/28/23 00:31 Paul Test Pos 04/28/23 00:31 Hematocrit 42.2 % (42-52) 04/28/23 00:31 O2 Delivery Device Bipap 04/28/23 00:31 O2 Liters/Min 15.0 % 04/27/23 23:19 FiO2 35.0 % 04/28/23 00:31 Underwriting Technician ID Walci 04/28/23 00:31 Sodium 143 mmol/L (136-145) 05/04/23 03:56 Potassium 4.2 mmol/L (3.5-5.1) 05/04/23 03:56 Chloride 99 mmol/L (98-107) 05/04/23 03:56 Carbon Dioxide 41 mmol/L (22-29) H 05/04/23 03:56 Anion Gap 7.2 (5-19) 05/04/23 03:56 BUN 42 mg/dL (8-23) H 05/04/23 03:56 Creatinine 1.5 mg/dL (0.7-1.2) H 05/04/23 03:56 GFR Calculation 47.4 mL/min (90-130) L 05/04/23 03:56 Glucose 85 mg/dL (65-115) 05/04/23 03:56 Estimat Average Glucose 123 04/30/23 03:54 Hemoglobin A1c 5.9 % (4.0-6.0) 04/30/23 03:54 Calculated Osmolality 305 mOsm/kg (285-295) H 05/02/23 03:15 Lactic Acid 1.2 mmol/L (0.5-2.2) 04/27/23 23:50 Calcium 7.7 mg/dL (8.5-10.5) L 05/04/23 03:56 Phosphorus 2.9 mg/dL (2.5-4.5) 05/04/23 03:56 Magnesium 1.5 mg/dL (1.7-2.3) L 05/03/23 04:08 Iron 14 ug/dL (59-158) L 04/30/23 03:54 TIBC 343 mcg/dl 04/30/23 03:54 % Saturation 4.0 % (20-50) L 04/30/23 03:54 Unsat Iron Binding 329 ug/dL (112-347) 04/30/23 03:54 Total Bilirubin 0.2 mg/dL (0.15-1.2) 05/02/23 03:15 AST 34 U/L (0-40) 05/02/23 03:15 ALT 51 U/L (0-41) H 05/02/23 03:15 Alkaline Phosphatase 71 U/L (40-130) 05/02/23 03:15 Creatine Kinase 69 U/L (39-308) 04/28/23 01:12 Troponin T Baseline 84 ng/L (0-15) H 04/27/23 23:13 Troponin T 120 Minute 78.71 ng/L (0-15) H 04/28/23 01:12 Delta Troponin T -5.29 ABS# (0-10) L 04/28/23 01:12 Troponin T Hi Sens 6Hr 76.52 ng/L (0-15) H 04/28/23 04:55 Troponin T Hi Sens 6Hr Delta -7.48 ng/L (0-12) L 04/28/23 04:55 NT-Pro-B Natriuret Pep 5529 pg/mL (0-125) H 04/30/23 03:54 Total Protein 5.9 g/dL (6.6-8.7) L 05/02/23 03:15 Albumin 3.4 g/dL (3.5-5.2) L 05/04/23 03:56 Globulin 2.7 g/dL (1.3-4.6) 05/02/23 03:15 Triglycerides 102 mg/dL (0-150) 05/01/23 03:49 Cholesterol 147 mg/dL (0-200) 05/01/23 03:49 LDL Cholesterol, Calc 39 mg/dL (50-129) L 05/01/23 03:49 Total VLDL Cholesterol 20 mg/dL (0-30) 05/01/23 03:49 HDL Cholesterol 88 mg/dL (60-100) 05/01/23 03:49 Cholesterol/HDL Ratio 1.67 mg/dL (1.0-5.00) 05/01/23 03:49 Vitamin B12 335 pg/mL (232-1245) 04/30/23 03:54 Folate 14.0 ng/mL (4.5-32.2) 05/01/23 03:49 TSH 0.41 uIU/mL (0.27-4.20) 04/30/23 03:54 Urine Color Yellow (Yellow) 04/28/23 12:55 Urine Appearance Clear (CLEAR) 04/28/23 12:55 Urine pH 5 (5-7) 04/28/23 12:55 Ur Specific Nahma 1.005 (1.005-1.030) 04/28/23 12:55 Urine Protein Neg (Negative) 04/28/23 12:55 Urine Glucose (UA) Norm (Normal) 04/28/23 12:55 Urine Ketones Negative (Negative) 04/28/23 12:55 Urine Blood 3+ (Negative) H 04/28/23 12:55 Urine Nitrate Negative (Negative) 04/28/23 12:55 Urine Bilirubin Neg (Negative) 04/28/23 12:55 Urine Urobilinogen Norm mg/dL (Negative) 04/28/23 12:55 Ur Leukocyte Esterase Negative (Negative) 04/28/23 12:55 Urine RBC 0-4 /hpf (0-2) H 04/28/23 12:55 Urine WBC 0-4 /hpf (0-5) H 04/28/23 12:55 Ur Squamous Epith Cells 0-4 /hpf (0-5) H 04/28/23 12:55 Amorphous Sediment Not Reportable 04/28/23 12:55 Urine Bacteria None /hpf (NONE) 04/28/23 12:55 Urine Opiates Screen Positive ng/mL (Negative) H 04/28/23 06:02 Ur Barbiturates Screen Negative ng/mL (Negative) 04/28/23 06:02 Ur Phencyclidine Scrn Negative ng/mL (Negative) 04/28/23 06:02 Ur Amphetamines Screen Negative ng/mL (Negative) 04/28/23 06:02 U Benzodiazepines Scrn Negative ng/mL (Negative) 04/28/23 06:02 Urine Cocaine Screen Negative ng/mL (Negative) 04/28/23 06:02 U Marijuana (THC) Screen Negative ng/mL (Negative) 04/28/23 06:02 SARS-CoV-2 Ag (Rapid) negative (Negative) 04/27/23 23:50 Procedures Performed None Vitals Last Vital Signs Temp 99.4 F 05/05/23 05:53 Pulse 105 H 05/05/23 08:28 Resp 16 05/05/23 08:28 BP 149/99 05/05/23 05:53 Pulse Ox 93 05/05/23 08:28 O2 Del Method Nasal Cannula 05/05/23 08:28 O2 Flow Rate 1.5 05/05/23 08:28 FiO2 4 05/04/23 20:00 Discharge Plan Discharge Patient Disposition: Home Condition: Stable Prescriptions: New tramadol 50 mg Tablet 50 mg PO Q6H PRN (Reason: Moderate Pain) 5 Days Qty: 15 0RF aspirin 81 mg Tablet,Delayed Release (Dr/Ec) 81 mg PO DAILY 30 Days Qty: 30 1RF prednisone 20 mg Tablet 40 mg PO DAILY 3 Days Qty: 3 0RF furosemide 40 mg Tablet 40 mg PO DAILY Qty: 30 1RF amiodarone 200 mg tablet 200 mg PO DAILY Qty: 30 1RF atorvastatin 40 mg Tablet 20 mg PO BEDTIME Qty: 30 1RF metoprolol succinate 25 mg Tablet Extended Release 24 Hr 25 mg PO DAILY 30 Days Qty: 30 1RF tamsulosin 0.4 mg Capsule 0.4 mg PO BID 30 Days Qty: 60 1RF albuterol sulfate 90 mcg/actuation HFA aerosol inhaler 1 inh inhalation Q4H PRN (Reason: shortness of breath or wheezing) 30 Days Qty: 8.5 1RF Continued fluticasone propion-salmeterol 250-50 mcg/dose blister with device 1 - 2 inh INHALATION BID 30 Days Qty: 0 0RF Discharge Orders: Discharge Order (Routine); Ordered 05/05/23 Ordered By: Jason Nieves Other Ambulatory Orders: DME: Oxygen (Order) Location: None Selected Ordered By: Jason Nieves DME: Wheelchair (Order) Location: None Selected Ordered By: Rajiv Murrieta Referrals: [facility] [Other] (This is a company in [place] that may be able to assist you with getting an electric w/c. They will need a face to face discussion w/ your primary care once you have established. ) [facility] [place] [facility] [place]) [Outside] Karie Veronica FNP [Nurse Practitioner] - 05/11/23 1:00 pm (You will see Karie Veronica @ the [address] [phone]) Discharge Diet: Advance as tolerated, Usual diet and Cardiac Discharge Activity: Resume usual activity, Increase activity as tolerated and As per PT/OT instructions Patient Instructions: Metoprolol (By mouth) (Lopressor, Toprol XL), Furosemide (By mouth) (Lasix), Albuterol (By breathing) (ProAir, AccuNeb, Proventil, Proventil..., Prednisone (By mouth) (predniSONE Intensol, Prednicot, Deltasone, Alfreda), Aspirin (By mouth) (Divina Extra Strength, Divina Aspirin Children's,..., Amiodarone (By mouth) (Cordarone, Pacerone), Tramadol (By mouth) (Ultram, Ultram ER, [place], Theratramadol-60, Qdolo), Atorvastatin (By mouth) (Lipitor, Atorvaliq), Tamsulosin (By mouth) (Flomax), Heart Failure (DC), CHF Stoplight, Opioid Safety Activity Restrictions/Additional Instructions: 1. Increase activity as tolerated. 2. Take medications as prescribed. 3. No operating machinery or driving while on opiates. 4. Daily weights. 5. 2 gm salt restriction 6. 2L fluid restriction Discharge Attestations Time Spent in Discharge Care*: greater than 30 min Status at Discharge: Cognitive status at discharge: cognitively intact, Behavioral status at discharge: cooperative, Quality Metrics Clinical Quality Measures [ No reported AMI, CVA or VTE this stay] Coding Level of Care Code Acute Code for Chg Fwd Diagnoses Acute on chronic renal failure N17.9; N18.9 Atrial fibrillation with RVR I48.91 Acute on chronic respiratory failure with hypercapnia J96.22 Acute exacerbation of chronic obstructive airways disease J44.1 Acute hyperkalemia E87.5 Smoking F17.200 Left ventricular systolic dysfunction (LVSD) I51.9 Systolic congestive heart failure I50.21 Heart failure chronicity: acute Debility R53.81 Abdominal pain R10.9
--- NOTE | 2023-05-05 13:39 | PC.NURSE ---
Discharge Note Patient discharged to home via POV accompanied by SPOUSE. Discharge instructions reviewed with patient and/or off premise service representative. Mobile pharmacy medications and/or prescriptions provided. Belongings/home medications returned.
== END 2023-05-05 13:41 | disposition home or self-care (01) | DRG 682 ==
LOC: ER 23:31 → ICU 04-28 01:57 → CSU 04-29 15:57
PROVIDERS: Hospitalist; Internal Medicine; Student in an Organized Health Care Education/Training Program; Admitting Provider Internal Medicine; Emergency Provider Emergency Medicine; Visit Provider Internal Medicine
DX: N17.9 Acute kidney failure, unspecified (principal); I50.21 Acute systolic (congestive) heart failure; J18.9 Pneumonia, unspecified organism; J96.20 Acute and chronic respiratory failure, unspecified whether with hypoxia or hypercapnia; I13.0 Hypertensive heart and chronic kidney disease with heart failure and stage 1 through stage 4 chronic kidney disease, or unspecified chronic kidney disease; J44.1 Chronic obstructive pulmonary disease with (acute) exacerbation; J44.0 Chronic obstructive pulmonary disease with (acute) lower respiratory infection; E87.20 Acidosis, unspecified; N13.30 Unspecified hydronephrosis; N18.30 Chronic kidney disease, stage 3 unspecified; E87.5 Hyperkalemia; I73.9 Peripheral vascular disease, unspecified; Z98.890 Other specified postprocedural states; Z89.611 Acquired absence of right leg above knee; F17.210 Nicotine dependence, cigarettes, uncomplicated; I48.91 Unspecified atrial fibrillation; Z79.51 Long term (current) use of inhaled steroids; Z93.3 Colostomy status; Z86.73 Personal history of transient ischemic attack (TIA), and cerebral infarction without residual deficits; E78.5 Hyperlipidemia, unspecified; F10.11 Alcohol abuse, in remission; R10.32 Left lower quadrant pain; R10.31 Right lower quadrant pain; G47.33 Obstructive sleep apnea (adult) (pediatric); M54.50 Low back pain, unspecified; N20.0 Calculus of kidney
CPT/HCPCS: 36415; 36600; 51702; 71045; 71250; 74018; 74176; 76700; 78452; 80048; 80053; 80061; 80069; 80306; 81001; 82550; 82607; 82746; 82803; 83036; 83540; 83550; 83605; 83735; 83880; 84132; 84443; 84484; 85025; 87040; 87070; 87205; 87426; 87641; 93005; 93017; 93306; 94640; 94660; 94664; 94760; 96365; 96367; 96372; 96375; 96376; 97116; 97161; 97165; 99291; A9500; C9113; J0282; J0456; J0610; J0612; J0696; J1644; J1815; J1940; J2270; J2785; J2930; J7030; J7050; J7060; J7512; J7626; Q0144; Q3014

== ENCOUNTER → 2023-05-11 13:45 | Outpatient (BNVA) | payer MEDICARE, MEDICAID, SELFPAY | PROVIDERS: Visit Provider Nurse Practitioner | DX: L02.91 Cutaneous abscess, unspecified | CPT/HCPCS: 87070 ==

== ENCOUNTER → 2023-06-22 14:47 | Outpatient (BNVA) | payer MEDICARE, MEDICAID, SELFPAY | PROVIDERS: PCP Nurse Practitioner; Visit Provider Nurse Practitioner | DX: R53.83 Other fatigue | CPT/HCPCS: 82607; 84443; 85025 ==